=== PATIENT | female | born 1940 | race Caucasian/White ===

== ENCOUNTER → 2016-10-23 | Outpatient (CLI) | payer OTHER ==
[~2016-10-23] VITALS: Ht 165.1 cm; Wt 94.8 kg
[~2016-10-23] MED LIST: ADV500INH INH; ALBU83IN INH; ALBUTEROL SULFATE 2.5 MG/0.5 ML INH NEB SOLN As Ordered ONE; ALBUTEROL SULFATE 2.5 MG/0.5 ML INH NEB SOLN INH ONE; BACT800T5 PO; CETI10TA PO; DILT240C77 PO; DILT360C2 PO; FERR325T3 PO; HUMA100I3 SC; INSULADS INJ; INSULADS SC; LIDOCAINE 2% INJ 100 MG/5 ML SDV (FOR ANES.) As Ordered ONE; MAGN400C2 PO; MOME50SP; NEXI40CA PO; NITR100C37 PO; NS 1,000 ML IV SCH; NYST100024 TOP; PARO20TA2 PO; PRAV40TA2 PO; PROA1AER INH; PROPOFOL 200 MG/20 ML VIAL As Ordered ONE; REST0.05 OP; SALI0.653; SENN-23 PO; SING10TA32 PO; SITA50TAB PO; TYLE325T5 PO; TYLE650T30 PO; VITA100037 PO; XARE15TA PO; albuterol neb INH; humalog SC; lantus insulin SC; nystatin powder TOP; proair inhaler INH
--- NOTE | 2016-10-23 12:14 | ROOR ---
Patient Name: Carmen Bryant Procedure Date: 10/23/2016 12:02 PM Date of : 1940 Age: 76 Room: [facility] Gender: Female Note Status: Finalized Procedure: Upper GI endoscopy + Biopsy Indications: Iron deficiency anemia, Dysphagia, Heartburn Providers: Ismael Garibay MD Referring MD: Vonnie Pack DO Requesting Provider: Medicines: Monitored Anesthesia Care Complications: No immediate complications. Procedure: Pre-Anesthesia Assessment: - The heart rate, respiratory rate, oxygen saturations, blood pressure, adequacy of pulmonary ventilation, and response to care were monitored throughout the procedure. The Endoscope was introduced through the mouth, and advanced to the second part of duodenum. The upper GI endoscopy was accomplished without difficulty. The patient tolerated the procedure well. Findings: The Z-line was regular and was found 40 cm from the incisors. Biopsies were taken with a cold forceps for histology. A small hiatal hernia was present. No other significant abnormalities were identified in a careful examination of the stomach. The exam of the duodenum was otherwise normal. Impression: - Z-line regular, 40 cm from the incisors. Biopsied. - Small hiatal hernia. - The examination was otherwise normal. Recommendation: - Await pathology results. - Discharge patient to home. - Follow an antireflux regimen. - Continue present medications. - Await pathology results. - Telephone GI clinic for pathology results in 1 week. - Return to referring physician. - The findings and recommendations were discussed with the patient's family. Ismael Garibay MD Ismael Garibay MD 10/23/2016 12:14:29 PM This report has been signed electronically. Number of Addenda: 0 Note Initiated On: 10/23/2016 12:02 PM Estimated Blood Loss: Estimated blood loss: none.
--- NOTE | 2016-10-23 12:31 | ROOR ---
Patient Name: Carmen Bryant Procedure Date: 10/23/2016 12:02 PM Date of : 1940 Age: 76 Room: [facility] Gender: Female Note Status: Finalized Procedure: Colonoscopy to Cecum Indications: Iron deficiency anemia Providers: Ismael Garibay MD Referring MD: Vonnie Pack DO Requesting Provider: Medicines: Monitored Anesthesia Care Complications: No immediate complications. Procedure: Pre-Anesthesia Assessment: - The heart rate, respiratory rate, oxygen saturations, blood pressure, adequacy of pulmonary ventilation, and response to care were monitored throughout the procedure. The Colonoscope was introduced through the anus and advanced to the cecum, identified by appendiceal orifice and ileocecal valve. The colonoscopy was performed without difficulty. The patient tolerated the procedure well. The quality of the bowel preparation was excellent. Findings: The perianal and digital rectal examinations were normal. Non-bleeding internal hemorrhoids were found during retroflexion. The hemorrhoids were small and Grade I (internal hemorrhoids that do not prolapse). Multiple small and large-mouthed diverticula were found in the recto-sigmoid colon, sigmoid colon and descending colon. The exam was otherwise without abnormality on direct and retroflexion views. Impression: - Non-bleeding internal hemorrhoids. - Diverticulosis in the recto-sigmoid colon, in the sigmoid colon and in the descending colon. - The examination was otherwise normal on direct and retroflexion views. - No specimens collected. - The exam was otherwise normal to the cecum. Recommendation: - Patient has a contact number available for emergencies. The signs and symptoms of potential delayed complications were discussed with the patient. Return to normal activities tomorrow. Written discharge instructions were provided to the patient. - High fiber diet. - Discharge patient to home. - Continue present medications. - Repeat colonoscopy symptoms only. - Return to referring physician. - The findings and recommendations were discussed with the patient's family. Ismael Garibay MD Ismael Garibay MD 10/23/2016 12:31:24 PM This report has been signed electronically. Number of Addenda: 0 Note Initiated On: 10/23/2016 12:02 PM Estimated Blood Loss: Estimated blood loss: none.
[2016-10-23 13:05] VITALS: BP 160/60
== END ==
LOC: M OPP 10:03
PROVIDERS: ATTEND Internal Medicine Gastroenterology
DX: D50.9 Iron deficiency anemia, unspecified (principal); K57.30 Diverticulosis of large intestine without perforation or abscess without bleeding; K44.9 Diaphragmatic hernia without obstruction or gangrene; K20.9 Esophagitis, unspecified; I48.91 Unspecified atrial fibrillation; I10 Essential (primary) hypertension; E78.00 Pure hypercholesterolemia, unspecified; E11.9 Type 2 diabetes mellitus without complications; R06.83 Snoring; Z95.5 Presence of coronary angioplasty implant and graft; Z87.891 Personal history of nicotine dependence; Z79.899 Other long term (current) drug therapy

== ENCOUNTER → 2017-02-09 | Outpatient (CLI) | payer OTHER ==
[~2017-02-09] MED LIST changes: -ALBUTEROL SULFATE 2.5 MG/0.5 ML INH NEB SOLN As Ordered ONE; -ALBUTEROL SULFATE 2.5 MG/0.5 ML INH NEB SOLN INH ONE; -LIDOCAINE 2% INJ 100 MG/5 ML SDV (FOR ANES.) As Ordered ONE; -NS 1,000 ML IV SCH; -PARO20TA2 PO; +PARO20TA3 PO; -PROPOFOL 200 MG/20 ML VIAL As Ordered ONE
--- NOTE | 2017-02-09 12:13 | REP ---
RENAL ULTRASOUND: Real-time sonographic evaluation of the right kidney performed within this patient with a history of left nephrectomy 2 years ago. The right kidney is normal in size and echotexture, measuring 12.2 x 5.5 x 5.5 cm. There is no hydronephrosis. Multiple cysts are seen of the right kidney, the largest in the lower pole measuring 3.5 x 3.2 x 3.3 cm. The next largest is in the mid aspect laterally 1.6 x 1.6 x 1.2 cm. There is no hydronephrosis or nephrolithiasis. The urinary bladder is mildly distended and not optimally evaluated. Left renal fossa appears unremarkable with no sonographic evidence of a mass. IMPRESSION: No right hydronephrosis. Right renal cysts. Signed by Avtar Snell MD 02/09/2017 01:42 P
== END ==
LOC: M RAD 11:17
PROVIDERS: ATTEND Internal Medicine Nephrology
DX: N17.9 Acute kidney failure, unspecified (principal); N39.0 Urinary tract infection, site not specified; N28.1 Cyst of kidney, acquired

== ENCOUNTER → 2017-02-16 | Outpatient (REF) | payer OTHER ==
[2017-02-19 10:22] LABS: HEPATITIS B SURFACE ANTIBODY NEGATIVE (POSITIVE)
== END ==
LOC: M LAB REF 17:21
PROVIDERS: ATTEND Internal Medicine Nephrology
DX: N18.6 End stage renal disease (principal)

== ENCOUNTER 2017-02-17 08:12 | Outpatient (CLI) | payer OTHER ==
[~2017-02-17] VITALS: Ht 165.1 cm; Wt 95.9 kg
[2017-02-17 08:30] VITALS: BP 179/60
[2017-02-17] MEDS ORDERED: cefTRIAXone SOD 2 GM in D5W MINI-BAG PLUS 50 ML IV ONE (09:00)
== END 2017-02-17 10:35 | disposition home or self-care (01) ==
LOC: M OPCLIPED 08:12 → M MSPAV 08:15 → M OPCLIPED 10:35
PROVIDERS: ATTEND Internal Medicine Nephrology
DX: N39.0 Urinary tract infection, site not specified (principal)
CPT/HCPCS: 96365; J0696

== ENCOUNTER 2017-02-18 08:02 | Outpatient (CLI) | payer OTHER ==
[~2017-02-18] VITALS: Ht 165.1 cm; Wt 95.9 kg
[2017-02-18] MEDS ORDERED: cefTRIAXone SOD 2 GM in D5W MINI-BAG PLUS 50 ML IV ONE (08:30)
[2017-02-18 09:00] VITALS: BP 172/58
[2017-02-18 11:00] VITALS: BP 170/58
== END 2017-02-18 10:19 | disposition home or self-care (01) ==
LOC: M OPCLI4PV 08:02 → M MSPAV 08:05 → M OPCLI4PV 10:19
PROVIDERS: ATTEND Internal Medicine Nephrology
DX: N39.0 Urinary tract infection, site not specified (principal)
CPT/HCPCS: 96374; J0696

== ENCOUNTER 2017-02-19 07:56 | Outpatient (CLI) | payer OTHER ==
[~2017-02-19] VITALS: Ht 165.1 cm; Wt 95.9 kg
[2017-02-19] MEDS ORDERED: cefTRIAXone SOD 2 GM in D5W MINI-BAG PLUS 50 ML IV ONE (08:30)
[2017-02-19 08:35] VITALS: BP 162/68
[2017-03-02] MEDS ORDERED: FURO20TA2 (11:45)
[2017-03-02] MEDS ORDERED: AUGM875T27 PO (12:53)
== END 2017-02-19 10:41 | disposition home or self-care (01) ==
LOC: M OPCLI4PV 07:56 → M OPCLIPED 07:56 → M MSPAV 08:11 → M OPCLI4PV 10:41
PROVIDERS: ATTEND Internal Medicine Nephrology
DX: N10 Acute pyelonephritis (principal); Z88.1 Allergy status to other antibiotic agents; Z91.048 Other nonmedicinal substance allergy status
CPT/HCPCS: 96374; J0696

== ENCOUNTER 2017-02-20 09:59 | Outpatient (CLI) | payer OTHER ==
[~2017-02-20] VITALS: Ht 165.1 cm; Wt 95.9 kg
[~2017-02-20 09:59] MED LIST changes: -NITR100C37 PO; +NITR100C39 PO; -NYST100024 TOP; +NYST1POW9 TOP; -PROA1AER INH; +PROAAER10 INH; -REST0.05 OP; +REST0.05 OU; +SALI0.6523; -SALI0.653; -VITA100037 PO; +VITA100067 PO
[2017-02-20 10:10] VITALS: BP 170/62
[2017-02-20] MEDS ORDERED: cefTRIAXone SOD 2 GM in D5W MINI-BAG PLUS 50 ML IV ONE (10:30)
[2017-02-20 13:15] VITALS: BP 174/64
[2017-03-19] MEDS ORDERED: MOME50SP (11:09)
[2017-03-19] MEDS ORDERED: DILT360C16 PO (11:09)
[2017-03-19] MEDS ORDERED: TYLE650T35 PO (11:09)
[2017-03-19] MEDS ORDERED: ADV500INH INH (11:09)
[2017-03-19] MEDS ORDERED: XARE15TA PO (11:09)
[2017-03-19] MEDS ORDERED: SITA50TAB PO (11:09)
[2017-03-19] MEDS ORDERED: ELIQ2.5T PO (12:14)
== END 2017-02-20 13:20 | disposition home or self-care (01) ==
LOC: M OPCLIPED 09:59 → M PED 10:06 → M OPCLIPED 13:20
PROVIDERS: ATTEND Internal Medicine Nephrology
DX: N10 Acute pyelonephritis (principal); B96.20 Unspecified Escherichia coli [E. coli] as the cause of diseases classified elsewhere; Z88.1 Allergy status to other antibiotic agents; Z91.048 Other nonmedicinal substance allergy status; Z79.899 Other long term (current) drug therapy
CPT/HCPCS: 96365; J0696

== ENCOUNTER 2017-02-21 09:07 | Outpatient (CLI) | payer OTHER ==
[2017-02-21] MEDS ORDERED: cefTRIAXone SOD 2 GM in D5W MINI-BAG PLUS 50 ML IV ONE (09:45)
[2017-03-19] MEDS ORDERED: XARE15TA PO (11:09)
[2017-03-19] MEDS ORDERED: SITA50TAB PO (11:09)
[2017-03-19] MEDS ORDERED: ADV500INH INH (11:09)
[2017-03-19] MEDS ORDERED: DILT360C16 PO (11:09)
[2017-03-19] MEDS ORDERED: MOME50SP (11:09)
[2017-03-19] MEDS ORDERED: TYLE650T35 PO (11:09)
[2017-03-19] MEDS ORDERED: ELIQ2.5T PO (12:14)
== END 2017-02-21 10:45 | disposition home or self-care (01) ==
LOC: M INFU 09:07
PROVIDERS: ATTEND Internal Medicine Nephrology
DX: N10 Acute pyelonephritis (principal); B96.20 Unspecified Escherichia coli [E. coli] as the cause of diseases classified elsewhere; Z88.1 Allergy status to other antibiotic agents; Z91.048 Other nonmedicinal substance allergy status; Z79.899 Other long term (current) drug therapy
CPT/HCPCS: 96365; J0696

== ENCOUNTER 2017-02-22 08:37 | Outpatient (CLI) | payer OTHER ==
[~2017-02-22] VITALS: Ht 165.1 cm; Wt 95.9 kg
[~2017-02-22 08:37] MED LIST changes: +cefTRIAXone SOD 2 GM in D5W MINI-BAG PLUS 50 ML IV ONE
[2017-03-19] MEDS ORDERED: ADV500INH INH (11:09)
[2017-03-19] MEDS ORDERED: SITA50TAB PO (11:09)
[2017-03-19] MEDS ORDERED: TYLE650T35 PO (11:09)
[2017-03-19] MEDS ORDERED: MOME50SP (11:09)
[2017-03-19] MEDS ORDERED: DILT360C16 PO (11:09)
[2017-03-19] MEDS ORDERED: XARE15TA PO (11:09)
[2017-03-19] MEDS ORDERED: ELIQ2.5T PO (12:14)
== END 2017-02-22 09:30 | disposition home or self-care (01) ==
LOC: M INFU 08:37
PROVIDERS: ATTEND Internal Medicine Nephrology
DX: N10 Acute pyelonephritis (principal); B96.20 Unspecified Escherichia coli [E. coli] as the cause of diseases classified elsewhere; Z88.1 Allergy status to other antibiotic agents; Z91.048 Other nonmedicinal substance allergy status; Z79.899 Other long term (current) drug therapy
CPT/HCPCS: 96365; J0696

== ENCOUNTER 2017-02-23 10:19 | Outpatient (CLI) | payer OTHER ==
[~2017-02-23] VITALS: Ht 165.1 cm; Wt 95.9 kg
[~2017-02-23 10:19] MED LIST changes: +NITR100C37 PO; -NITR100C39 PO; +NYST100024 TOP; -NYST1POW9 TOP; +PROA1AER INH; -PROAAER10 INH; +REST0.05 OP; -REST0.05 OU; -SALI0.6523; +SALI0.653; +VITA100037 PO; -VITA100067 PO; -cefTRIAXone SOD 2 GM in D5W MINI-BAG PLUS 50 ML IV ONE
[2017-02-23] MEDS ORDERED: cefTRIAXone SOD 2 GM in D5W MINI-BAG PLUS 50 ML IV ONE (10:30)
[2017-03-02] MEDS ORDERED: FURO20TA2 (11:45)
[2017-03-02] MEDS ORDERED: AUGM875T27 PO (12:53)
== END 2017-02-23 11:20 | disposition home or self-care (01) ==
LOC: M INFU 10:19
PROVIDERS: ATTEND Internal Medicine Nephrology
DX: N10 Acute pyelonephritis (principal); Z88.1 Allergy status to other antibiotic agents; Z91.048 Other nonmedicinal substance allergy status; Z79.899 Other long term (current) drug therapy
CPT/HCPCS: 96365; J0696

== ENCOUNTER 2017-02-24 08:51 | Outpatient (CLI) | payer OTHER ==
[2017-02-24 09:15] VITALS: BP 170/80
[2017-02-24] MEDS ORDERED: cefTRIAXone SOD 2 GM in D5W MINI-BAG PLUS 50 ML IV ONE (09:30)
[2017-02-24 10:38] VITALS: BP 166/58
[2017-03-02] MEDS ORDERED: FURO20TA2 (11:45)
[2017-03-02] MEDS ORDERED: AUGM875T27 PO (12:53)
== END 2017-02-24 10:40 | disposition home or self-care (01) ==
LOC: M OPCLI5PR 08:51 → M INFU 08:51 → M MS5PR 09:00 → M OPCLI5PR 10:40
PROVIDERS: ATTEND Internal Medicine Nephrology
DX: N10 Acute pyelonephritis (principal); Z88.1 Allergy status to other antibiotic agents; Z91.048 Other nonmedicinal substance allergy status; Z79.899 Other long term (current) drug therapy
CPT/HCPCS: 96365; J0696

== ENCOUNTER 2017-02-25 08:51 | Outpatient (CLI) | payer OTHER ==
[2017-02-25 09:00] VITALS: BP 158/80
[2017-02-25] MEDS ORDERED: cefTRIAXone SOD 2 GM in D5W MINI-BAG PLUS 50 ML IV ONE (10:00)
[2017-03-02] MEDS ORDERED: FURO20TA2 (11:45)
[2017-03-02] MEDS ORDERED: AUGM875T27 PO (12:53)
== END 2017-02-25 11:07 | disposition home or self-care (01) ==
LOC: M OPCLIPED 08:51 → M MSPAV 08:53 → M OPCLIPED 11:07
PROVIDERS: ATTEND Internal Medicine Nephrology
DX: N10 Acute pyelonephritis (principal); Z88.1 Allergy status to other antibiotic agents; Z91.048 Other nonmedicinal substance allergy status; Z79.899 Other long term (current) drug therapy
CPT/HCPCS: 96374; J0696

== ENCOUNTER 2017-02-26 08:39 | Outpatient (CLI) | payer OTHER ==
[~2017-02-26] VITALS: Ht 165.1 cm; Wt 95.9 kg
[~2017-02-26 08:39] MED LIST changes: -AUGM875T27 PO; -ELIQ2.5T; -FURO20TA2
[2017-02-26] MEDS ORDERED: cefTRIAXone SOD 2 GM in D5W MINI-BAG PLUS 50 ML IV ONE (08:45)
[2017-03-02] MEDS ORDERED: FURO20TA2 (11:45)
[2017-03-02] MEDS ORDERED: AUGM875T27 PO (12:53)
== END 2017-02-26 09:30 | disposition home or self-care (01) ==
LOC: M INFU 08:39
PROVIDERS: ATTEND Internal Medicine Nephrology
DX: N10 Acute pyelonephritis (principal); Z88.1 Allergy status to other antibiotic agents; Z91.048 Other nonmedicinal substance allergy status; Z79.899 Other long term (current) drug therapy
CPT/HCPCS: 85610; 96365; J0696

== ENCOUNTER → 2017-02-26 | Outpatient (REF) | payer OTHER ==
[~2017-02-26] MED LIST changes: +AUGM875T27 PO; +ELIQ2.5T; +FURO20TA2
[2017-02-26 18:18] LABS: INR 1.1
== END ==
LOC: M LAB REF 17:27
PROVIDERS: ATTEND Internal Medicine Nephrology
DX: R31.9 Hematuria, unspecified (principal)

== ENCOUNTER 2017-03-02 11:28 | Emergency (ER) | payer OTHER ==
[~2017-03-02] VITALS: Ht 165.1 cm; Wt 95.9 kg
[~2017-03-02 11:28] MED LIST changes: -NITR100C37 PO; +NITR100C39 PO; -NYST100024 TOP; +NYST1POW9 TOP; -PROA1AER INH; +PROAAER10 INH; -REST0.05 OP; +REST0.05 OU; +SALI0.6523; -SALI0.653; -VITA100037 PO; +VITA100067 PO
[2017-03-02] MEDS ORDERED: ELIQ2.5T (11:45)
[2017-03-02] MEDS ORDERED: FURO20TA2 PO (11:45)
[2017-03-02] MEDS ORDERED: LIDOCAINE 1% MDV 20ML VIAL As Ordered ONE (12:14)
[2017-03-02] MEDS ORDERED: LIDOCAINE W/EPINEPHRINE 1% 20ML VIAL SC ONE (12:15)
[2017-03-02] MEDS ORDERED: AUGM875T28 PO (12:53)
[2017-03-02] MEDS ORDERED: ADACEL/BOOSTRIX VACCINE (DIPHTH/PERTUSS/ACELL/TETANUS)0.5ML SYR (90715) IM ONE (13:00)
[2017-03-02 13:03] VITALS: BP 193/86
[2017-03-19] MEDS ORDERED: TYLE650T35 PO (11:09)
[2017-03-19] MEDS ORDERED: DILT360C16 PO (11:09)
[2017-03-19] MEDS ORDERED: SITA50TAB PO (11:09)
[2017-03-19] MEDS ORDERED: MOME50SP (11:09)
[2017-03-19] MEDS ORDERED: ADV500INH INH (11:09)
[2017-03-19] MEDS ORDERED: XARE15TA PO (11:09)
[2017-03-19] MEDS ORDERED: ELIQ2.5T PO (12:14)
== END 2017-03-02 13:05 | disposition home or self-care (01) ==
LOC: M ED 12:50
DX: S91.341A Puncture wound with foreign body, right foot, initial encounter (principal); W25.XXXA Contact with sharp glass, initial encounter; Y92.019 Unspecified place in single-family (private) house as the place of occurrence of the external cause; Y93.01 Activity, walking, marching and hiking; Y99.8 Other external cause status; E11.9 Type 2 diabetes mellitus without complications; I10 Essential (primary) hypertension; E78.00 Pure hypercholesterolemia, unspecified; J45.909 Unspecified asthma, uncomplicated; G47.30 Sleep apnea, unspecified; Z87.442 Personal history of urinary calculi; Z90.79 Acquired absence of other genital organ(s); Z90.89 Acquired absence of other organs

== ENCOUNTER → 2017-03-07 | Outpatient (CLI) | payer OTHER ==
[~2017-03-07] MED LIST changes: +AUGM875T28 PO; +DILT360C16 PO; +ELIQ2.5T; +ELIQ2.5T PO; +FURO20TA2 PO; +HEPARIN 1,000 UNITS/ML 10ML VIAL (FOR RADIOLOGY& DIALYSIS ONLY) As Ordered ONE; +LIDOCAINE 2% MDV 20 ML VIAL As Ordered ONE; +TYLE650T35 PO
--- NOTE | 2017-03-07 17:48 | REPKIM ---
CLINICAL HISTORY: Renal failure, h/o atrial flutter, DM, HTN and sleep apnea. The referring service has requested a tunneled dialysis catheter placement for hemodialysis. PROCEDURE PERFORMED: Right IJ Tunneled Hemodialysis Catheter Placement INTERVENTIONALIST: Marietta Bingham MD CONSENT: The risks, benefits and alternatives to the procedure were explained to the patient and informed written consent was obtained and witnessed. MEDICATIONS: Local Lidocaine EBL: 10 mL DEVICE USED: 14.5-Kyrgyz 19-cm tip to cuff Palindrome Catheter Lot#[id number] FLUORO TIME: 0.4 minutes PROCEDURE/FINDINGS: The patient was brought to the interventional radiology suite where a timeout procedure was performed. The patient was placed in the supine position. The right neck and upper chest were prepped and draped in the usual sterile fashion. Real time ultrasound was used and permanent image stored. Using ultrasound guidance the internal jugular vein was punctured with a micropunture needle, after infiltration of the skin and deep tissues with local anesthetic. A 19-cm tip to cuff length, 14.5-Kyrgyz dual lumen Palindrome hemodialysis catheter was inserted. The catheter was placed through a subcutaneous tunnel requiring a second incision. The incision at the base of the neck was closed with 4-0 Vicryl suture and covered with steristrips. The catheter was secured at the skin exit site with 2-0 Prolene suture. The ports of the catheter were locked with heparin (1000 units/mL). A sterile dressing was then applied. Post procedure chest fluoroscopy showed the tip of the catheter at the SVC The patient tolerated the procedure with no immediate complications. This procedure was performed using ultrasound and fluoroscopy. Dr. Bingham was present. IMPRESSION: 1. Ultrasound of the neck demonstrates patent right IJ vein and compressible. The right IJ is small in size. 2. Successful right IJ tunneled hemodialysis catheter placement as discussed above. There is free aspiration of blood from all ports of the catheter. The catheter is ready for immediate use. cc: Elmer Daughrety MD [facility]
== END | disposition home or self-care (01) ==
LOC: M IRPRO 12:29
PROVIDERS: ATTEND Internal Medicine Nephrology
DX: E11.22 Type 2 diabetes mellitus with diabetic chronic kidney disease (principal); I12.0 Hypertensive chronic kidney disease with stage 5 chronic kidney disease or end stage renal disease; N18.5 Chronic kidney disease, stage 5; G47.30 Sleep apnea, unspecified
CPT/HCPCS: 36558; 76937; 77001; C1750; C1769; C1894

== ENCOUNTER → 2017-03-22 | Day surgery (SDC) | payer OTHER ==
[~2017-03-22] VITALS: Ht 167.6 cm; Wt 95.7 kg
[~2017-03-22] MED LIST changes: +ALBUTEROL SULFATE 2.5 MG/0.5 ML INH NEB SOLN As Ordered ONE; +ALBUTEROL SULFATE 2.5 MG/0.5 ML INH NEB SOLN INH ONE; +BUPIVACAINE HCL 0.5% 30 ML VIAL As Ordered ONE; +D5W/0.2% SODIUM CHLORIDE 1,000 ML IV SCH; -HEPARIN 1,000 UNITS/ML 10ML VIAL (FOR RADIOLOGY& DIALYSIS ONLY) As Ordered ONE; +HEPARIN SOD (PORCINE) 5000 UNITS/ML VIAL As Ordered ONE; +HumaLOG INSULIN (NovoLOG) PER UNIT As Ordered ONE; +HumaLOG INSULIN (NovoLOG) PER UNIT SC ONE; +ISOVUE-300 61% 50ML VIAL (Q9967) As Ordered ONE; +LIDOCAINE 1% SDV INJ 30 ML VIAL As Ordered ONE; +LIDOCAINE 2% INJ 100 MG/5 ML SDV (FOR ANES.) As Ordered ONE; -LIDOCAINE 2% MDV 20 ML VIAL As Ordered ONE; +LR 1,000 ML IV ONE; +NS 1,000 ML IV SCH; +ONDANSETRON 4MG/2ML VIAL (J2405) As Ordered ONE; +PROPOFOL 200 MG/20 ML VIAL As Ordered ONE; +fentaNYL 100 MCG/2 ML INJECTION (J3010) As Ordered ONE
[2017-03-22 11:40] VITALS: BP 166/72
--- NOTE | 2017-03-24 08:15 | RO ---
DATE OF PROCEDURE: 03/22/2017 PREOPERATIVE DIAGNOSES: 1. End-stage renal disease requiring hemodialysis. 2. Diabetes mellitus. 3. Right internal jugular vein PermaCath. POSTPROCEDURE DIAGNOSES: 1. End-stage renal disease requiring hemodialysis. 2. Diabetes mellitus. 3. Right internal jugular vein PermaCath. PROCEDURE: Left radiocephalic arteriovenous fistula formation. SURGEON: Jermaine Yepez MD QUALITY CONTROL MANAGER: None. ANESTHESIA: Local monitored anesthesia care (MAC). INDICATION: Patient is a 77-year-old female with end-stage renal disease who currently dialyzes through a right internal jugular PermaCath. Patient was evaluated and felt to be a good candidate for a left radiocephalic arteriovenous fistula. Risks, benefits, and alternative treatment options were discussed with the patient. Alternative treatment options included, but were not limited to no intervention with continued dialysis through the PermaCath. Risks included, but were not limited to infection, bleeding, possible need for further open surgical intervention, failure of arteriovenous fistula maintaining patency with thrombosis, failure of arteriovenous fistula to mature requiring secondary intervention, possible need for creation of a new access steal syndrome, cerebrovascular accident, myocardial infarction, pulmonary embolus, deep venous thrombosis (DVT), loss of limb, loss of life, and poor outcome. Patient understands, accepts these risks and consents to proceed. ESTIMATED BLOOD LOSS: 25 mL. IV FLUID: 200 mL. HEPARIN: None. COMPLICATIONS: None. SPECIMENS: None. IMPLANTS: None. DESCRIPTION OF PROCEDURE: Patient was taken to the operating room and placed supine on the operating room table and then prepped and draped in a standard surgical fashion. Two incisions were made at the left wrist, one overlying the cephalic vein, one overlying the radial artery. Both of these were dissected sharply and exposed, and then encircled with vessel loops. The cephalic vein was transected as far distal as possible with the remnant ligated with a #3-0 silk suture. The cephalic vein was then dilated using heparinized saline and then brought through the two incisions through a tunnel to the radial artery. It was then anastomosed to the radial artery in an end-to-side fashion using #6-0 Prolene suture. Flow was re-established through the radial artery and showed good flow into the cephalic vein with good signal on Doppler ultrasound evaluation. Hemostasis was obtained with thrombin and Gelfoam, after which, the incisions were closed using #4-0 Monocryl suture in a running subcuticular fashion to close both incisions. Steri-Strips and dressings were applied. The patient tolerated the procedure well. All instrument, sponge and needle counts were correct at the end of the case. There were no complications. Dr. Yepez was present for and directed the entire case. The patient was transferred to the recovery room, awake, alert, extubated and in stable condition.
== END | disposition home or self-care (01) ==
LOC: M SDC 07:27
PROVIDERS: ATTEND Surgery Vascular Surgery
DX: N18.5 Chronic kidney disease, stage 5 (principal); E11.22 Type 2 diabetes mellitus with diabetic chronic kidney disease; E11.21 Type 2 diabetes mellitus with diabetic nephropathy; N11.9 Chronic tubulo-interstitial nephritis, unspecified; N25.81 Secondary hyperparathyroidism of renal origin; D63.1 Anemia in chronic kidney disease; I15.0 Renovascular hypertension; I48.91 Unspecified atrial fibrillation; I48.92 Unspecified atrial flutter; J45.909 Unspecified asthma, uncomplicated; B35.4 Tinea corporis; I25.41 Coronary artery aneurysm; E78.00 Pure hypercholesterolemia, unspecified; R06.83 Snoring; R32 Unspecified urinary incontinence; R29.898 Other symptoms and signs involving the musculoskeletal system; J32.0 Chronic maxillary sinusitis; K21.9 Gastro-esophageal reflux disease without esophagitis; G47.30 Sleep apnea, unspecified; Z88.1 Allergy status to other antibiotic agents; Z88.8 Allergy status to other drugs, medicaments and biological substances; Z79.899 Other long term (current) drug therapy; Z79.01 Long term (current) use of anticoagulants; Z87.891 Personal history of nicotine dependence; Z87.442 Personal history of urinary calculi; Z90.710 Acquired absence of both cervix and uterus; Z96.1 Presence of intraocular lens; M12.9 Arthropathy, unspecified; Z87.440 Personal history of urinary (tract) infections; Z95.5 Presence of coronary angioplasty implant and graft; Z91.09 Other allergy status, other than to drugs and biological substances
CPT/HCPCS: 36415; 36821; 84132; J2405; J3010

== ENCOUNTER → 2017-04-06 | Outpatient (CLI) | payer OTHER ==
[~2017-04-06] MED LIST changes: -ALBUTEROL SULFATE 2.5 MG/0.5 ML INH NEB SOLN As Ordered ONE; -ALBUTEROL SULFATE 2.5 MG/0.5 ML INH NEB SOLN INH ONE; -BUPIVACAINE HCL 0.5% 30 ML VIAL As Ordered ONE; -D5W/0.2% SODIUM CHLORIDE 1,000 ML IV SCH; +HEPARIN 1,000 UNITS/ML 10ML VIAL (FOR RADIOLOGY& DIALYSIS ONLY) As Ordered ONE; -HEPARIN SOD (PORCINE) 5000 UNITS/ML VIAL As Ordered ONE; -HumaLOG INSULIN (NovoLOG) PER UNIT As Ordered ONE; -HumaLOG INSULIN (NovoLOG) PER UNIT SC ONE; -LIDOCAINE 1% SDV INJ 30 ML VIAL As Ordered ONE; -LIDOCAINE 2% INJ 100 MG/5 ML SDV (FOR ANES.) As Ordered ONE; -LR 1,000 ML IV ONE; +MIDAZOLAM INJ 2 MG/2 ML VIAL (J2250) As Ordered ONE; -NS 1,000 ML IV SCH; -ONDANSETRON 4MG/2ML VIAL (J2405) As Ordered ONE; -PROPOFOL 200 MG/20 ML VIAL As Ordered ONE
--- NOTE | 2017-04-06 16:48 | REP ---
IMAGING DURING LEFT ARM ANGIOGRAM: Multiple images are performed during left arm angiogram. 0.2 minutes of fluoroscopy time utilized for the procedure. Signed by Avtar Snell MD 04/06/2017 04:52 P
--- NOTE | 2017-04-20 10:48 | REPKIM ---
DATE OF PROCEDURE: 04/06/2017 PREPROCEDURE DIAGNOSIS: End-stage renal disease, nonmaturing left radiocephalic arteriovenous fistula, right internal jugular vein PermCath. POSTPROCEDURE DIAGNOSIS: End-stage renal disease, nonmaturing left radiocephalic arteriovenous fistula, right internal jugular vein PermCath. PROCEDURE: Left radiocephalic arteriovenous fistulogram, retrograde left radial artery angiogram. SURGEON: Dr. Wilfredo Yepez COMMERCIAL HELICOPTER PILOT: Kirstin Vega ANESTHESIA: Local. ESTIMATED BLOOD LOSS: Minimal. IV FLUID: 100 mL. FLUORO TIME: 0.2 minutes. CONTRAST: 2 mL. HEPARIN: None. COMPLICATIONS: None. DRAINS: None. SPECIMENS: None. IMPLANTS: None. INDICATION: The patient is a 77-year-old female who underwent creation of a left radiocephalic arteriovenous fistula, which is nonmaturing and unusable for hemodialysis at this time. Patient currently dialyzes through a right internal jugular vein PermCath. The patient will undergo a fistulogram with possible angioplasty and/or stent. Risks, benefits and alternative treatment options were discussed with the patient. Alternative treatment options included but were not limited to no intervention. Benefits included but were not limited to improved size and flow through the fistula making the fistula usable for hemodialysis. Risks included but were not limited to infection, bleeding, loss of arteriovenous access, steal syndrome, possible need for open surgical intervention, possible need for further endovascular intervention, cerebrovascular accident, myocardial infarction, pulmonary embolus, deep vein thrombosis (DVT), loss of limb, loss of life and poor outcome. Patient understands, accepts these risks and consents to proceed. DESCRIPTION OF PROCEDURE: Patient was taken to the angiography suite, placed supine on the angiography room table and the left upper extremity was prepped and draped in the standard surgical fashion. The arteriovenous fistula was cannulated with a micropuncture needle after anesthetizing the overlying skin with 2% lidocaine. The micropuncture sheath was advanced over the micropuncture wire and a fistulogram and retrograde left radial artery angiogram were performed showing no intervention required at this time. The sheath was removed and manual compression applied for hemostasis. Dressings were then applied. The patient tolerated the procedure well. All instrument, sponge and needle counts were correct at the end of the case. There were no complications. Dr. Yepez was present for and directed the entire case. The patient was transferred to the holding area and subsequently discharged in stable condition. RADIOLOGIC SUPERVISION INTERPRETATION: Fistulogram showed the cephalic vein from the wrist to the upper arm to be widely patent. The retrograde left radial artery angiogram showed the arteriovenous anastomosis to be patent, and there was a large collateral originating off the cephalic vein at the wrist and coursing into the deeper venous system. CONCLUSION: The patient underwent a fistulogram and retrograde left radial artery angiogram showing the cephalic vein to be enlarging in size and not requiring any intervention at this time.
== END | disposition home or self-care (01) ==
LOC: M RADPRO 11:49 → M IRPRO 11:49
PROVIDERS: ATTEND Surgery Vascular Surgery
DX: T82.898A Other specified complication of vascular prosthetic devices, implants and grafts, initial encounter (principal); N18.6 End stage renal disease; Z99.2 Dependence on renal dialysis
CPT/HCPCS: 36901; C1894; Q9967

== ENCOUNTER → 2017-05-15 | Outpatient (CLI) | payer OTHER ==
[~2017-05-15] MED LIST changes: -MIDAZOLAM INJ 2 MG/2 ML VIAL (J2250) As Ordered ONE; -fentaNYL 100 MCG/2 ML INJECTION (J3010) As Ordered ONE
--- NOTE | 2017-05-16 08:06 | REPKIM ---
DATE OF PROCEDURE: 05/15/2017 PREPROCEDURE DIAGNOSES: End stage renal disease, non-maturing left brachiocephalic arterial venous fistula, right internal jugular vein PermCath. POSTPROCEDURE DIAGNOSES: End stage renal disease, non-maturing left brachiocephalic arterial venous fistula, right internal jugular vein PermCath. PROCEDURE: Left brachiocephalic arterial venous fistulogram, left cephalic vein angioplasty with 7 x 150 mm balloon. SURGEON: Dr. Jermaine Yepez. MIXER OPERATOR HOT METAL: Kirstin Escoto, RT ANESTHESIA: Local with 1 mL of 2% lidocaine. ESTIMATED BLOOD LOSS: FLUORO TIME: 0.0 CONTRAST: 2 mL. HEPARIN: None. COMPLICATIONS: None. DRAINS: None. SPECIMENS: None. IMPLANTS: None. INDICATION: The patient is a 77-year-old female who underwent creation of a left brachiocephalic arterial venous fistula which has been slow to mature and at this point unable to be used for hemodialysis. Patient is currently dialyzing through a right internal jugular vein PermCath. Patient will undergo a fistulogram with possible angioplasty and/or stent. Risks, benefits and alternative treatment options were discussed with the patient. Benefits included but were not limited to improved size of flow through the fistula with ability to use the fistula and undergo removal of the PermCath. Alternative treatment options included but were not limited to no intervention. Risks included but were not limited to infection, bleeding, loss of arterial venous access, possible need for open surgical intervention, steal syndrome, cerebrovascular accident, myocardial infarction, pulmonary embolus, deep venous thrombosis, loss of limb, loss of life, and poor outcome. Patient's questions were answered. Patient voices understanding of these risks, benefits and alternative treatment options. Patient agrees to proceed with a left brachiocephalic arteriovenous fistulogram with possible angioplasty and stent and accepts the associated risks. PROCEDURE: The patient was taken to the angiography suite and placed supine on the angiography room table and the left upper extremity was prepped and draped in the standard surgical fashion. A time out was then conducted by myself and the team members within the room confirming the correct patient, procedure and laterality. The left brachiocephalic arterial venous fistula was then cannulated with a micropuncture needle after anesthetizing the overlying skin with 2% lidocaine. The micropuncture wire was advanced through the micropuncture needle which was upsized to a micropuncture sheath. A fistulogram was performed showing the cephalic vein to be patent to the antecubital fossa where there was a large cephalic vein going into the upper arm but between the antecubital fossa and the puncture site, the cephalic vein was small and sclerotic. The [place] wire was advanced through the micropuncture sheath which was upsized to a #6-Bahraini sheath. A 7 x 150 mm balloon was then used to angioplasty the cephalic vein from the puncture site at the wrist to the antecubital fossa. The patient was unable to undergo sedation due to driving herself to the procedure and the balloon was only minimally inflated due to discomfort in the patient's arm. The balloon was then removed and a completion fistulogram performed showing improved size of flow through the fistula with a stronger thrill palpable. There were also a large number of collaterals originating off the cephalic vein and coursing into the deeper venous system along the forearm. Catheters and wires were removed. A #2-0 Prolene suture was then placed at the puncture site for hemostasis. Dressings were applied. Patient tolerated the procedure well. All instrument, sponge and needle counts were correct at the end of the case. There were no complications. Dr. Yepez was present for and directed the entire case. Patient was transferred to the holding area and subsequently discharged in stable condition. RADIOLOGIC SUPERVISION INTERPRETATION: The initial fistulogram showed two large collaterals originating off the cephalic vein and coursing into the deeper venous system of the forearm and upper arm. The cephalic vein from the puncture site at the wrist to the antecubital fossa was noted to be slightly small and sclerotic with areas of stenosis approximately 60-70% relatively to the cephalic vein at the wrist and at the antecubital fossa. The cephalic vein was then angioplastied with a 7 x 150 balloon with inability to fully inflate the balloon to high pressure due to discomfort in the patient's arm and her inability to undergo sedation since she drove herself to the procedure. A completion fistulogram was performed showing better flow through the main outflow channel of the cephalic vein which was improved in size and showed resolution of the stenoses but there was still some visualization of filling of the collateral veins in the forearm region.
== END | disposition home or self-care (01) ==
LOC: M IRPRO 07:28
PROVIDERS: ATTEND Surgery Vascular Surgery
DX: T82.858A Stenosis of other vascular prosthetic devices, implants and grafts, initial encounter (principal); N18.6 End stage renal disease; I87.8 Other specified disorders of veins; Z99.2 Dependence on renal dialysis
CPT/HCPCS: 36902; C1725; C1769; C1894; Q9967

== ENCOUNTER → 2017-06-12 | Outpatient (CLI) | payer OTHER ==
[~2017-06-12] MED LIST changes: +MIDAZOLAM INJ 2 MG/2 ML VIAL (J2250) As Ordered ONE; +fentaNYL 100 MCG/2 ML INJECTION (J3010) As Ordered ONE
--- NOTE | 2017-06-20 09:46 | REPKIM ---
DATE OF PROCEDURE: 06/12/2017 PREPROCEDURE DIAGNOSES: Endstage renal disease, dysfunctional left radiocephalic arteriovenous fistula with non-maturation. POSTPROCEDURE DIAGNOSES: Endstage renal disease, dysfunctional left radiocephalic arteriovenous fistula with non-maturation. PROCEDURE: Left radiocephalic arteriovenous fistulogram, retrograde left radial artery angiogram, left cephalic vein angioplasty with 8 x 200 mm balloon. SURGEON: Dr. Wilfredo Yepez BRUSHING MACHINE OPERATOR: Zohreh Fernandes and Kirstin Chapman. ANESTHESIA: Local with sedation of 1 mg of Versed, 50 mcg fentanyl, 1 mL of 2% lidocaine. Sedation time was from 12:48 pm to 1:00 pm with the sedation and cardiopulmonary monitoring performed by myself and the nurse in the room. I was present for and directed the entire care and all administration of sedation was performed under my supervision. CONTRAST: 3 mL. COMPLICATIONS: None. DRAINS: None. SPECIMENS: None. IMPLANTS: None. INDICATION: The patient is a 77-year-old female with endstage renal disease who underwent creation of a left brachiocephalic arteriovenous fistula which has been non-maturing and unable to be used for dialysis access. The patient will undergo a fistulogram with possible angioplasty and/or stent. Risks, benefits and alternative treatment options were discussed with the patient. DESCRIPTION OF PROCEDURE: The patient was taken to the angiography suite and placed supine on the angiography table and then the left upper extremity was prepped a draped in a standard surgical fashion. The left greater cephalic arteriovenous fistula was cannulated with a micropuncture needle after anesthetizing the overlying skin with 2% lidocaine. The micropuncture wire was advanced through the micropuncture needle which was up-sized to a micropuncture sheath. A fistulogram was performed showing narrowing of ht e cephalic vein in the forearm into the antecubital fossa but the cephalic vein was widely patent in the upper arm and essentially there was a large number of collaterals draining the fistula from the forearm into the deeper venous system. The cephalic vein was then angioplastied with an 8 x 200 mm balloon from the puncture site at the wrist to the antecubital fossa during which time a retrograde left radial artery angiogram was performed showing the anastomosis to be widely patent and good flow in the radial artery proximal to distal to the arteriovenous anastomosis. A completion fistulogram showed improved size and flow through the fistula with no residual stenosis remaining but there was continued filling of the collateral veins into the deeper venous system. Catheters and wires were removed. The sheath was removed and a #2-0 Prolene suture placed at the puncture site for hemostasis. Dressings were then applied. The patient tolerated the procedure well. All instruments, sponge and needle counts were correct at the end of the case. There were no complications. Dr. Yepez was present for and directed the entire case. The patient was transferred to the holding area and subsequently discharged in stable condition once the #2-0 Prolene suture was removed and good hemostasis noted. RADIOLOGIC SUPERVISION: The fistulogram showed the cephalic vein to be patent into the upper arm and into the central venous system with no stenosis noted in the central venous system. There was stenosis in the cephalic vein in the mid forearm, which was approximately 60-70%. There were also a large number of collateral veins draining the fistula from the wrist and forearm region into the deep venous system. The cephalic vein was angioplastied with a 8 x 200 balloon with a completion fistulogram showing no residual stenosis and good flow through the fistula but there was continued good flow also through the collateral veins. The retrograde radial artery angiogram showed the remainder of the cephalic vein to be patent to the anastomosis. The anastomosis was widely patent and there was good flow in the radial artery proximal and distal to the arteriovenous anastomosis. CONCLUSIONS: The patient underwent successful angioplasty of the cephalic vein with improved size and flow and the fistula may be used for attempted hemodialysis access. Due to the large number of collaterals, the fistula may still be difficult to use as the majority of the flow through the collaterals is preventing the ability to feel the fistula in the upper forearm easily. The patient may require ligation of these large collaterals in order for the fistula to be usable.
== END | disposition home or self-care (01) ==
LOC: M IRPRO 12:14
PROVIDERS: ATTEND Surgery Vascular Surgery
DX: T82.590A Other mechanical complication of surgically created arteriovenous fistula, initial encounter (principal); N18.6 End stage renal disease; I87.1 Compression of vein
CPT/HCPCS: 36902; 99152; 99153; C1725; C1769; C1894; J2250; J3010; Q9967

== ENCOUNTER → 2017-08-07 | Outpatient (REF) | payer OTHER ==
[~2017-08-07] MED LIST changes: -HEPARIN 1,000 UNITS/ML 10ML VIAL (FOR RADIOLOGY& DIALYSIS ONLY) As Ordered ONE; -ISOVUE-300 61% 50ML VIAL (Q9967) As Ordered ONE; -MIDAZOLAM INJ 2 MG/2 ML VIAL (J2250) As Ordered ONE; -fentaNYL 100 MCG/2 ML INJECTION (J3010) As Ordered ONE
[2017-08-10 00:08] LABS: ENDOMYSIAL ABY IgA Negative (Negative)
== END ==
LOC: M LAB REF 12:41
PROVIDERS: ATTEND Nurse Practitioner Adult Health
DX: R63.4 Abnormal weight loss (principal); D63.1 Anemia in chronic kidney disease

== ENCOUNTER → 2017-09-14 | Outpatient (CLI) | payer MEDICARE ==
[~2017-09-14] MED LIST changes: -ADV500INH INH; -ALBU83IN INH; -AUGM875T28 PO; -BACT800T5 PO; -CETI10TA PO; -DILT240C77 PO; -DILT360C16 PO; -DILT360C2 PO; -ELIQ2.5T; -ELIQ2.5T PO; -FERR325T3 PO; -FURO20TA2 PO; -HUMA100I3 SC; -INSULADS INJ; -INSULADS SC; +LIDOCAINE 2% MDV 20 ML VIAL As Ordered; -MAGN400C2 PO; -MOME50SP; -NEXI40CA PO; -NITR100C39 PO; -NYST1POW9 TOP; -PARO20TA3 PO; -PRAV40TA2 PO; -PROAAER10 INH; -REST0.05 OU; -SALI0.6523; -SENN-23 PO; -SING10TA32 PO; -SITA50TAB PO; -TYLE325T5 PO; -TYLE650T30 PO; -TYLE650T35 PO; -VITA100067 PO; -XARE15TA PO; -albuterol neb INH; -humalog SC; -lantus insulin SC; -nystatin powder TOP; -proair inhaler INH
== END | disposition home or self-care (01) ==
LOC: M IRPRO 10:21
DX: Z45.2 Encounter for adjustment and management of vascular access device (principal); N18.6 End stage renal disease; Z99.2 Dependence on renal dialysis
CPT/HCPCS: 36589

== ENCOUNTER → 2017-10-10 | Outpatient (CLI) | payer MEDICARE ==
[~2017-10-10] MED LIST changes: +ISOVUE-300 61% 50ML VIAL (Q9967) As Ordered; -LIDOCAINE 2% MDV 20 ML VIAL As Ordered
== END | disposition home or self-care (01) ==
LOC: M IRPRO 11:43
DX: T82.838A Hemorrhage due to vascular prosthetic devices, implants and grafts, initial encounter (principal); N18.6 End stage renal disease; Z99.2 Dependence on renal dialysis
CPT/HCPCS: 36901

== ENCOUNTER → 2017-11-11 | Outpatient (CLI) | payer MEDICARE | LOC: M WUC 10:42 | DX: S40.011A Contusion of right shoulder, initial encounter (principal); S50.01XA Contusion of right elbow, initial encounter; X58.XXXA Exposure to other specified factors, initial encounter; Y92.9 Unspecified place or not applicable | CPT/HCPCS: 73030 ==

== ENCOUNTER → 2018-08-13 | Outpatient (CLI) | payer MEDICARE | LOC: M LAB 14:13 | DX: I51.7 Cardiomegaly (principal); R05 Cough | CPT/HCPCS: 71046 ==

== ENCOUNTER → 2018-11-20 | Outpatient (CLI) | payer MEDICARE ==
[~2018-11-20] MED LIST changes: +ADV500INH INH; +ALBU83IN INH; +AUGM875T28 PO; +BACT800T5 PO; +CETI10TA PO; +DILT240C77 PO; +DILT360C16 PO; +DILT360C2 PO; +ELIQ2.5T; +ELIQ2.5T PO; +FERR325T3 PO; +FURO20TA2 PO; +HUMA100I3 SC; +INSULADS INJ; +INSULADS SC; -ISOVUE-300 61% 50ML VIAL (Q9967) As Ordered; +ISOVUE-300 61% 50ML VIAL (Q9967) As Ordered ONE; +LIDOCAINE 2% MDV 20 ML VIAL As Ordered ONE; +MAGN400C2 PO; +MIDAZOLAM INJ 2 MG/2 ML VIAL (J2250) As Ordered ONE; +MOME50SP; +NEXI40CA PO; +NITR100C39 PO; +NYST1POW9 TOP; +PARO20TA3 PO; +PRAV40TA2 PO; +PROAAER10 INH; +REST0.05 OU; +SALI0.6528; +SENN-23 PO; +SING10TA32 PO; +SITA50TAB PO; +TYLE325T5 PO; +TYLE650T30 PO; +TYLE650T35 PO; +VITA100067 PO; +XARE15TA PO; +albuterol neb INH; +fentaNYL 100 MCG/2 ML INJECTION (J3010) As Ordered ONE; +humalog SC; +lantus insulin SC; +nystatin powder TOP; +proair inhaler INH
--- NOTE | 2018-12-11 08:50 | REPIR ---
DATE OF PROCEDURE: 11/20/2018 PREOPERATIVE DIAGNOSES: End-stage renal disease, dysfunctional left radiocephalic arteriovenous fistula. POSTOPERATIVE DIAGNOSES: End stage renal disease, dysfunctional left radiocephalic arteriovenous fistula. PROCEDURE: Left radiocephalic arteriovenous fistulogram, selective left radial artery catheter placement with angiogram runoff. left radial artery angioplasty with 5 x 100, 5 x 2 cutting balloon and 5 x 100 balloon, left cephalic vein angioplasty with 5 x 100, 5 x 2 cutting balloon and 5 x 100 balloon. ATTENDING SURGEON: Dr. Wilfredo Yepez LEAD MECHANICAL ENGINEER: Ceci Fernandes INDICATION: The patient is 78-year-old female with a left radiocephalic arteriovenous fistula which has had difficulty with cannulation, as well as flow during hemodialysis. The patient will undergo a fistulogram with possible angioplasty stent and/or atherectomy. Risks, benefits and alternative treatment options were discussed with the patient. ANESTHESIA: Local with sedation with 2 mg Versed, 100 mcg of fentanyl, 2 mL of 2% lidocaine. FLUORO TIME: 2.7 minutes. CONTRAST: 2 mL of Isovue-300. SEDATION TIME: From 10:05 a.m. to 10:34 a.m. for a total of 29 minutes. The sedation and cardiopulmonary monitoring were performed under my direct supervision. I was present for and directed the entire case. COMPLICATIONS: None. DRAINS: None. SPECIMENS: None. IMPLANTS: None. DESCRIPTION OF PROCEDURE: The patient was taken to the angiography suite, placed supine on the angiography table and prepped and draped in the standard surgical fashion. The left radiocephalic arteriovenous fistula was cannulated and a catheter eventually placed in the radial artery in a retrograde fashion. The angiogram showed high grade stenosis at the radial artery cephalic vein anastomosis. This was angioplastied with a 5 x 100 balloon with inability to fully inflate the balloon. The radial artery and cephalic vein were then angioplastied with a 5.2 cutting balloon and the radial artery and cephalic vein were postdilated with a 5 x 100 balloon, which showed of the balloon at this time. A completion radial artery angiogram showed resolution of the stenosis with excellent flow into the cephalic vein into the upper arm and there was no stenosis noted. Catheters and wires were removed. The sheath was removed and a 2-0 Prolene suture placed at the puncture site for hemostasis. Dressings were then applied. The patient tolerated the procedure well. All instrument, sponge, needle counts were correct at the end the case. There were no complications. Dr. Yepez was present for and directed the entire case. The patient was transferred to holding area and subsequently discharged in stable condition with good flow noted in the arteriovenous fistula. The fistula was stable for use for continued hemodialysis access.
== END | disposition home or self-care (01) ==
LOC: M IRPRO 07:56
PROVIDERS: ATTEND Surgery Vascular Surgery
DX: T82.858A Stenosis of other vascular prosthetic devices, implants and grafts, initial encounter (principal); N18.6 End stage renal disease; Z99.2 Dependence on renal dialysis
CPT/HCPCS: 36902; 99152; 99153; C1725; C1769; C1887; C1894; J2250; J3010; Q9967

== ENCOUNTER → 2018-12-12 | Outpatient (REF) | payer MEDICARE ==
[~2018-12-12] MED LIST changes: +DILT1CAP6 PO; +DILT1CAP9 PO; -DILT240C77 PO; -DILT360C16 PO; -ISOVUE-300 61% 50ML VIAL (Q9967) As Ordered ONE; -LIDOCAINE 2% MDV 20 ML VIAL As Ordered ONE; -MIDAZOLAM INJ 2 MG/2 ML VIAL (J2250) As Ordered ONE; -fentaNYL 100 MCG/2 ML INJECTION (J3010) As Ordered ONE
== END ==
LOC: M LAB REF 12:49
PROVIDERS: ATTEND Internal Medicine
DX: J00 Acute nasopharyngitis [common cold] (principal)

== ENCOUNTER → 2019-06-29 | Outpatient (CLI) | payer MEDICARE ==
--- NOTE | 2019-07-02 10:05 | SLEEPCENT ---
DATE OF STUDY: 06/29/2019 ORDERED BY: Dr. Woods Nocturnal polysomnography was performed for evaluation of sleep physiology in this patient with a prior history of obstructive sleep apnea syndrome. 6 hours and 46 minutes of data were reviewed. There 256.5 minutes of sleep identified. Sleep latency was normal at 30 minutes. Rapid eye movement (REM) latency was normal at 115 minutes. Sleep architecture showed poor progression. There were two REM cycles noted. Overall sleep efficiency was 63.8%. The electrocardiogram showed a sinus rhythm with an average heart rate of 72 beats per minute. EEG showed reasonably normal waveforms for awake and sleep. There were 528 respiratory events identified of 10 seconds in duration or greater for an apnea-hypopnea index of 123.5. The events were primarily obstructive, however 99 central and mixed apneas were also seen. The events were slightly more common in the supine posture, but not exclusive to that position. Arousals from respiratory events occurred 34.4 times per hour and oxygen desaturations were seen well into the low 80s. There was some activity in the limb leads, but arousals were few and remaining measures of sleep physiology were normal. IMPRESSION: Severe obstructive sleep apnea syndrome (G47.33). Apnea-hypopnea index 123.5. RECOMMENDATION: The patient should be encouraged to return to the sleep disorder center at their earliest convenience for pressure therapy titration. In the interim, alcohol and sedative avoidance should be practiced and caution exercised during the operation of motor vehicles. cc: Elmer Daugherty MD
== END ==
LOC: M SLEEP 20:00
PROVIDERS: ATTEND Internal Medicine Pulmonary Disease
DX: G47.33 Obstructive sleep apnea (adult) (pediatric) (principal)

== ENCOUNTER → 2020-04-20 | Outpatient (CLI) | payer MEDICARE ==
[~2020-04-20] MED LIST changes: +ACET650T61 PO; +GASTROGRAFIN SOLUTION 30ML (Q9963) As Ordered ONE; +ISOVUE-370 76% 100ML VIAL As Ordered ONE; -TYLE650T35 PO
--- NOTE | 2020-06-01 08:03 | REP ---
CT ABDOMEN AND PELVIS WITHOUT AND WITH IV CONTRAST AND WITH ORAL CONTRAST HISTORY: Periumbilical abdominal tenderness. Report is delayed due to a malware attack on this facility. CT CONTRAST DOSE: 100 mL of intravenous Isovue-370 is administered. COMPARISON: CT study 04/26/2015. CT FINDINGS: Preliminary digital welding lead burner radiograph today shows an unremarkable bowel gas pattern. The lung bases are clear on axial CT images. There is no evidence of pleural effusion. Cardiac enlargement is observed, unchanged. The liver and the spleen are normal in size and homogeneous in texture. There is a small splenic cyst less than 1 cm in diameter near the splenic hilum. This appears to be new. The spleen measures 12 cm in greatest craniocaudal span. The left kidney is absent, apparently surgically absent in the interval since the 04/08/[address] study. There are several cysts affecting the right kidney, the largest of which is an anterior peripheral cyst measuring 4.3 cm in greatest diameter. This is a little larger, but not new when compared with the 2014 prior exam. It measured 3.0 cm in 2013. The appendix is surgically absent. No abnormality is visible in the gallbladder. There is a Phrygian cap configuration to the gallbladder. There is scattered left colonic diverticulosis with the diverticulosis most pronounced in the sigmoid colon. There is no definite evidence of diverticulitis. No abdominal wall defect is seen. No pancreatic abnormalities observed. No bony destructive lesion. IMPRESSION: Status post left nephrectomy and appendectomy. Left colonic diverticulosis. Right renal cyst. Mild cardiac enlargement. No acute intraabdominal abnormality. [facility]
== END ==
LOC: M RAD 10:00
PROVIDERS: ATTEND Internal Medicine Nephrology
DX: K57.32 Diverticulitis of large intestine without perforation or abscess without bleeding (principal); N20.0 Calculus of kidney; Z90.5 Acquired absence of kidney; Z90.89 Acquired absence of other organs; R10.815 Periumbilic abdominal tenderness
CPT/HCPCS: 74177; Q9963; Q9967

== ENCOUNTER → 2020-11-23 | Outpatient (CLI) | payer MEDICARE ==
[~2020-11-23] MED LIST changes: -GASTROGRAFIN SOLUTION 30ML (Q9963) As Ordered ONE; +ISOVUE-300 61% 50ML VIAL As Ordered ONE; -ISOVUE-370 76% 100ML VIAL As Ordered ONE; +LABETALOL 100MG/20ML VIAL As Ordered ONE; +LABETALOL 100MG/20ML VIAL IV ONE; +LIDOCAINE 1% MDV 20ML VIAL As Ordered ONE; +METOPROLOL 5 MG/5 ML VIAL As Ordered ONE; +MIDAZOLAM INJ 2MG/2ML VIAL (J2250 PER 1MG) As Ordered ONE; +fentaNYL 100 MCG/2 ML INJECTION (J3010) As Ordered ONE
[2020-11-23 14:29] VITALS: BP 121/57
--- NOTE | 2020-11-23 15:52 | ROOPDOC ---
[facility] Report Of Operation Report of Operation DATE OF PROCEDURE: 11/23/20 PREPROCEDURE DIAGNOSES: End-stage renal disease with difficulty cannulating left Debbie fistula POSTPROCEDURE DIAGNOSES: Same PROCEDURE: 1. Ultrasound-guided access left cephalic vein 2. Left upper extremity fistulogram and central venogram 3. Angioplasty left cephalic vein with a by 200 Montague balloon 4. Completion venogram SURGEON: Sara Rice MD ANESTHESIA: Local anesthesia 2 mL lidocaine. Moderate intravenous conscious sedation was administered by Dr. Rice. The patient was independently monitored by registered nurse assigned to the Department of radiology using automated blood pressure, EKG, and pulse oximetry. The detailed sedation record is permanently stored in the hospital information system. The following is a brief sedation record: Start time 15:07, stop time 15:28, Versed 0.5 mg IV, fentanyl 25 g IV. CONTRAST: 20 mL Isovue-300 INDICATION FOR PROCEDURE: This is a very pleasant 80-year-old patient, very noncompliant with her medications, who arrived today for a fistulogram due to difficulty with cannulation of her left Debbie fistula. When the patient arrived, she was in A. fib which is chronic, the heart rate in the 160s. Her blood pressure at that time was stable, systolic blood pressure 160s. She had 2 doses of beta cash IV but her heart rate was still in the 130s. After discussion with her primer press operator Dr. Eubanks, we gave her 10 mg of Cardizem IV, and following that, her heart rate was mostly maintained in the 90s-100s. She was asymptomatic the entire time. Her blood pressure remained stable. Her oxygen saturation was in the low 90s with and without 2 L of oxygen, but we discussed this with her and she said that is typical for her. She did take her breathing treatments today. She was not wheezing. We discussed with her the option to reschedule when she was more medically stable, knowing that the patient is noncompliant in this may be the most stable she could be. She elected to continue with the procedure. I discussed with her that if she became unstable at any point, we would abort the procedure immediately. If that happen, we would likely have her admitted for medical management. She was agreeable to this plan. Risks benefits and alternatives to a fistulogram or explained and the patient was agreeable to proceed. Informed consent was obtained. INTERPRETATION: 1. Ultrasound confirmed the AV anastomosis between the radial artery in the cephalic vein was widely patent. Images were saved. 2. Fistulogram of the left upper extremity revealed mildly aneurysmal cephalic vein near the AV anastomosis but otherwise widely patent over the forearm and the antecubital space. There were 2 areas of mild stenosis in the forearm but otherwise widely patent. The cephalic vein continued in a widely patent format over the bicep, then narrowed diffusely very slightly over the shoulder. There was excellent outflow through the subclavian vein into the central veins. 3. After angioplasty of the proximal cephalic vein at the shoulder, there is widely patent flow with no extravasation and no residual stenosis. 4. After angioplasty of the cephalic vein proximal to the AV anastomosis in the forearm, there is widely patent flow, no significant residual stenosis noted. REPORT OF OPERATION: Patient was brought to the angiographic suite in stable condition. Her left upper extremity is prepped and draped in sterile fashion. A timeout was performed. Local anesthesia was administered to the skin and subcuta neous tissue over the cephalic vein near the AV anastomosis. Ultrasound was used to examine the AV anastomosis and it was noted to be widely patent on color-flow Doppler. Images were saved. Ultrasound was used to confirm access with a microneedle the cephalic vein near the AV anastomosis. Wire was passed through this access and the needle was removed. A 4 Citizen [place] sheath was placed and flushed with saline. Sedation was administered without complication. A fistulogram and central venogram were performed, please interpretation above. A Glidewire was advanced in the central system under fluoroscopic guidance. The sheath was exchanged for 6 [place] sheath and flushed with saline. Next, we advanced an 8 x 200 Montague balloon to cross the proximal cephalic vein and shoulder. Three- minute inflations performed and following this there is widely patent flow, no size differential from the forearm, an excellent outflow into the central system. No extravasation or spasm noted. We then retracted the balloon into the forearm and a three-minute inflations performed. We retracted the balloon a bit further to make sure we had not missed any mild stenoses, and a second angioplasty was performed. Following this, there is widely patent inflow through the forearm with no extravasation no spasm and no residual stenosis. There was an excellent thrill and the fistula. We then placed a [id number]-ff-[id number] suture at the sheath and remove the sheath upon securing the suture. Good hemostasis was noted and sterile dressings were applied. We used ultrasound to roel the cephalic vein on the skin of the forearm. The patient was then taken to recovery in stable condition. She tolerated the sedation and the procedure well. ESTIMATED BLOOD LOSS: Approximately 2 mL. COMPLICATIONS: None. PLAN: Its okay to use the fistula for dialysis. The patient may resume her home diet and medications. I discussed with the patient the importance of being compliant with her medications. She should follow up with her primary doctor and her primer press operator as appropriate. We appreciate the opportunity to participate in the care of this patient. SARA RICE MD Nov 23, 2020 15:52
[2020-11-23 16:30] VITALS: BP 125/60
== END ==
LOC: M IRPRO 13:09
PROVIDERS: ATTEND Surgery Vascular Surgery
DX: T82.590A Other mechanical complication of surgically created arteriovenous fistula, initial encounter (principal); N18.6 End stage renal disease; X58.XXXA Exposure to other specified factors, initial encounter; G47.33 Obstructive sleep apnea (adult) (pediatric); E11.22 Type 2 diabetes mellitus with diabetic chronic kidney disease; E78.5 Hyperlipidemia, unspecified; J45.909 Unspecified asthma, uncomplicated; K21.9 Gastro-esophageal reflux disease without esophagitis; Z79.01 Long term (current) use of anticoagulants; Z79.899 Other long term (current) drug therapy; Z88.1 Allergy status to other antibiotic agents; Z99.2 Dependence on renal dialysis
CPT/HCPCS: 36902; 99152; 99153; C1725; C1769; C1894; J1644; J2250; J3010; Q9967

== ENCOUNTER 2021-07-30 13:35 | Inpatient (IN) | payer MEDICARE ==
[~2021-07-30] VITALS: Ht 167.6 cm; Wt 79.8 kg
[~2021-07-30 13:35] MED LIST changes: +ASPIRIN 81MG ENTERIC TABLET PO SCH; -ISOVUE-300 61% 50ML VIAL As Ordered ONE; -LABETALOL 100MG/20ML VIAL As Ordered ONE; -LABETALOL 100MG/20ML VIAL IV ONE; -LIDOCAINE 1% MDV 20ML VIAL As Ordered ONE; -METOPROLOL 5 MG/5 ML VIAL As Ordered ONE; -MIDAZOLAM INJ 2MG/2ML VIAL (J2250 PER 1MG) As Ordered ONE; -fentaNYL 100 MCG/2 ML INJECTION (J3010) As Ordered ONE
--- OUTSIDE RECORDS SUMMARY | 2021-07-30 13:47 | CCD | Continuity of Care Document ---
Author Author Nurse #2, Carmen Blackburn Organization Unknown Address [phone] [address] Phone Unavailable Care Team Providers Care Plastics Nurse Name Role Phone Silvio Woods MD AUTM [phone] Amelie Eubanks AUTM [phone] Lynn Villa AUTM [phone] Candice Vásquez OD AUTM Unavailable Elmer Daugherty MD AUTM [phone] Problems Active Problems Provider Date Chronic kidney disease stage 5 TIAN Elias Onset: Type 2 diabetes mellitus Samuel Pack D.O. Onset: 0 04/26/2011 Pure hypercholesterolemia Samuel Pack D.O. Onset: 04/26/2011 Asthma without status asthmaticus Samuel Pack D.O. Onset: 04/26/2011 Obstructive sleep apnea syndrome Samuel Pack D.O. Onset: 04/26/2011 Benign essential hypertension Samuel Pack D.O. Ons et: 04/26/2011 Chronic sinusitis Samuel Pack D.O. Onset: 2010 Type 2 diabetes mellitus Onset: 12/24/19 15 Essential hypertension Samuel Pack D.O. Onset: Social History Type Date Description Comments Sex Unknown ETOH Use Denies alcohol use Tobacco Use Start: Unknown End: Unknown Patient is a former smoker SMOKED FOR 12 YRS 1 PACK A DAY, quit age 31 Allergies, Adverse Reactions, Alerts Active Allergies Criticality Reaction | Severity Comments Date Cipro Unable to assess criticality bones ache 04/02/2012 Tito Unable to assess criticality increase k 11/14/2012 Arb Increase K Unable to assess criticality 11/14/2012 Inactive Allergies Augmentin Unable to assess criticality Patient stat es currently not allergic 10/24/2010 Medications Active Medications SIG Qnty Indications Ordering Provide r Date Albuterol Sulfate HFA 108(90Base) mcg/Act Aerosol Inhale Two Puffs By Mouth Four Times A Day as Needed For Cough 1 7units Lynn Sears [facility] 12/08/2020 Nystatin [id number]/GM Cream topical twice a day as needed rash 30gm Kayla Robles, SAUL 11/24 Trelegy Ellipta 200- 62.5-25mcg/Inh Aerosol inhale one puff by mouth every day 60units Lynn Sears [facility] 11/09/2020 Vitamin B-12 1,000 mcg Tablet Take One Tablet By Mouth Every Day 30tabs Lynn Sears [facility] 09/23 Cinacalcet HCL 60mg Tablets three days weekly. Unknown 04/08/2020 Azelastine HCL (Nasal) 0.15% Solut ion 2 sprays each nostril in the morning and 4 hours before bedtime 30ml Lynn Sears [facility] 04/08/2020 Velphoro 500mg Chewtabs three times daily Lynn Sears [facility] 01/08/2020 Diltiazem HCL ER Coated Beads 360mg Caps ER 24HR Take One Capsule By Mouth Every Day 90caps Lynn Ratliff, [facility] 10/22/2019 Unifine Pentips Plus 31G X 5 mm Mi sc as Directed Once Daily 100units Kayla Robles, ANP 019 Ipratropium [place] 0.03% Solution Use 2 Sprays In Each Nostril 2-3 Times Day as Needed 90units A niko Sears [facility] 04/04/2019 Contour Next Blood Glucose Test S trips testing 2 times daily 100units Lynn Sears, [facility] 9 Arun Microlet Lancets Misc use as directed four times daily and as needed 100units Lynn Campos, [facility] 01/03/2019 Shingrix 50mcg/0.5ML Suspension Re c 0.5ml intramuscular repeat in 2-6 months .5ml Lynn Sears [facility] 01/03/2019 Basaglar Kwikpen 100 Unit/ML Solution Pen-Inject 40 units at bedtime subcu 15ml Lynn Sears, [facility] 02/05/2018 Fluticasone Propionate 50mcg/Act Suspension [place] Two Sprays In Each Nostril Every Day 16units Lynn Sears, [facility] 05/30/2017 Vitamin D (Ergocalciferol) 76016Dqoh Capsules take 1 capsule by mouth every week Unknow n 05/02/2017 Truetest Test Strips Use To Test Blood Glucose Twice Daily 200units Samuel Pack, D.O. 0 10/18/2015 Slow-Mag 71.5-119mg Tablets DR two twice daily please give magnesium chloride 180tabs E83.42 Lynn Sears , [facility] 12/23/2014 BD Pen Needle/Mini/Ultrafine/31G X 3/16" 31G X 5 mm Misc use once daily dx e11.9 100units Lynn Francia [place], [facility] 09/30/2013 Nebulizer Kit/Tubing/Mouthpiece K it use as directed 1units Lynn Feldman [place], [facility] 10/09/2012 Albuterol Sulfate (2 .5mg/3ML) 0.083% Nebulizer use one via nebulizer q 2 hrs prn shortness of breath 60units Amy Lynn, ANP 10/07/2012 Pravastatin Sodium 40mg Tablets Take One Tablet By Mouth Every Day 90tabs Yaima Blackwood, 2011 Humalog Kwikpen 100U nit/ML Solution Pen-Inject Inject Before Supper BS 70-100 no Insul in 100-120 2 units, 130-140 4 units 140-200 6 units 15units Ollie Guzman MD 02/21/2010 BD Ultra Fine [place] Short 31G 5/ 16 Misc use 1 daily 100units Samuel Pack, D.O. 10/26 Eliquis 2.5mg Tablets 1 by mouth twice a day Unknown Cetirizine HCL 10mg Tablets one tab by mouth daily at bed time Unknown Hydralazine HCL 100mg Tablets take 1 tablet by mouth [address] Daugherty Unknown Nephro-Dalton 0.8mg Tablets one daily Unknown Montelukast Sodium 10mg Tablets one before bedtime daily Unknown Ciclopirox 0.77% Gel apply twice a day Unknown Medications Administered in Office Medication SIG Qnty Indications Ordering Provider Date Covid-19 vaccine, Unspecified Inj ection Unknown 11/15/2020 Covid-19 vaccine, Unspecified Inj ection Unknown 10/18/2020 Administration Of Flu Vaccine Inj ection Elif Espino.O. 07/17 Administration Of Flu Vaccine Inj ection Elif Espino.O. 06/17 Administration Of Flu Vaccine Inj ection Elif Espino.O. 06/11 Administration Of Flu Vaccine Inj ection Elif Espino.O. 06/19 Administration Of Flu Vaccine Inj ection Elif Espino.O. 07/13 Administration Of Flu Vaccine Inj ection Elif Espino.O. 07/12 Administration Of Flu Vaccine Inj ection Elif Espino.O. 06/09 Administration Of Flu Vaccine Inj ection Elif Espino.O. 06/24 Administration Of Flu Vaccine Inj ection Elif Espino.O. 07/22 Administration Of Flu Vaccine Inj ection Elif Espino.O. 06/15 Administration Of Flu Vaccine Inj ection Elif Espino.O. 07/06 Immunizations CPT Code Status Date Vaccine Lot # U-Flu Given 06/18/2019 Influenza,Unspecified U-Flu Given 06/19/2018 Influenza,Unspecified U-Td Given 11/14/2017 Td(Adult)(Tetanus, Diphtheri a) unspecified [id number] Given 11/14/2017 Tetanus/Diptheria(Td)Toxoids Preservative Free [id number] Q2037 Given 07/17/2016 Fluvirin Virus Vaccine 31952 01 Q2037 Given 06/17/2015 Fluvirin Virus Vaccine 43890 01 03975 Given 09/25/2014 Prevnar 13 [id number] Q2037 Given 06/11/2014 Fluvirin Virus Vaccine 36435 21 Q2037 Given 06/19/2013 Fluvirin Virus Vaccine Q2037 Given 07/13/2011 Fluvirin Virus Vaccine 46025 Given 07/12/2010 Influenza Virus Vaccine 12336 Given 06/09/2009 Influenza Virus Vaccine 81326 Given 06/24/2008 Influenza Virus Vaccine 22869 Given 07/22/2007 Influenza Virus Vaccine 52035 Given 06/15/2006 Influenza Virus Vaccine 11805 Given 11/23/2005 Pneumovax 23 72132 Given 07/06/2004 Influenza Virus Vaccine Vital Signs Date Vital Result Comment 05/19/2021 1:38pm BP Systolic 140 mmHg BP Diastolic 60 mmHg Heart Rate 80 /min Height 64.5 inches 5'4.50" Weight 187.38 lb O2 % BldC Oximetry 94 % RM Air BMI (Body Mass Index) 31.7 kg/m2 01/20/2021 2:43pm BP Systolic 142 mmHg BP Diastolic 50 mmHg Heart Rate 108 /min Height 64.5 inches 5'4.50" Weight 202.00 lb O2 % BldC Oximetry 95 % BMI (Body Mass Index) 34.1 kg/m2 Results Test Acquired Date Facility Test Result H/L Range Note Laboratory test finding 11/23/2020 [place] [address] [phone] Bedside Glucose 123 mg/dL High 83-110 Procedures Date Code Description Status 03/28/2021 [id number] Diabetic Retinal Eye Exam Comple amy 01/20/2021 31572 Office/Outpatient Established Lo w MDM 20-29 Min Completed 12/30/2020 79603 Glucose Monitor, Int erstital Tissue Fluid Min 72 Hours, PT Equip Completed 10/29/2019 [id number] Diabetic Retinal Eye Exam Comple amy 04/28/2019 [id number] Diabetic Retinal Eye Exam Comple amy 01/10/2019 [id number] Mammogram Completed 11/04/2018 [id number] Diabetic Retinal Eye Exam Comple amy 04/30/2018 [id number] Diabetic Retinal Eye Exam Comple amy 10/08/2017 137561550 Diabetic Retinal Eye Exam Comple amy 10/25/2016 [id number] Diabetic Retinal Eye Exam Comple amy 10/23/2016 [id number] Colonoscopy Completed 07/26/2016 [id number] Mammogram Completed 04/27/2016 [id number] Diabetic Retinal Eye Exam Comple amy 10/01/2015 [id number] Diabetic Retinal Eye Exam Comple amy 09/29/2014 [id number] Diabetic Retinal Eye Exam Comple amy 03/27/2014 [id number] Diabetic Retinal Eye Exam Comple amy 12/10/2013 [id number] Mammogram Completed 09/26/2013 [id number] Diabetic Retinal Eye Exam Comple amy 03/26/2013 [id number] Diabetic Retinal Eye Exam Comple amy 09/25/2012 [id number] Diabetic Retinal Eye Exam Comple amy 04/19/2012 [id number] Mammogram Completed 03/25/2012 [id number] Diabetic Retinal Eye Exam Comple amy 11/24/2010 [id number] Mammogram Completed 11/24/2010 [id number] Bone Mineral Density Test Comple amy 09/16/2010 [id number] Diabetic Retinal Eye Exam Comple amy 04/29/2010 166324426 Diabetic Foot Exam Completed 03/15/2010 [id number] Diabetic Retinal Eye Exam Comple amy 09/13/2009 [id number] Diabetic Retinal Eye Exam Comple amy 07/05/2009 [id number] Mammogram Completed 03/18/2009 [id number] Diabetic Retinal Eye Exam Comple amy 01/10/2008 666493653 Bone Mineral Density Test Comple amy 11/22/2005 [id number] Colonoscopy Completed Medical Devices Description No Information Available Encounters Type Date Location Provider Dx Diagnosis Office Visit 01/20/2021 2:20p [facility] 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 T38.3x6A Underdosing of insulin and o ral hypoglycemic drugs, init I13.11 Hyp hrt and chr kdny dis w/o hrt fail, w stg 5 chr kdny/Esrd N18.5 Chronic kidney disease, stag e 5 Z99.2 Dependence on renal dialysis E66.09 Other obesity due to excess calories Z68.34 Body mass index [BMI] 34.0-3 4.9, adult Assessments Date Code Description Provider 01/20/2021 E11.65 Type 2 diabetes mellitus with hy perglycemia TIAN Elias 01/20/2021 Z79.4 buttermaker helper (current) use of insul in Lynn Sears, [facility] 01/20/2021 E11.21 Type 2 diabetes mellitus with di abetic nephropathy Lynn Sears, [facility] 01/20/2021 T38.3x6A Underdosing of insul in and oral hypoglycemic [antidiabetic] drugs, initial encounter Lynn Sears, [facility] 01/20/2021 I13.11 Hypertensive heart a nd chronic kidney disease without heart failure, with stage 5 chronic kidney disease, or end stage renal disease Lynn Sears, [facility] 01/20/2021 N18.5 Chronic kidney disease, stage 5 Lynn Sears, [facility] 01/20/2021 Z99.2 Dependence on renal dialysis Lynn Sears, [facility] 01/20/2021 E66.09 Other obesity due to excess michelle waldo [facility] 01/20/2021 Z68.34 Body mass index [BMI] 34.0-34.9, adult Lynn Sears, [facility] 12/30/2020 E11.65 Type 2 diabetes mellitus with hy perglycemia SAUL Mason 12/30/2020 Z79.4 group home (current) use of insul in SAUL Mason Plan of Treatment No Information Available Functional Status Description No Information Available Mental Status Description No Information Available Referrals Description No Information Available
--- OUTSIDE RECORDS SUMMARY | 2021-07-30 13:47 | CCD | Continuity of Care Document ---
Author Author Carmen Elias I Organization Unknown Address [phone] [address] Phone [phone] Care Team Providers Care Placement Director Name Role Phone Silvio Woods MD AUTM [phone] Amelie Eubanks AUTM [phone] Lynn Villa AUTM [phone] Candice Vásquez OD AUTM Unavailable Elmer Daugherty MD AUTM [phone] Problems Active Problems Provider Date Chronic kidney [...] Needed For Cough 1 7units Lynn Sears [facility] 12/08/2020 Nystatin [id number]/GM Cream topical twice a day as needed rash 30gm Kayla Robles, [facility] 11/24 Trelegy Ellipta 200- 62.5-25mcg/Inh Aerosol inhale one puff by mouth every day 60units Lynn Sears [facility] 11/09/2020 Vitamin B-12 1,000 mcg Tablet Take One Tablet By Mouth Every Day 30tabs Lynn Sears [facility] 09/23 Cinacalcet HCL 60mg Tablets three days weekly. Unknown 04/08/2020 Azelastine HCL (Nasal) 0.15% Solut ion 2 sprays each nostril in the morning and 4 hours before bedtime 30ml Lynn Sears [facility] 04/08/2020 Velphoro 500mg Chewtabs three times daily Lynn Sears [facility] 01/08/2020 Diltiazem HCL ER Coated Beads 360mg Caps ER 24HR Take One Capsule By Mouth Every Day 90caps Lynn Ratliff [facility] 10/22/2019 Unifine Pentips Plus 31G X 5 mm Mi sc as Directed Once Daily 100units Kayla Robles, [facility] 019 Ipratropium [place] 0.03% Solution Use 2 Sprays In Each Nostril 2-3 Times Day as Needed 90units Juan R Sears [facility] 04/04/2019 Contour Next Blood Glucose Test S trips testing 2 times daily 100units Lynn Sears, [facility] 9 Arun Microlet Lancets Misc use as directed four times daily and as needed 100units Lynn Campos, [facility] 01/03/2019 Shingrix 50mcg/0.5ML Suspension Re c 0.5ml intramuscular repeat in 2-6 months .5ml Lynn Feldman Gaudencio, [facility] 01/03/2019 Fluticasone Propionate 50mcg/Act Suspension [place] Two Sprays In Each Nostril Every Day 16units Lynn Feldman Gaudencio, [facility] 05/30/2017 Vitamin D (Ergocalciferol) 86501Hmcd Capsules take 1 capsule by mouth every week Unknow n 05/02/2017 Truetest Test Strips Use To Test Blood Glucose Twice Daily 200units Samuel Pack, D.O. 0 10/18/2015 Slow-Mag 71.5-119mg Tablets DR two twice daily please give magnesium chloride 180tabs E83.42 Lynn Francia Gaudencio , [facility] 12/23/2014 BD Pen Needle/Mini/Ultrafine/31G X 3/16" 31G X 5 mm Misc use once daily dx e11.9 100units Lynn Francia Gaudencio, [facility] 09/30/2013 Nebulizer Kit/Tubing/Mouthpiece K it use as directed 1units Lynn Francia Gaudencio, [facility] 10/09/2012 Albuterol Sulfate (2 .5mg/3ML) 0.083% Nebulizer use one via nebulizer q 2 hrs prn shortness of breath 60units Amy Lynn, ANP 10/07/2012 Pravastatin Sodium 40mg Tablets Take One Tablet By Mouth Every Day 90tabs Yaima Blackwood,DO 2011 BD Ultra Fine [place] Short 31G 5/ 16 Misc use 1 daily 100units Samuel Pack, D.O. 10/26 Eliquis 2.5mg Tablets 1 by mouth twice a day Unknown Cetirizine HCL 10mg Tablets one tab by mouth daily at bed time Unknown 00 Hydralazine HCL 100mg Tablets take 1 tablet [...] 07/17 Administration Of Flu Vaccine Inj ection Samuel Elif Rojas.O. 06/17 Administration Of Flu Vaccine Inj ection Samuel Elif Rojas.O. 06/11 Administration Of Flu Vaccine Inj ection Elif Espino.O. 06/19 Administration Of Flu Vaccine Inj ection Samuel Elif Rojas.O. 07/13 Administration Of Flu Vaccine Inj ection Samuel Elif Rojas.O. 07/12 Administration Of Flu Vaccine Inj ection Elif Espino.O. 06/09 Administration Of Flu Vaccine Inj ection SamuelElif Wilkins.O. 06/24 Administration Of Flu Vaccine Inj ection Elif Espino.O. 07/22 Administration Of Flu Vaccine Inj ection Elif Espino.O. 06/15 Administration Of Flu Vaccine Inj ection Elif Espino.O. 07/06 Immunizations CPT Code Status Date Vaccine Lot # U-Flu Given 06/18/2019 Influenza,Unspecified U-Flu Given 06/19/2018 Influenza,Unspecified U-Td Given 11/14/2017 Td(Adult)(Tetanus, Diphtheri a) unspecified [id number] Given 11/14/2017 Tetanus/Diptheria(Td)Toxoids Preservative Free [id number] Q2037 Given 07/17/2016 Fluvirin Virus Vaccine 75836 01 Q2037 Given 06/17/2015 Fluvirin Virus Vaccine 72394 01 52961 Given 09/25/2014 Prevnar 13 [id number] Q2037 Given 06/11/2014 Fluvirin Virus Vaccine 35636 21 Q2037 Given 06/19/2013 Fluvirin Virus Vaccine Q2037 Given 07/13/2011 Fluvirin Virus Vaccine 49840 Given 07/12/2010 Influenza Virus Vaccine 85477 Given 06/09/2009 Influenza Virus Vaccine 54942 Given 06/24/2008 Influenza Virus Vaccine 85810 Given 07/22/2007 Influenza Virus Vaccine 90945 Given 06/15/2006 Influenza Virus Vaccine 17211 Given 11/23/2005 Pneumovax 23 03295 Given 07/06/2004 Influenza Virus Vaccine Vital Signs [...] H/L Range Note Laboratory test finding 11/23/2020 [place] [address] [phone] Bedside Glucose 123 mg/dL High 83-110 Procedures Date Code Description Status 03/28/2021 810674772 Diabetic Retinal Eye Exam Comple amy 01/20/2021 80073 Office/Outpatient Established Lo w MDM 20-29 Min Completed 12/30/2020 57873 Glucose Monitor, Int erstital Tissue Fluid Min 72 Hours, PT Equip Completed 10/29/2019 112548056 Diabetic Retinal Eye Exam Comple amy 04/28/2019 [id number] Diabetic Retinal Eye Exam Comple amy 01/10/2019 82803853 Mammogram Completed 11/04/2018 [id number] Diabetic Retinal Eye Exam Comple amy 04/30/2018 [id number] Diabetic Retinal Eye Exam Comple amy 10/08/2017 [id number] Diabetic Retinal Eye Exam Comple amy 10/25/2016 071742836 Diabetic Retinal Eye Exam Comple amy 10/23/2016 [id number] Colonoscopy Completed 07/26/2016 [id number] Mammogram Completed 04/27/2016 [id number] Diabetic Retinal Eye Exam Comple amy 10/01/2015 [id number] Diabetic Retinal Eye Exam Comple amy 09/29/2014 [id number] Diabetic Retinal Eye Exam Comple amy 03/27/2014 [id number] Diabetic Retinal Eye Exam Comple amy 12/10/2013 [id number] Mammogram Completed 09/26/2013 [id number] Diabetic Retinal Eye Exam Comple amy 03/26/2013 416567714 Diabetic Retinal Eye Exam Comple amy 09/25/2012 577072262 Diabetic Retinal Eye Exam Comple amy 04/19/2012 [id number] Mammogram Completed 03/25/2012 554155140 Diabetic Retinal Eye Exam Comple amy 11/24/2010 [id number] Mammogram Completed 11/24/2010 917319799 Bone Mineral Density Test Comple amy 09/16/2010 310863906 Diabetic Retinal Eye Exam Comple amy 04/29/2010 931525081 Diabetic Foot Exam Completed 03/15/2010 960309429 Diabetic Retinal Eye Exam Comple amy 09/13/2009 506614392 Diabetic Retinal Eye Exam Comple amy 07/05/2009 [id number] Mammogram Completed 03/18/2009 974643351 Diabetic Retinal Eye Exam Comple amy 01/10/2008 379974840 Bone Mineral Density Test Comple amy 11/22/2005 [id number] Colonoscopy Completed Medical Devices Description No Information Available Encounters Type Date Location Provider Dx Diagnosis Office Visit 01/20/2021 2:20p [facility] 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, with stage 5 chronic kidney disease, or end stage renal disease Lynn Sears [facility] 01/20/2021 N18.5 Chronic kidney disease, stage 5 Lynn Sears, [facility] 01/20/2021 Z99.2 Dependence on renal dialysis Lynn Sears, [facility] 01/20/2021 E66.09 Other obesity due to excess michelle waldo Lynn Sears, [facility] 01/20/2021 Z68.34 Body mass index [BMI] 34.0-34.9, adult Lynn Sears, [facility] 12/30/2020 E11.65 Type 2 diabetes mellitus with hy perglycemia SAUL Mason 12/30/2020 Z79.4 [facility] (current) use of insul in SAUL Mason Plan of Treatment 05/19/2021 - TIAN Elias* All * New Xrays:* Mammo Bi-Lat, Ordered: 05/19/21 Functional Status Description No Information Available Mental Status Description No Information Available Referrals Description No Information Available
--- OUTSIDE RECORDS SUMMARY | 2021-07-30 13:47 | CCD ---
Author Author [facility] Organization [facility] Address Unknown Phone Unavailable Care Team Providers Care Mix House Operator Name Role Phone Dawsonine M Joceline ADVANCED PRACTICE PROFESSIONAL Unavailable Unavailable LePine, M Joceline ADVANCED PRACTICE PROFESSIONAL Unavailable Unavailable LePine, M Joceline ADVANCED PRACTICE PROFESSIONAL Unavailable Unavailable LePine, M Joceline ADVANCED PRACTICE PROFESSIONAL Unavailable Unavailable LePine, M Joceline ADVANCED PRACTICE PROFESSIONAL Unavailable Unavailable LePine, M Joceline ADVANCED PRACTICE PROFESSIONAL Unavailable Unavailable LePine, M Joceline ADVANCED PRACTICE PROFESSIONAL Unavailable Unavailable LePine, M Joceline ADVANCED PRACTICE PROFESSIONAL Unavailable Unavailable LePine, M Joceline ADVANCED PRACTICE PROFESSIONAL Unavailable Unavailable LePine, M Joceline ADVANCED PRACTICE PROFESSIONAL Unavailable Unavailable LePine, M Joceline ADVANCED PRACTICE PROFESSIONAL Unavailable Unavailable LePine, M Joceline ADVANCED PRACTICE PROFESSIONAL Unavailable Unavailable LePine, M Joceline ADVANCED PRACTICE PROFESSIONAL Unavailable Unavailable LePine, M Joceline ADVANCED PRACTICE PROFESSIONAL Unavailable Unavailable LePine, M Joceline ADVANCED PRACTICE PROFESSIONAL Unavailable Unavailable LePine, M Joceline ADVANCED PRACTICE PROFESSIONAL Unavailable Unavailable LePine, M Joceline ADVANCED PRACTICE PROFESSIONAL Unavailable Unavailable LePine, M Joceline ADVANCED PRACTICE PROFESSIONAL Unavailable Unavailable LePine, M Joceline ADVANCED PRACTICE PROFESSIONAL Unavailable Unavailable LePine, M Joceline ADVANCED PRACTICE PROFESSIONAL Unavailable Unavailable LePine, M Joceline ADVANCED PRACTICE PROFESSIONAL Unavailable Unavailable LePine, M Joceline ADVANCED PRACTICE PROFESSIONAL Unavailable Unavailable LePine, M Joceline ADVANCED PRACTICE PROFESSIONAL Unavailable Unavailable LePine, M Joceline ADVANCED PRACTICE PROFESSIONAL Unavailable Unavailable LePine, M Joceline ADVANCED PRACTICE PROFESSIONAL Unavailable Unavailable LePine, M Joceline ADVANCED PRACTICE PROFESSIONAL Unavailable Unavailable LePine, M Joceline ADVANCED PRACTICE PROFESSIONAL Unavailable Unavailable LePine, M Joceline ADVANCED PRACTICE PROFESSIONAL Unavailable Unavailable LePine, M Joceline ADVANCED PRACTICE PROFESSIONAL Unavailable Unavailable LePine, M Joceline ADVANCED PRACTICE PROFESSIONAL Unavailable Unavailable LePine, M Joceline ADVANCED PRACTICE PROFESSIONAL Unavailable Unavailable LePine, M Joceline ADVANCED PRACTICE PROFESSIONAL Unavailable Unavailable LePine, M Joceline ADVANCED PRACTICE PROFESSIONAL Unavailable Unavailable LePine, M Joceline ADVANCED PRACTICE PROFESSIONAL Unavailable Unavailable LePine, M Joceline ADVANCED PRACTICE PROFESSIONAL Unavailable Unavailable LePine, M Joceline ADVANCED PRACTICE PROFESSIONAL Unavailable Unavailable LePine, M Joceline ADVANCED PRACTICE PROFESSIONAL Unavailable Unavailable LePine, M Joceline ADVANCED PRACTICE PROFESSIONAL Unavailable Unavailable LePine, M Joceline ADVANCED PRACTICE PROFESSIONAL Unavailable Unavailable LePine, M Joceline ADVANCED PRACTICE PROFESSIONAL Unavailable Unavailable LePine, M Joceline ADVANCED PRACTICE PROFESSIONAL Unavailable Unavailable LePine, M Joceline ADVANCED PRACTICE PROFESSIONAL Unavailable Unavailable LePine, M Joceline ADVANCED PRACTICE PROFESSIONAL Unavailable Unavailable LePine, M Joceline ADVANCED PRACTICE PROFESSIONAL Unavailable Unavailable LePine, M Joceline ADVANCED PRACTICE PROFESSIONAL Unavailable Unavailable LePine, M Joceline ADVANCED PRACTICE PROFESSIONAL Unavailable Unavailable LePine, M Joceline ADVANCED PRACTICE PROFESSIONAL Unavailable Unavailable LePine, M Joceline ADVANCED PRACTICE PROFESSIONAL Unavailable Unavailable LePine, M Joceline ADVANCED PRACTICE PROFESSIONAL Unavailable Unavailable LePine, M Joceline ADVANCED PRACTICE PROFESSIONAL Unavailable Unavailable LePine, M Joceline ADVANCED PRACTICE PROFESSIONAL Unavailable Unavailable LePine, M Joceline ADVANCED PRACTICE PROFESSIONAL Unavailable Unavailable LePine, M Joceline ADVANCED PRACTICE PROFESSIONAL Unavailable Unavailable LePine, M Joceline ADVANCED PRACTICE PROFESSIONAL Unavailable Unavailable LePine, M Joceline ADVANCED PRACTICE PROFESSIONAL Unavailable Unavailable LePine, M Joceline ADVANCED PRACTICE PROFESSIONAL Unavailable Unavailable RING, K MAMIE PA Unavailable Unavailable RING, K MAMIE PA Unavailable Unavailable RING, K MAMIE PA Unavailable Unavailable RING, K MAMIE PA Unavailable Unavailable RING, K MAMIE PA Unavailable Unavailable RING, K MAMIE PA Unavailable Unavailable RING, K MAMIE PA Unavailable Unavailable RING, K MAMIE PA Unavailable Unavailable RING, K MAMIE PA Unavailable Unavailable RING, K MAMIE PA Unavailable Unavailable RING, K MAMIE PA Unavailable Unavailable RING, K MAMIE PA Unavailable Unavailable RING, K MAMIE PA Unavailable Unavailable RING, K MAMIE PA Unavailable Unavailable RING, K MAMIE PA Unavailable Unavailable RING, K MAMIE PA Unavailable Unavailable RING, K MAMIE PA Unavailable Unavailable RING, K MAMIE PA Unavailable Unavailable RING, K MAMIE PA Unavailable Unavailable RING, K MAMIE PA Unavailable Unavailable RING, K MAMIE PA Unavailable Unavailable Oakes, L Nadia RPA Unavailable Unavailable Oakes, L Nadia RPA Unavailable Unavailable Oakes, L Nadia RPA Unavailable Unavailable Oakes, L Nadia RPA Unavailable Unavailable Oakes, L Nadia RPA Unavailable Unavailable Oakes, L Nadia RPA Unavailable Unavailable Oakes, L Nadia RPA Unavailable Unavailable Oakes, L Nadia RPA Unavailable Unavailable Oakes, L Nadia RPA Unavailable Unavailable Oakes, L Nadia RPA Unavailable Unavailable Oakes, L Nadia RPA Unavailable Unavailable Oakes, L Nadia RPA Unavailable Unavailable Oakes, L Nadia RPA Unavailable Unavailable Oakes, L Nadia RPA Unavailable Unavailable Oakes, L Nadia RPA Unavailable Unavailable Oakes, L Nadia RPA Unavailable Unavailable Oakes, L Nadia RPA Unavailable Unavailable Oakes, L Nadia RPA Unavailable Unavailable Oakes, L Nadia RPA Unavailable Unavailable Oakes, L Nadia RPA Unavailable Unavailable Oakes, L Nadia RPA Unavailable Unavailable Oakes, L Nadia RPA Unavailable Unavailable Oakes, L Nadia RPA Unavailable Unavailable Oakes, L Nadia RPA Unavailable Unavailable Oakes, L Nadia RPA Unavailable Unavailable Oakes, L Nadia RPA Unavailable Unavailable Oakes, L Nadia RPA Unavailable Unavailable Oakes, L Nadia RPA Unavailable Unavailable Oakes, L Nadia RPA Unavailable Unavailable Oakes, L Nadia RPA Unavailable Unavailable Oakes, L Nadia RPA Unavailable Unavailable Oakes, L Nadia RPA Unavailable Unavailable Jhonatan Woods MD Unavailable Unavailable Jhonatan Woods MD Unavailable Unavailable Jhonatan Woods MD Unavailable Unavailable Jhonatan Woods MD Unavailable Unavailable Jhonatan Woods MD Unavailable Unavailable Jhonatan Woods MD Unavailable Unavailable Jhonatan Woods MD Unavailable Unavailable Jhonatan Woods MD Unavailable Unavailable Jhonatan Woods MD Unavailable Unavailable Jhonatan Woods MD Unavailable Unavailable Jhonatan Woods MD Unavailable Unavailable Jhonatan Woods MD Unavailable Unavailable Jhonatan Woods MD Unavailable Unavailable Jhonatan Woods MD Unavailable Unavailable Jhonatan Woods MD Unavailable Unavailable Jhonatan Woods MD Unavailable Unavailable Jhonatan Woods MD Unavailable Unavailable Jhonatan Woods MD Unavailable Unavailable Jhonatan Woods MD Unavailable Unavailable Jhonatan Woods MD Unavailable Unavailable Jhonatan Woods MD Unavailable Unavailable Jhonatan Woods MD Unavailable Unavailable Jhonatan Woods MD Unavailable Unavailable Jhonatan Woods MD Unavailable Unavailable Jhonatan Woods MD Unavailable Unavailable Jhonatan Woods MD Unavailable Unavailable Jhonatan Woods MD Unavailable Unavailable Jhonatan Woods MD Unavailable Unavailable Jhonatan Woods MD Unavailable Unavailable WoodsJhonatan MD Unavailable Unavailable WoodsJhonatan MD Unavailable Unavailable WoodsJhonatan MD Unavailable Unavailable Jhonatan Woods MD Unavailable Unavailable Jhonatan Woods MD Unavailable Unavailable Jhonatan Woods MD Unavailable Unavailable Jhonatan Woods MD Unavailable Unavailable Jhonatan Woods MD Unavailable Unavailable Jhonatan Woods MD Unavailable Unavailable Jhonatan Woods MD Unavailable Unavailable WoodsJhonatan MD Unavailable Unavailable Jhonatan Woods MD Unavailable Unavailable WoodsJhonatan MD Unavailable Unavailable WoodsJhonatan MD Unavailable Unavailable Jhonatan Woods MD Unavailable Unavailable Jhonatan Woods MD Unavailable Unavailable Jhonatan Woods MD Unavailable Unavailable Jhonatan Woods MD Unavailable Unavailable Jhonatan Woods MD Unavailable Unavailable Jhonatan Woods MD Unavailable Unavailable Jhonatan Woods MD Unavailable Unavailable Jhonatan Woods MD Unavailable Unavailable Jhonatan Woods MD Unavailable Unavailable Jhonatan Woods MD Unavailable Unavailable Jhonatan Woods MD Unavailable Unavailable Janett Eubanks MD Unavailable Unavailable Janett Eubanks MD Unavailable Unavailable Janett Eubanks MD Unavailable Unavailable Janett Eubanks MD Unavailable Unavailable Janett Eubanks MD Unavailable Unavailable Janett Eubanks MD Unavailable Unavailable Janett Eubanks MD Unavailable Unavailable Janett Eubanks MD Unavailable Unavailable Janett Eubanks MD Unavailable Unavailable Janett Eubanks MD Unavailable Unavailable Janett Eubanks MD Unavailable Unavailable Janett Eubanks MD Unavailable Unavailable Janett Eubanks MD Unavailable Unavailable Janett Eubanks MD Unavailable Unavailable Janett Eubanks MD Unavailable Unavailable Janett Eubanks MD Unavailable Unavailable Janett Eubanks MD Unavailable Unavailable Janett Eubanks MD Unavailable Unavailable Janett Eubanks MD Unavailable Unavailable Janett Eubanks MD Unavailable Unavailable Janett Eubanks MD Unavailable Unavailable Janett Ebuanks MD Unavailable Unavailable Janett Eubanks MD Unavailable Unavailable Janett Eubanks MD Unavailable Unavailable Janett Eubanks MD Unavailable Unavailable Janett Eubanks MD Unavailable Unavailable Janett Eubanks MD Unavailable Unavailable Janett Eubanks MD Unavailable Unavailable Janett Eubanks MD Unavailable Unavailable Slezka, Vojtech MD Unavailable Unavailable Slezka, Vojtech MD Unavailable Unavailable Slezka, Vojtech MD Unavailable Unavailable Slezka, Vojtech MD Unavailable Unavailable Slezka, Vojtech MD Unavailable Unavailable Slezka, Vojtech MD Unavailable Unavailable Slezka, Vojtech MD Unavailable Unavailable Slezka, Vojtech MD Unavailable Unavailable Slezka, Vojtech MD Unavailable Unavailable Slezka, Vojtech MD Unavailable Unavailable Slezka, Vojtech MD Unavailable Unavailable Slezka, Vojtech MD Unavailable Unavailable Slezka, Vojtech MD Unavailable Unavailable Slezka, Vojtech MD Unavailable Unavailable Slezka, Vojtech MD Unavailable Unavailable Slezka, Vojtech MD Unavailable Unavailable Slezka, Vojtech MD Unavailable Unavailable Slezka, Vojtech MD Unavailable Unavailable Slezka, Vojtech MD Unavailable Unavailable Slezka, Vojtech MD Unavailable Unavailable Slezka, Vojtech MD Unavailable Unavailable Slezka, Vojtech MD Unavailable Unavailable Slezka, Vojtech MD Unavailable Unavailable Slezka, Vojtech MD Unavailable Unavailable Slezka, Vojtech MD Unavailable Unavailable Slezka, Vojtech MD Unavailable Unavailable Slezka, Vojtech MD Unavailable Unavailable Slezka, Vojtech MD Unavailable Unavailable Slezka, Vojtech MD Unavailable Unavailable Slezka, Vojtech MD Unavailable Unavailable Re-disclosure Warning The records that you are about to access may contain information from federally-assisted alcohol or drug abuse programs. If such information is present, then the following federally mandated warning applies: This information has been disclosed to you from records protected by federal confidentiality rules (42 CFR part 2). The federal rules prohibit you from making any further disclosure of this information unless further disclosure is expressly permitted by the written consent of the person to whom it pertains or as otherwise permitted by 42 CFR part 2. A general authorization for the release of medical or other information is NOT sufficient for this purpose. The Federal rules restrict any use of the information to criminally investigate or prosecute any alcohol or drug abuse patient.The records that you are about to access may contain highly sensitive health information, the redisclosure of which is protected by Article 27-F of the [place] State Public Health law. If you continue you may have access to information: Regarding HIV / AIDS; Provided by facilities licensed or operated by the [facility] Office of Mental Health; or Provided by the [facility] Office for People With Developmental Disabilities. If such information is present, then the following [facility] mandated warning applies: This information has been disclosed to you from confidential records which are protected by state law. State law prohibits you from making any further disclosure of this information without the specific written consent of the person to whom it pertains, or as otherwise permitted by law. Any unauthorized further disclosure in violation of state law may result in a fine or shelter sentence or both. A general authorization for the release of medical or other information is NOT sufficient authorization for further disc losure. Allergies and Adverse Reactions Type Description Substance Reaction Status Data Source(s ) Propensity to adverse reactions CIPROFIBRATE ciprofibrate Rash Low Active [facility] Low Family History Family Member Name Family Member Gender Family Member Status Date o f Status Description Data Source(s) Unknown Unknown Problem [facility] ([facility], ) Encounters Encounter Providers Location Date Indications Data Source(s ) Outpatient Attender: MAMIE Husain [facility] 07/30/2021 10:30:00 AM EST [facility] ([facility] Outpatient Attender: Janett Eubanks MDConsultant: Janett manuel MD SJ.DELLA-[email or web address] 04/19/2021 11:33:47 AM EDT - 04/19/2021 12:48:18 PM EDT [facility] Outpatient Attender: Joceline Coto 01/20 02:20:00 PM EDT [facility] ([facility] ) Outpatient Attender: Silvio Hernadez/Shelia/Josiah/R eindvonnie 11/11/2020 09:45:00 AM EST [facility] ([facility] ) Outpatient Attender: Joceline Coto 11/09 12:00:00 PM EST [facility] ([facility] ) Outpatient Attender: Nadia Hernadez/[place]/Josiah/R eindl 10/14/2020 12:30:00 PM EST [facility] ([facility] Outpatient Attender: Joceline Huizarlogg Ch[place] 08/10 01:20:00 PM EST REBECCA ([facility] ) Outpatient Attender: Janett [email or web address] 09/2019 12:00:00 AM EST - 08/10/2020 10:15:38 AM EST [facility] Immunizations Vaccine Date Status Description Data Source(s) COVID-19 VACCINE Moderna 07/22/2021 12:00:00 AM EST completed [facility] Vaccine Series Complete: YESThis Data wa s Submitted to [facility] [employer]. COVID-19 VACCINE Moderna 11/15/2020 12:00:00 AM EST completed [facility] Vaccine Series Complete: YESThis Data wa s Submitted to [facility] [employer]. COVID-19 VACCINE, MRNA-[id number], LNP-S (MODERNA)/PF 11/15/2020 1 2:00:00 AM EST completed [facility] COVID-19 VACCINE Moderna 10/18/2020 12:00:00 AM EST completed [facility] Vaccine Series Complete: NOThis Data was Submitted to [facility] [employer]. COVID-19 VACCINE, [id number], LNP-S (MODERNA)/PF 10/18/2020 1 2:00:00 AM EST completed [facility] Medications Medication Brand Name Start Date Product Form Dose Route Admi nistrative Instructions Pharmacy Instructions Status Indications Reaction Description Data Source(s) 200-62.5-25 mcg 07/08/2021 12:00:00 AM EDT blister with stefany ce 60 INHALE 1 PUFF BY MOUTH ONCE DAILY INHALE 1 PUFF BY MOUTH ONCE DAILY SOLD: 07/17/2021 [facility] Fluticasone propionate 0.05 MG/ACTUAT Metered Dose Migeul Angel al [place] 50 mcg/actuation FLUTICASONE PROPIONATE 06/16/2021 12:00:00 AM EDT spray,suspension 16 SPRAY TWO SPRAYS IN EACH NOSTRIL EVERY DAY SPRAY TWO SPRAYS IN EACH NOSTRIL EVERY DAY SOLD: 06/18/2021 [facility] Azelastine hydrochloride 0.206 MG/ACTUAT Metered Dose Nasal [place] 205.5 mcg (0.15 %) AZELASTINE HCL 06/16/2021 12:00:00 AM EDT spray,non-aerosol 30 INSTILL 2 SPRAYS IN EACH NOSTRIL EVERY MORNING AND 4 HOURS BEFORE BEDTIME INSTILL 2 SPRAYS IN EACH NOSTRIL EVERY MORNING AND 4 HOURS BEFORE BEDTIME SOLD: 07/17/2021 [facility] Azelastine hydrochloride 0.206 MG/ACTUAT Metered Dose Nasal [place] 205.5 mcg (0.15 %) AZELASTINE HCL 06/16/2021 12:00:00 AM EDT spray,non-aerosol 30 INSTILL 2 SPRAYS IN EACH NOSTRIL EVERY MORNING AND 4 HOURS BEFORE BEDTIME INSTILL 2 SPRAYS IN EACH NOSTRIL EVERY MORNING AND 4 HOURS BEFORE BEDTIME SOLD: 06/18/2021 [facility] 50 mcg/actuation 06/16/2021 12:00:00 AM EDT spray,suspension 16 SPRAY TWO SPRAYS IN EACH NOSTRIL EVERY DAY SPRAY TWO SPRAYS IN EACH NOSTRIL EVERY DAY SOLD: 07/17/2021 [facility] 24 HR Diltiazem Hydrochloride 360 MG Extended Release Oral Capsule DILTIAZEM HCL 05/17/2021 12:00:00 AM EDT capsule,extended release 24hr 90 TAKE ONE CAPSULE BY MOUTH EVERY DAY TAKE ONE CAPSULE BY MOUTH EVERY DAY SOLD: 05/19/2021 [facility] 200-62.5-25 mcg 04/02/2021 12:00:00 AM EDT blister with stefany ce 60 INHALE 1 PUFF BY MOUTH ONCE DAILY INHALE 1 PUFF BY MOUTH ONCE DAILY SOLD: 05/09/2021 [facility] 200-62.5-25 mcg 04/02/2021 12:00:00 AM EDT blister with stefany ce 60 INHALE 1 PUFF BY MOUTH ONCE DAILY INHALE 1 PUFF BY MOUTH ONCE DAILY SOLD: 06/10/2021 [facility] 200-62.5-25 mcg 04/02/2021 12:00:00 AM EDT blister with stefany ce 60 INHALE 1 PUFF BY MOUTH ONCE DAILY INHALE 1 PUFF BY MOUTH ONCE DAILY SOLD: 04/03/2021 [facility] 90 mcg/actuation 02/11/2021 12:00:00 AM EDT HFA aerosol inha ler 17 INHALE TWO PUFFS BY MOUTH FOUR TIMES A DAY NEEDED FOR COUGH INHALE TWO PUFFS BY MOUTH FOUR TIMES A DAY NEEDED FOR COUGH SOLD: 02/18/2021 [facility] Fluticasone propionate 0.05 MG/ACTUAT Metered Dose Miguel Angel al [place] 50 mcg/actuation FLUTICASONE PROPIONATE 02/11/2021 12:00:00 AM EDT spray,suspension 16 SPRAY TWO SPRAYS IN EACH NOSTRIL EVERY DAY SPRAY TWO SPRAYS IN EACH NOSTRIL EVERY DAY SOLD: 05/19/2021 [facility] 50 mcg/actuation 02/11/2021 12:00:00 AM EDT spray,suspension 16 SPRAY TWO SPRAYS IN EACH NOSTRIL EVERY DAY SPRAY TWO SPRAYS IN EACH NOSTRIL EVERY DAY SOLD: 02/18/2021 [facility] 90 mcg/actuation 02/11/2021 12:00:00 AM EDT HFA aerosol inha ler 17 INHALE TWO PUFFS BY MOUTH FOUR TIMES A DAY NEEDED FOR COUGH INHALE TWO PUFFS BY MOUTH FOUR TIMES A DAY NEEDED FOR COUGH SOLD: 03/22/2021 [facility] 50 mcg/actuation 02/11/2021 12:00:00 AM EDT spray,suspension 16 SPRAY TWO SPRAYS IN EACH NOSTRIL EVERY DAY SPRAY TWO SPRAYS IN EACH NOSTRIL EVERY DAY SOLD: 03/22/2021 [facility] 2.5 mg 02/02/2021 12:00:00 AM EDT tablet 180 TAKE ONE TABLET BY MOUTH TWICE A DAY TAKE ONE TABLET BY MOUTH TWICE A DAY SOLD: 05/09/2021 [facility] 2.5 mg 02/02/2021 12:00:00 AM EDT tablet 180 TAKE ONE TABLET BY MOUTH TWICE A DAY TAKE ONE TABLET BY MOUTH TWICE A DAY SOLD: 02/02/2021 [facility] apixaban 2.5 MG Oral Tablet apixaban (Eliquis) 2.5 MG TABS tablet apixaban (Eliquis) 2.5 MG TABS tablet 02/01/2021 12:00:00 AM EDT 2.5 mg Oral active Take 1 tablet (2.5 mg total) by mouth 2 (two) times a day [facility] Azelastine hydrochloride 0.206 MG/ACTUAT Metered Dose Nasal [place] 205.5 mcg (0.15 %) AZELASTINE HCL 01/25/2021 12:00:00 AM EDT spray,non-aerosol 30 INSTILL 2 SPRAYS IN EACH NOSTRIL EVERY MORNING AND 4 HOURS BEFORE BEDTIME INSTILL 2 SPRAYS IN EACH NOSTRIL EVERY MORNING AND 4 HOURS BEFORE BEDTIME SOLD: 03/09/2021 [facility] Azelastine hydrochloride 0.206 MG/ACTUAT Metered Dose Nasal [place] 205.5 mcg (0.15 %) AZELASTINE HCL 01/25/2021 12:00:00 AM EDT spray,non-aerosol 30 INSTILL 2 SPRAYS IN EACH NOSTRIL EVERY MORNING AND 4 HOURS BEFORE BEDTIME INSTILL 2 SPRAYS IN EACH NOSTRIL EVERY MORNING AND 4 HOURS BEFORE BEDTIME SOLD: 02/02/2021 [facility] Azelastine hydrochloride 0.206 MG/ACTUAT Metered Dose Nasal [place] 205.5 mcg (0.15 %) AZELASTINE HCL 01/25/2021 12:00:00 AM EDT spray,non-aerosol 30 INSTILL 2 SPRAYS IN EACH NOSTRIL EVERY MORNING AND 4 HOURS BEFORE BEDTIME INSTILL 2 SPRAYS IN EACH NOSTRIL EVERY MORNING AND 4 HOURS BEFORE BEDTIME SOLD: 05/19/2021 [facility] Azelastine hydrochloride 0.206 MG/ACTUAT Metered Dose Nasal [place] 205.5 mcg (0.15 %) AZELASTINE HCL 01/25/2021 12:00:00 AM EDT spray,non-aerosol 30 INSTILL 2 SPRAYS IN EACH NOSTRIL EVERY MORNING AND 4 HOURS BEFORE BEDTIME INSTILL 2 SPRAYS IN EACH NOSTRIL EVERY MORNING AND 4 HOURS BEFORE BEDTIME SOLD: 04/14/2021 [facility] 90 mcg/actuation 12/09/2020 12:00:00 AM EDT HFA aerosol inha ler 17 INHALE TWO PUFFS BY MOUTH FOUR TIMES A DAY NEEDED FOR COUGH INHALE TWO PUFFS BY MOUTH FOUR TIMES A DAY NEEDED FOR COUGH SOLD: 12/14/2020 [facility] 90 mcg/actuation 12/09/2020 12:00:00 AM EDT HFA aerosol inha ler 17 INHALE TWO PUFFS BY MOUTH FOUR TIMES A DAY NEEDED FOR COUGH INHALE TWO PUFFS BY MOUTH FOUR TIMES A DAY NEEDED FOR COUGH SOLD: 01/14/2021 [facility] 60 ACTUAT Albuterol 0.09 MG/ACTUAT Metered Dose Inhaler Al[place] terol Sulfate HFA 12/08/2020 12:00:00 AM EDT RESPIRATORY active [facility] ([facility]) Nystatin 997740 UNT/ML Topical Cream Nystatin 11/24/2020 12:00:00 AM EDT active [facility] ([facility]) Covid-19 vaccine, Unspecified 11/15/2020 12:00:00 AM EST completed [facility]) Medication administered onsite 200-62.5-25 mcg 11/10/2020 12:00:00 AM EST blister with stefany ce 60 INHALE ONE PUFF BY MOUTH EVERY DAY INHALE ONE PUFF BY MOUTH EVERY DAY SOLD: 11/11/2020 [facility] 200-62.5-25 mcg 11/10/2020 12:00:00 AM EST blister with stefany ce 60 INHALE ONE PUFF BY MOUTH EVERY DAY INHALE ONE PUFF BY MOUTH EVERY DAY SOLD: 01/14/2021 [facility] 200-62.5-25 mcg 11/10/2020 12:00:00 AM EST blister with stefany ce 60 INHALE ONE PUFF BY MOUTH EVERY DAY INHALE ONE PUFF BY MOUTH EVERY DAY SOLD: 12/14/2020 [facility] Trelegy Ellipta Trelegy Ellipta 11/09/2020 12:00:00 AM EST ORAL active [facility] ([facility]) 50 mcg/actuation 11/04/2020 12:00:00 AM EST spray,suspension 16 SPRAY TWO SPRAYS IN EACH NOSTRIL EVERY DAY SPRAY TWO SPRAYS IN EACH NOSTRIL EVERY DAY SOLD: 11/11/2020 [facility] 50 mcg/actuation 11/04/2020 12:00:00 AM EST spray,suspension 16 SPRAY TWO SPRAYS IN EACH NOSTRIL EVERY DAY SPRAY TWO SPRAYS IN EACH NOSTRIL EVERY DAY SOLD: 01/14/2021 [facility] 50 mcg/actuation 11/04/2020 12:00:00 AM EST spray,suspension 16 SPRAY TWO SPRAYS IN EACH NOSTRIL EVERY DAY SPRAY TWO SPRAYS IN EACH NOSTRIL EVERY DAY SOLD: 12/14/2020 [facility] 24 HR Diltiazem Hydrochloride 360 MG Extended Release Oral Capsule DILTIAZEM HCL 11/03/2020 12:00:00 AM EST capsule,extended release 24hr 90 TAKE ONE CAPSULE BY MOUTH EVERY DAY TAKE ONE CAPSULE BY MOUTH EVERY DAY SOLD: 11/11/2020 [facility] 24 HR Diltiazem Hydrochloride 360 MG Extended Release Oral Capsule DILTIAZEM HCL 11/03/2020 12:00:00 AM EST capsule,extended release 24hr 90 TAKE ONE CAPSULE BY MOUTH EVERY DAY TAKE ONE CAPSULE BY MOUTH EVERY DAY SOLD: 02/18/2021 [facility] Covid-19 vaccine, Unspecified 10/18/2020 12:00:00 AM EST completed [facility] ([facility], ) Medication administered onsite Covid-19 vaccine, Unspecified 10/18/2020 12:00:00 AM EST completed [facility] ([facility]) Medication administered onsite 90 mcg/actuation 10/06/2020 12:00:00 AM EST HFA aerosol inha ler 17 INHALE TWO PUFFS BY MOUTH FOUR TIMES A DAY NEEDED FOR COUGH INHALE TWO PUFFS BY MOUTH FOUR TIMES A DAY NEEDED FOR COUGH SOLD: 11/11/2020 [facility] 90 mcg/actuation 10/06/2020 12:00:00 AM EST HFA aerosol inha ler 17 INHALE TWO PUFFS BY MOUTH FOUR TIMES A DAY NEEDED FOR COUGH INHALE TWO PUFFS BY MOUTH FOUR TIMES A DAY NEEDED FOR COUGH SOLD: 10/07/2020 [facility] 500-50 mcg/dose 10/06/2020 12:00:00 AM EST blister with stefany ce 60 INHALE ONE PUFF BY MOUTH TWICE A DAY INHALE ONE PUFF BY MOUTH TWICE A DAY SOLD: 10/07/2020 [facility] 1,000 mcg 09/24/2020 12:00:00 AM EST tablet 30 TAKE ONE TABLET BY MOUTH EVERY DAY TAKE ONE TABLET BY MOUTH EVERY DAY SOLD: 09/25/2020 [facility] Vitamin B-12 1,000 mcg 09/23/2020 12:00:00 AM EST active [facility] ([facility]) Azelastine hydrochloride 0.206 MG/ACTUAT Metered Dose Nasal [place] 0.15 % (205.5 mcg) AZELASTINE HCL 09/09/2020 12:00:00 AM EST spray,non-aerosol 30 SPRAY TWO SPRAYS IN EACH NOSTRIL EVERY MORNING AND 4 HOURS BEFORE BEDTIME SPRAY TWO SPRAYS IN EACH NOSTRIL EVERY MORNING AND 4 HOURS BEFORE BEDTIME SOLD: 09/14/2020 [facility] 24 HR Diltiazem Hydrochloride 360 MG Ext ended Release Oral Capsule diltiazem (CARDIZEM CD) 360 MG 24 hr capsule diltiazem (CARDIZEM CD) 360 MG 24 hr capsule 08/03/2020 12:00:00 AM EST 360 mg Oral aborted Take 360 mg by mouth daily [facility] 50 mcg/actuation 07/19/2020 12:00:00 AM EST spray,suspension 16 SPRAY TWO SPRAYS IN EACH NOSTRIL EVERY DAY SPRAY TWO SPRAYS IN EACH NOSTRIL EVERY DAY SOLD: 08/02/2020 [facility] 50 mcg/actuation 07/19/2020 12:00:00 AM EST spray,suspension 16 SPRAY TWO SPRAYS IN EACH NOSTRIL EVERY DAY SPRAY TWO SPRAYS IN EACH NOSTRIL EVERY DAY SOLD: 09/02/2020 [facility] 50 mcg/actuation 07/19/2020 12:00:00 AM EST spray,suspension 16 SPRAY TWO SPRAYS IN EACH NOSTRIL EVERY DAY SPRAY TWO SPRAYS IN EACH NOSTRIL EVERY DAY SOLD: 10/07/2020 [facility] 1,250 mcg (50,000 unit) 05/24/2020 12:00:00 AM EDT capsule 4 TAKE 1 CAPSULE BY MOUTH ONCE WEEKLY TAKE 1 CAPSULE BY MOUTH ONCE WEEKLY SOLD: 08/27/2020 [facility] 1,250 mcg (50,000 unit) 05/24/2020 12:00:00 AM EDT capsule 4 TAKE 1 CAPSULE BY MOUTH ONCE WEEKLY TAKE 1 CAPSULE BY MOUTH ONCE WEEKLY SOLD: 09/25/2020 [facility] 1,250 mcg (50,000 unit) 05/24/2020 12:00:00 AM EDT capsule 4 TAKE 1 CAPSULE BY MOUTH ONCE WEEKLY TAKE 1 CAPSULE BY MOUTH ONCE WEEKLY SOLD: 06/08/2020 [facility] 24 HR Diltiazem Hydrochloride 360 MG Extended Release Oral Capsule DILTIAZEM HCL 04/27/2020 12:00:00 AM EDT capsule,extended release 24hr 90 TAKE ONE CAPSULE BY MOUTH EVERY DAY TAKE ONE CAPSULE BY MOUTH EVERY DAY SOLD: 08/07/2020 [facility] 50 mcg/actuation 04/06/2020 12:00:00 AM EDT spray,suspension 16 SPRAY TWO SPRAYS IN EACH NOSTRIL EVERY DAY SPRAY TWO SPRAYS IN EACH NOSTRIL EVERY DAY SOLD: 06/21/2020 [facility] 1,000 mcg 01/23/2020 12:00:00 AM EDT tablet 30 TAKE ONE TABLET BY MOUTH EVERY DAY TAKE ONE TABLET BY MOUTH EVERY DAY SOLD: 06/08/2020 [facility] 1,000 mcg 01/23/2020 12:00:00 AM EDT tablet 30 TAKE ONE TABLET BY MOUTH EVERY DAY TAKE ONE TABLET BY MOUTH EVERY DAY SOLD: 08/27/2020 [facility] ipratropium (ATROVENT) 0.03 % nasal spray [id number] 07/04/2019 12:00:00 AM EDT aborted USE 2 SPRAYS IN EACH NOSTRIL 2 3 TIMES DAY NEEDED [facility] Prednisone 10 MG Oral Tablet predniSONE (DELTASONE) 10 MG tablet predniSONE (DELTASONE) 10 MG tablet 06/11/2019 12:00:00 AM EDT aborted TAKE 4 TABLETS BY MOUTH ONCE DAILY FOR 4 DAYS THEN 3 ONCE DAILY FOR 4 DAYS THEN 2 ONCE DAILY FOR 4 DAYS THEN 1 ONCE DAILY FOR 4 DAYS AND STO [facility] Azelastine HCl 137 MCG/SPRAY SOLN 81405-141-47 05/03/2019 12:00:00 AM EDT aborted TAKE 2 SPRAYS I N EACH NOSTRIL IN THE MORNING A ND 4 HOURS BEFORE BEDTIME [facility] 24 HR Diltiazem Hydrochloride 120 MG Ext ended Release Oral Capsule diltiazem (CARDIZEM CD) 120 MG 24 hr capsule diltiazem (CARDIZEM CD) 120 MG 24 hr capsule 01/06/2015 12:00:00 AM EDT aborted DILTIAZEM HCL CD 360 MG ORAL [id number]-TPO [facility] fluticasone (FLONASE) 50 MCG/ACT nasal spray 0806-0978-50 1 {spray} Nasal aborted 1 spray into each nostril da jose [facility] PARoxetine (PAXIL) 20 MG tablet [address]-9 20 mg Oral aborted Take 20 mg by mouth every morning [facility] 30 ACTUAT umeclidinium 0.0625 MG/ACTUAT / vilanterol 0.025 MG/ACTUAT Dry Powder Inhaler umeclidinium-vilanterol (ANORO ELLIPTA) 62.5-25 MCG/INH inhaler umeclidinium-vilanterol (ANORO ELLIPTA) 62.5-25 MCG/INH inhaler 1 {puff} Inhalation aborted Inhale 1 puff daily [facility] torsemide 100 MG Oral Tablet torsemide (DEMADEX) 100 M G tablet torsemide (DEMADEX) 100 MG tablet 100 mg Oral aborted Take 100 mg by mouth 4 days weekly on non dialysis days [facility] Esomeprazole 40 MG Delayed Release Oral Capsule esomeprazole (NEXIUM) 40 MG capsule esomeprazole (NEXIUM) 40 MG capsule 40 mg Oral aborted Take 40 mg by mouth every morning before breakfast [facility] cetirizine hydrochloride 10 MG Oral Tablet cetirizine (ZYRTEC) 10 MG tablet cetirizine (ZYRTEC) 10 MG tablet 10 mg Oral abort ed Take 10 mg by mouth daily [facility] Ascorbic Acid 200 MG / Beta Carotene 100 0 UNT / cuprous oxide 2 MG / dl-alpha tocopheryl acetate 60 UNT / Lutein 2 MG / sodium selenate 0.055 MG / Zinc Oxide 40 MG Oral Tablet [Ocuvite] beta carotene w/ C and E mineral (OCUVITE) tablet beta carotene w/ C and E mineral (OCUVITE) tablet 1 {tbl} Oral aborted Take 1 tablet by mouth daily [facility] montelukast 10 MG Oral Tablet montelukast (SINGULAIR) 10 MG tablet montelukast (SINGULAIR) 10 MG tablet 10 mg Oral aborted Take 10 mg by mouth daily [facility] 60 ACTUAT Fluticasone propionate 0.5 MG/ ACTUAT / salmeterol 0.05 MG/ACTUAT Dry Powder Inhaler fluticasone-salmeterol (ADVAIR) 500-50 MCG/DOSE DISKUS fluticasone-salmeterol (ADVAIR) 500-50 MCG/DOSE DISKUS 1 {puff} Inhalation aborted Inhale 1 puff 2 (two) magdalena es a day [facility] Lidocaine 25 MG/ML / Prilocaine 25 MG/ML Topical Cream lidocaine-prilocaine (EMLA) cream lidocaine-prilocaine (EMLA) cream 1 {application} T opical aborted Apply 1 application topically as needed 30" before HD [facility] Cyclosporine 0.5 MG/ML Ophthalmic Suspen kallie cycloSPORINE (RESTASIS) 0.05 % ophthalmic emulsion cycloSPORINE (RESTASIS) 0.05 % ophthalmic emulsion 1 [drp] aborted Administer 1 drop to bot h eyes 2 (two) times a day [facility] Hydralazine Hydrochloride 25 MG Oral Tab let hydrALAZINE (APRESOLINE) 25 MG tablet hydrALAZINE (APRESOLINE) 25 MG tablet 25 mg Oral aborted Take 25 mg by mouth 2 (two) times a day [facility] Vitamin B 12 1 MG Oral Tablet vitamin B-12 (CYANOCOBAL MILLER) 1000 MCG tablet vitamin B-12 (CYANOCOBALAMIN) 1000 MCG tablet 1000 ug Oral aborted Take 1,000 mcg by mouth daily [facility] Insurance Providers Payer name Policy type / Coverage type Policy ID Covered democrat ID Covered democrat's relationship to parmar Policy Parmar Plan Information MEDICARE [id number] Alexus [id number] A MEDICARE [id number] Alexus [id number] Well[employer]/T[employer]ays [employer]ptr Commercial [id number] Self [id number] [employer] Medicare Commercial [id number] Self [id number] [place] [id number] [place] MEDICARE [id number] A MEDICARE [id number] SP [id number] A MEDICARE [id number] SP [id number] MEDICARE [id number] xxxxxxxxxxx [id number] Wellcare Commercial [id number] Self [id number] Wellcare Commercial [id number] Self [id number] [employer] Options Commercial [id number] 3254.0 Self [id number] TODAYS OPT MEDICARE 11 [id number] 1 [id number] Medicare Blue Ppo Commercial [id number] Self [id number] Medicare Blue Ppo Commercial [id number] [id number] [id number] Self [id number] Medicare Blue Ppo Commercial [id number] Self [id number] [employer] Medicare Commercial [id number] 2.0.1.596142.3.227.99.4595.1556.0 Self [id number] Wellcare/T[employer] Optmcr Commercial [id number] Self [id number] [employer] Medicare Commercial [id number] 2.0.1.617132.3.227.99.4595.1556.0 Self [id number] [employer] Medicare Commercial [id number] 2.0.1.312850.3.227.99.4595.1556.0 Self [id number] [employer] Medicare Commercial [id number] 2.0.1.973953.3.227.99.4595.1556.0 Self [id number] [employer] Medicare Commercial Advantage Plus [id number] Self Advantage Plus [id number] Well[employer] Commercial [id number] 2.0.1.084086.3.227.99.4595.1556.0 Self [id number] [employer] Medicare Commercial [id number] 2.0.1.848218.3.227.99.4595.1556.0 Self [id number] [employer] Medicare Commercial [id number] 2.0.1.168664.3.227.99.4595.1556.0 Self [id number] Well[employer] Commercial [id number] 2.16.840.1.990032.3.227.99.4595.1556.0 Self [id number] [employer] Commercial [id number] 2.16.840.1.851000.3.227.99.177.2 3254.0 Self [id number] TODAYS OPTIONS [id number] SP [id number] TODAYS OPTIONS [id number] SP [id number] TODAYS OPTIONS [id number] SP [id number] [facility] Opt Medigap Part B [id number] 2.0.1.497293.3.227.99.4595.1556.[id number] [facility] [id number] xxxxxxxxxxx [id number] [facility] [id number] [facility] [id number] [facility] Opt Medigap Part B [id number] Self [id number] Medicare Natl Govt Servic Medicare Primary [id number] Self [id number] [facility] Opt Medigap Part B [id number] [id number]556.0 Self 3 [id number] Medicare Natl Govt Servic Medicare Primary [id number] 2.840.1.111931.3.227.99.4595.1556.0 Self 1 [id number] Medicare Natl Govt Servic Medicare Primary [id number] 2.16840.1.720993.3.227.99.4595.1556.0 Self 1 [id number] [facility] [facility] OPTIONS [id number] SP [id number] [facility] Opt Medigap Part B [id number] 2.0.1.604975.3.227.99.4595.1556.0 Self [id number] Medicare Natl Govt Servic Medicare Primary [id number] 2.16.840.1.617377.3.227.99.4595.1556.0 Self 0 [id number] [facility] Opt Medigap Part B [id number] 2.16.840.1.452120.3.227.99.4595.1556.0 Self 3 [id number] Medicare Natl Govt Servic Medicare Primary [id number] 2.16.840.1.913811.3.227.99.4595.1556.0 Self 0 [id number] [facility] Opt Medigap Part B [id number] 2.16.840.1.972290.3.227.99.4595.1556.0 Self 3 [id number] Medicare Natl Govt Servic Medicare Primary [id number] 2.840.1.805855.3.227.99.4595.1556.0 Self 0 [id number] [facility] [facility] [facility] OPTIONS [id number] SP [id number] TODAYS OPTIONS 11 [id number] TODAYS OPT MEDICARE 11 [id number] 1 [id number] AARP O [id number] S [id number] 111 MEDICARE C [id number] S [id number] A [facility]/ Health Care Options Medigap Part B [id number] 2.840.1.218549.3.227.99.177.83081.0 Self [id number] Medicare - NGS Medicare Primary [id number] 2.16.840.1.033524.3.227.99.177.77445.0 Self 0 [id number] [facility] Options Medigap Part B [id number] 2.16840.1.580508.3.227.99.1767.28949.0 Self [id number] Medicare [place] Medicare Primary [id number] 2..840.1.019768.3.227.99.8646.38665.0 Self [id number] [employer] Medigap Part B [id number] 2.16.840.1.395114.3.227.99.8646.53 980.0 Self [id number] Wellcare Commercial [id number] 2.16.840.1.848555.3.227.99.177.82567.0 Self [id number] [facility] Commercial [id number] 2.16.840.1.269757.3.227.9 9.177.04526.0 Self [id number] [facility] Health Care Options Medigap Part B [id number] 2.16.840.1.110547.3.227.99.1767.51727.0 Self [id number] Medicare Natl Gov't Servi Medicare Primary [id number] 2.16.840.1.046049.3.227.99.1767.76338.0 Self [id number] MEDICARE [id number] SP [id number] A [facility] OPTIONS [id number] SP [id number] Todays Option Medicare Commercial [id number] 2.16.840.1.552805.3.227.99.4595.1556.0 Self [id number] Statewide/[employer] Commercial [id number] 2.16.840.1.290854.3.227.99.4595. 1556.0 Self [id number] Statewide/[employer]CS Commercial [id number] 2.16.840.1.067940.3.227.99.4595. 1556.[id number] [facility] PI PI Statewide/PHCS Commercial [id number] 2.16.840.1.525965.3.227.99.4595. 1556.0 Self [id number] MEDICARE PI PI [facility] Medicare Priya Commercial [id number] 2.16.840.1.419419.3.227.99.4595.1556.0 Self [id number] Medicare [place]/NGS Medicare Primary [id number] 2.16.840.1.355624.3.227.99.8646.63430.0 Self [id number] Statewide/[employer] Commercial [id number] 2.0.1.658131.3.227.99.4595. 1556.0 Self [id number] [facility] Medigap Part B [id number] 2.160.1.019334.3.227.99.8646.53 980.0 Self [id number] Todays Option Medicare Commercial Advantsge Plus 150A Ppo 2.0.1.900123.3.227.99.4595.1556.0 Self A dvantsge Plus 150A Ppo Statewide/[facility] Commercial [id number] Self Statewide/PHCS Commercial [id number] 2.0.1.023737.3.227.99.4595. 1556.0 Self [id number] Statewide/[facility] Commercial [id number] 2..1.868581.3.227.99.4595. 1556.0 Self [id number] [facility] Medicare Priya Commercial [id number] Self [id number] [facility] [employer] Commercial [id number] Self [id number] Wellcare/Todays Optmcr Commercial [id number] Self [id number] TODAYS OPTIONS/[place] O [id number] S [id number] Today's Option Medicare Commercial 2..[id number] .3.227.99.6619.78973.0 Self MEDICARE [id number] SP [id number] MEDICARE BLUE PPO 306 [id number] SP [id number] EXCELLUS BCBS P [id number] S [id number] MEDICARE BLUE PPO P [id number] S [id number] Statewide/[facility] Commercial [id number] Self [id number] [facility] Commercial [id number] 2.16.840.1.013984.3.227.99.4595. 1556.0 Self [id number] SELF PAY 2 UNAVAILABLE 1 UNAVAILA BLE Medicare Natl Gov't Servi Medicare Primary [id number] 2.16.840.1.946714.3.227.99.1767.97284.0 Self [id number] [facility] Commercial [id number] 2.16.840.1.717261.3.227.99.4595. 1556.0 Self [id number] Problems, Conditions, and Diagnoses Code Display Name Description Problem Type Effective Dates Data Source(s) Z01.810 Encounter for preprocedural cardiovascul ar examination Encounter for preprocedural cardiovascul Diagnosis 04/19/2021 11:33:47 AM EDT [facility] R06.02 Shortness of breath Shortness of breath Diagnosis 0 04/19/2021 11:33:47 AM EDT [facility] I10 Essential (primary) hypertension Essential (primary) h ypertension Diagnosis 04/19/2021 11:33:47 AM EDT [facility] N18.6 End stage renal disease End stage renal disease Diagno sis 04/19/2021 11:33:47 AM EDT [facility] I48.92 Unspecified atrial flutter Unspecified atrial flutter Diagnosis 04/19/2021 11:33:47 AM EDT [facility] Z01.810 Preoperative cardiovascular examination Preoperative cardiovascular examination [id number] 04/19/2021 12:00:00 AM EDT [facility] L29.0 Pruritus ani Pruritus ani [id number] 10/22/2020 12:00:00 A M EST [facility] Surgeries/Procedures Procedure Description Date Indications Data Source(s) OFFICE OUTPATIENT VISIT 25 MINUTES 07/30/2021 12:00:00 AM EST [facility] ([facility]) POCT AMB EKG <td>POCT AMB EKG</td><td>Rou angelica</td><td>04/19/2021 1:07 PM EDT</td><td> Atrial flutter Shortness of breath</td><td> </td> 04/19/2021 01:07:00 PM EDT Shortness of breathAtrial flutter [facility] Shortness of breath Atrial flutter Diabetic Retinal Eye Exam 03/28/2021 12:00:00 AM EDT REBECCA ([facility]) OFFICE OUTPATIENT VISIT 15 MINUTES 01/20/2021 12:00:00 AM EDT REBECCA ([facility]) Glucose Monitor, Interstital Tissue Fluid Min 72 Hours, PT E quip 12/30/2020 12:00:00 AM EDYosi FERNANDEZ ([facility] ) Spirometry 11/11/2020 12:00:00 AM PATRICIA [place] ([facility], ) HEMOGLOBIN GLYCOSYLATED A1C <td>HEMOGLOBIN A1C</td><td>Routine</td><td>11/09/2020</td><td></td><td> </td> 11/09/2020 12:00:00 AM EST [facility] ECG ROUTINE ECG W/LEAST 12 LDS W/I&R <td>POCT AMB EKG</td><td>Routine</td><td>08/10/2020 10:13 AM EST</td><td> Atrial flutter</td><td> </td> 08/10/2020 03:13:00 PM EST Atrial flutter [facility] Atrial flutter Results ID Date Data Source [id number] 04/22/2021 08:58:20 AM EDT [facility] INFORMATIONPatient MRN Name Date of Age Gend*PT [id number] Carmen Kathleen I 1940 81 years F ---PT Location Admission Date/Time Visit ID Attending Provider --- --- --- --- EPI ID CSN Admitting Provider [id number] ---Addended by: JANETT EUBANKS on: 04/22/2021 08:58 AM Modules accepted: Level of Service Name Value Range Interpretation Code Description Data Susie rce(s) Supporting Document(s) ID Date Data Source [id number] 11/23/2020 12:32:00 PM EDT [facility] ([facility]) Name Value Range Interpretation Code Description Data Susie rce(s) Supporting Document(s) Bedside Glucose 123 mg/dL 83-110 [facility] ([facility]) ID Date Data Source [id number] 11/09/2020 01:46:00 PM EST [facility] ([facility]) Name Value Range Interpretation Code Description Data Susie rce(s) Supporting Document(s) Glucose [Mass/volume] in Serum or Plasma 137 mg/dL 74-99 [facility] ([facility]) 100-125 mg/dL PRE-DIABETES/FASTING >126 mg/dL DIABETES/FASTING ID Date Data Source [id number] 11/09/2020 01:46:00 PM EST [facility] ([facility]) Name Value Range Interpretation Code Description Data Susie rce(s) Supporting Document(s) Glucose mean value [Mass/volume] in Blood Estimated fr om glycated hemoglobin 189 mg/dL 60-110 [facility] ([facility] ) Hemoglobin A1c/Hemoglobin.total in Blood 8.2 % [facility] ([facility]) Lab Result Notes: Pre-Diabetes 5.7 - 6.4 % Diabetes = or > 6.5% ID Date Data Source [id number] 11/09/2020 01:46:00 PM EST [facility] ([facility]) Name Value Range Interpretation Code Description Data Susie rce(s) Supporting Document(s) Hemoglobin A1c/Hemoglobin.total in Blood Laboratory test result [facility] ([facility]) Glucose [Mass/volume] in Serum or Plasma Laboratory test result [facility] ([facility]) Procedure Social History Code Duration Value Status Description Data Source(s ) Alcohol intake 04/19/2021 12:00:00 AM EDT Current non-d gareth of alcohol (finding) completed Current non-drinker of alcohol (finding) [facility] Smoking 11/11/2020 12:00:00 AM EST Patient is a former smoker completed Patient is a former smoker [facility] ([facility] ) Alcohol intake 08/10/2020 12:00:00 AM EST No completed [facility] Smoking 08/10/2020 12:00:00 AM EST Former smoker completed Former smoker [facility] Vital Signs ID Date Data Source [id number] Name Value Range Interpretation Code Description Data Source(s) Systolic blood pressure 118 mm[Hg] 118 mm[Hg] [facility] ([facility], [facility]) Diastolic blood pressure 91 mm[Hg] 91 mm[Hg] [facility] ([facility]) Heart rate 92 /min 92 /min [facility] ([facility], [facility]) Respiratory rate 28 /min 28 /min [facility] ( [facility]) Oxygen saturation in Arterial blood by Pulse oximetry 96 % 96 % [facility] ([facility], [facility]) Body temperature 98.5 [degF] 98.5 [degF] [facility] ([facility]) Body weight 178.00 [lb_av] 178.00 [lb_av] [facility] T ([facility], [facility]) Body height 66 [in_i] 66 [in_i] [facility] ([facility]) 5'6" Body mass index (BMI) [Ratio] 28.7 kg/m2 28.7 k g/m2 [facility] ([facility]) Systolic blood pressure 140 mm[Hg] 140 mm[Hg] M [facility] ([facility]) Diastolic blood pressure 60 mm[Hg] 60 mm[Hg] [facility] ([facility]) Heart rate 80 /min 80 /min [facility] ([facility]) Body height 64.5 [in_i] 64.5 [in_i] [facility] ([facility]) 5'4.50" Body weight 187.38 [lb_av] 187.38 [lb_av] MED[facility] T ([facility]) Oxygen saturation in Arterial blood by Pulse oximetry 94 % 94 % [facility] ([facility]) [facility] Body mass index (BMI) [Ratio] 31.7 kg/m2 31.7 k g/m2 [facility] ([facility]) Systolic blood pressure 122 mm[Hg] 122 mm[Hg] [facility] Diastolic blood pressure 68 mm[Hg] 68 mm[Hg] [facility] Heart rate 80 /min 80 /min [facility] Body height 165.1 cm 165.1 cm [facility] Body weight 85.276 kg 85.276 kg [facility] Body mass index (BMI) [Ratio] 31.28 kg/m2 31.28 kg/m2 [facility] Oxygen saturation in Arterial blood by Pulse oximetry 97 % 97 % [facility] Diastolic blood pressure 50 mm[Hg] 50 mm[Hg] [facility] ([facility]) Heart rate 108 /min 108 /min [facility] ([facility]) Body height 64.5 [in_i] 64.5 [in_i] [facility] ([facility]) 5'4.50" Body weight 202.00 [lb_av] 202.00 [lb_av] MED[facility] T ([facility]) Oxygen saturation in Arterial blood by Pulse oximetry 95 % 95 % [facility] ([facility]) Systolic blood pressure 142 mm[Hg] 142 mm[Hg] M [facility] ([facility]) Body mass index (BMI) [Ratio] 34.1 kg/m2 34.1 k g/m2 [facility] ([facility]) Oxygen saturation in Arterial blood by Pulse oximetry 94 % 94 % [facility] ([facility]) Body mass index (BMI) [Ratio] 34.3 kg/m2 34.3 k g/m2 [facility] ([facility]) Body weight 203.00 [lb_av] 203.00 [lb_av] [facility] T ([facility]) Heart rate 88 /min 88 /min [facility] ([facility]) Body height 64.5 [in_i] 64.5 [in_i] [facility] ([facility]) 5'4.50" [place] body weight 125 [lb_av] 125 [lb_av] [facility] T ([facility]) Body weight 92.704 kg 92.704 kg [facility] ([facility]) Body surface area Derived from formula 2.01 m2 2.01 m2 [facility] ([facility]) Systolic blood pressure 163 mm[Hg] 163 mm[Hg] M [facility] ([facility]) Diastolic blood pressure 73 mm[Hg] 73 mm[Hg] [facility] ([facility]) Heart rate 106 /min 106 /min [facility] ([facility]) Body height 65.5 [in_i] 65.5 [in_i] [facility] ([facility]) 5'5.50" Body weight 204.38 [lb_av] 204.38 [lb_av] [facility] T ([facility]) Body mass index (BMI) [Ratio] 33.5 kg/m2 33.5 k g/m2 [facility] ([facility]) Systolic blood pressure 124 mm[Hg] 124 mm[Hg] M [facility] ([facility]) Diastolic blood pressure 70 mm[Hg] 70 mm[Hg] [facility] ([facility]) Heart rate 90 /min 90 /min [facility] ([facility]) Oxygen saturation in Arterial blood by Pulse oximetry 93 % 93 % [facility] ([facility]) Body height 65.5 [in_i] 65.5 [in_i] [facility] ([facility]) 5'5.50" Body weight 201.00 [lb_av] 201.00 [lb_av] [facility] ([facility]) stated Body mass index (BMI) [Ratio] 32.9 kg/m2 32.9 k g/m2 [facility] ([facility]) [place] body weight 125 [lb_av] 125 [lb_av] [facility] ([facility]) Body weight 91.174 kg 91.174 kg [facility], ) Body surface area Derived from formula 1.99 m2 1.99 m2 [facility] ([facility], ) Body weight 201.00 [lb_av] 201.00 [lb_av] [facility] ([facility]) Oxygen saturation in Arterial blood by Pulse oximetry 93 % 93 % [facility] ([facility]) Systolic blood pressure 128 mm[Hg] 128 mm[Hg] M [facility] ([facility]) Diastolic blood pressure 80 mm[Hg] 80 mm[Hg] [facility] ([facility]) Heart rate 90 /min 90 /min [facility] ([facility]) irregular Body height 64.5 [in_i] 64.5 [in_i] [facility] ([facility]) 5'4.50" Body mass index (BMI) [Ratio] 34.0 kg/m2 34.0 k g/m2 [facility] ([facility]) Systolic blood pressure 134 mm[Hg] 134 mm[Hg] [facility] Diastolic blood pressure 50 mm[Hg] 50 mm[Hg] [facility] ([facility]) Heart rate 107 /min 107 /min [facility] ([facility]) Body height 64.5 [in_i] 64.5 [in_i] [facility] ([facility]) 5'4.50" Body weight 201.00 [lb_av] 201.00 [lb_av] [facility] ([facility]) Oxygen saturation in Arterial blood by Pulse oximetry 98 % 98 % [facility] ([facility]) Body mass index (BMI) [Ratio] 34.0 kg/m2 34.0 k g/m2 [facility] ([facility]) Systolic blood pressure 122 mm[Hg] 122 mm[Hg] [facility] Diastolic blood pressure 68 mm[Hg] 68 mm[Hg] [facility] Heart rate 58 /min 58 /min [facility] Body height 165.1 cm 165.1 cm [facility] Body weight 90.719 kg 90.719 kg [facility] Body mass index (BMI) [Ratio] 33.28 kg/m2 33.28 kg/m2 [facility] Oxygen saturation in Arterial blood by Pulse oximetry 98 % 98 % [facility] Patient Treatment Plan of Care Planned Activity Planned Date Details Description Data Source (s) apixaban 2.5 MG Oral Tablet 02/01/2021 12:00:00 AM EDT [facility] 24 HR Diltiazem Hydrochloride 360 MG Extended Release Oral Capsule 08/03/2020 12:00:00 AM EST [facility] ipratropium (ATROVENT) 0.03 % nasal spray 07/04/2019 12:00:00 AM ED T [facility] Prednisone 10 MG Oral Tablet 06/11/2019 12:00:00 AM EDT [facility] Azelastine HCl 137 MCG/SPRAY SOLN 05/03/2019 12:00:00 AM EDT [facility] 24 HR Diltiazem Hydrochloride 120 MG Extended Release Oral Capsule 01/06/2015 12:00:00 AM EDT [facility] PARoxetine (PAXIL) 20 MG tablet [facility] Esomeprazole 40 MG Delayed Release Oral Capsule [facility] 30 ACTUAT umeclidinium 0.0625 MG/ACTUAT / vilanterol 0.025 MG/ACTUAT Dry Powder Inhaler [facility] torsemide 100 MG Oral Tablet [facility] cetirizine hydrochloride 10 MG Oral Tablet [facility] fluticasone (FLONASE) 50 MCG/ACT nasal spray [facility] Vitamin B 12 1 MG Oral Tablet [facility] Lidocaine 25 MG/ML / Prilocaine 25 MG/ML Topical Cream [facility] Cyclosporine 0.5 MG/ML Ophthalmic Suspension [facility] Ascorbic Acid 200 MG / Beta Carotene 100 0 UNT / cuprous oxide 2 MG / dl-alpha tocopheryl acetate 60 UNT / Lutein 2 MG / sodium selenate 0.055 MG / Zinc Oxide 40 MG Oral Tablet [Ocuvite] [facility] montelukast 10 MG Oral Tablet [facility] 60 ACTUAT Fluticasone propionate 0.5 MG/ ACTUAT / salmeterol 0.05 MG/ACTUAT Dry Powder Inhaler [facility] Hydralazine Hydrochloride 25 MG Oral Tablet [facility]
--- NOTE | 2021-07-30 14:38 | REP ---
INDICATION: DYSPNEA/COUGH COMPARISON: 08/13/2018 TECHNIQUE: Portable AP view of the chest FINDINGS: Evaluation is limited by poor inspiratory effort and underpenetration. Cardiomegaly is appreciated with perihilar and lower lobe opacities raising the possibility multifocal pneumonia versus pulmonary vascular congestion/interstitial edema. Layering effusions cannot be excluded. No pneumothorax. IMPRESSION: Limited examination cannot exclude pulmonary vascular congestion/early CHF or multifocal pneumonia. <Electronically signed by Elton Dias > 07/30/21 [id number]
[2021-07-30] MEDS ORDERED: METOPROLOL 5 MG/5 ML VIAL As Ordered ONE (14:57)
[2021-07-30] MEDS ORDERED: diltiaZEM **CD** 180 MG CAP PO ONE (15:00)
[2021-07-30] MEDS ORDERED: ACETAMINOPHEN TAB 650MG DOSE (2X325MG) PO ONE (15:05)
[2021-07-30 15:07] LABS: BASO # 0.1 10^3/uL (0.0-0.2); BASO % 0.6 % (0.0-1.0); EOS % 0.4 % (0.0-3.0); HEMATOCRIT 35.8 % (36.0-47.0); LYMPH # 0.5 10^3/uL (1.5-5.0); LYMPH % 6.1 % (24.0-44.0); MEAN CORPUSCULAR HEMOGLOBIN 28.9 pg (27.0-33.0); MEAN CORPUSCULAR HGB CONC 30.7 g/dl (32.0-36.5); MONO # 0.6 10^3/uL (0.0-0.8); MONO % 7.3 % (2.0-8.0); NEUTROPHILS # 7.1 10^3/uL (1.5-8.5); NEUTROPHILS % 85.4 % (36.0-66.0); PLATELET COUNT, AUTOMATED 147 10^3/uL (150-450); RED BLOOD COUNT 3.81 10^6/uL (4.00-5.40); WHITE BLOOD COUNT 8.3 10^3/uL (4.0-10.0)
--- OUTSIDE RECORDS SUMMARY | 2021-07-30 15:13 | CCD ---
Author Author [facility] Organization [facility] Address Unknown Phone Unavailable Care Team Providers Care Surgical Technician Name Role Phone Dawsonine M Joceline CHEMICAL PROCESS EQUIPMENT OPERATOR Unavailable Unavailable LePine, M Joceline CHEMICAL PROCESS EQUIPMENT OPERATOR Unavailable Unavailable LePine, M Joceline CHEMICAL PROCESS EQUIPMENT OPERATOR Unavailable Unavailable LePine, M Joceline CHEMICAL PROCESS EQUIPMENT OPERATOR Unavailable Unavailable LePine, M Joceline CHEMICAL PROCESS EQUIPMENT OPERATOR Unavailable Unavailable LePine, M Joceline CHEMICAL PROCESS EQUIPMENT OPERATOR Unavailable Unavailable LePine, M Joceline CHEMICAL PROCESS EQUIPMENT OPERATOR Unavailable Unavailable LePine, M Joceline CHEMICAL PROCESS EQUIPMENT OPERATOR Unavailable Unavailable LePine, M Joceline CHEMICAL PROCESS EQUIPMENT OPERATOR Unavailable Unavailable LePine, M Joceline CHEMICAL PROCESS EQUIPMENT OPERATOR Unavailable Unavailable LePine, M Joceline CHEMICAL PROCESS EQUIPMENT OPERATOR Unavailable Unavailable LePine, M Joceline CHEMICAL PROCESS EQUIPMENT OPERATOR Unavailable Unavailable LePine, M Joceline CHEMICAL PROCESS EQUIPMENT OPERATOR Unavailable Unavailable LePine, M Joceline CHEMICAL PROCESS EQUIPMENT OPERATOR Unavailable Unavailable LePine, M Joceline CHEMICAL PROCESS EQUIPMENT OPERATOR Unavailable Unavailable LePine, M Joceline CHEMICAL PROCESS EQUIPMENT OPERATOR Unavailable Unavailable LePine, M Joceline CHEMICAL PROCESS EQUIPMENT OPERATOR Unavailable Unavailable LePine, M Joceline CHEMICAL PROCESS EQUIPMENT OPERATOR Unavailable Unavailable LePine, M Joceline CHEMICAL PROCESS EQUIPMENT OPERATOR Unavailable Unavailable LePine, M Joceline CHEMICAL PROCESS EQUIPMENT OPERATOR Unavailable Unavailable LePine, M Joceline CHEMICAL PROCESS EQUIPMENT OPERATOR Unavailable Unavailable LePine, M Joceline CHEMICAL PROCESS EQUIPMENT OPERATOR Unavailable Unavailable LePine, M Joceline CHEMICAL PROCESS EQUIPMENT OPERATOR Unavailable Unavailable LePine, M Joceline CHEMICAL PROCESS EQUIPMENT OPERATOR Unavailable Unavailable LePine, M Joceline CHEMICAL PROCESS EQUIPMENT OPERATOR Unavailable Unavailable LePine, M Joceline CHEMICAL PROCESS EQUIPMENT OPERATOR Unavailable Unavailable LePine, M Joceline CHEMICAL PROCESS EQUIPMENT OPERATOR Unavailable Unavailable LePine, M Joceline CHEMICAL PROCESS EQUIPMENT OPERATOR Unavailable Unavailable LePine, M Joceline CHEMICAL PROCESS EQUIPMENT OPERATOR Unavailable Unavailable LePine, M Joceline CHEMICAL PROCESS EQUIPMENT OPERATOR Unavailable Unavailable LePine, M Joceline CHEMICAL PROCESS EQUIPMENT OPERATOR Unavailable Unavailable LePine, M Joceline CHEMICAL PROCESS EQUIPMENT OPERATOR Unavailable Unavailable LePine, M Joceline CHEMICAL PROCESS EQUIPMENT OPERATOR Unavailable Unavailable LePine, M Joceline CHEMICAL PROCESS EQUIPMENT OPERATOR Unavailable Unavailable LePine, M Joceline CHEMICAL PROCESS EQUIPMENT OPERATOR Unavailable Unavailable LePine, M Joceline CHEMICAL PROCESS EQUIPMENT OPERATOR Unavailable Unavailable LePine, M Joceline CHEMICAL PROCESS EQUIPMENT OPERATOR Unavailable Unavailable LePine, M Joceline CHEMICAL PROCESS EQUIPMENT OPERATOR Unavailable Unavailable LePine, M Joceline CHEMICAL PROCESS EQUIPMENT OPERATOR Unavailable Unavailable LePine, M Joceline CHEMICAL PROCESS EQUIPMENT OPERATOR Unavailable Unavailable LePine, M Joceline CHEMICAL PROCESS EQUIPMENT OPERATOR Unavailable Unavailable LePine, M Joceline CHEMICAL PROCESS EQUIPMENT OPERATOR Unavailable Unavailable LePine, M Joceline CHEMICAL PROCESS EQUIPMENT OPERATOR Unavailable Unavailable LePine, M Joceline CHEMICAL PROCESS EQUIPMENT OPERATOR Unavailable Unavailable LePine, M Joceline CHEMICAL PROCESS EQUIPMENT OPERATOR Unavailable Unavailable LePine, M Joceline CHEMICAL PROCESS EQUIPMENT OPERATOR Unavailable Unavailable LePine, M Joceline CHEMICAL PROCESS EQUIPMENT OPERATOR Unavailable Unavailable LePine, M Joceline CHEMICAL PROCESS EQUIPMENT OPERATOR Unavailable Unavailable LePine, M Joceline CHEMICAL PROCESS EQUIPMENT OPERATOR Unavailable Unavailable LePine, M Joceline CHEMICAL PROCESS EQUIPMENT OPERATOR Unavailable Unavailable LePine, M Joceline CHEMICAL PROCESS EQUIPMENT OPERATOR Unavailable Unavailable LePine, M Joceline CHEMICAL PROCESS EQUIPMENT OPERATOR Unavailable Unavailable LePine, M Joceline CHEMICAL PROCESS EQUIPMENT OPERATOR Unavailable Unavailable LePine, M Joceline CHEMICAL PROCESS EQUIPMENT OPERATOR Unavailable Unavailable LePine, M Joceline CHEMICAL PROCESS EQUIPMENT OPERATOR Unavailable Unavailable LePine, M Joceline CHEMICAL PROCESS EQUIPMENT OPERATOR Unavailable Unavailable RING, K MAMIE PA Unavailable [...] K MAMIE PA Unavailable Unavailable RING, K MAIME PA Unavailable Unavailable RING, K MAMIE PA [...] Unavailable Unavailable Jhonatan Woods MD Unavailable Unavailable hJonatan Woods MD Unavailable Unavailable Jhonatan Woods MD [...] is protected by Article 27-F of the [place] State Public Health law. If you continue you may have access to information: Regarding HIV / AIDS; Provided by facilities licensed or operated by the [facility] Office of Mental Health; or Provided by the [facility] Office for People With Developmental Disabilities. If such information is present, then the following [facility] mandated warning applies: This information has been [...] law may result in a fine or fdc sentence or both. A general authorization for the release of medical or other information is NOT sufficient authorization for further disc losure. Allergies and Adverse Reactions Type Description Substance Reaction Status Data Source(s ) Propensity to adverse reactions CIPROFIBRATE ciprofibrate Rash Low Active [facility] Low Family History Family Member Name Family Member Gender Family Member Status Date o f Status Description Data Source(s) Unknown Unknown Problem [facility] ([facility], ) Encounters Encounter Providers Location Date Indications Data Source(s ) Outpatient Attender: MAMIE Husain [facility] 07/30/2021 10:30:00 AM EST [facility] ([facility] Outpatient Attender: Janett Eubanks MDConsultant: Janett manuel MD SJ.DELLA-SJ 04/19/2021 11:33:47 AM EDT - 04/19/2021 12:48:18 PM EDT [facility] Outpatient Attender: Joceline Coto 01/20 02:20:00 PM EDT [facility] ([facility] ) Outpatient Attender: Silvio Hernadez/Shelia/Josiah/R eindvonnie 11/11/2020 09:45:00 AM EST [facility] ([facility] ) Outpatient Attender: Joceline Coto 11/09 12:00:00 PM EST [facility] ([facility] ) Outpatient Attender: Nadia Hernadez/Alloy/Josiah/R eindl 10/14/2020 12:30:00 PM EST [facility] ([facility] ) Outpatient Attender: Joceline Huizarlogg Ch[place] 08/10 01:20:00 PM EST REBECCA ([facility] ) Outpatient Attender: Janett [email or web address]-[email or web address].DELLA 09/2019 12:00:00 AM EST - 08/10/2020 10:15:38 AM EST [facility] Immunizations Vaccine Date Status Description Data Source(s) COVID-19 VACCINE Moderna 07/22/2021 12:00:00 AM EST completed [facility] Vaccine Series Complete: YESThis Data wa s Submitted to [facility]. COVID-19 VACCINE Moderna 11/15/2020 12:00:00 AM EST completed [facility] Vaccine Series Complete: YESThis Data wa s Submitted to [facility]. COVID-19 VACCINE, MRNA-1273, LNP-S (MODERNA)/PF 11/15/2020 1 2:00:00 AM EST completed [facility] COVID-19 VACCINE Moderna 10/18/2020 12:00:00 AM EST completed [facility] Vaccine Series Complete: NOThis Data was Submitted to [facility]. COVID-19 VACCINE, MRNA-1273, LNP-S (MODERNA)/PF 10/18/2020 1 [...] 0.05 MG/ACTUAT Metered Dose [facility] [place] 50 mcg/actuation FLUTICASONE PROPIONATE 06/16/2021 12:00:00 AM EDT spray,suspension 16 SPRAY TWO SPRAYS IN EACH NOSTRIL EVERY DAY SPRAY TWO SPRAYS IN EACH NOSTRIL EVERY DAY SOLD: 06/18/2021 [facility] Azelastine hydrochloride 0.206 MG/ACTUAT Metered Dose Nasal [place] 205.5 mcg (0.15 %) AZELASTINE HCL 06/16/2021 12:00:00 AM EDT spray,non-aerosol 30 INSTILL 2 SPRAYS IN EACH NOSTRIL EVERY MORNING AND 4 HOURS BEFORE BEDTIME INSTILL 2 SPRAYS IN EACH NOSTRIL EVERY MORNING AND 4 HOURS BEFORE BEDTIME SOLD: 07/17/2021 [facility] Azelastine hydrochloride 0.206 MG/ACTUAT Metered Dose Nasal [place] 205.5 mcg (0.15 %) AZELASTINE HCL 06/16/2021 [...] 0.05 MG/ACTUAT Metered Dose Miguel Angel al [place] 50 mcg/actuation FLUTICASONE PROPIONATE 02/11/2021 12:00:00 AM [...] by mouth 2 (two) times a day [facility] Azelastine hydrochloride 0.206 MG/ACTUAT Metered Dose Nasal [place] 205.5 mcg (0.15 %) AZELASTINE HCL 01/25/2021 12:00:00 AM EDT spray,non-aerosol 30 INSTILL 2 SPRAYS IN EACH NOSTRIL EVERY MORNING AND 4 HOURS BEFORE BEDTIME INSTILL 2 SPRAYS IN EACH NOSTRIL EVERY MORNING AND 4 HOURS BEFORE BEDTIME SOLD: 03/09/2021 [facility] Azelastine hydrochloride 0.206 MG/ACTUAT Metered Dose Nasal [place] 205.5 mcg (0.15 %) AZELASTINE HCL 01/25/2021 12:00:00 AM EDT spray,non-aerosol 30 INSTILL 2 SPRAYS IN EACH NOSTRIL EVERY MORNING AND 4 HOURS BEFORE BEDTIME INSTILL 2 SPRAYS IN EACH NOSTRIL EVERY MORNING AND 4 HOURS BEFORE BEDTIME SOLD: 02/02/2021 [facility] Azelastine hydrochloride 0.206 MG/ACTUAT Metered Dose Nasal [place] 205.5 mcg (0.15 %) AZELASTINE HCL 01/25/2021 12:00:00 AM EDT spray,non-aerosol 30 INSTILL 2 SPRAYS IN EACH NOSTRIL EVERY MORNING AND 4 HOURS BEFORE BEDTIME INSTILL 2 SPRAYS IN EACH NOSTRIL EVERY MORNING AND 4 HOURS BEFORE BEDTIME SOLD: 05/19/2021 [facility] Azelastine hydrochloride 0.206 MG/ACTUAT Metered Dose Nasal [place] 205.5 mcg (0.15 %) AZELASTINE HCL 01/25/2021 [...] 12/08/2020 12:00:00 AM EDT RESPIRATORY active [facility] ([facility]) Nystatin [id number] UNT/ML Topical Cream Nystatin 11/24/2020 12:00:00 AM EDT active [facility] ([facility]) Covid-19 vaccine, Unspecified 11/15/2020 12:00:00 AM EST completed [facility] ([facility]) Medication administered onsite 200-62.5-25 mcg 11/10/2020 12:00:00 [...] 11/09/2020 12:00:00 AM EST ORAL active [facility] ([facility]) 50 mcg/actuation 11/04/2020 12:00:00 AM EST spray,suspension [...] Unspecified 10/18/2020 12:00:00 AM EST completed [facility] ([facility], ) Medication administered onsite Covid-19 vaccine, Unspecified 10/18/2020 12:00:00 AM EST completed [facility] ([facility]) Medication administered onsite 90 mcg/actuation 10/06/2020 12:00:00 [...] Azelastine hydrochloride 0.206 MG/ACTUAT Metered Dose Nasal [place] 0.15 % (205.5 mcg) AZELASTINE HCL 09/09/2020 [...] aborted Take 360 mg by mouth daily [facility] 50 mcg/actuation 07/19/2020 12:00:00 AM EST [...] Drugs ipratropium (ATROVENT) 0.03 % nasal spray 1128-0198-84 07/04/2019 12:00:00 AM EDT aborted USE 2 SPRAYS IN EACH NOSTRIL 2 3 TIMES DAY NEEDED [facility] Prednisone 10 MG Oral Tablet predniSONE (DELTASONE) 10 MG tablet predniSONE (DELTASONE) 10 MG tablet 06/11/2019 12:00:00 AM EDT aborted TAKE 4 TABLETS BY MOUTH ONCE DAILY FOR 4 DAYS THEN 3 ONCE DAILY FOR 4 DAYS THEN 2 ONCE DAILY FOR 4 DAYS THEN 1 ONCE DAILY FOR 4 DAYS AND STO [facility] Azelastine HCl 137 MCG/SPRAY SOLN 82421-447-03 05/03/2019 12:00:00 AM EDT aborted TAKE 2 SPRAYS I N EACH NOSTRIL IN THE MORNING A ND 4 HOURS BEFORE BEDTIME [facility] 24 HR Diltiazem Hydrochloride 120 MG Ext ended Release Oral Capsule diltiazem (CARDIZEM CD) 120 MG 24 hr capsule diltiazem (CARDIZEM CD) 120 MG 24 hr capsule 01/06/2015 12:00:00 AM EDT aborted DILTIAZEM HCL CD 360 MG ORAL [id number] [facility] fluticasone (FLONASE) 50 MCG/ACT nasal spray [id number] 1 {spray} Nasal aborted 1 spray into each nostril da jose [facility] PARoxetine (PAXIL) 20 MG tablet [address]-7 20 mg Oral aborted Take 20 mg by mouth every morning [facility] 30 ACTUAT umeclidinium 0.0625 MG/ACTUAT / vilanterol 0.025 MG/ACTUAT Dry Powder Inhaler umeclidinium-vilanterol (ANORO ELLIPTA) 62.5-25 MCG/INH inhaler umeclidinium-vilanterol (ANORO ELLIPTA) 62.5-25 MCG/INH inhaler 1 {puff} Inhalation aborted Inhale 1 puff daily [facility] torsemide 100 MG Oral Tablet torsemide (DEMADEX) 100 M G tablet torsemide (DEMADEX) 100 MG tablet 100 mg Oral aborted Take 100 mg by mouth 4 days weekly on non dialysis days [facility] Esomeprazole 40 MG Delayed Release Oral Capsule esomeprazole (NEXIUM) 40 MG capsule esomeprazole (NEXIUM) 40 MG capsule 40 mg Oral aborted Take 40 mg by mouth every morning before breakfast [facility] cetirizine hydrochloride 10 MG Oral Tablet cetirizine (ZYRTEC) 10 MG tablet cetirizine (ZYRTEC) 10 MG tablet 10 mg Oral abort ed Take 10 mg by mouth daily [facility] Ascorbic Acid 200 MG / Beta [...] aborted Take 1 tablet by mouth daily [facility] montelukast 10 MG Oral Tablet montelukast (SINGULAIR) 10 MG tablet montelukast (SINGULAIR) 10 MG tablet 10 mg Oral aborted Take 10 mg by mouth daily [facility] 60 ACTUAT Fluticasone propionate 0.5 MG/ ACTUAT / salmeterol 0.05 MG/ACTUAT Dry Powder Inhaler fluticasone-salmeterol (ADVAIR) 500-50 MCG/DOSE DISKUS fluticasone-salmeterol (ADVAIR) 500-50 MCG/DOSE DISKUS 1 {puff} Inhalation aborted Inhale 1 puff 2 (two) magdalena es a day [facility] Lidocaine 25 MG/ML / Prilocaine 25 MG/ML Topical Cream lidocaine-prilocaine (EMLA) cream lidocaine-prilocaine (EMLA) cream 1 {application} T opical aborted Apply 1 application topically as needed 30" before HD [facility] Cyclosporine 0.5 MG/ML Ophthalmic Suspen kallie cycloSPORINE (RESTASIS) 0.05 % ophthalmic emulsion cycloSPORINE (RESTASIS) 0.05 % ophthalmic emulsion 1 [drp] aborted Administer 1 drop to bot h eyes 2 (two) times a day [facility] Hydralazine Hydrochloride 25 MG Oral Tab let hydrALAZINE (APRESOLINE) 25 MG tablet hydrALAZINE (APRESOLINE) 25 MG tablet 25 mg Oral aborted Take 25 mg by mouth 2 (two) times a day [facility] Vitamin B 12 1 MG Oral Tablet vitamin B-12 (CYANOCOBAL MILLER) 1000 MCG tablet vitamin B-12 (CYANOCOBALAMIN) 1000 MCG tablet 1000 ug Oral aborted Take 1,000 mcg by mouth daily [facility] Insurance Providers Payer name Policy type / Coverage type Policy ID Covered alliance party ID Covered alliance party's relationship to parmar Policy Parmar Plan Information MEDICARE [id number] Alexus [id number] A MEDICARE [id number] Alexus [id number] Well[employer]/T[employer]ays [employer]ptr Commercial [id number] Self [id number] Tod[employer] Option Medicare Commercial [id number] Self [id number] [id number] [place] MEDICARE [id number] A MEDICARE [id number] SP [id number] A MEDICARE [id number] SP [id number] MEDICARE [id number] xxxxxxxxxxx [id number] Well[employer] Commercial [id number] Self [id number] Wellcare Commercial [id number] Self [id number] Tod[employer] Options Commercial [id number] 3254.0 Self [id number] TODAYS OPT MEDICARE 11 [id number] 1 [id number] Medicare Blue Ppo Commercial [id number] Self [id number] Medicare Blue Ppo Commercial [id number] [id number] Self [id number] Medicare Blue Ppo Commercial [id number] Self [id number] Tod[employer] Option Medicare Commercial [id number] 2.0.1.044627.3.227.99.4595.1556.0 Self [id number] Wellcare/Todays Optmcr Commercial [id number] Self [id number] Tod[employer] Medicare Commercial [id number] 2.0.1.662519.3.227.99.4595.1556.0 Self [id number] [employer] Medicare Commercial [id number] 2.0.1.852980.3.227.99.4595.1556.0 Self [id number] [employer] Medicare Commercial [id number] 2.0.1.099151.3.227.99.4595.1556.0 Self [id number] [employer] Medicare Commercial Advantage Plus [id number] Self Advantage Plus [id number] Well[employer]/T[employer] Commercial [id number] 2.0.1.872672.3.227.99.4595.1556.0 Self [id number] Tod[employer] Option Medicare Commercial [id number] 2.0.1.149520.3.227.99.4595.1556.0 Self [id number] Tod[employer] Medicare Commercial [id number] 2.0.1.147009.3.227.99.4595.1556.0 Self [id number] Well[employer] Commercial [id number] 2.16.840.1.454215.3.227.99.4595.1556.0 Self [id number] [employer] Commercial [id number] 2.16.840.1.373315.3.227.99.177.2 3254.0 Self [id number] TODAYS OPTIONS [id number] SP [id number] TODAYS OPTIONS [id number] SP [id number] TODAYS OPTIONS [id number] SP [id number] [facility] Opt Medigap Part B [id number] 2.0.1.380042.3.227.99.4595.1556.0 Self [id number] [facility] [id number] xxxxxxxxxxx [id number] [facility] [id number] [facility] [id number] [facility] Opt Medigap Part B [id number] Self [id number] Medicare Natl Govt Servic Medicare Primary [id number] Self [id number] [facility] Opt Medigap Part B [id number] 20.1.131212.3.227.99.4595.1556.0 Self 3 [id number] Medicare Natl Govt Servic Medicare Primary [id number] 2.840.1.517023.3.227.99.4595.1556.0 Self [id number] Medicare Natl Govt Servic Medicare Primary [id number] 2.16840.1.265858.3.227.99.4595.1556.0 Self 1 [id number] [facility] [facility] [facility] OPTIONS [id number] SP [id number] [facility] Opt Medigap Part B [id number] 2.0.1.204488.3.227.99.4595.1556.0 Self [id number] Medicare Natl Govt Servic Medicare Primary [id number] 2.16.840.1.601590.3.227.99.4595.1556.0 Self 0 [id number] [facility] Opt Medigap Part B [id number] 2.16.840.1.261005.3.227.99.4595.1556.0 Self 3 [id number] Medicare Natl Govt Servic Medicare Primary [id number] 2.16.840.1.665935.3.227.99.4595.1556.0 Self [id number] [facility] Opt Medigap Part B [id number] 2.16.840.1.958706.3.227.99.4595.1556.0 Self [id number] Medicare Natl Govt Servic Medicare Primary [id number] 2.840.1.248278.3.227.99.4595.1556.0 Self 0 [id number] [employer] OPTIONS [id number] SP [id number] TODAYS OPTIONS 11 [id number] TODAYS OPT MEDICARE 11 [id number] 1 [id number] AARP O [id number] S [id number] 111 MEDICARE C [id number] S [id number] A [facility]/ Health Care Options Medigap Part B [id number] 2.840.1.954639.3.227.99.177.26222.0 Self [id number] Medicare - NGS Medicare Primary [id number] 2.16.840.1.681912.3.227.99.177.63869.0 Self 0 [id number] [facility] Care Options Medigap Part B [id number] 2.16840.1.148848.3.227.99.1767.95590.0 Self [id number] Medicare Up[place]/NGS Medicare Primary [id number] 2..840.1.498029.3.227.99.8646.50853.0 Self [id number] [employer]arp Medigap Part B [id number] 2.16.840.1.948810.3.227.99.8646.53 980.0 Self [id number] Wellcare Commercial [id number] 2.16.840.1.958914.3.227.99.177.01179.0 Self [id number] [facility] Commercial [id number] 2.16.840.1.691381.3.227.9 9.177.79108.0 Self [id number] [facility] Health Care Options Medigap Part B [id number] 2.16.840.1.694550.3.227.99.1767.61814.0 Self [id number] Medicare Natl Gov't Servi Medicare Primary [id number] 2.16.840.1.621954.3.227.99.1767.29803.0 Self [id number] MEDICARE [id number] SP [id number] A [facility] OPTIONS [id number] SP [id number] Todays Option Medicare Commercial [id number] 2.16.840.1.668144.3.227.99.4595.1556.0 Self [id number] Statewide/[facility] Commercial [id number] 2.16.840.1.620849.3.227.99.4595. 1556.0 Self [id number] Statewide/PHCS Commercial [id number] 2.16.840.1.194293.3.227.99.4595. 1556.0 Self [id number] [facility] PI PI Statewide/PHCS Commercial [id number] 2.16.840.1.012836.3.227.99.4595. 1556.0 Self [id number] MEDICARE PI PI [facility] Medicare Priya Commercial [id number] 2.16.840.1.823708.3.227.99.4595.1556.0 Self [id number] Medicare Upstate/NGS Medicare Primary [id number] 2.16.840.1.130720.3.227.99.8646.36382.0 Self [id number] Statewide/[employer]CS Commercial [id number] 2.0.1.521580.3.227.99.4595. 1556.0 Self [id number] [employer]arp Medigap Part B [id number] 2.160.1.918912.3.227.99.8646.53 980.0 Self [id number] Todays Option Medicare Commercial Advantsge Plus 150A Ppo 2.0.1.616655.3.227.99.4595.1556.0 Self A dvantsge Plus 150A Ppo Statewide/[facility] Commercial [id number] Self Statewide/PHCS Commercial [id number] 2.0.1.250987.3.227.99.4595. 1556.0 Self [id number] Statewide/[facility] Commercial [id number] 2..1.335113.3.227.99.4595. 1556.0 Self [id number] [facility] Medicare Priya Commercial [id number] Self [id number] [facility] [employer] Commercial [id number] Self [id number] 00 Wellcare/Todays Optmcr Commercial [id number] Self [id number] TODAYS OPTIONS/[place] O [id number] S [id number] Today's Option Medicare Commercial 2..1.391196 .[id number] Self MEDICARE [id number] SP [id number] MEDICARE BLUE PPO 306 [id number] SP [id number] [employer] BCBS P [id number] S [id number] MEDICARE BLUE PPO P [id number] S [id number] Statewide/[facility] Commercial [id number] Self [id number] [facility] Commercial [id number] 2.16.840.1.416044.3.227.99.4595. 1556.0 Self [id number] SELF PAY 2 UNAVAILABLE 1 UNAVAILA BLE Medicare Natl Gov't Servi Medicare Primary [id number] 2.16.840.1.136023.3.227.99.1767.71966.0 Self [id number] [facility] Commercial [id number] 2.16.840.1.985111.3.227.99.4595. 1556.0 Self [id number] Problems, Conditions, and Diagnoses Code Display Name Description Problem Type Effective Dates Data Source(s) Z01.810 Encounter for preprocedural cardiovascul ar examination Encounter for preprocedural cardiovascul Diagnosis 04/19/2021 11:33:47 AM EDT [facility] R06.02 Shortness of breath Shortness of breath Diagnosis 0 04/19/2021 11:33:47 AM EDT [facility] I10 Essential (primary) hypertension Essential (primary) h ypertension Diagnosis 04/19/2021 11:33:47 AM EDT [facility] N18.6 End stage renal disease End stage renal disease Diagno sis 04/19/2021 11:33:47 AM EDT [facility] I48.92 Unspecified atrial flutter Unspecified atrial flutter Diagnosis 04/19/2021 11:33:47 AM EDT [facility] Z01.810 Preoperative cardiovascular examination Preoperative cardiovascular examination [id number] 04/19/2021 12:00:00 AM EDT [facility] L29.0 Pruritus ani Pruritus ani [id number] 10/22/2020 12:00:00 A M EST [facility] Surgeries/Procedures Procedure Description Date Indications Data Source(s) OFFICE OUTPATIENT VISIT 25 MINUTES 07/30/2021 12:00:00 AM EST [facility] ([facility]) POCT AMB EKG <td>POCT AMB EKG</td><td>Rou angelica</td><td>04/19/2021 1:07 PM EDT</td><td> Atrial flutter Shortness of breath</td><td> </td> 04/19/2021 01:07:00 PM EDT Shortness of breathAtrial flutter [facility] Shortness of breath Atrial flutter Diabetic Retinal Eye Exam 03/28/2021 12:00:00 AM EDT REBECCA ([facility]) OFFICE OUTPATIENT VISIT 15 MINUTES 01/20/2021 12:00:00 AM EDT REBECCA ([facility]) Glucose Monitor, Interstital Tissue Fluid Min 72 Hours, PT E quip 12/30/2020 12:00:00 AM EDYosi FERNANDEZ ([facility] ) Spirometry 11/11/2020 12:00:00 AM PATRICIA WASHINGTON ([facility], ) HEMOGLOBIN GLYCOSYLATED A1C <td>HEMOGLOBIN A1C</td><td>Routine</td><td>11/09/2020</td><td></td><td> </td> 11/09/2020 12:00:00 AM EST [facility] ECG ROUTINE ECG W/LEAST 12 LDS W/I&R <td>POCT AMB EKG</td><td>Routine</td><td>08/10/2020 10:13 AM EST</td><td> Atrial flutter</td><td> </td> 08/10/2020 03:13:00 PM EST Atrial flutter [facility] Atrial flutter Results ID Date Data Source [id number] 04/22/2021 08:58:20 AM EDT [facility]FORMATION[facility] Name Date of Age Gend*PT [id number] Carmen Kathleen I 1940 81 years F ---PT Location Admission Date/Time Visit ID Attending Provider --- --- --- --- EPI ID CSN Admitting Provider [id number] ---Addended by: JANETT EUBANKS on: 04/22/2021 08:58 AM Modules accepted: Level of Service Name Value Range Interpretation Code Description Data Susie rce(s) Supporting Document(s) ID Date Data Source [id number] 11/23/2020 12:32:00 PM EDT [facility] ([facility]) Name Value Range Interpretation Code Description Data Susie rce(s) Supporting Document(s) Bedside Glucose 123 mg/dL 83-110 [facility] ([facility]) ID Date Data Source [id number] 11/09/2020 01:46:00 PM EST [facility] ([facility]) Name Value Range Interpretation Code Description Data Susie rce(s) Supporting Document(s) Glucose [Mass/volume] in Serum or Plasma 137 mg/dL 74-99 [facility] ([facility]) 100-125 mg/dL PRE-DIABETES/FASTING >126 mg/dL DIABETES/FASTING ID Date Data Source [id number] 11/09/2020 01:46:00 PM EST [facility] ([facility]) Name Value Range Interpretation Code Description Data Susie rce(s) Supporting Document(s) Glucose mean value [Mass/volume] in Blood Estimated fr om glycated hemoglobin 189 mg/dL 60-110 [facility] ([facility] ) Hemoglobin A1c/Hemoglobin.total in Blood 8.2 % [facility] ([facility]) Lab Result Notes: Pre-Diabetes 5.7 - 6.4 % Diabetes = or > 6.5% ID Date Data Source [id number] 11/09/2020 01:46:00 PM EST [facility] ([facility]) Name Value Range Interpretation Code Description Data Susie rce(s) Supporting Document(s) Hemoglobin A1c/Hemoglobin.total in Blood Laboratory test result [facility] ([facility]) Glucose [Mass/volume] in Serum or Plasma Laboratory test result [facility] ([facility]) Procedure Social History Code Duration Value Status Description Data Source(s ) Alcohol intake 04/19/2021 12:00:00 AM EDT Current non-d gareth of alcohol (finding) completed Current non-drinker of alcohol (finding) [facility] Smoking 11/11/2020 12:00:00 AM EST Patient is a former smoker completed Patient is a former smoker [facility] ([facility], ) Alcohol intake 08/10/2020 12:00:00 AM EST No completed [facility] Smoking 08/10/2020 12:00:00 AM EST Former smoker completed Former smoker [facility] Vital Signs ID Date Data Source UNK Name Value Range Interpretation Code Description Data Source(s) Systolic blood pressure 118 mm[Hg] 118 mm[Hg] M [facility] ([facility], [facility]) Diastolic blood pressure 91 mm[Hg] 91 mm[facility]] [facility] Heart rate 92 /min 92 /min [facility]) Respiratory [facility] 28 /min 28 /min [facility] Oxygen saturation in Arterial blood by Pulse oximetry 96 % 96 % [facility], [facility]) Body temperature 98.5 [degF] 98.5 [degF] [facility] Body weight 178.00 [lb_av] 178.00 [lb_av] [facility] ([facility], [facility]) Body height 66 [in_i] 66 [in_i] [facility] 5'6" Body mass index (BMI) [Ratio] 28.7 kg/m2 28.7 k g/m2 [facility] Systolic blood pressure 140 mm[Hg] 140 mm[Hg] M [facility] ([facility]) Diastolic blood pressure 60 mm[Hg] 60 mm[Hg] [facility] Heart rate 80 /min 80 /min [facility] ([facility]) Body height 64.5 [in_i] 64.5 [in_i] [facility] ([facility]) 5'4.50" Body weight 187.38 [lb_av] 187.38 [lb_av] [facility] ([facility]) Oxygen saturation in Arterial blood by Pulse oximetry 94 % 94 % [facility] ([facility]) [facility] Body mass index (BMI) [Ratio] 31.7 kg/m2 31.7 k g/m2 [facility] ([facility]) Systolic blood pressure 122 mm[Hg] 122 mm[Hg] [facility] Diastolic blood pressure 68 mm[Hg] 68 mm[Hg] [facility] Heart rate 80 /min 80 /min [facility] Body height 165.1 cm 165.1 cm [facility] Body weight 85.276 kg 85.276 kg [facility] Body mass index (BMI) [Ratio] 31.28 kg/m2 31.28 kg/m2 [facility] Oxygen saturation in Arterial blood by Pulse oximetry 97 % 97 % [facility] Systolic blood pressure 142 mm[Hg] 142 mm[Hg] M [facility] ([facility]) Diastolic blood pressure 50 mm[Hg] 50 mm[Hg] [facility] ([facility]) Heart rate 108 /min 108 /min [facility] ([facility]) Body height 64.5 [in_i] 64.5 [in_i] [facility] ([facility]) 5'4.50" Body weight 202.00 [lb_av] 202.00 [lb_av] [facility] ([facility]) Oxygen saturation in Arterial blood by Pulse oximetry 95 % 95 % [facility] ([facility]) Body mass index (BMI) [Ratio] 34.1 kg/m2 34.1 k g/m2 [facility] ([facility]) Oxygen saturation in Arterial blood by Pulse oximetry 94 % 94 % [facility] ([facility]) Body weight 203.00 [lb_av] 203.00 [lb_av] [facility] ([facility]) Body mass index (BMI) [Ratio] 34.3 kg/m2 34.3 k g/m2 [facility] ([facility]) Heart rate 88 /min 88 /min [facility] ([facility]) Body height 64.5 [in_i] 64.5 [in_i] [facility] ([facility]) 5'4.50" [place] body weight 125 [lb_av] 125 [lb_av] [facility] T ([facility]) Body weight 92.704 kg 92.704 kg [facility] ([facility]) Body surface area Derived from formula 2.01 m2 2.01 m2 [facility] ([facility]) Systolic blood pressure 163 mm[Hg] 163 mm[Hg] [facility] ([facility]) Diastolic blood pressure 73 mm[Hg] 73 mm[Hg] [facility] ([facility]) Heart rate 106 /min 106 /min [facility] ([facility]) Body height 65.5 [in_i] 65.5 [in_i] [facility] ([facility]) 5'5.50" Body weight 204.38 [lb_av] 204.38 [lb_av] [facility] ([facility]) Body mass index (BMI) [Ratio] 33.5 kg/m2 33.5 k g/m2 [facility] Systolic blood pressure 124 mm[Hg] 124 mm[Hg] M [facility] ([facility]) Diastolic blood pressure 70 mm[Hg] 70 mm[Hg] [facility] ([facility]) Heart rate 90 /min 90 /min [facility] ([facility]) Oxygen saturation in Arterial blood by Pulse oximetry 93 % 93 % [facility] Body height 65.5 [in_i] 65.5 [in_i] [facility] ([facility]) 5'5.50" Body weight 201.00 [lb_av] 201.00 [lb_av] [facility] T ([facility]) stated Body mass index (BMI) [Ratio] 32.9 kg/m2 32.9 k g/m2 [facility] ([facility]) [place] body weight 125 [lb_av] 125 [lb_av] [facility] ([facility]) Body weight 91.174 kg 91.174 kg [facility], ) Body surface area Derived from formula 1.99 m2 1.99 m2 [facility] ([facility], ) Body weight 201.00 [lb_av] 201.00 [lb_av] [facility] T ([facility]) Oxygen saturation in Arterial blood by Pulse oximetry 93 % 93 % [facility] ([facility]) Systolic blood pressure 128 mm[Hg] 128 mm[Hg] M [facility] ([facility]) Diastolic blood pressure 80 mm[Hg] 80 mm[Hg] [facility] ([facility]) Heart rate 90 /min 90 /min [facility] irregular Body height 64.5 [in_i] 64.5 [in_i] [facility] ([facility]) 5'4.50" Body mass index (BMI) [Ratio] 34.0 kg/m2 34.0 k g/m2 [facility] ([facility]) Systolic blood pressure 134 mm[Hg] 134 mm[Hg] M [facility] ([facility]) Body height 64.5 [in_i] 64.5 [in_i] [facility] ([facility]) 5'4.50" Diastolic blood pressure 50 mm[Hg] 50 mm[Hg] [facility] ([facility]) Oxygen saturation in Arterial blood by Pulse oximetry 98 % 98 % [facility] ([facility]) Body weight 201.00 [lb_av] 201.00 [lb_av] [facility] T ([facility]) Heart rate 107 /min 107 /min [facility] Body mass index (BMI) [Ratio] 34.0 kg/m2 34.0 k g/m2 [facility] ([facility]) Systolic blood pressure 122 mm[Hg] 122 mm[Hg] [facility] Diastolic blood pressure 68 mm[Hg] 68 mm[Hg] [facility] Heart rate 58 /min 58 /min [facility] Body height 165.1 cm 165.1 cm [facility] Body weight 90.719 kg 90.719 kg [facility] Body mass index (BMI) [Ratio] 33.28 kg/m2 33.28 kg/m2 [facility] Oxygen saturation in Arterial blood by Pulse oximetry 98 % 98 % [facility] Patient Treatment Plan of Care Planned Activity Planned Date Details Description Data Source (s) apixaban 2.5 MG Oral Tablet 02/01/2021 12:00:00 AM EDT [facility] 24 HR Diltiazem Hydrochloride 360 MG Extended Release Oral Capsule 08/03/2020 12:00:00 AM EST [facility] ipratropium (ATROVENT) 0.03 % nasal spray 07/04/2019 12:00:00 AM ED T [facility] Prednisone 10 MG Oral Tablet 06/11/2019 12:00:00 AM EDT [facility] Azelastine HCl 137 MCG/SPRAY SOLN 05/03/2019 12:00:00 AM EDT [facility] 24 HR Diltiazem Hydrochloride 120 MG Extended Release Oral Capsule 01/06/2015 12:00:00 AM EDT [facility] PARoxetine (PAXIL) 20 MG tablet [facility] Esomeprazole 40 MG Delayed Release Oral Capsule [facility] 30 ACTUAT umeclidinium 0.0625 MG/ACTUAT / vilanterol 0.025 MG/ACTUAT Dry Powder Inhaler [facility] torsemide 100 MG Oral Tablet [facility] cetirizine hydrochloride 10 MG Oral Tablet [facility] fluticasone (FLONASE) 50 MCG/ACT nasal spray [facility] Vitamin B 12 1 MG Oral Tablet [facility] Lidocaine 25 MG/ML / Prilocaine 25 MG/ML Topical Cream [facility] Cyclosporine 0.5 MG/ML Ophthalmic Suspension [facility] Ascorbic Acid 200 MG / Beta Carotene 100 0 UNT / cuprous oxide 2 MG / dl-alpha tocopheryl acetate 60 UNT / Lutein 2 MG / sodium selenate 0.055 MG / Zinc Oxide 40 MG Oral Tablet [Ocuvite] [facility] montelukast 10 MG Oral Tablet [facility] 60 ACTUAT Fluticasone propionate 0.5 MG/ ACTUAT / salmeterol 0.05 MG/ACTUAT Dry Powder Inhaler [facility] Hydralazine Hydrochloride 25 MG Oral Tablet [facility]
[2021-07-30 15:36] LABS: CK-MB VALUE MASS < 1.0 NG/ML (<3.6); CPK CREATINE PHOSPHOKINASE 30 U/L (26-192); MB/CK RELATIVE INDEX 3.33 (< OR =4); TROPONIN I < 0.02 NG/ML (< 0.10)
[2021-07-30 15:43] LABS: ALBUMIN 3.4 GM/DL (3.2-5.2); BILIRUBIN,DIRECT 0.4 MG/DL (0.0-0.2); BILIRUBIN,TOTAL 0.9 MG/DL (0.2-1.0); CALCIUM LEVEL 9.6 MG/DL (8.8-10.2); CREATININE FOR GFR 3.55 MG/DL (0.55-1.30); GLOMERULAR FILTRATION RATE 13.2 (>32); POTASSIUM SERUM 4.7 MEQ/L (3.5-5.1); THYROID STIMULATING HORMONE 0.839 uIU/ML (0.358-3.740); TOTAL PROTEIN 7.3 GM/DL (6.4-8.2)
[2021-07-30] MEDS ORDERED: LEVALBUTEROL HFA 45MCG/ACT 15 GM INHALER INH PRN (17:20)
[2021-07-30] MEDS ORDERED: FLUT1BLS8 INH (17:28)
--- OUTSIDE RECORDS SUMMARY | 2021-07-30 17:45 | CCD ---
Author Author [facility] Organization [facility] Address Unknown Phone Unavailable Care Team Providers Care Journalism Instructor Name Role Phone Dawsonine M Joceline JACKET PREPARER Unavailable Unavailable LePine, M Joceline JACKET PREPARER Unavailable Unavailable LePine, M Joceline JACKET PREPARER Unavailable Unavailable LePine, M Joceline JACKET PREPARER Unavailable Unavailable LePine, M Joceline JACKET PREPARER Unavailable Unavailable LePine, M Joceline JACKET PREPARER Unavailable Unavailable LePine, M Joceline JACKET PREPARER Unavailable Unavailable LePine, M Joceline JACKET PREPARER Unavailable Unavailable LePine, M Joceline JACKET PREPARER Unavailable Unavailable LePine, M Joceline JACKET PREPARER Unavailable Unavailable LePine, M Joceline JACKET PREPARER Unavailable Unavailable LePine, M Joceline JACKET PREPARER Unavailable Unavailable LePine, M Joceline JACKET PREPARER Unavailable Unavailable LePine, M Joceline JACKET PREPARER Unavailable Unavailable LePine, M Joceline JACKET PREPARER Unavailable Unavailable LePine, M Joceline JACKET PREPARER Unavailable Unavailable LePine, M Joceline JACKET PREPARER Unavailable Unavailable LePine, M Joceline JACKET PREPARER Unavailable Unavailable LePine, M Joceline JACKET PREPARER Unavailable Unavailable LePine, M Joceline JACKET PREPARER Unavailable Unavailable LePine, M Joceline JACKET PREPARER Unavailable Unavailable LePine, M Joceline JACKET PREPARER Unavailable Unavailable LePine, M Joceline JACKET PREPARER Unavailable Unavailable LePine, M Joceline JACKET PREPARER Unavailable Unavailable LePine, M Joceline JACKET PREPARER Unavailable Unavailable LePine, M Joceline JACKET PREPARER Unavailable Unavailable LePine, M Joceline JACKET PREPARER Unavailable Unavailable LePine, M Joceline JACKET PREPARER Unavailable Unavailable LePine, M Joceline JACKET PREPARER Unavailable Unavailable LePine, M Joceline JACKET PREPARER Unavailable Unavailable LePine, M Joceline JACKET PREPARER Unavailable Unavailable LePine, M Joceline JACKET PREPARER Unavailable Unavailable LePine, M Joceline JACKET PREPARER Unavailable Unavailable LePine, M Joceline JACKET PREPARER Unavailable Unavailable LePine, M Joceline JACKET PREPARER Unavailable Unavailable LePine, M Joceline JACKET PREPARER Unavailable Unavailable LePine, M Joceline JACKET PREPARER Unavailable Unavailable LePine, M Joceline JACKET PREPARER Unavailable Unavailable LePine, M Joceline JACKET PREPARER Unavailable Unavailable LePine, M Joceline JACKET PREPARER Unavailable Unavailable LePine, M Joceline JACKET PREPARER Unavailable Unavailable LePine, M Joceline JACKET PREPARER Unavailable Unavailable LePine, M Joceline JACKET PREPARER Unavailable Unavailable LePine, M Joceline JACKET PREPARER Unavailable Unavailable LePine, M Joceline JACKET PREPARER Unavailable Unavailable LePine, M Joceline JACKET PREPARER Unavailable Unavailable LePine, M Joceline JACKET PREPARER Unavailable Unavailable LePine, M Joceline JACKET PREPARER Unavailable Unavailable LePine, M Joceline JACKET PREPARER Unavailable Unavailable LePine, M Joceline JACKET PREPARER Unavailable Unavailable LePine, M Joceline JACKET PREPARER Unavailable Unavailable LePine, M Joceline JACKET PREPARER Unavailable Unavailable LePine, M Joceline JACKET PREPARER Unavailable Unavailable LePine, M Joceline JACKET PREPARER Unavailable Unavailable LePine, M Joceline JACKET PREPARER Unavailable Unavailable LePine, M Joceline JACKET PREPARER Unavailable Unavailable RING, K MAMIE PA Unavailable [...] L Nadia RPA Unavailable Unavailable Oakes, L Andia RPA Unavailable Unavailable Oakes, L Nadia RPA Unavailable Unavailable Oakes, L Ndaia RPA Unavailable Unavailable Oakes, L Nadia RPA [...] is protected by Article 27-F of the [place] State Public Health law. If you continue you may have access to information: Regarding HIV / AIDS; Provided by facilities licensed or operated by the [facility] Office of Mental Health; or Provided by the [facility] Office for People With Developmental Disabilities. If such information is present, then the following [facility] mandated warning applies: This information has been [...] adverse reactions CIPROFIBRATE ciprofibrate Rash Low Active [facility] Low Family History Family Member Name Family Member Gender Family Member Status Date o f Status Description Data Source(s) Unknown Unknown Problem [facility] ([facility], ) Encounters Encounter Providers Location Date Indications Data Source(s ) Outpatient Attender: MAMIE Husain [facility] 07/30/2021 10:30:00 AM EST [facility] ([facility] Outpatient Attender: Janett Eubanks MDConsultant: Janett manuel MD SJ.DELLA-SJ 04/19/2021 11:33:47 AM EDT - 04/19/2021 12:48:18 PM EDT [facility] Outpatient Attender: Joceline Coto 01/20 02:20:00 PM EDT [facility] ([facility] ) Outpatient Attender: Silvio Hernadez/Shelia/Josiah/R eindvonnie 11/11/2020 09:45:00 AM EST [facility] ([facility] ) Outpatient Attender: Joceline Coto 11/09 12:00:00 PM EST [facility] ([facility] ) Outpatient Attender: Nadia Hernadez/Florence/Josiah/R eindl 10/14/2020 12:30:00 PM EST [facility] ([facility] ) Outpatient Attender: Joceline Huizarlogg Chica 08/10 01:20:00 PM EST REBECCA ([facility] ) Outpatient Attender: Janett RUDD.DELLA-TOBIN.DELLA 09/2019 12:00:00 AM EST - 08/10/2020 10:15:38 AM EST [facility] Immunizations Vaccine Date Status Description Data Source(s) COVID-19 VACCINE Moderna 07/22/2021 12:00:00 AM EST completed [facility] Vaccine Series Complete: YESThis Data wa s Submitted to [facility] [employer]. COVID-19 VACCINE Moderna 11/15/2020 12:00:00 AM EST completed [facility] Vaccine Series Complete: YESThis Data wa s Submitted to [facility] [employer]. COVID-19 VACCINE, MRNA-[id number], LNP-S (MODERNA)/PF 11/15/2020 1 2:00:00 AM EST completed [facility] COVID-19 VACCINE Moderna 10/18/2020 12:00:00 AM EST completed [facility] Vaccine Series Complete: NOThis Data was Submitted to [facility] [employer]. COVID-19 VACCINE, MRNA-[id number], LNP-S (MODERNA)/PF 10/18/2020 1 [...] 0.05 MG/ACTUAT Metered Dose Miguel Angel al [place] 50 mcg/actuation FLUTICASONE PROPIONATE 06/16/2021 12:00:00 AM EDT spray,suspension 16 SPRAY TWO SPRAYS IN EACH NOSTRIL EVERY DAY SPRAY TWO SPRAYS IN EACH NOSTRIL EVERY DAY SOLD: 06/18/2021 [facility] Azelastine hydrochloride 0.206 MG/ACTUAT Metered Dose Nasal [place] 205.5 mcg (0.15 %) AZELASTINE HCL 06/16/2021 12:00:00 AM EDT spray,non-aerosol 30 INSTILL 2 SPRAYS IN EACH NOSTRIL EVERY MORNING AND 4 HOURS BEFORE BEDTIME INSTILL 2 SPRAYS IN EACH NOSTRIL EVERY MORNING AND 4 HOURS BEFORE BEDTIME SOLD: 07/17/2021 [facility] Azelastine hydrochloride 0.206 MG/ACTUAT Metered Dose Nasal [place] 205.5 mcg (0.15 %) AZELASTINE HCL 06/16/2021 [...] 0.05 MG/ACTUAT Metered Dose Miguel Angel al [place] 50 mcg/actuation FLUTICASONE PROPIONATE 02/11/2021 12:00:00 AM [...] A DAY NEEDED FOR COUGH SOLD: 03/22/2021 [facility] 50 mcg/actuation 02/11/2021 12:00:00 AM EDT [...] by mouth 2 (two) times a day [facility] Azelastine hydrochloride 0.206 MG/ACTUAT Metered Dose Nasal [place] 205.5 mcg (0.15 %) AZELASTINE HCL 01/25/2021 12:00:00 AM EDT spray,non-aerosol 30 INSTILL 2 SPRAYS IN EACH NOSTRIL EVERY MORNING AND 4 HOURS BEFORE BEDTIME INSTILL 2 SPRAYS IN EACH NOSTRIL EVERY MORNING AND 4 HOURS BEFORE BEDTIME SOLD: 03/09/2021 [facility] Azelastine hydrochloride 0.206 MG/ACTUAT Metered Dose Nasal [place] 205.5 mcg (0.15 %) AZELASTINE HCL 01/25/2021 12:00:00 AM EDT spray,non-aerosol 30 INSTILL 2 SPRAYS IN EACH NOSTRIL EVERY MORNING AND 4 HOURS BEFORE BEDTIME INSTILL 2 SPRAYS IN EACH NOSTRIL EVERY MORNING AND 4 HOURS BEFORE BEDTIME SOLD: 02/02/2021 [facility] Azelastine hydrochloride 0.206 MG/ACTUAT Metered Dose Nasal [place] 205.5 mcg (0.15 %) AZELASTINE HCL 01/25/2021 12:00:00 AM EDT spray,non-aerosol 30 INSTILL 2 SPRAYS IN EACH NOSTRIL EVERY MORNING AND 4 HOURS BEFORE BEDTIME INSTILL 2 SPRAYS IN EACH NOSTRIL EVERY MORNING AND 4 HOURS BEFORE BEDTIME SOLD: 05/19/2021 [facility] Azelastine hydrochloride 0.206 MG/ACTUAT Metered Dose Nasal [place] 205.5 mcg (0.15 %) AZELASTINE HCL 01/25/2021 [...] 12/08/2020 12:00:00 AM EDT RESPIRATORY active [facility] ([facility]) Nystatin 189879 UNT/ML Topical Cream Nystatin 11/24/2020 12:00:00 AM EDT active [facility] ([facility]) Covid-19 vaccine, Unspecified 11/15/2020 12:00:00 AM EST completed [facility]) Medication administered onsite 200-62.5-25 mcg 11/10/2020 12:00:00 [...] 11/09/2020 12:00:00 AM EST ORAL active [facility] ([facility]) 50 mcg/actuation 11/04/2020 12:00:00 AM EST spray,suspension [...] Unspecified 10/18/2020 12:00:00 AM EST completed [facility] ([facility], ) Medication administered onsite Covid-19 vaccine, Unspecified 10/18/2020 12:00:00 AM EST completed [facility] ([facility]) Medication administered onsite 90 mcg/actuation 10/06/2020 12:00:00 [...] Azelastine hydrochloride 0.206 MG/ACTUAT Metered Dose Nasal [place] 0.15 % (205.5 mcg) AZELASTINE HCL 09/09/2020 [...] aborted Take 360 mg by mouth daily [facility] 50 mcg/actuation 07/19/2020 12:00:00 AM EST [...] Drugs ipratropium (ATROVENT) 0.03 % nasal spray 1379-6552-52 07/04/2019 12:00:00 AM EDT aborted USE 2 SPRAYS IN EACH NOSTRIL 2 3 TIMES DAY NEEDED [facility] Prednisone 10 MG Oral Tablet predniSONE (DELTASONE) 10 MG tablet predniSONE (DELTASONE) 10 MG tablet 06/11/2019 12:00:00 AM EDT aborted TAKE 4 TABLETS BY MOUTH ONCE DAILY FOR 4 DAYS THEN 3 ONCE DAILY FOR 4 DAYS THEN 2 ONCE DAILY FOR 4 DAYS THEN 1 ONCE DAILY FOR 4 DAYS AND STO [facility] Azelastine HCl 137 MCG/SPRAY SOLN 72488-742-25 05/03/2019 12:00:00 AM EDT aborted TAKE 2 SPRAYS I N EACH NOSTRIL IN THE MORNING A ND 4 HOURS BEFORE BEDTIME [facility] 24 HR Diltiazem Hydrochloride 120 MG Ext ended Release Oral Capsule diltiazem (CARDIZEM CD) 120 MG 24 hr capsule diltiazem (CARDIZEM CD) 120 MG 24 hr capsule 01/06/2015 12:00:00 AM EDT aborted DILTIAZEM HCL CD 360 MG ORAL [id number] [facility] fluticasone (FLONASE) 50 MCG/ACT nasal spray 5898-9839-07 1 {spray} Nasal aborted 1 spray into each nostril da jose [facility] PARoxetine (PAXIL) 20 MG tablet [address]-0 20 mg Oral aborted Take 20 mg by mouth every morning [facility] 30 ACTUAT umeclidinium 0.0625 MG/ACTUAT / vilanterol 0.025 MG/ACTUAT Dry Powder Inhaler umeclidinium-vilanterol (ANORO ELLIPTA) 62.5-25 MCG/INH inhaler umeclidinium-vilanterol (ANORO ELLIPTA) 62.5-25 MCG/INH inhaler 1 {puff} Inhalation aborted Inhale 1 puff daily [facility] torsemide 100 MG Oral Tablet torsemide (DEMADEX) 100 M G tablet torsemide (DEMADEX) 100 MG tablet 100 mg Oral aborted Take 100 mg by mouth 4 days weekly on non dialysis days [facility] Esomeprazole 40 MG Delayed Release Oral Capsule esomeprazole (NEXIUM) 40 MG capsule esomeprazole (NEXIUM) 40 MG capsule 40 mg Oral aborted Take 40 mg by mouth every morning before breakfast [facility] cetirizine hydrochloride 10 MG Oral Tablet cetirizine (ZYRTEC) 10 MG tablet cetirizine (ZYRTEC) 10 MG tablet 10 mg Oral abort ed Take 10 mg by mouth daily [facility] Ascorbic Acid 200 MG / Beta [...] aborted Take 1 tablet by mouth daily [facility] montelukast 10 MG Oral Tablet montelukast (SINGULAIR) 10 MG tablet montelukast (SINGULAIR) 10 MG tablet 10 mg Oral aborted Take 10 mg by mouth daily [facility] 60 ACTUAT Fluticasone propionate 0.5 MG/ ACTUAT / salmeterol 0.05 MG/ACTUAT Dry Powder Inhaler fluticasone-salmeterol (ADVAIR) 500-50 MCG/DOSE DISKUS fluticasone-salmeterol (ADVAIR) 500-50 MCG/DOSE DISKUS 1 {puff} Inhalation aborted Inhale 1 puff 2 (two) magdalena es a day [facility] Lidocaine 25 MG/ML / Prilocaine 25 MG/ML Topical Cream lidocaine-prilocaine (EMLA) cream lidocaine-prilocaine (EMLA) cream 1 {application} T opical aborted Apply 1 application topically as needed 30" before HD [facility] Cyclosporine 0.5 MG/ML Ophthalmic Suspen kallie cycloSPORINE (RESTASIS) 0.05 % ophthalmic emulsion cycloSPORINE (RESTASIS) 0.05 % ophthalmic emulsion 1 [drp] aborted Administer 1 drop to bot h eyes 2 (two) times a day [facility] Hydralazine Hydrochloride 25 MG Oral Tab let hydrALAZINE (APRESOLINE) 25 MG tablet hydrALAZINE (APRESOLINE) 25 MG tablet 25 mg Oral aborted Take 25 mg by mouth 2 (two) times a day [facility] Vitamin B 12 1 MG Oral Tablet vitamin B-12 (CYANOCOBAL MILLER) 1000 MCG tablet vitamin B-12 (CYANOCOBALAMIN) 1000 MCG tablet 1000 ug Oral aborted Take 1,000 mcg by mouth daily [facility] Insurance Providers Payer name Policy type / Coverage type Policy ID Covered republican ID Covered republican's relationship to parmar Policy Parmar Plan Information MEDICARE [id number] Alexus [id number] A MEDICARE [id number] Alexus [id number] Well[employer]/T[employer]ays [employer]ptr Commercial [id number] Self [id number] Tod[employer] Option Medicare Commercial [id number] Self [id number] [id number] [place] MEDICARE 4 [id number] A MEDICARE [id number] SP [id number] A MEDICARE [id number] SP [id number] MEDICARE [id number] xxxxxxxxxxx [id number] Well[employer] Commercial [id number] Self [id number] Wellcare Commercial [id number] Self [id number] Todays Options Commercial [id number] 3254.0 Self [id number] TODAYS OPT MEDICARE 11 [id number] 1 [id number] Medicare Blue Ppo Commercial [id number] Self 8 02 Medicare Blue Ppo Commercial [id number] 2.160.1.113 [id number] Self [id number] Medicare Blue Ppo Commercial [id number] Self [id number] Tod[employer] Option Medicare Commercial [id number] 2.0.1.754798.3.227.99.4595.1556.0 Self [id number] Wellcare/T[employer] Optmcr Commercial [id number] Self [id number] Tod[employer] Option Medicare Commercial [id number] 2.0.1.379794.3.227.99.4595.1556.0 Self [id number] [employer] Option Medicare Commercial [id number] 2.0.1.424044.3.227.99.4595.1556.0 Self [id number] [employer] Medicare Commercial [id number] 2.0.1.256116.3.227.99.4595.1556.0 Self [id number] Tod[employer] Option Medicare Commercial Advantage Plus [id number] Self Advantage Plus [id number] Well[employer] Commercial [id number] 2.0.1.165495.3.227.99.4595.1556.0 Self [id number] Tod[employer] Option Medicare Commercial [id number] 2.0.1.988452.3.227.99.4595.1556.0 Self [id number] Tod[employer] Option Medicare Commercial [id number] 2.0.1.752566.3.227.99.4595.1556.0 Self [id number] Well[employer] Commercial [id number] 2.16.840.1.616740.3.227.99.4595.1556.0 Self [id number] [employer] Commercial [id number] 2.16.840.1.413297.3.227.99.177.2 3254.0 Self [id number] TODAYS OPTIONS [id number] SP [id number] TODAYS OPTIONS [id number] SP [id number] TODAYS OPTIONS [id number] SP [id number] [facility] Opt Medigap Part B [id number] 2.0.1.473740.3.227.99.4595.1556.0 Self 3 [id number] [facility] [id number] xxxxxxxxxxx [id number] [facility] [id number] [facility] [id number] [facility] Opt Medigap Part B [id number] Self [id number] Medicare Natl Govt Servic Medicare Primary [id number] Self [id number] [facility] Opt Medigap Part B [id number] 20.1.419003.3.227.99.4595.1556.0 Self 3 [id number] Medicare Natl Govt Servic Medicare Primary [id number] 2.840.1.037610.3.227.99.4595.1556.0 Self 1 [id number] Medicare Natl Govt Servic Medicare Primary [id number] 2.16840.1.504545.3.227.99.4595.1556.0 Self 1 [id number] [facility] [facility] OPTIONS [id number] SP [id number] [facility] Opt Medigap Part B [id number] 2.0.1.390217.3.227.99.4595.1556.0 Self 3 [id number] Medicare Natl Govt Servic Medicare Primary [id number] 2.16.840.1.234686.3.227.99.4595.1556.0 Self 0 [id number] [facility] Opt Medigap Part B [id number] 2.16.840.1.601893.3.227.99.4595.1556.0 Self 3 [id number] Medicare Natl Govt Servic Medicare Primary [id number] 2.16.840.1.011490.3.227.99.4595.1556.0 Self 0 [id number] [facility] Opt Medigap Part B [id number] 2.16.840.1.109814.3.227.99.4595.1556.0 Self 3 [id number] 11 Medicare Natl Govt Servic Medicare Primary [id number] 2.840.1.814627.3.227.99.4595.1556.0 Self 0 [id number] [employer] [facility] OPTIONS [id number] SP [id number] TODAYS OPTIONS 11 [id number] 1 [id number] TODAYS OPT MEDICARE 11 [id number] 1 [id number] AARP O [id number] S [id number] 111 MEDICARE C [id number] S [id number] A [facility]/ Health Care Options Medigap Part B [id number] 2.840.1.037750.3.227.99.177.61566.0 Self [id number] Medicare - NGS Medicare Primary [id number] 2.16.840.1.492910.3.227.99.177.53363.0 Self 0 [id number] [facility] Options Medigap Part B [id number] 2.16840.1.879123.3.227.99.1767.87741.0 Self [id number] Medicare [place]GS Medicare Primary [id number] 2..840.1.860115.3.227.99.8646.40782.0 Self [id number] [employer]arp Medigap Part B [id number] 2.16.840.1.735036.3.227.99.8646.53 980.0 Self [id number] Wellcare Commercial [id number] 2.16.840.1.636298.3.227.99.177.17294.0 Self [id number] [facility] [id number] 2.16.840.1.291217.3.227.[address]27445.[id number] [facility] Health Care Options Medigap Part B [id number] 2.16.840.1.302730.3.227.99.1767.36950.0 Self [id number] Medicare Natl Gov't Servi Medicare Primary [id number] 2.16.840.1.000577.3.227.99.1767.65393.0 Self [id number] MEDICARE [id number] SP [id number] A [facility] C[facility] OPTIONS [id number] SP [id number] Todays Option Medicare Commercial [id number] 2.16.840.1.578645.3.227.99.4595.1556.0 Self [id number] Statewide/[facility] Commercial [id number] 2.16.840.1.471302.3.227.99.4595. 1556.0 Self [id number] Statewide/[employer]CS Commercial [id number] 2.16.840.1.982404.3.227.99.4595. 1556.0 Self [id number] [facility] PI PI Statewide/PHCS Commercial [id number] 2.16.840.1.586776.3.227.99.4595. 1556.0 Self [id number] MEDICARE PI PI [facility] Medicare Priya Commercial [id number] 2.16.840.1.112598.3.227.99.4595.1556.0 Self [id number] Medicare Up[place]/NGS Medicare Primary [id number] 2.16.840.1.521173.3.227.99.8646.93601.0 Self [id number] Statewide/[facility] Commercial [id number] 2.0.1.964576.3.227.99.4595. 1556.0 Self [id number] [facility] Medigap Part B [id number] 2.160.1.110170.3.227.99.8646.53 980.0 Self [id number] Todays Option Medicare Commercial Advantsge Plus 150A Ppo 2.0.1.803888.3.227.99.4595.1556.0 Self A dvantsge Plus 150A Ppo Statewide/[facility] Commercial [id number] Self Statewide/PHCS Commercial [id number] 2.0.1.411397.3.227.99.4595. 1556.0 Self [id number] Statewide/[facility] Commercial [id number] 2..1.808031.3.227.99.4595. 1556.[id number] [facility] Medicare Priya Commercial [id number] [facility] [employer] Commercial [id number] Self [id number] Wellcare/T[employer] Commercial [id number] Self [id number] TODAYS OPTIONS/UGANDAN O [id number] S [id number] Today's Option Medicare Commercial 2..1.501023 .3.227.99.6619.46553.0 Self MEDICARE [id number] SP [id number] MEDICARE BLUE PPO 306 [id number] SP [id number] EXCELLUS BCBS P [id number] S [id number] MEDICARE BLUE PPO P [id number] S [id number] Statewide/[facility] Commercial [id number] Self [id number] [facility] Commercial [id number] 2.16.840.1.592792.3.227.99.4595. 1556.0 Self [id number] SELF PAY 2 UNAVAILABLE 1 UNAVAILA BLE Medicare Natl Gov't Servi Medicare Primary [id number] 2.16.840.1.595282.3.227.99.1767.38330.0 Self [id number] [facility] Commercial [id number] 2.16.840.1.001475.3.227.99.4595. 1556.0 Self [id number] Problems, Conditions, and Diagnoses Code Display Name Description Problem Type Effective Dates Data Source(s) Z01.810 Encounter for preprocedural cardiovascul ar examination Encounter for preprocedural cardiovascul Diagnosis 04/19/2021 11:33:47 AM EDT [facility] R06.02 Shortness of breath Shortness of breath Diagnosis 0 04/19/2021 11:33:47 AM EDT [facility] I10 Essential (primary) hypertension Essential (primary) h ypertension Diagnosis 04/19/2021 11:33:47 AM EDT [facility] N18.6 End stage renal disease End stage renal disease Diagno sis 04/19/2021 11:33:47 AM EDT [facility] I48.92 Unspecified atrial flutter Unspecified atrial flutter Diagnosis 04/19/2021 11:33:47 AM EDT [facility] Z01.810 Preoperative cardiovascular examination Preoperative cardiovascular examination [id number] 04/19/2021 12:00:00 AM EDT [facility] L29.0 Pruritus ani Pruritus ani [id number] 10/22/2020 12:00:00 A M EST [facility] Surgeries/Procedures Procedure Description Date Indications Data Source(s) OFFICE OUTPATIENT VISIT 25 MINUTES 07/30/2021 12:00:00 AM EST [facility] ([facility]) POCT AMB EKG <td>POCT AMB EKG</td><td>Rou angelica</td><td>04/19/2021 1:07 PM EDT</td><td> Atrial flutter Shortness of breath</td><td> </td> 04/19/2021 01:07:00 PM EDT Shortness of breathAtrial flutter [facility] Shortness of breath Atrial flutter Diabetic Retinal Eye Exam 03/28/2021 12:00:00 AM EDT REBECCA ([facility]) OFFICE OUTPATIENT VISIT 15 MINUTES 01/20/2021 12:00:00 AM EDT REBECCA ([facility]) Glucose Monitor, Interstital Tissue Fluid Min 72 Hours, PT E quip 12/30/2020 12:00:00 AM EDYosi FERNANDEZ ([facility] ) Spirometry 11/11/2020 12:00:00 AM PATRICIA WASHINGTON ([facility], ) HEMOGLOBIN GLYCOSYLATED A1C <td>HEMOGLOBIN A1C</td><td>Routine</td><td>11/09/2020</td><td></td><td> </td> 11/09/2020 12:00:00 AM EST [facility] ECG ROUTINE ECG W/LEAST 12 LDS W/I&R <td>POCT AMB EKG</td><td>Routine</td><td>08/10/2020 10:13 AM EST</td><td> Atrial flutter</td><td> </td> 08/10/2020 03:13:00 PM EST Atrial flutter [facility] Atrial flutter Results ID Date Data Source [id number] 04/22/2021 08:58:20 AM [facility] Name Date of Age Gend*PT [id number] Carmen Kathleen I 1940 81 years F ---PT Location Admission Date/Time Visit ID Attending Provider --- --- --- --- EPI ID CSN Admitting Provider [id number] ---Addended by: JANETT EUBANKS on: 04/22/2021 08:58 AM Modules accepted: Level of Service Name Value Range Interpretation Code Description Data Susie rce(s) Supporting Document(s) ID Date Data Source [id number] 11/23/2020 12:32:00 PM EDT [facility] ([facility]) Name Value Range Interpretation Code Description Data Susie rce(s) Supporting Document(s) Bedside Glucose 123 mg/dL 83-110 [facility] ([facility]) ID Date Data Source [id number] 11/09/2020 01:46:00 PM EST [facility] ([facility]) Name Value Range Interpretation Code Description Data Susie rce(s) Supporting Document(s) Glucose [Mass/volume] in Serum or Plasma 137 mg/dL 74-99 [facility] ([facility]) 100-125 mg/dL PRE-DIABETES/FASTING >126 mg/dL DIABETES/FASTING ID Date Data Source [id number] 11/09/2020 01:46:00 PM EST [facility] ([facility]) Name Value Range Interpretation Code Description Data Susie rce(s) Supporting Document(s) Glucose mean value [Mass/volume] in Blood Estimated fr om glycated hemoglobin 189 mg/dL 60-110 [facility] ([facility] ) Hemoglobin A1c/Hemoglobin.total in Blood 8.2 % [facility] ([facility]) Lab Result Notes: Pre-Diabetes 5.7 - 6.4 % Diabetes = or > 6.5% ID Date Data Source [id number] 11/09/2020 01:46:00 PM EST [facility] ([facility]) Name Value Range Interpretation Code Description Data Susie rce(s) Supporting Document(s) Hemoglobin A1c/Hemoglobin.total in Blood Laboratory test result [facility] ([facility]) Glucose [Mass/volume] in Serum or Plasma Laboratory test result [facility] ([facility]) Procedure Social History Code Duration Value Status Description Data Source(s ) Alcohol intake 04/19/2021 12:00:00 AM EDT Current non-d gareth of alcohol (finding) completed Current non-drinker of alcohol (finding) [facility] Smoking 11/11/2020 12:00:00 AM EST Patient is a former smoker completed Patient is a former smoker [facility] ([facility], ) Alcohol intake 08/10/2020 12:00:00 AM EST No completed [facility] Smoking 08/10/2020 12:00:00 AM EST Former smoker completed Former smoker [facility] Vital Signs ID Date Data Source UNK Name Value Range Interpretation Code Description Data Source(s) Body temperature 98.5 [degF] 98.5 [degF] [facility] ([facility], [facility]) Body weight 178.00 [lb_av] 178.00 [lb_av] MEDEN T ([facility], [facility]) Body height 66 [in_i] 66 [in_i] [facility] 5'6" Body mass index (BMI) [Ratio] 28.7 kg/m2 28.7 k g/m2 [facility]) Respiratory rate 28 /min 28 /min [facility] ( [facility]) Oxygen saturation in Arterial blood by Pulse oximetry 96 % 96 % [facility] ([facility]) Systolic blood pressure 118 mm[Hg] 118 mm[Hg] [facility] Diastolic blood pressure 91 mm[Hg] 91 mm[Hg] [facility] Heart rate 92 /min 92 /min [facility], [facility]) Systolic blood pressure 140 mm[Hg] 140 mm[Hg] [facility]) Diastolic blood pressure 60 mm[Hg] 60 mm[Hg] [facility] Heart rate 80 /min 80 /min [facility] ([facility]) Body height 64.5 [in_i] 64.5 [in_i] [facility] ([facility]) 5'4.50" Body weight 187.38 [lb_av] 187.38 [lb_av] MEDEN T ([facility]) Oxygen saturation in Arterial blood by Pulse oximetry 94 % 94 % [facility] ([facility]) [facility] Body mass index (BMI) [Ratio] 31.7 kg/m2 31.7 k g/m2 [facility] ([facility]) Systolic blood pressure 122 mm[Hg] 122 mm[Hg] [facility] Diastolic blood pressure 68 mm[Hg] 68 mm[Hg] [facility] Heart rate 80 /min 80 /min [facility] Body height 165.1 cm 165.1 cm [facility] Body weight 85.276 kg 85.276 kg [facility] Body mass index (BMI) [Ratio] 31.28 kg/m2 31.28 kg/m2 [facility] Oxygen saturation in Arterial blood by Pulse oximetry 97 % 97 % [facility] Diastolic blood pressure 50 mm[Hg] 50 mm[Hg] [facility] ([facility]) Heart rate 108 /min 108 /min [facility] ([facility]) Body height 64.5 [in_i] 64.5 [in_i] [facility] ([facility]) 5'4.50" Body weight 202.00 [lb_av] 202.00 [lb_av] MEDEN T ([facility]) Systolic blood pressure 142 mm[Hg] 142 mm[Hg] M EDENT ([facility]) Oxygen saturation in Arterial blood by Pulse oximetry 95 % 95 % [facility] ([facility]) Body mass index (BMI) [Ratio] 34.1 kg/m2 34.1 k g/m2 [facility] ([facility]) Body weight 203.00 [lb_av] 203.00 [lb_av] MEDEN T ([facility]) Oxygen saturation in Arterial blood by Pulse oximetry 94 % 94 % [facility] ([facility]) Body mass index (BMI) [Ratio] 34.3 kg/m2 34.3 k g/m2 [facility] ([facility]) Heart rate 88 /min 88 /min [facility] ([facility]) Body height 64.5 [in_i] 64.5 [in_i] [facility] ([facility]) 5'4.50" [place] body weight 125 [lb_av] 125 [lb_av] [facility] T ([facility]) Systolic blood pressure 163 mm[Hg] 163 mm[Hg] M EDENT ([facility]) Diastolic blood pressure 73 mm[Hg] 73 mm[Hg] [facility] ([facility]) Heart rate 106 /min 106 /min [facility] ([facility]) Body height 65.5 [in_i] 65.5 [in_i] [facility] ([facility]) 5'5.50" Body weight 204.38 [lb_av] 204.38 [lb_av] [facility] T ([facility]) Body mass index (BMI) [Ratio] 33.5 kg/m2 33.5 k g/m2 [facility] ([facility]) Body weight 92.704 kg 92.704 kg [facility] ([facility]) Body surface area Derived from formula 2.01 m2 2.01 m2 [facility] ([facility]) Systolic blood pressure 124 mm[Hg] 124 mm[Hg] M EDENT ([facility]) Diastolic blood pressure 70 mm[Hg] 70 mm[Hg] [facility] Heart rate 90 /min 90 /min [facility] ([facility]) Oxygen saturation in Arterial blood by Pulse oximetry 93 % 93 % [facility] ([facility]) Body height 65.5 [in_i] 65.5 [in_i] [facility] ([facility]) 5'5.50" Body weight 201.00 [lb_av] 201.00 [lb_av] MED[facility] T ([facility]) stated Body mass index (BMI) [Ratio] 32.9 kg/m2 32.9 k g/m2 [facility] ([facility]) [place] body weight 125 [lb_av] 125 [lb_av] [facility] T ([facility]) Body weight 91.174 kg 91.174 kg [facility] ([facility], ) Body surface area Derived from formula 1.99 m2 1.99 m2 [facility] ([facility], ) Body weight 201.00 [lb_av] 201.00 [lb_av] [facility] T ([facility]) Oxygen saturation in Arterial blood by Pulse oximetry 93 % 93 % [facility] ([facility]) Systolic blood pressure 128 mm[Hg] 128 mm[Hg] M [facility] ([facility]) Diastolic blood pressure 80 mm[Hg] 80 mm[Hg] [facility] ([facility]) Heart rate 90 /min 90 /min [facility] irregular Body height 64.5 [in_i] 64.5 [in_i] [facility] ([facility]) 5'4.50" Body mass index (BMI) [Ratio] 34.0 kg/m2 34.0 k g/m2 [facility] ([facility]) Body weight 201.00 [lb_av] 201.00 [lb_av] [facility] T ([facility]) Systolic blood pressure 134 mm[Hg] 134 mm[Hg] [facility] Oxygen saturation in Arterial blood by Pulse oximetry 98 % 98 % [facility] ([facility]) Diastolic blood pressure 50 mm[Hg] 50 mm[Hg] [facility] ([facility]) Body mass index (BMI) [Ratio] 34.0 kg/m2 34.0 k g/m2 [facility] ([facility]) Heart rate 107 /min 107 /min [facility]) Body height 64.5 [in_i] 64.5 [in_i] [facility] ([facility]) 5'4.50" Systolic blood pressure 122 mm[Hg] 122 mm[Hg] [facility] Diastolic blood pressure 68 mm[Hg] 68 mm[Hg] [facility] Heart rate 58 /min 58 /min [facility] Body height 165.1 cm 165.1 cm [facility] Body weight 90.719 kg 90.719 kg [facility] Body mass index (BMI) [Ratio] 33.28 kg/m2 33.28 kg/m2 [facility] Oxygen saturation in Arterial blood by Pulse oximetry 98 % 98 % [facility] Patient Treatment Plan of Care Planned Activity Planned Date Details Description Data Source (s) apixaban 2.5 MG Oral Tablet 02/01/2021 12:00:00 AM EDT [facility] 24 HR Diltiazem Hydrochloride 360 MG Extended Release Oral Capsule 08/03/2020 12:00:00 AM EST [facility] ipratropium (ATROVENT) 0.03 % nasal spray 07/04/2019 12:00:00 AM ED T [facility] Prednisone 10 MG Oral Tablet 06/11/2019 12:00:00 AM EDT [facility] Azelastine HCl 137 MCG/SPRAY SOLN 05/03/2019 12:00:00 AM EDT [facility] 24 HR Diltiazem Hydrochloride 120 MG Extended Release Oral Capsule 01/06/2015 12:00:00 AM EDT [facility] PARoxetine (PAXIL) 20 MG tablet [facility] Esomeprazole 40 MG Delayed Release Oral Capsule [facility] 30 ACTUAT umeclidinium 0.0625 MG/ACTUAT / vilanterol 0.025 MG/ACTUAT Dry Powder Inhaler [facility] torsemide 100 MG Oral Tablet [facility] cetirizine hydrochloride 10 MG Oral Tablet [facility] fluticasone (FLONASE) 50 MCG/ACT nasal spray [facility] Vitamin B 12 1 MG Oral Tablet [facility] Lidocaine 25 MG/ML / Prilocaine 25 MG/ML Topical Cream [facility] Cyclosporine 0.5 MG/ML Ophthalmic Suspension [facility] Ascorbic Acid 200 MG / Beta Carotene 100 0 UNT / cuprous oxide 2 MG / dl-alpha tocopheryl acetate 60 UNT / Lutein 2 MG / sodium selenate 0.055 MG / Zinc Oxide 40 MG Oral Tablet [Ocuvite] [facility] montelukast 10 MG Oral Tablet [facility] 60 ACTUAT Fluticasone propionate 0.5 MG/ ACTUAT / salmeterol 0.05 MG/ACTUAT Dry Powder Inhaler [facility] Hydralazine Hydrochloride 25 MG Oral Tablet [facility]
--- NOTE | 2021-07-30 17:48 | HPEPDOC ---
General Date of Admission Jul 30, 2021 Date of Service: Jul 30, 2021 Chief Complaint The patient is a 81-year-old female admitted with a reason for visit of Cold/Flu Symptoms Covid+. History of Present Illness Mrs. Bryant is an 81-year-old female with end-stage renal disease on dialysis Sunday who presents with shortness of breath secondary to A. fib with RVR and Covid pneumonia. Patient had both maternal vaccines and the booster. Denies any sick contacts. She only goes between home and dialysis center. She tells me that yesterday she started feeling short of breath. She went to urgent care who sent her to the ER. While here, she is found to have A. fib with RVR with a heart rate in the 170s. She also had a fever of 101.1. Otherwise, she is breathing well at room air and she is not hypotensive. She was initially given her long-acting diltiazem home dose and 10 mg of IV diltiazem. Heart rate improved to the 100s to 130s. Blood pressure stable. Chest x-ray demonstrated bibasilar opacities which may be pulmonary edema versus multifocal pneumonia. Patient does have an elevated proBNP, but this is most likely due to the A. fib with RVR. When I saw patient, she appeared comfortable. She tells me that her shortness of breath is improved. She is a little anxious that she still caught Covid despite the vaccination. She denies loss of taste, but her appetite has been poor. Otherwise, she tells me that her dialysis schedule was changed this week due to the holiday. Normal she is Sunday, but she is scheduled for dialysis tomorrow. Nephrology was notified. Patient will be admitted for A. fib with RVR and Covid pneumonia. Home Medications Scheduled Acetaminophen (Tylenol Arthritis) 650 Mg Tab, 650 MG PO Q8H, (Reported) Apixaban (Eliquis) 2.5 Mg Tab, 2.5 MG PO BID, (Reported) Cetirizine HCl (Cetirizine HCl) 10 Mg Tab, 10 MG PO QHS, (Reported) Diltiazem Hcl (Diltiazem 24Hr ER) 360 Mg Cap, 360 MG PO DAILY, (Reported) Ferrous Sulfate (Ferrous Sulfate) 325 Mg Tab, 325 MG PO DAILY, (Reported) Magnesium Oxide (Magnesium) 400 Mg Cap, 400 MG PO QAM, (Reported) Mometasone Furoate Monohydrate (Nasonex) 120 [place]/17 Gm Naspr, 1 SPRAY NA DAILY, (Reported) Montelukast Sodium (Singulair) 10 Mg Tab, 10 MG PO QHS, (Reported) Pravastatin Sodium (Pravastatin Sodium) 40 Mg Tab, 40 MG PO DAILY, (Reported) Scheduled PRN Albuterol Sulf (Albuterol Sulfate) 2.5 Mg/3 Ml Nebu, 2.5 MG INH Q4HP PRN for SHORTNESS OF BREATH, (Reported) Albuterol Sulfate (Proair Hfa) 108 Mcg/Act Aer, 2 PUFFS INH Q4HP PRN for SOB/WHEEZING, (Reported) Allergies Coded Allergies: amoxicillin (Verified Allergy, Intermediate, N/V/D SEVERE, 11/23/20) clavulanic acid (Verified Allergy, Intermediate, N/V/D SEVERE, 11/23/20) METALS (Verified Allergy, Unknown, 10/06/14) ciprofloxacin (Verified Adverse Reaction, Intermediate, MAKES BONES HURT, 11/23/20) Past Medical History Medical History 1. Asthma 2. Hypertension 3. Hyperlipidemia 4. GERD 5. Diabetes mellitus 6. Sleep apnea 7. End-stage renal disease on dialysis Sunday 8. Anemia of chronic disease 9. Nephrolithiasis 10. Atrial fibrillation Surgical History 1. Total nephrectomy 2. Partial hysterectomy 3. Bladder suspension/sling 4. Cataract removal 5. Blepharoplasty 6. Fistula for dialysis Family History Father: History of diabetes mellitus, heart disease, and hypertension Mother: History of diabetes mellitus, cancer, hypertension, and heart disease Social History * Smoker: former Smoker Alcohol: Denies Drugs: denies A-FIB/CHADSVASC A-FIB History Current/History of A-Fib/PAF?: Yes Current PO Anticoag Therapy: Yes Review of Systems Constitutional: Reports: Fever Eyes: Denies: Vision change ENT: Reports: Post Nasal Drip Skin: Denies: Rash Pulmonary: Reports: Dyspnea Cardiovascular: Denies: Chest Pain Gastrointestinal: Denies: Abdominal Pain, Diarrhea Genitourinary: Denies: Dysuria Hematologic: Denies: Bruising Neurological: Denies: Numbness Psych: Reports: Anxiety (About Covid and shortness of breath); Denies: Depression Physical Examination General Exam: Positive: Alert, Cooperative Eye Exam: Positive: EOMI; Negative: Sclera icteric ENT Exam: Positive: Atraumatic Neck Exam: Positive: Supple; Negative: JVD Chest Exam: Positive: Diminished Heart Exam: Positive: Rate Normal, Regular Rhythm Abdomen Exam: Positive: Normal bowel sounds, Soft; Negative: Tenderness Extremity Exam: Negative: Edema Neuro Exam: Positive: Normal Speech Psych Exam: Positive: Mental status NL, Mood NL Vital Signs Vital Signs Date Time Temp Pulse Resp B/P (MAP) Pulse Ox O2 Delivery O2 Flow Rate FiO2 07/30/21 16:15 108 20 132/72 (92) 95 Room Air 07/30/21 15:13 101.1 Laboratory Data Labs 24H Laboratory Tests 2 07/30/21 14:54: Immature Granulocyte % (Auto) 0.2, Neutrophils (%) (Auto) 85.4H, Lymphocytes (%) (Auto) 6.1L, Monocytes (%) (Auto) 7.3, Eosinophils (%) (Auto) 0.4, Basophils (%) (Auto) 0.6, Neutrophils # (Auto) 7.1, Lymphocytes # (Auto) 0.5L, Monocytes # (Auto) 0.6, Eosinophils # (Auto) 0.0, Basophils # (Auto) 0.1, Nucleated Red Blood Cells % (auto) 0.0, Anion Gap 6L, Glomerular Filtration Rate 13.2L, Calcium Level 9.6, Total Bilirubin 0.9, Direct Bilirubin 0.4H, Aspartate Amino Transf (AST/SGOT) 8, Alanine Aminotransferase (ALT/SGPT) 13, Alkaline Phosphatase 117, Total Creatine Kinase 30, Creatine Kinase MB < 1.0, Creatine Kinase MB Relative Index 3.33, Troponin I < 0.02, OU-Tiw-G-Type Natriuretic Peptide 13317T, Total Protein 7.3, Albumin 3.4, Albumin/Globulin Ratio 0.9L, Thyroid Stimulating Hormone (TSH) 0.839 CBC/BMP Laboratory Tests 07/30/21 14:54 Microbiology Microbiology 07/30/21 Respiratory Virus Panel (PCR) ([facility]) - Final, Complete SARS-CoV-2 (COVID 19) Assessment/Plan Mrs. Bryant is an 81-year-old female with end-stage renal disease on dialysis Sunday who presents with shortness of breath secondary to A. fib with RVR and Covid pneumonia. Covid pneumonia may have triggered her A. fib with RVR. Continue with her long-acting diltiazem. We will add on Lopressor with holding parameters. Otherwise, will start antibiotics and check a procalcitonin level. If procalcitonin is negative can de-escalate antibiotics. Otherwise patient is end-stage renal disease on dialysis, nephrology has been contacted for dialysis. Plan / VTE VTE Prophylaxis Ordered?: Yes Plan Plan 1. A. fib with RVR May have been triggered by Covid pneumonia Continue diltiazem CD 360 mg once a day We will add on Lopressor with holding parameters Continue Eliquis 2. Covid pneumonia Patient had the 2 Moderna vaccines and the booster Patient has a fever, but no hypoxia or leukocytosis Start patient on ceftriaxone and doxycycline day 1 De-escalate antibiotics based on procalcitonin 3. End-stage renal disease on dialysis Sunday Due to holidays, patient's dialysis schedule was changed per patient Nephrology consulted, recommendations appreciated 4. COPD Patient has a history of smoking Continue montelukast We will switch Trelegy Ellipta to Symbicort and Spiriva Switch albuterol to Xopenex due to A. fib with RVR 5. Hyperlipidemia Continue pravastatin 6. Questionable diabetes mellitus Patient has a history of diabetes mellitus but not on any medications for diabetes mellitus We will check an HbA1c 7. Anemia of chronic disease Continue ferrous sulfate 8. DVT prophylaxis Aspirin and Eliquis Disposition: Pending rate control RAH MCALLISTER DO Jul 30, 2021 17:48
[2021-07-30 18:25] VITALS: BP 119/59
[2021-07-30 18:54] LABS: C REACTIVE PROTEIN QUANTITATIV 4.12 MG/DL (0.00-0.30); MAGNESIUM LEVEL 1.7 MG/DL (1.8-2.4)
[2021-07-30] MEDS ORDERED: AZEL0.055 NARES (18:56)
[2021-07-30] MEDS ORDERED: HOME MED LIST COMPLETE! XX SCH (19:00)
[2021-07-30] MEDS: cefTRIAXone SOD 1 GM in D5W MINI-BAG PLUS 50 ML IV SCH (19:30)
[2021-07-30] MEDS: METOPROLOL TART 25 MG TABLET PO SCH ×2 (19:30→23:55)
[2021-07-30] MEDS: SYMBICORT 160/4.5MCG INHALER 6GM INH SCH (19:35)
[2021-07-30 20:00] VITALS: BP 124/61
[2021-07-30 20:03] VITALS: O2SAT 96
[2021-07-30 20:11] LABS: INR 1.11; PROTHROMBIN TIME 14.7 SECONDS (12.7-14.5)
[2021-07-30 20:12] LABS: PARTIAL THROMBOPLASTIN TIME 41.9 SECONDS (25.9-37.0)
[2021-07-30 20:14] LABS: D-DIMER QUANT 1694.88 ng/ml (<500)
[2021-07-30 20:15] LABS: CPK CREATINE PHOSPHOKINASE 26 U/L (26-192); TROPONIN I < 0.02 NG/ML (< 0.10)
[2021-07-30] MEDS: PRAVASTATIN 20 MG TAB PO SCH (20:36)
[2021-07-30] MEDS: DOXYCYCLINE HYCLATE 100 MG in D5W MINI-BAG PLUS 100 ML IV SCH (20:36)
[2021-07-30] MEDS: APIXABAN 2.5 MG TAB (ELIQUIS) PO SCH (20:36)
[2021-07-30] MEDS: AZELASTINE 137MCG NASAL SPY 30 ML (ASTELIN) SCH (20:37)
[2021-07-31] VITALS (8 sets, daily range): BP systolic 104–135; BP diastolic 53–80; O2SAT 85–96
[2021-07-31] MEDS: METOPROLOL TART 25 MG TABLET PO SCH ×4 (05:04→23:47)
[2021-07-31] MEDS ORDERED: SODIUM CHLORIDE 0.9% 1000ML IV PRN (06:50)
[2021-07-31] MEDS ORDERED: LIDOCAINE 1% SDV 5ML VIAL SC PRN (06:50)
[2021-07-31 07:38] LABS: BASO # 0.1 10^3/uL (0.0-0.2); BASO % 0.6 % (0.0-1.0); EOS % 0.4 % (0.0-3.0); HEMATOCRIT 31.1 % (36.0-47.0); HEMOGLOBIN 9.6 g/dl (12.0-15.5); LYMPH # 0.7 10^3/uL (1.5-5.0); LYMPH % 8.3 % (24.0-44.0); MEAN CORPUSCULAR HEMOGLOBIN 28.7 pg (27.0-33.0); MEAN CORPUSCULAR HGB CONC 30.9 g/dl (32.0-36.5); MEAN CORPUSCULAR VOLUME 93.1 fl (80.0-96.0); MONO # 0.7 10^3/uL (0.0-0.8); MONO % 8.6 % (2.0-8.0); NEUTROPHILS # 6.8 10^3/uL (1.5-8.5); NEUTROPHILS % 81.4 % (36.0-66.0); PLATELET COUNT, AUTOMATED 133 10^3/uL (150-450); RED BLOOD COUNT 3.34 10^6/uL (4.00-5.40); WHITE BLOOD COUNT 8.3 10^3/uL (4.0-10.0)
[2021-07-31] MEDS: SYMBICORT 160/4.5MCG INHALER 6GM INH SCH ×2 (07:50→21:01)
[2021-07-31] MEDS: TIOTROPIUM INHALER/CAPSULE (SPIRIVA) INH SCH (07:50)
[2021-07-31 08:03] LABS: CALCIUM LEVEL 9.3 MG/DL (8.8-10.2); CREATININE FOR GFR 4.42 MG/DL (0.55-1.30); GLOMERULAR FILTRATION RATE 10.2 (>32); MAGNESIUM LEVEL 1.9 MG/DL (1.8-2.4); POTASSIUM SERUM 5.1 MEQ/L (3.5-5.1)
[2021-07-31] MEDS: DOXYCYCLINE HYCLATE 100 MG in D5W MINI-BAG PLUS 100 ML IV SCH ×3 (09:00→20:04)
[2021-07-31] MEDS: AZELASTINE 137MCG NASAL SPY 30 ML (ASTELIN) SCH ×3 (09:00→20:04)
[2021-07-31] MEDS: APIXABAN 2.5 MG TAB (ELIQUIS) PO SCH ×3 (09:00→20:04)
[2021-07-31] MEDS: FERROUS SULFATE 325MG TAB PO SCH ×2 (09:00→12:54)
--- NOTE | 2021-07-31 09:01 | ECGEPIP ---
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
[2021-07-31] MEDS ORDERED: DOXY-350 PO (11:18)
[2021-07-31] MEDS ORDERED: METO1TAB87 PO (11:18)
[2021-07-31] MEDS ORDERED: CEFD1CAP8 PO (11:18)
--- NOTE | 2021-07-31 16:54 | IPNPDOC ---
Subjective Date Seen The patient was seen on 07/31/21. Subjective Chief Complaint/HPI Mrs. Bryant is an 81-year-old female with end-stage renal disease on dialysis Sunday who presents with shortness of breath secondary to A. fib with RVR and Covid pneumonia. Heart rate is now controlled. Patient does have a history of SUZIE and was put on oxygen last night. Otherwise, I saw her this morning while at dialysis. She is feeling better, and felt ready for home. Unfortunately, I was notified that she would not be able to receive outpatient dialysis due to her Covid status. The dialysis center is understaffed, and this coming is a holiday. Will discuss with team on Sunday. Objective Physical Examination General Exam: Positive: Alert, Cooperative Eye Exam: Positive: EOMI; Negative: Sclera icteric ENT Exam: Positive: Atraumatic Neck Exam: Positive: Supple; Negative: JVD Chest Exam: Positive: Diminished Heart Exam: Positive: Rate Normal, Irregular Rhythm Abdomen Exam: Positive: Normal bowel sounds, Soft; Negative: Tenderness Extremity Exam: Negative: Edema Neuro Exam: Positive: Normal Speech Psych Exam: Positive: Mental status NL, Mood NL Assessment /Plan Assessment Mrs. Bryant is an 81-year-old female with end-stage renal disease on dialysis Sunday who presents with shortness of breath secondary to A. fib with RVR and Covid pneumonia. Covid pneumonia may have triggered her A. fib with RVR. Continue with her long-acting diltiazem. We will add on Lopressor with holding parameters. Otherwise, procalcitonin mildly elevated. Will continue antibiotics. Will discuss with team tomorrow about patient's Covid status and need for dialysis. Plan/VTE VTE Prophylaxis Ordered?: Yes Plan 1. A. fib with RVR May have been triggered by Covid pneumonia Continue diltiazem CD 360 mg once a day Continue Lopressor with holding parameters Continue Eliquis 2. Covid pneumonia Patient had the 2 Moderna vaccines and the booster Patient has a fever, but no hypoxia or leukocytosis Continue ceftriaxone and doxycycline day 2 Procalcitonin mildly elevated 3. End-stage renal disease on dialysis Sunday Nephrology consulted, recommendations appreciated 4. COPD Patient has a history of smoking Continue montelukast We will switch Trelegy Ellipta to Symbicort and Spiriva Switch albuterol to Xopenex due to A. fib with RVR 5. Hyperlipidemia Continue pravastatin 6. Prediabetes Patient has a history of diabetes mellitus but not on any medications for diabetes mellitus We will check an HbA1c. HbA1c is 6 indicating prediabetes 7. Anemia of chronic disease Continue ferrous sulfate 8. DVT prophylaxis Aspirin and Eliquis Disposition: Pending discussion with PFS and team VS, I&O, 24H, Fishbone Vital Signs/I&O Vital Signs Date Time Temp Pulse Resp B/P (MAP) Pulse Ox O2 Delivery O2 Flow Rate FiO2 07/31/21 13:00 85 Room Air 07/31/21 12:55 90 135/64 07/31/21 12:30 95.8 18 07/31/21 07:54 1.0 I&O- Last 24 Hours up to 6 AM 07/31/21 06:00 Intake Total 400 ml Balance 400 ml Laboratory Data 24H LABS Laboratory Tests 2 07/30/21 19:22: Prothrombin Time 14.7H, Prothromb Time International Ratio 1.11, Activated Partial Thromboplast Time 41.9H, Fibrinogen 448, D-Dimer, Quantitative 1694.88H, Total Creatine Kinase 26, Troponin I < 0.02 07/31/21 05:32: Immature Granulocyte % (Auto) 0.7, Neutrophils (%) (Auto) 81.4H, Lymphocytes (%) (Auto) 8.3L, Monocytes (%) (Auto) 8.6H, Eosinophils (%) (Auto) 0.4, Basophils (%) (Auto) 0.6, Neutrophils # (Auto) 6.8, Lymphocytes # (Auto) 0.7L, Monocytes # (Auto) 0.7, Eosinophils # (Auto) 0.0, Basophils # (Auto) 0.1, Nucleated Red Blood Cells % (auto) 0.0, Anion Gap 8, Glomerular Filtration Rate 10.2L, Calcium Level 9.3, Magnesium Level 1.9 CBC/BMP Laboratory Tests 07/31/21 05:32 Microbiology Microbiology 07/30/21 Blood Culture, Received Pending 07/30/21 Blood Culture, Received Pending 07/30/21 Respiratory Virus Panel (PCR) ([facility]) - Final, Complete SARS-CoV-2 (COVID 19) RAH MCALLISTER DO Jul 31, 2021 16:54
--- NOTE | 2021-07-31 17:30 | CR ---
CONSULTATION DATE: 07/31/2021 REFERRING PHYSICIAN: Yaw Aguirre DO REASON FOR CONSULTATION: To assist in the management of end-stage renal disease and shortness of breath. HISTORY OF PRESENT ILLNESS: Mrs. Bryant is an 81-year-old female with known history of end-stage renal disease on maintenance hemodialysis three times a week. She also has history of atrial fibrillation and presented to emergency room with cold and flu symptoms. She was noticed to have a COVID positive test. In view of shortness of breath and COVID positive with atrial fibrillation and rapid ventricular rate, she was admitted to [facility] last evening. She had fever up to 101.1 degrees Fahrenheit. Nephrology consultation was requested as patient is due for dialysis. PAST MEDICAL AND SURGICAL HISTORY: 1. History of asthma. 2. Hypertension. 3. Hyperlipidemia. 4. Diabetes. 5. Gastroesophageal reflux disease. 6. Obstructive sleep apnea. 7. End-stage renal disease. 8. Anemia. 9. History of atrial fibrillation. 10. History of nephrolithiasis. PAST SURGICAL HISTORY: 1. Prior nephrectomy. 2. Partial hysterectomy. 3. Bladder suspension surgery. 4. Cataract removal. 5. Fistula for AV dialysis. 6. Blepharoplasty. HOME MEDICATIONS: 1. Tylenol. 2. Eliquis 2.5 mg b.i.d. 3. Cetirizine 10 mg at bedtime. 4. Diltiazem ER 360 mg daily. 5. Ferrous sulfate 325 mg daily. 6. Magnesium oxide 400 mg daily. 7. Nasonex nasal spray as needed. 8. Singulair 10 mg daily. 9. Pravastatin 40 mg daily. 10. Albuterol inhaler as needed. ALLERGIES: SHE HAS ALLERGY TO AMOXICILLIN, CIPROFLOXACIN AND CLAVULANIC ACID. PERSONAL AND SOCIAL HISTORY: Patient is a former smoker and denies any alcohol or drug use. FAMILY HISTORY: Significant for diabetes, heart disease and hypertension. REVIEW OF SYSTEMS: The patient was seen in urgent care yesterday due to flu-like symptoms and was sent to emergency room as she was found to be in atrial fibrillation with rapid ventricular rate. She has known history of chronic atrial fibrillation. She had fever of 101 degrees Fahrenheit yesterday. She did test positive for COVID. Ears, nose and throat are unremarkable. Cardiovascular system: Significant for dyspnea and rapid atrial fibrillation. She denies any chest pain. Respiratory system is significant for shortness of breath and COVID positive test. Her chest x-ray did show multifocal infiltrates versus congestive heart failure. GI system is significant for gastroesophageal reflux disease. She denies any nausea or vomiting. system is negative for dysuria or hematuria. Musculoskeletal system is negative for any leg edema or back pain. Skin is negative for rash or ulcers. Neurological system: Negative for seizures or stroke. Hematological system is significant for chronic anticoagulation and anemia of chronic kidney disease. Psychosocial system: Negative for depression and anxiety. PHYSICAL EXAMINATION: Vital signs: Temperature 98.5 degrees Fahrenheit, heart rate 94 per minute and respiratory rate 18 per minute. Blood pressure 135/64 mmHg and oxygen saturation 91%. Head is atraumatic. Neck: Supple and JVD not abnormally elevated. Ears, nose and throat are unremarkable. Heart exam reveals a regular rhythm and lungs with slightly diminished breath sounds at bases. Abdomen is soft and nontender. Bowel sounds are normal. Extremities without any cyanosis or clubbing. Neurologically she is awake, alert and oriented x3. AV fistula in her left forearm is patent and being used for dialysis. LABORATORY DATA: WBC count 8.3, hemoglobin 9.6 and hematocrit 31. Sodium 133, potassium 5.1, CO2 24, BUN 25 and creatinine 4.42. Glucose 126 and calcium 9.1. Yesterday her proBNP level was 17,663. Chest x-ray reported as cardiomegaly and some multifocal infiltrates versus congestive heart failure. PROBLEMS: 1. Shortness of breath. Most likely this was multifactorial. She had COVID symptoms. In addition, she also had rapid atrial fibrillation and fever up to 101 degrees Fahrenheit. Now her fever has improved. Her heart rate is controlled and her dyspnea has improved. We will dialyze with two liters of fluid removal and see if that would help with improvement in her symptoms. 2. End-stage renal disease. Patient is due for dialysis today as due to , dialysis schedule has been changed. She is being dialyzed this morning. 3. Multifocal infiltrates. She has been given doxycycline and ceftriaxone. She is currently afebrile. I feel infiltrates are probably related to congestive heart failure which will improve with dialysis and fluid removal. Her procalcitonin has come back normal at 0.29. 4. Anemia. Her anemia is stable and related to end-stage renal disease. No urgent intervention is needed. 5. Hyponatremia. She has mild hyponatremia which will be corrected with dialysis and fluid removal. No other intervention will be needed. 6. COVID. Patient has mild symptoms and not being treated with any medications at present. She is fully vaccinated. Thank you for involving me in the care of Mrs. Bryant. I will follow her along with you.
[2021-07-31] MEDS: cefTRIAXone SOD 1 GM in D5W MINI-BAG PLUS 50 ML IV SCH (18:31)
[2021-07-31] MEDS: PRAVASTATIN 20 MG TAB PO SCH (20:04)
[2021-08-01] VITALS (7 sets, daily range): BP systolic 117–126; BP diastolic 60–65; O2SAT 90–95
[2021-08-01] MEDS: METOPROLOL TART 25 MG TABLET PO SCH (05:21)
[2021-08-01 06:08] LABS: BASO % 0.7 % (0.0-1.0); EOS # 0.2 10^3/uL (0.0-0.5); EOS % 2.8 % (0.0-3.0); HEMATOCRIT 31.6 % (36.0-47.0); HEMOGLOBIN 9.7 g/dl (12.0-15.5); LYMPH # 0.9 10^3/uL (1.5-5.0); LYMPH % 14.1 % (24.0-44.0); MEAN CORPUSCULAR HEMOGLOBIN 28.8 pg (27.0-33.0); MEAN CORPUSCULAR HGB CONC 30.7 g/dl (32.0-36.5); MEAN CORPUSCULAR VOLUME 93.8 fl (80.0-96.0); MONO # 0.6 10^3/uL (0.0-0.8); MONO % 9.9 % (2.0-8.0); NEUTROPHILS # 4.4 10^3/uL (1.5-8.5); PLATELET COUNT, AUTOMATED 124 10^3/uL (150-450); RED BLOOD COUNT 3.37 10^6/uL (4.00-5.40)
[2021-08-01 06:19] LABS: INR 1.37; PROTHROMBIN TIME 17.3 SECONDS (12.7-14.5)
[2021-08-01 06:39] LABS: CPK CREATINE PHOSPHOKINASE 23 U/L (26-192); TROPONIN I < 0.02 NG/ML (< 0.10)
[2021-08-01 06:58] LABS: ALBUMIN 2.5 GM/DL (3.2-5.2); BILIRUBIN,DIRECT 0.2 MG/DL (0.0-0.2); BILIRUBIN,TOTAL 0.4 MG/DL (0.2-1.0); CALCIUM LEVEL 8.9 MG/DL (8.8-10.2); CREATININE FOR GFR 3.54 MG/DL (0.55-1.30); GLOMERULAR FILTRATION RATE 13.2 (>32); MAGNESIUM LEVEL 1.9 MG/DL (1.8-2.4); POTASSIUM SERUM 4.2 MEQ/L (3.5-5.1); TOTAL PROTEIN 6.4 GM/DL (6.4-8.2)
[2021-08-01] MEDS: SYMBICORT 160/4.5MCG INHALER 6GM INH SCH (07:29)
[2021-08-01] MEDS: TIOTROPIUM INHALER/CAPSULE (SPIRIVA) INH SCH (07:29)
[2021-08-01] MEDS: FERROUS SULFATE 325MG TAB PO SCH (08:23)
[2021-08-01] MEDS: DOXYCYCLINE HYCLATE 100 MG in D5W MINI-BAG PLUS 100 ML IV SCH (08:23)
[2021-08-01] MEDS: AZELASTINE 137MCG NASAL SPY 30 ML (ASTELIN) SCH (08:23)
[2021-08-01] MEDS: APIXABAN 2.5 MG TAB (ELIQUIS) PO SCH (08:23)
[2021-08-01] MEDS ORDERED: METOPROLOL TART 25 MG TABLET PO ONE (12:00)
[2021-08-01] MEDS ORDERED: LOPR1TAB6 PO (14:41)
[2021-08-01] MEDS ORDERED: METOPROLOL TART 50 MG TAB PO SCH (21:00)
--- NOTE | 2021-08-01 23:33 | DS.PDOC ---
Discharge Summary General Date of Admission Jul 30, 2021 at 17:11 Date of Discharge Aug 01, 2021 Specialist/Consultants [facility], Dr. Daugherty Discharge Summary PROCEDURES PERFORMED DURING STAY: None ADMITTING DIAGNOSES: 1. Atrial fibrillation with rapid ventricular response 2. COVID pneumonia 3. ESRD on dialysis MWF 4. COPD 5. Hyperlipidemia 6. Prediabetes 7. Anemia of chronic disease DISCHARGE DIAGNOSES: 1. Atrial fibrillation with rapid ventricular response 2. COVID pneumonia 3. ESRD on dialysis MWF 4. COPD 5. Hyperlipidemia 6. Prediabetes 7. Anemia of chronic disease COMPLICATIONS/CHIEF COMPLAINT: Afib W/Rapid Vaentricular Response. Covid+. HISTORY OF PRESENT ILLNESS: Mrs. Bryant is an 81-year-old female with end-stage renal disease on dialysis Sunday who presents with shortness of breath secondary to A. fib with RVR and Covid pneumonia. Patient had both maternal vaccines and the booster. Denies any sick contacts. She only goes between home and dialysis center. She tells me that yesterday she started feeling short of breath. She went to urgent care who sent her to the ER. While here, she is found to have A. fib with RVR with a heart rate in the 170s. She also had a fever of 101.1. Otherwise, she is breathing well at room air and she is not hypotensive. She was initially given her long-acting diltiazem home dose and 10 mg of IV diltiazem. Heart rate improved to the 100s to 130s. Blood pressure stable. Chest x-ray demonstrated bibasilar opacities which may be pulmonary edema versus multifocal pneumonia. Patient does have an elevated proBNP, but this is most likely due to the A. fib with RVR. When I saw patient, she appeared comfortable. She tells me that her shortness of breath is improved. She is a little anxious that she still caught Covid despite the vaccination. She denies loss of taste, but her appetite has been poor. Otherwise, she tells me that her dialysis schedule was changed this week due to the holiday. Normal she is Sunday, but she is scheduled for dialysis tomorrow. Nephrology was notified. Patient will be admitted for A. fib with RVR and Covid pneumonia. HOSPITAL COURSE: Patient did well on metoprolol only and recovered faster than expected. She was on metoprolol tartrate 25mg q6h. Patient's heart rate was controlled. I changed the medication to metoprolol tartrate 50mg BID for convenience. This morning, patient felt well and felt ready for discharge. Olimpia ent has a plan for outpatient dialysis while COVID positive on a holiday week. Patient was discharged home today. DISCHARGE MEDICATIONS: Please see below. ALLERGIES: Please see below. PHYSICAL EXAMINATION ON DISCHARGE: VITAL SIGNS: Please see below. GENERAL: Comfortable, in no apparent distress HEENT: Head normocephalic, atraumatic NECK: Supple CARDIOVASCULAR EXAMINATION: Regular rate and irregular rhythm RESPIRATORY EXAMINATION: Lungs clear to auscultation bilaterally ABDOMINAL EXAMINATION: Soft, non-tender, normal bowel sounds EXTREMITIES: No pitting edema bilaterally NEUROLOGICAL EXAMINATION: CN 3-12 grossly intact PSYCHIATRIC EXAMINATION: Normal mood and affect LABORATORY DATA: Please see below. IMAGING: Please see charge for imaging PROGNOSIS: Good ACTIVITY: As tolerated. DIET: Renal diet DISCHARGE PLAN: Home with home health services DISPOSITION: Home Health Service. DISCHARGE INSTRUCTIONS: 1. Follow up with PCP within 1 week 2. stop diltiazem and start metoprolol tartrate 3. Follow outpatient dialysis instructions for dialysis days ITEMS TO FOLLOWUP ON ON OUTPATIENT: 1. Blood pressure 2. Heart rate DISCHARGE CONDITION: Stable Total time spent on discharge planning, discharge summary, and medication reconciliation: 40 minutes Vital Signs/I&Os Vital Signs Date Time Temp Pulse Resp B/P (MAP) Pulse Ox O2 Delivery O2 Flow Rate FiO2 08/01/21 12:53 93 Room Air 08/01/21 12:52 97.2 110 18 120/64 (82) 08/01/21 04:00 2.0 I&O- Last 24 Hours up to 6 AM 08/01/21 06:00 Intake Total 1000 ml Output Total 2500 ml Balance -1500 ml Laboratory Data Labs 24H Laboratory Tests 2 08/01/21 05:25: Immature Granulocyte % (Auto) 0.5, Neutrophils (%) (Auto) 72.0H, Lymphocytes (%) (Auto) 14.1L, Monocytes (%) (Auto) 9.9H, Eosinophils (%) (Auto) 2.8, Basophils (%) (Auto) 0.7, Neutrophils # (Auto) 4.4, Lymphocytes # (Auto) 0.9L, Monocytes # (Auto) 0.6, Eosinophils # (Auto) 0.2, Basophils # (Auto) 0.0, Nucleated Red Blood Cells % (auto) 0.0, Prothrombin Time 17.3H, Prothromb Time International Ratio 1.37, Activated Partial Thromboplast Time 53.0H, Fibrinogen 455H, Anion Gap 7L, Glomerular Filtration Rate 13.2L, Calcium Level 8.9, Magnesium Level 1.9, Ferritin 3633H, Total Bilirubin 0.4#, Direct Bilirubin 0.2, Aspartate Amino Transf (AST/SGOT) 16, Alanine Aminotransferase (ALT/SGPT) 16, Alkaline Ph osphatase 91, Lactate Dehydrogenase 122, Total Creatine Kinase 23L, Troponin I < 0.02, TN-Nxo-R-Type Natriuretic Peptide 88524D, Total Protein 6.4, Albumin 2.5#L, Albumin/Globulin Ratio 0.6L, Procalcitonin 0.79 CBC/BMP Laboratory Tests 08/01/21 05:25 Microbiology Microbiology 07/30/21 Blood Culture - Preliminary, Resulted No Growth after 48 hours. All Specime... 07/30/21 Blood Culture - Preliminary, Resulted No Growth after 48 hours. All Specime... 07/30/21 Respiratory Virus Panel (PCR) ([facility]) - Final, Complete SARS-CoV-2 (COVID 19) Discharge Medications Scheduled Apixaban (Eliquis) 2.5 Mg Tab, 2.5 MG PO BID, (Reported) Azelastine HCl (Azelastine HCl) 0.15% [place].pump, 2 SPRAY NARES BID, (Reported) 2ND AT LEAST 4 HOURS BEFORE BEDTIME Cefdinir (Cefdinir) 300 Mg Capsule, 300 MG PO BID Doxycycline Monohydrate (Doxycycline) 100 Mg Capsule, 100 MG PO BID Ferrous Sulfate (Ferrous Sulfate) 325 Mg Tab, 325 MG PO DAILY, (Reported) Fluticasone/Umeclidin/Vilanter (Trelegy Ellipta 200-62.5-25) 200-62.5 Blst.w.dev, 1 PUFF INH DAILY, (Reported) Magnesium Oxide (Magnesium) 400 Mg Cap, 400 MG PO QAM, (Reported) Metoprolol Tartrate (Lopressor) 50 Mg Tablet, 50 MG PO BID Montelukast Sodium (Singulair) 10 Mg Tab, 10 MG PO QHS, (Reported) Pravastatin Sodium (Pravastatin Sodium) 40 Mg Tab, 40 MG PO DAILY, (Reported) Scheduled PRN Acetaminophen (Tylenol Arthritis) 650 Mg Tab, 650 MG PO Q8H PRN for PAIN LEVEL 1-5, (Reported) Albuterol Sulf (Albuterol Sulfate) 2.5 Mg/3 Ml Nebu, 2.5 MG INH Q4HP PRN for SHORTNESS OF BREATH, (Reported) Albuterol Sulfate (Proair Hfa) 108 Mcg/Act Aer, 2 PUFFS INH Q4HP PRN for SOB/WHEEZING, (Reported) Allergies Coded Allergies: METALS (Verified Allergy, Unknown, 10/06/14) aspirin (Verified Allergy, Unknown, 07/30/21) patient states she is allergic to this, does not know severity amoxicillin (Verified Adverse Reaction, Intermediate, N/V/D SEVERE, 07/30/21) ciprofloxacin (Verified Adverse Reaction, Intermediate, MAKES BONES HURT, 11/23/20) clavulanic acid (Verified Adverse Reaction, Intermediate, N/V/D SEVERE, 07/30/21) RAH MCALLISTER DO Aug 01, 2021 23:33
[2021-08-02 17:11] LABS: MYCOPLASMA PNEUMONIAE IgG 121 U/mL (0-99); MYCOPLASMA PNEUMONIAE IgM <770 U/mL (0-769)
== END 2021-08-01 16:05 | disposition home health service (06) | DRG 177 ==
LOC: M ED 13:35 → M 4MAIN 17:11 → ENRESERV 17:22
PROVIDERS: ADMIT Internal Medicine; ATTEND Internal Medicine
DX: U07.1 COVID-19 (principal); J12.82 Pneumonia due to coronavirus disease 2019; N18.6 End stage renal disease; J44.0 Chronic obstructive pulmonary disease with (acute) lower respiratory infection; E87.1 Hypo-osmolality and hyponatremia; E11.9 Type 2 diabetes mellitus without complications; I48.91 Unspecified atrial fibrillation; Z79.899 Other long term (current) drug therapy; Z88.6 Allergy status to analgesic agent; Z88.0 Allergy status to penicillin; Z88.8 Allergy status to other drugs, medicaments and biological substances; K21.9 Gastro-esophageal reflux disease without esophagitis; E78.5 Hyperlipidemia, unspecified; D63.1 Anemia in chronic kidney disease; G47.33 Obstructive sleep apnea (adult) (pediatric)

== ENCOUNTER 2021-08-29 11:09 | Inpatient (IN) | payer MEDICARE ==
[~2021-08-29] VITALS: Ht 165.1 cm; Wt 82.6 kg
[2021-08-29] VITALS (13 sets, daily range): BP systolic 103–139; BP diastolic 57–84
[~2021-08-29 11:09] MED LIST changes: -ASPIRIN 81MG ENTERIC TABLET PO SCH; +AZEL0.055 NARES; +CEFD300C41 PO; +DOXY-350 PO; +FLUT1BLS8 INH; +LOPR1TAB6 PO; +METO1TAB87 PO; -MOME50SP; +NASO50SP3
[2021-08-29] MEDS ORDERED: IPRATROPIUM 0.5MG/ALBUTEROL 2.5MG INH SOL UD 3ML (DUONEB) NEB ONE (11:25)
[2021-08-29] MEDS ORDERED: ALBUTEROL SULFATE 2.5 MG/0.5 ML INH NEB SOLN INH ONE (11:25)
[2021-08-29] MEDS ORDERED: methylPREDNISolone 125MG 2ML VIAL IV ONE (11:25)
[2021-08-29] MEDS: METOPROLOL TART 50 MG TAB PO SCH ×3 (12:00→23:38)
[2021-08-29 12:06] LABS: BASO # 0.1 10^3/uL (0.0-0.2); BASO % 0.4 % (0.0-1.0); EOS % 0.2 % (0.0-3.0); HEMATOCRIT 39.2 % (36.0-47.0); HEMOGLOBIN 12.5 g/dl (12.0-15.5); LYMPH # 2.1 10^3/uL (1.5-5.0); LYMPH % 16.1 % (24.0-44.0); MEAN CORPUSCULAR HEMOGLOBIN 31.5 pg (27.0-33.0); MEAN CORPUSCULAR HGB CONC 31.9 g/dl (32.0-36.5); MEAN CORPUSCULAR VOLUME 98.7 fl (80.0-96.0); MONO # 1.2 10^3/uL (0.0-0.8); MONO % 9.1 % (2.0-8.0); NEUTROPHILS # 9.5 10^3/uL (1.5-8.5); NEUTROPHILS % 73.7 % (36.0-66.0); PLATELET COUNT, AUTOMATED 116 10^3/uL (150-450); RED BLOOD COUNT 3.97 10^6/uL (4.00-5.40); WHITE BLOOD COUNT 12.8 10^3/uL (4.0-10.0)
[2021-08-29 12:40] LABS: ALBUMIN 3.2 GM/DL (3.2-5.2); BILIRUBIN,DIRECT 0.5 MG/DL (0.0-0.2); BILIRUBIN,TOTAL 2.3 MG/DL (0.2-1.0); THYROID STIMULATING HORMONE 1.1 uIU/ML (0.358-3.740); THYROXINE (T4) 8.9 UG/DL (4.5-12.0); TOTAL PROTEIN 6.8 GM/DL (6.4-8.2)
[2021-08-29] MEDS ORDERED: MOM 30ML SUSPENSION UDC PO PRN (14:25)
[2021-08-29] MEDS ORDERED: MAALOX 30 ML SUSP *UDC PO PRN (14:25)
[2021-08-29] MEDS ORDERED: ACETAMINOPHEN TAB 650MG DOSE (2X325MG) PO PRN (14:25)
[2021-08-29] MEDS ORDERED: METOPROLOL 5 MG/5 ML VIAL IV STA (14:28)
[2021-08-29] MEDS ORDERED: LIDO1CRE42 TOP (15:10)
[2021-08-29] MEDS ORDERED: DOXY100T PO (15:10)
[2021-08-29] MEDS ORDERED: METO50TA7 PO (15:10)
[2021-08-29] MEDS ORDERED: FLUTISP NARES (15:10)
[2021-08-29 15:12] LABS: INR 1.83; PROTHROMBIN TIME 21.5 SECONDS (12.7-14.5)
[2021-08-29 15:15] LABS: D-DIMER QUANT 1168.3 ng/ml (<500)
[2021-08-29] MEDS ORDERED: HOME MED LIST COMPLETE! XX SCH (15:15)
[2021-08-29 15:19] LABS: CK-MB VALUE MASS 2.4 NG/ML (<3.6); MB/CK RELATIVE INDEX 6.67 (< OR =4)
[2021-08-29] MEDS ORDERED: DIGOXIN INJ 0.5 MG/2 ML AMP (J1160) IV STA (15:39)
[2021-08-29] MEDS ORDERED: DOXYCYCLINE HYCLATE 100MG TABLET PO SCH (17:40)
[2021-08-29] MEDS ORDERED: cefTRIAXone SOD 1 GM in D5W MINI-BAG PLUS 50 ML IV SCH (18:00)
[2021-08-29] MEDS: MEROPENEM INJ 1 GM in IV 1 EA IV SCH (18:44)
[2021-08-29] MEDS: DOCUSATE SODIUM 100MG CAPSULE PO SCH (19:44)
[2021-08-29] MEDS: ADVAIR HFA 230/21MCG INHALER INH SCH (20:00)
[2021-08-29] MEDS ORDERED: LEVALBUTEROL 1.25 MG/0.5 ML CONCENTRATE NEB INH PRN (20:35)
[2021-08-29] MEDS ORDERED: EMLA CREAM 5GM TUBE (LIDOCAINE/PRILOCAINE) TOP SCH (20:35)
[2021-08-29 21:07] LABS: CK-MB VALUE MASS 2.3 NG/ML (<3.6); MB/CK RELATIVE INDEX 5.35 (< OR =4)
[2021-08-29] MEDS: APIXABAN 2.5 MG TAB (ELIQUIS) PO SCH (21:25)
[2021-08-29] MEDS: PRAVASTATIN 20 MG TAB PO SCH (21:25)
[2021-08-29] MEDS: MONTELUKAST 10 MG TAB PO SCH (21:25)
[2021-08-29] MEDS ORDERED: DIGOXIN INJ 0.5 MG/2 ML AMP (J1160) IV ONE (22:00)
[2021-08-30] VITALS: BP 120/71
[2021-08-30 02:29] LABS: BASO % 0.1 % (0.0-1.0); HEMATOCRIT 37.9 % (36.0-47.0); HEMOGLOBIN 11.9 g/dl (12.0-15.5); LYMPH # 0.6 10^3/uL (1.5-5.0); LYMPH % 5.5 % (24.0-44.0); MEAN CORPUSCULAR HEMOGLOBIN 31.3 pg (27.0-33.0); MEAN CORPUSCULAR HGB CONC 31.4 g/dl (32.0-36.5); MEAN CORPUSCULAR VOLUME 99.7 fl (80.0-96.0); MONO # 0.3 10^3/uL (0.0-0.8); MONO % 3.1 % (2.0-8.0); NEUTROPHILS % 90.8 % (36.0-66.0); PLATELET COUNT, AUTOMATED 113 10^3/uL (150-450); WHITE BLOOD COUNT 9.9 10^3/uL (4.0-10.0)
[2021-08-30 03:04] LABS: ALBUMIN 2.9 GM/DL (3.2-5.2); BILIRUBIN,TOTAL 1.5 MG/DL (0.2-1.0); CALCIUM LEVEL 9.5 MG/DL (8.8-10.2); CK-MB VALUE MASS 4.1 NG/ML (<3.6); CREATININE FOR GFR 3.57 MG/DL (0.55-1.30); GLOMERULAR FILTRATION RATE 13.1 (>32); MAGNESIUM LEVEL 1.9 MG/DL (1.8-2.4); MB/CK RELATIVE INDEX 2.91 (< OR =4); POTASSIUM SERUM 5.8 MEQ/L (3.5-5.1)
[2021-08-30 04:00] VITALS: BP 105/61
[2021-08-30] MEDS: METOPROLOL TART 50 MG TAB PO SCH ×3 (05:30→18:17)
[2021-08-30] MEDS: MEROPENEM INJ 1 GM in IV 1 EA IV SCH (05:31)
[2021-08-30] MEDS ORDERED: HUMULIN R U-500 KWIKPEN 500UNITS/ML 3ML SYRINGE (J1815 PER 5UNITS) SC ONE (06:50)
[2021-08-30] MEDS ORDERED: PEN NEEDLE (USE WITH HUMULIN U-500 INSULIN PEN) XX ONE (06:50)
[2021-08-30] MEDS ORDERED: SODIUM CHLORIDE 0.9% 1000ML IV PRN (07:35)
[2021-08-30] MEDS ORDERED: LIDOCAINE 1% SDV 5ML VIAL SC PRN (07:35)
[2021-08-30] MEDS: ADVAIR HFA 230/21MCG INHALER INH SCH ×2 (07:41→21:34)
[2021-08-30] MEDS: LEVALBUTEROL 1.25 MG/0.5 ML CONCENTRATE NEB INH SCH ×4 (07:42→20:00)
[2021-08-30 08:00] VITALS: BP 143/68
[2021-08-30] MEDS: APIXABAN 2.5 MG TAB (ELIQUIS) PO SCH ×2 (08:23→19:46)
[2021-08-30] MEDS: DOCUSATE SODIUM 100MG CAPSULE PO SCH (08:23)
[2021-08-30] MEDS: FLUTICASONE PROP 0.05% NASAL SPRAY 16 GM (FLONASE) NARES SCH (08:23)
[2021-08-30] MEDS: FERROUS SULFATE 325MG TAB PO SCH (08:23)
[2021-08-30] MEDS ORDERED: PANTOPRAZOLE 40MG TAB (PROTONIX) PO ONE (11:30)
[2021-08-30 12:55] VITALS: BP 150/66
[2021-08-30 16:00] VITALS: BP 140/64
[2021-08-30] MEDS ORDERED: DOCUSATE SODIUM 100MG CAPSULE PO PRN (19:15)
[2021-08-30] MEDS: PRAVASTATIN 20 MG TAB PO SCH (19:45)
[2021-08-30] MEDS: MONTELUKAST 10 MG TAB PO SCH (19:46)
[2021-08-30] MEDS: PANTOPRAZOLE 40MG TAB (PROTONIX) PO SCH (19:46)
[2021-08-30 20:00] VITALS: BP 143/66
[2021-08-31] VITALS: BP 132/67
[2021-08-31 04:00] VITALS: BP 131/62
[2021-08-31] MEDS: METOPROLOL TART 50 MG TAB PO SCH ×4 (05:21→18:00)
[2021-08-31 05:58] LABS: BASO % 0.1 % (0.0-1.0); EOS % 0.1 % (0.0-3.0); HEMATOCRIT 38.9 % (36.0-47.0); HEMOGLOBIN 11.9 g/dl (12.0-15.5); LYMPH # 1.3 10^3/uL (1.5-5.0); LYMPH % 7.7 % (24.0-44.0); MEAN CORPUSCULAR HGB CONC 30.6 g/dl (32.0-36.5); MEAN CORPUSCULAR VOLUME 101.3 fl (80.0-96.0); MONO # 1.4 10^3/uL (0.0-0.8); MONO % 8.2 % (2.0-8.0); NEUTROPHILS # 13.9 10^3/uL (1.5-8.5); NEUTROPHILS % 83.2 % (36.0-66.0); PLATELET COUNT, AUTOMATED 142 10^3/uL (150-450); RED BLOOD COUNT 3.84 10^6/uL (4.00-5.40); WHITE BLOOD COUNT 16.7 10^3/uL (4.0-10.0)
[2021-08-31 06:21] LABS: ALBUMIN 2.7 GM/DL (3.2-5.2); BILIRUBIN,TOTAL 0.9 MG/DL (0.2-1.0); CREATININE FOR GFR 2.78 MG/DL (0.55-1.30); GLOMERULAR FILTRATION RATE 17.5 (>32); MAGNESIUM LEVEL 2.2 MG/DL (1.8-2.4); POTASSIUM SERUM 4.8 MEQ/L (3.5-5.1); TOTAL PROTEIN 6.1 GM/DL (6.4-8.2)
[2021-08-31] MEDS: LEVALBUTEROL 1.25 MG/0.5 ML CONCENTRATE NEB INH SCH ×4 (08:00→20:00)
[2021-08-31 08:13] VITALS: BP 120/56
[2021-08-31] MEDS: APIXABAN 2.5 MG TAB (ELIQUIS) PO SCH ×2 (09:15→20:45)
[2021-08-31] MEDS: FERROUS SULFATE 325MG TAB PO SCH (09:16)
[2021-08-31] MEDS: FLUTICASONE PROP 0.05% NASAL SPRAY 16 GM (FLONASE) NARES SCH (09:23)
[2021-08-31] MEDS: ADVAIR HFA 230/21MCG INHALER INH SCH ×2 (09:26→20:08)
[2021-08-31 11:25] VITALS: BP 116/61
[2021-08-31 16:43] VITALS: BP 133/65
[2021-08-31] MEDS: MEROPENEM INJ 500 MG in IV 1 EA IV SCH (19:04)
[2021-08-31 20:00] VITALS: BP 128/64
[2021-08-31] MEDS: MONTELUKAST 10 MG TAB PO SCH (20:45)
[2021-08-31] MEDS: PANTOPRAZOLE 40MG TAB (PROTONIX) PO SCH (20:45)
[2021-08-31] MEDS: PRAVASTATIN 20 MG TAB PO SCH (20:45)
[2021-08-31] MEDS ORDERED: SODIUM CHLORIDE 0.9% 1000ML IV PRN (21:05)
[2021-08-31] MEDS ORDERED: LIDOCAINE 1% SDV 5ML VIAL SC PRN (21:05)
[2021-09-01] VITALS: BP 124/70
[2021-09-01] MEDS: METOPROLOL TART 50 MG TAB PO SCH ×5 (00:16→23:57)
[2021-09-01 04:40] VITALS: BP 149/70
[2021-09-01 06:52] LABS: BASO % 0.1 % (0.0-1.0); EOS # 0.1 10^3/uL (0.0-0.5); EOS % 0.5 % (0.0-3.0); HEMOGLOBIN 11.6 g/dl (12.0-15.5); LYMPH # 1.2 10^3/uL (1.5-5.0); LYMPH % 8.2 % (24.0-44.0); MEAN CORPUSCULAR HEMOGLOBIN 30.9 pg (27.0-33.0); MEAN CORPUSCULAR HGB CONC 30.5 g/dl (32.0-36.5); MEAN CORPUSCULAR VOLUME 101.1 fl (80.0-96.0); MONO # 1.4 10^3/uL (0.0-0.8); MONO % 9.4 % (2.0-8.0); NEUTROPHILS % 81.1 % (36.0-66.0); PLATELET COUNT, AUTOMATED 123 10^3/uL (150-450); RED BLOOD COUNT 3.76 10^6/uL (4.00-5.40); WHITE BLOOD COUNT 14.8 10^3/uL (4.0-10.0)
[2021-09-01 07:15] LABS: ALBUMIN 2.9 GM/DL (3.2-5.2); CALCIUM LEVEL 8.7 MG/DL (8.8-10.2); CREATININE FOR GFR 3.95 MG/DL (0.55-1.30); GLOMERULAR FILTRATION RATE 11.6 (>32); POTASSIUM SERUM 5.1 MEQ/L (3.5-5.1); TOTAL PROTEIN 5.7 GM/DL (6.4-8.2)
[2021-09-01] MEDS: LEVALBUTEROL 1.25 MG/0.5 ML CONCENTRATE NEB INH SCH ×4 (07:32→20:00)
[2021-09-01] MEDS: ADVAIR HFA 230/21MCG INHALER INH SCH ×2 (07:32→20:11)
[2021-09-01 08:33] VITALS: BP 135/72
[2021-09-01] MEDS ORDERED: E-Z-HD 98% w/w 340GM SUSP BTL As Ordered ONE (12:45)
[2021-09-01] MEDS ORDERED: E-Z-PAQUE 96% w/w SUSP 176GM BTL As Ordered ONE (12:45)
[2021-09-01] MEDS ORDERED: E-Z-GAS II EFFERVESCENT PACKET (SODIUM BICARB./CITRIC ACID/SIMETHICONE) As Ordered ONE (12:45)
[2021-09-01 13:28] VITALS: BP 131/60
[2021-09-01] MEDS: APIXABAN 2.5 MG TAB (ELIQUIS) PO SCH ×2 (13:59→21:09)
[2021-09-01] MEDS: FERROUS SULFATE 325MG TAB PO SCH (13:59)
[2021-09-01] MEDS: FLUTICASONE PROP 0.05% NASAL SPRAY 16 GM (FLONASE) NARES SCH (14:00)
[2021-09-01 16:25] VITALS: BP 122/56
[2021-09-01] MEDS: MEROPENEM INJ 500 MG in IV 1 EA IV SCH (18:18)
[2021-09-01 20:00] VITALS: BP 131/63
[2021-09-01] MEDS: MONTELUKAST 10 MG TAB PO SCH (21:09)
[2021-09-01] MEDS: PANTOPRAZOLE 40MG TAB (PROTONIX) PO SCH (21:09)
[2021-09-01] MEDS: PRAVASTATIN 20 MG TAB PO SCH (21:09)
[2021-09-02] VITALS: BP 120/72
[2021-09-02 04:00] VITALS: BP 121/72
[2021-09-02 05:55] LABS: BASO % 0.2 % (0.0-1.0); EOS # 0.2 10^3/uL (0.0-0.5); EOS % 1.4 % (0.0-3.0); HEMOGLOBIN 12.1 g/dl (12.0-15.5); LYMPH # 1.2 10^3/uL (1.5-5.0); LYMPH % 9.5 % (24.0-44.0); MEAN CORPUSCULAR HEMOGLOBIN 30.6 pg (27.0-33.0); MEAN CORPUSCULAR HGB CONC 30.3 g/dl (32.0-36.5); MONO # 1.2 10^3/uL (0.0-0.8); MONO % 9.7 % (2.0-8.0); NEUTROPHILS # 9.8 10^3/uL (1.5-8.5); NEUTROPHILS % 78.7 % (36.0-66.0); PLATELET COUNT, AUTOMATED 131 10^3/uL (150-450); RED BLOOD COUNT 3.96 10^6/uL (4.00-5.40); WHITE BLOOD COUNT 12.4 10^3/uL (4.0-10.0)
[2021-09-02 06:30] LABS: ALBUMIN 2.9 GM/DL (3.2-5.2); BILIRUBIN,TOTAL 1.2 MG/DL (0.2-1.0); CALCIUM LEVEL 8.5 MG/DL (8.8-10.2); CREATININE FOR GFR 2.75 MG/DL (0.55-1.30); GLOMERULAR FILTRATION RATE 17.7 (>32); MAGNESIUM LEVEL 2.1 MG/DL (1.8-2.4)
[2021-09-02] MEDS: METOPROLOL TART 50 MG TAB PO SCH ×4 (06:33→23:23)
[2021-09-02 08:00] VITALS: BP 129/59
[2021-09-02] MEDS: LEVALBUTEROL 1.25 MG/0.5 ML CONCENTRATE NEB INH SCH ×4 (08:00→20:00)
[2021-09-02] MEDS: ADVAIR HFA 230/21MCG INHALER INH SCH ×2 (08:00→20:00)
[2021-09-02] MEDS: FERROUS SULFATE 325MG TAB PO SCH (08:24)
[2021-09-02] MEDS: APIXABAN 2.5 MG TAB (ELIQUIS) PO SCH ×2 (08:25→20:37)
[2021-09-02] MEDS: FLUTICASONE PROP 0.05% NASAL SPRAY 16 GM (FLONASE) NARES SCH (08:25)
[2021-09-02] MEDS ORDERED: SODIUM CHLORIDE 0.9% 1000ML IV PRN (10:10)
[2021-09-02] MEDS ORDERED: LIDOCAINE 1% SDV 5ML VIAL SC PRN (10:10)
[2021-09-02 14:15] VITALS: BP 135/85
[2021-09-02 16:44] VITALS: BP 122/60
[2021-09-02] MEDS: MEROPENEM INJ 500 MG in IV 1 EA IV SCH (18:05)
[2021-09-02 20:00] VITALS: BP 130/66
[2021-09-02] MEDS: MONTELUKAST 10 MG TAB PO SCH (20:37)
[2021-09-02] MEDS: PANTOPRAZOLE 40MG TAB (PROTONIX) PO SCH (20:37)
[2021-09-02] MEDS: PRAVASTATIN 20 MG TAB PO SCH (20:38)
[2021-09-03] VITALS: BP 134/61
[2021-09-03 04:00] VITALS: BP 128/62
[2021-09-03] MEDS: METOPROLOL TART 50 MG TAB PO SCH ×2 (05:28→11:14)
[2021-09-03 06:57] LABS: BASO % 0.2 % (0.0-1.0); EOS # 0.3 10^3/uL (0.0-0.5); EOS % 2.2 % (0.0-3.0); HEMATOCRIT 41.9 % (36.0-47.0); HEMOGLOBIN 12.9 g/dl (12.0-15.5); LYMPH # 1.3 10^3/uL (1.5-5.0); MEAN CORPUSCULAR HGB CONC 30.8 g/dl (32.0-36.5); MEAN CORPUSCULAR VOLUME 100.7 fl (80.0-96.0); MONO # 1.3 10^3/uL (0.0-0.8); MONO % 10.7 % (2.0-8.0); NEUTROPHILS # 9.1 10^3/uL (1.5-8.5); NEUTROPHILS % 75.5 % (36.0-66.0); PLATELET COUNT, AUTOMATED 111 10^3/uL (150-450); RED BLOOD COUNT 4.16 10^6/uL (4.00-5.40); WHITE BLOOD COUNT 12.1 10^3/uL (4.0-10.0)
[2021-09-03 07:24] LABS: ALBUMIN 2.9 GM/DL (3.2-5.2); BILIRUBIN,TOTAL 1.2 MG/DL (0.2-1.0); CALCIUM LEVEL 8.4 MG/DL (8.8-10.2); CREATININE FOR GFR 2.68 MG/DL (0.55-1.30); GLOMERULAR FILTRATION RATE 18.2 (>32); POTASSIUM SERUM 4.5 MEQ/L (3.5-5.1); TOTAL PROTEIN 6.2 GM/DL (6.4-8.2)
[2021-09-03 08:00] VITALS: BP 148/64
[2021-09-03] MEDS: LEVALBUTEROL 1.25 MG/0.5 ML CONCENTRATE NEB INH SCH ×2 (08:00→15:38)
[2021-09-03] MEDS: FLUTICASONE PROP 0.05% NASAL SPRAY 16 GM (FLONASE) NARES SCH (08:41)
[2021-09-03] MEDS: FERROUS SULFATE 325MG TAB PO SCH (08:42)
[2021-09-03] MEDS: APIXABAN 2.5 MG TAB (ELIQUIS) PO SCH (08:42)
[2021-09-03] MEDS: ADVAIR HFA 230/21MCG INHALER INH SCH (09:07)
[2021-09-03 11:14] VITALS: BP 148/64
[2021-09-03] MEDS: MEROPENEM INJ 500 MG in IV 1 EA IV SCH (11:14)
[2021-09-03] MEDS ORDERED: METO50TA7 PO (11:30)
[2021-09-03 12:00] VITALS: BP 129/65
== END 2021-09-03 12:45 | disposition home health service (06) | DRG 291 ==
LOC: EDBD 11:09 → M ED 11:09 → M ED INP 13:55 → ENRESERV 14:15 → M ICU 15:04 → M PCU 18:07
PROVIDERS: ADMIT Internal Medicine; ATTEND Internal Medicine
PROC: 5A1D70Z Performance of Urinary Filtration, Intermittent, Less than 6 Hours Per Day (ICD-10-PCS; principal; 2021-08-30)
DX: I13.2 Hypertensive heart and chronic kidney disease with heart failure and with stage 5 chronic kidney disease, or end stage renal disease (principal); N18.6 End stage renal disease; I50.33 Acute on chronic diastolic (congestive) heart failure; J18.9 Pneumonia, unspecified organism; E87.2 Acidosis; Z99.2 Dependence on renal dialysis; J45.909 Unspecified asthma, uncomplicated; J44.9 Chronic obstructive pulmonary disease, unspecified; G47.33 Obstructive sleep apnea (adult) (pediatric); I48.91 Unspecified atrial fibrillation; R73.03 Prediabetes; K21.9 Gastro-esophageal reflux disease without esophagitis; D63.1 Anemia in chronic kidney disease; Z90.79 Acquired absence of other genital organ(s); Z98.49 Cataract extraction status, unspecified eye; Z87.891 Personal history of nicotine dependence; Z86.16 Personal history of COVID-19; D72.829 Elevated white blood cell count, unspecified; E78.5 Hyperlipidemia, unspecified; Z79.01 Long term (current) use of anticoagulants; Z79.2 Long term (current) use of antibiotics; Z79.899 Other long term (current) drug therapy; Z88.1 Allergy status to other antibiotic agents; Z88.6 Allergy status to analgesic agent; Z88.8 Allergy status to other drugs, medicaments and biological substances; Z90.5 Acquired absence of kidney; E87.5 Hyperkalemia; I27.20 Pulmonary hypertension, unspecified; R13.10 Dysphagia, unspecified; I50.813 Acute on chronic right heart failure

== ENCOUNTER → 2021-09-10 | Outpatient (CLI) | payer MEDICARE ==
[~2021-09-10] MED LIST changes: +CEFD1CAP8 PO; -CEFD300C41 PO; +DOXY100T PO; +FLUTISP NARES; +LIDO1CRE42 TOP; +METO50TA7 PO; +MOME50SP; -NASO50SP3
--- NOTE | 2021-09-12 20:55 | SLEEPCENT ---
DATE: 09/10/2021 BIPAP RE-TITRATION ORDERED BY: Silvio Woods MD Nocturnal polysomnography was performed for the re-titration of pressure therapy in this patient with a history of obstructive sleep apnea syndrome. For testing a ResMed F20 full face mask of small size was used. Initial bilevel pressure of 15/10 was applied to the circuit, and the lights were extinguished. Seven hours and 28 minutes of data were reviewed. There were 313.5 minutes of sleep identified. Sleep latency was short at 7.5 minutes. REM latency was quite short at 3 minutes. Sleep architecture was good. Overall sleep efficiency was 71.4%. The electrocardiogram showed atrial fibrillation with a ventricular response rate of 100, rate between 80 and 120. EEG showed normal waveforms for wake and sleep. Multiple pressures were attempted throughout the study. Best sleep was seen on a bilevel pressure inspiratory 16 over expiratory 11. There was some activity in the limb leads noted on EMG recording. Limb movement arousal index was only 9.2. IMPRESSIONS: Obstructive sleep apnea syndrome (G47.33). RECOMMENDATION: Nightly use of bilevel pressure therapy inspiratory 16 over expiratory 11. cc: Lynn Villa NP
== END ==
LOC: M SLEEP 20:00
PROVIDERS: ATTEND Internal Medicine Pulmonary Disease
DX: G47.33 Obstructive sleep apnea (adult) (pediatric) (principal)

== ENCOUNTER 2021-10-13 10:23 | Emergency (ER) | payer MEDICARE ==
[~2021-10-13] VITALS: Ht 165.1 cm; Wt 86.2 kg
[~2021-10-13 10:23] MED LIST changes: -CEFD1CAP8 PO; +CEFD300C41 PO; -MOME50SP; +NASO50SP3
[2021-10-13 10:24] VITALS: BP 131/70
[2021-10-13] MEDS ORDERED: LOPR1TAB6 PO (10:43)
[2021-10-13] MEDS ORDERED: NEPH1TAB11 PO (10:43)
[2021-10-13] MEDS ORDERED: B-12100010 PO (10:43)
[2021-10-13] MEDS ORDERED: SENS60TA PO (10:43)
[2021-10-13] MEDS ORDERED: CETI10CH PO (10:43)
[2021-10-13] MEDS ORDERED: VELP5CHW PO (10:43)
[2021-10-13] MEDS ORDERED: IPRA3SP NARES (10:43)
== END 2021-10-13 12:41 | disposition home or self-care (01) ==
LOC: M ED 10:23
DX: S09.90XA Unspecified injury of head, initial encounter (principal); W17.89XA Other fall from one level to another, initial encounter; I10 Essential (primary) hypertension; J45.909 Unspecified asthma, uncomplicated; J44.9 Chronic obstructive pulmonary disease, unspecified; E11.9 Type 2 diabetes mellitus without complications; K21.9 Gastro-esophageal reflux disease without esophagitis; D64.9 Anemia, unspecified; Z88.6 Allergy status to analgesic agent; Z88.8 Allergy status to other drugs, medicaments and biological substances; Z86.79 Personal history of other diseases of the circulatory system; Z87.891 Personal history of nicotine dependence; Z91.048 Other nonmedicinal substance allergy status; Z79.01 Long term (current) use of anticoagulants; Z79.899 Other long term (current) drug therapy; Y92.009 Unspecified place in unspecified non-institutional (private) residence as the place of occurrence of the external cause; Y93.9 Activity, unspecified; Y99.9 Unspecified external cause status

== ENCOUNTER 2021-10-24 07:28 | Inpatient (IN) | payer MEDICARE ==
[2021-10-24] VITALS (14 sets, daily range): BP systolic 93–137; BP diastolic 42–93
[~2021-10-24] VITALS: Ht 167.6 cm; Wt 85.2 kg
[~2021-10-24 07:28] MED LIST changes: +B-12100010 PO; +CETI10CH PO; +IPRA3SP NARES; +NEPH1TAB11 PO; +SENS60TA PO; +VELP5CHW PO
[2021-10-24] MEDS ORDERED: cefTRIAXone SOD 2 GM in D5W MINI-BAG PLUS 50 ML IV ONE (07:35)
[2021-10-24] MEDS ORDERED: ACETAMINOPHEN 325 MG TAB PO ONE (07:35)
[2021-10-24 08:08] LABS: VENOUS HCO3 18.7 MEQ/L (23.0-27.0); VENOUS O2 SATURATION 59.1 % (60.0-80.0); VENOUS PARTIAL PRESSURE CO2 42.7 mmHg (38.0-50.0); VENOUS PARTIAL PRESSURE O2 33.2 mmHg (30.0-50.0); VENOUS PH 7.259 UNITS (7.330-7.430); VENOUS STANDARD HCO3 17.3 MEQ/L
[2021-10-24 08:14] LABS: BASO % 0.1 % (0.0-1.0); HEMOGLOBIN 9.9 g/dl (12.0-15.5); LYMPH # 0.6 10^3/uL (1.5-5.0); LYMPH % 2.5 % (24.0-44.0); MEAN CORPUSCULAR HEMOGLOBIN 31.4 pg (27.0-33.0); MEAN CORPUSCULAR VOLUME 95.2 fl (80.0-96.0); MONO % 7.7 % (2.0-8.0); NEUTROPHILS # 19.7 10^3/uL (1.5-8.5); NEUTROPHILS % 88.8 % (36.0-66.0); PLATELET COUNT, AUTOMATED 226 10^3/uL (150-450); RED BLOOD COUNT 3.15 10^6/uL (4.00-5.40); WHITE BLOOD COUNT 22.2 10^3/uL (4.0-10.0)
[2021-10-24 08:41] LABS: INR 1.61; PROTHROMBIN TIME 19.6 SECONDS (12.7-14.5)
[2021-10-24 08:42] LABS: PARTIAL THROMBOPLASTIN TIME 40.5 SECONDS (25.9-37.0)
[2021-10-24 08:48] LABS: ACETAMINOPHEN LEVEL < 2.0 UG/ML (10.0-30.0); DIGOXIN LEVEL 0.2 NG/ML (0.5-2.0); ETHYL ALCOHOL (ETHANOL) 0.003 % (0.000-0.010); MAGNESIUM LEVEL 1.9 MG/DL (1.8-2.4); SALICYLATE LEVEL < 1.7 MG/DL (5.0-30.0)
[2021-10-24 08:52] LABS: MONO # 1.7 10^3/uL (0.0-0.8)
[2021-10-24 08:53] LABS: ALBUMIN 2.5 GM/DL (3.2-5.2); BILIRUBIN,DIRECT 1.2 MG/DL (0.0-0.2); BILIRUBIN,TOTAL 1.7 MG/DL (0.2-1.0); C REACTIVE PROTEIN QUANTITATIV 27.1 MG/DL (0.00-0.30); CALCIUM LEVEL 8.7 MG/DL (8.8-10.2); CREATININE FOR GFR 7.77 MG/DL (0.55-1.30); FREE T4 1.67 NG/DL (0.76-1.46); GLOMERULAR FILTRATION RATE 5.3 (>32); POTASSIUM SERUM 5.5 MEQ/L (3.5-5.1); THYROID STIMULATING HORMONE 0.973 uIU/ML (0.358-3.740); TOTAL PROTEIN 6.1 GM/DL (6.4-8.2)
[2021-10-24] MEDS: IPRATROPIUM 0.03% NASAL SPRAY 30 ML (ATROVENT) SCH ×2 (09:00→21:00)
[2021-10-24] MEDS ORDERED: NS 500 ML IV ONE ×2 (09:00→12:25)
[2021-10-24] MEDS: METOPROLOL 5 MG/5 ML VIAL IV SCH ×3 (10:05→11:18)
[2021-10-24] MEDS ORDERED: HOME MED LIST COMPLETE! XX SCH (10:15)
[2021-10-24] MEDS ORDERED: PIPERACILLIN/TAZOBACTAM SOD 2.25 GM in D5W MINI-BAG PLUS 50 ML IV SCH (10:45)
[2021-10-24] MEDS ORDERED: LIDOCAINE 1% SDV 5ML VIAL SC PRN (10:55)
[2021-10-24] MEDS ORDERED: SODIUM CHLORIDE 0.9% 1000ML IV PRN (10:55)
[2021-10-24] MEDS: METOPROLOL TART 25 MG TABLET PO SCH ×2 (11:43→20:11)
[2021-10-24] MEDS: PIPERACILLIN/TAZOBACTAM SOD 4.5 GM in D5W MINI-BAG PLUS 50 ML IV SCH (11:47)
[2021-10-24] MEDS ORDERED: PIPERACILLIN/TAZOBACTAM SOD 4.5 GM in D5W MINI-BAG PLUS 50 ML IV SCH (12:00)
[2021-10-24] MEDS ORDERED: AMIODARONE HCL 150 MG in IV 1 EA IV ONE (13:40)
[2021-10-24] MEDS ORDERED: VANCOMYCIN HCL 1,000 MG, VIAL MATE ADAPTER 1 EACH in NS 250 ML IV ONE (18:00)
[2021-10-24] MEDS ORDERED: VANCOMYCIN HCL 500 MG in D5W MINI-BAG PLUS 100 ML IV ONE (19:00)
[2021-10-24] MEDS ORDERED: METOPROLOL 5 MG/5 ML VIAL IV STA ×2 (21:39→22:37)
[2021-10-25] VITALS: BP_SYST 116; BP_SYST 137; BP_DIAS 61; BP_DIAS 79
[2021-10-25 04:00] VITALS: BP 109/59
[2021-10-25 05:23] LABS: BASO % 0.2 % (0.0-1.0); EOS % 0.2 % (0.0-3.0); HEMATOCRIT 26.8 % (36.0-47.0); HEMOGLOBIN 8.8 g/dl (12.0-15.5); LYMPH # 0.7 10^3/uL (1.5-5.0); LYMPH % 3.9 % (24.0-44.0); MEAN CORPUSCULAR HEMOGLOBIN 30.8 pg (27.0-33.0); MEAN CORPUSCULAR HGB CONC 32.8 g/dl (32.0-36.5); MEAN CORPUSCULAR VOLUME 93.7 fl (80.0-96.0); MONO # 1.4 10^3/uL (0.0-0.8); NEUTROPHILS # 16.9 10^3/uL (1.5-8.5); PLATELET COUNT, AUTOMATED 188 10^3/uL (150-450); RED BLOOD COUNT 2.86 10^6/uL (4.00-5.40); WHITE BLOOD COUNT 19.2 10^3/uL (4.0-10.0)
[2021-10-25 05:54] LABS: CALCIUM LEVEL 8.4 MG/DL (8.8-10.2); CREATININE FOR GFR 3.95 MG/DL (0.55-1.30); GLOMERULAR FILTRATION RATE 11.6 (>32); MAGNESIUM LEVEL 1.7 MG/DL (1.8-2.4); PHOSPHORUS LEVEL 4.7 MG/DL (2.5-4.9); POTASSIUM SERUM 4.3 MEQ/L (3.5-5.1); VANCOMYCIN RANDOM 16.7 UG/ML
[2021-10-25 08:00] VITALS: BP 119/61
[2021-10-25] MEDS: METOPROLOL TART 25 MG TABLET PO SCH ×2 (08:39→20:22)
[2021-10-25] MEDS: IPRATROPIUM 0.03% NASAL SPRAY 30 ML (ATROVENT) SCH ×2 (09:00→21:09)
[2021-10-25] MEDS: PIPERACILLIN/TAZOBACTAM SOD 4.5 GM in D5W MINI-BAG PLUS 50 ML IV SCH ×3 (11:00)
[2021-10-25 12:00] VITALS: BP 108/59
[2021-10-25] MEDS: **VANCO AFTER HD** MISC XX SCH (15:29)
[2021-10-25 16:00] VITALS: BP 94/55
[2021-10-25] MEDS ORDERED: VANCOMYCIN HCL 1,000 MG, VIAL MATE ADAPTER 1 EACH in NS 250 ML IV SCH (16:00)
[2021-10-25 19:48] VITALS: BP 107/53
[2021-10-26 00:25] VITALS: BP 144/86
[2021-10-26] MEDS: PIPERACILLIN/TAZOBACTAM SOD 4.5 GM in D5W MINI-BAG PLUS 50 ML IV SCH ×3 (00:27→23:47)
[2021-10-26] MEDS: ACETAMINOPHEN TAB 650MG DOSE (2X325MG) PO PRN ×2 (00:44→20:21)
[2021-10-26 04:20] VITALS: BP 93/66
[2021-10-26] MEDS ORDERED: SODIUM CHLORIDE 0.9% 1000ML IV PRN (07:35)
[2021-10-26] MEDS ORDERED: LIDOCAINE 1% SDV 5ML VIAL SC PRN (07:35)
[2021-10-26 07:48] LABS: HEMATOCRIT 29.4 % (36.0-47.0); HEMOGLOBIN 9.4 g/dl (12.0-15.5); PLATELET COUNT, AUTOMATED 212 10^3/uL (150-450); RED BLOOD COUNT 3.03 10^6/uL (4.00-5.40); WHITE BLOOD COUNT 20.2 10^3/uL (4.0-10.0)
[2021-10-26 08:00] VITALS: BP 112/54
[2021-10-26 08:08] LABS: CALCIUM LEVEL 9.2 MG/DL (8.8-10.2); CREATININE FOR GFR 5.13 MG/DL (0.55-1.30); GLOMERULAR FILTRATION RATE 8.6 (>32); POTASSIUM SERUM 4.1 MEQ/L (3.5-5.1)
[2021-10-26] MEDS: METOPROLOL TART 25 MG TABLET PO SCH ×2 (08:56→20:21)
[2021-10-26] MEDS: IPRATROPIUM 0.03% NASAL SPRAY 30 ML (ATROVENT) SCH ×2 (08:56→20:21)
[2021-10-26] MEDS ORDERED: AMIODARONE HCL 360 MG in IV 1 EA IV SCH (12:00)
[2021-10-26] MEDS: **VANCO AFTER HD** MISC XX SCH (16:30)
[2021-10-26] MEDS: AMIODARONE HCL 360 MG in IV 1 EA IV SCH (20:08)
[2021-10-26] MEDS: APIXABAN 2.5 MG TAB (ELIQUIS) PO SCH (20:20)
[2021-10-26 20:40] VITALS: BP 109/63
[2021-10-26] MEDS ORDERED: IPRATROPIUM 0.5MG/ALBUTEROL 2.5MG INH SOL UD 3ML (DUONEB) NEB PRN (22:30)
[2021-10-27 00:22] VITALS: BP 111/60
[2021-10-27 04:30] VITALS: BP 113/72
[2021-10-27 06:13] LABS: HEMATOCRIT 28.3 % (36.0-47.0); MEAN CORPUSCULAR HGB CONC 31.8 g/dl (32.0-36.5); MEAN CORPUSCULAR VOLUME 97.6 fl (80.0-96.0); PLATELET COUNT, AUTOMATED 203 10^3/uL (150-450); WHITE BLOOD COUNT 17.7 10^3/uL (4.0-10.0)
[2021-10-27 06:27] LABS: CALCIUM LEVEL 9.3 MG/DL (8.8-10.2); CREATININE FOR GFR 5.71 MG/DL (0.55-1.30); GLOMERULAR FILTRATION RATE 7.6 (>32); POTASSIUM SERUM 4.1 MEQ/L (3.5-5.1)
[2021-10-27] MEDS: AMIODARONE HCL 360 MG in IV 1 EA IV SCH (06:45)
[2021-10-27] MEDS ORDERED: SODIUM CHLORIDE 0.9% 1000ML IV PRN (07:35)
[2021-10-27] MEDS ORDERED: LIDOCAINE 1% SDV 5ML VIAL SC PRN (07:35)
[2021-10-27 08:45] VITALS: BP 118/57
[2021-10-27] MEDS ORDERED: DARBEPOETIN 100 MCG/0.5 ML *DIALYSIS* SYRINGE (J0882) IV SCH (10:55)
[2021-10-27 12:46] VITALS: BP 128/59
[2021-10-27] MEDS: APIXABAN 2.5 MG TAB (ELIQUIS) PO SCH ×2 (13:02→20:39)
[2021-10-27] MEDS: METOPROLOL TART 25 MG TABLET PO SCH ×2 (13:02→20:39)
[2021-10-27] MEDS: PIPERACILLIN/TAZOBACTAM SOD 4.5 GM in D5W MINI-BAG PLUS 50 ML IV SCH (13:03)
[2021-10-27] MEDS: IPRATROPIUM 0.03% NASAL SPRAY 30 ML (ATROVENT) SCH ×2 (14:42→20:39)
[2021-10-27] MEDS: AMIODARONE 200 MG TAB (PACERONE) PO SCH ×2 (14:58→20:39)
[2021-10-27 15:52] VITALS: BP 135/65
[2021-10-27] MEDS ORDERED: VANCOMYCIN HCL 500 MG in D5W MINI-BAG PLUS 100 ML IV SCH (16:00)
[2021-10-27] MEDS: **VANCO AFTER HD** MISC XX SCH (17:24)
[2021-10-27 21:18] VITALS: BP 117/54
[2021-10-28 00:08] VITALS: BP 118/78
[2021-10-28] MEDS: ACETAMINOPHEN TAB 650MG DOSE (2X325MG) PO PRN ×2 (01:23→08:48)
[2021-10-28] MEDS: PIPERACILLIN/TAZOBACTAM SOD 4.5 GM in D5W MINI-BAG PLUS 50 ML IV SCH ×2 (01:23→12:07)
[2021-10-28 04:02] VITALS: BP 115/59
[2021-10-28 05:05] LABS: HEMATOCRIT 30.1 % (36.0-47.0); HEMOGLOBIN 9.4 g/dl (12.0-15.5); MEAN CORPUSCULAR HEMOGLOBIN 31.1 pg (27.0-33.0); MEAN CORPUSCULAR HGB CONC 31.2 g/dl (32.0-36.5); MEAN CORPUSCULAR VOLUME 99.7 fl (80.0-96.0); PLATELET COUNT, AUTOMATED 204 10^3/uL (150-450); RED BLOOD COUNT 3.02 10^6/uL (4.00-5.40); WHITE BLOOD COUNT 15.3 10^3/uL (4.0-10.0)
[2021-10-28 05:31] LABS: CALCIUM LEVEL 9.1 MG/DL (8.8-10.2); CREATININE FOR GFR 3.49 MG/DL (0.55-1.30); GLOMERULAR FILTRATION RATE 13.4 (>32); MAGNESIUM LEVEL 1.9 MG/DL (1.8-2.4); POTASSIUM SERUM 4.5 MEQ/L (3.5-5.1)
[2021-10-28 08:32] VITALS: BP 129/58
[2021-10-28] MEDS: IPRATROPIUM 0.03% NASAL SPRAY 30 ML (ATROVENT) SCH ×2 (08:40→21:31)
[2021-10-28] MEDS: AMIODARONE 200 MG TAB (PACERONE) PO SCH ×2 (08:41→21:30)
[2021-10-28] MEDS: METOPROLOL TART 25 MG TABLET PO SCH ×2 (08:41→21:30)
[2021-10-28] MEDS: APIXABAN 2.5 MG TAB (ELIQUIS) PO SCH ×2 (08:42→21:29)
[2021-10-28] MEDS ORDERED: VANCOMYCIN HCL 500 MG in D5W MINI-BAG PLUS 100 ML IV ONE (10:00)
[2021-10-28 12:58] VITALS: BP 103/53
[2021-10-28] MEDS: **VANCO AFTER HD** MISC XX SCH (15:42)
[2021-10-28 15:45] VITALS: BP 114/56
[2021-10-28 21:31] VITALS: BP 124/78
[2021-10-29] MEDS: PIPERACILLIN/TAZOBACTAM SOD 4.5 GM in D5W MINI-BAG PLUS 50 ML IV SCH ×3 (00:04→15:16)
[2021-10-29 00:06] VITALS: BP 120/65
[2021-10-29] MEDS: ACETAMINOPHEN TAB 650MG DOSE (2X325MG) PO PRN (00:12)
[2021-10-29 04:00] VITALS: BP 126/80
[2021-10-29 06:37] LABS: HEMATOCRIT 31.3 % (36.0-47.0); HEMOGLOBIN 9.7 g/dl (12.0-15.5); MEAN CORPUSCULAR HEMOGLOBIN 31.4 pg (27.0-33.0); MEAN CORPUSCULAR VOLUME 101.3 fl (80.0-96.0); PLATELET COUNT, AUTOMATED 205 10^3/uL (150-450); RED BLOOD COUNT 3.09 10^6/uL (4.00-5.40); WHITE BLOOD COUNT 18.9 10^3/uL (4.0-10.0)
[2021-10-29 07:05] LABS: CALCIUM LEVEL 9.6 MG/DL (8.8-10.2); CREATININE FOR GFR 4.52 MG/DL (0.55-1.30); POTASSIUM SERUM 4.9 MEQ/L (3.5-5.1); VANCOMYCIN RANDOM 23.4 UG/ML
[2021-10-29 08:00] VITALS: BP 119/59
[2021-10-29] MEDS ORDERED: SODIUM CHLORIDE 0.9% 1000ML IV PRN (08:25)
[2021-10-29] MEDS ORDERED: LIDOCAINE 1% SDV 5ML VIAL SC PRN (08:25)
[2021-10-29 13:43] VITALS: BP 128/67
[2021-10-29] MEDS: METOPROLOL TART 25 MG TABLET PO SCH ×2 (14:08→21:52)
[2021-10-29] MEDS: APIXABAN 2.5 MG TAB (ELIQUIS) PO SCH ×2 (14:08→21:52)
[2021-10-29] MEDS: AMIODARONE 200 MG TAB (PACERONE) PO SCH ×2 (14:09→21:52)
[2021-10-29 16:00] VITALS: BP 124/89
[2021-10-29] MEDS ORDERED: VANCOMYCIN HCL 1,000 MG, VIAL MATE ADAPTER 1 EACH in NS 250 ML IV SCH (16:00)
[2021-10-29] MEDS: **VANCO AFTER HD** MISC XX SCH (16:52)
[2021-10-29 20:19] VITALS: BP 113/57
[2021-10-30] VITALS (7 sets, daily range): BP systolic 96–120; BP diastolic 55–62
[2021-10-30] MEDS: ACETAMINOPHEN TAB 650MG DOSE (2X325MG) PO PRN (00:08)
[2021-10-30] MEDS: PIPERACILLIN/TAZOBACTAM SOD 4.5 GM in D5W MINI-BAG PLUS 50 ML IV SCH ×2 (00:41→14:02)
[2021-10-30 04:35] LABS: HEMATOCRIT 31.6 % (36.0-47.0); HEMOGLOBIN 9.9 g/dl (12.0-15.5); MEAN CORPUSCULAR HEMOGLOBIN 31.1 pg (27.0-33.0); MEAN CORPUSCULAR HGB CONC 31.3 g/dl (32.0-36.5); MEAN CORPUSCULAR VOLUME 99.4 fl (80.0-96.0); PLATELET COUNT, AUTOMATED 203 10^3/uL (150-450); RED BLOOD COUNT 3.18 10^6/uL (4.00-5.40); WHITE BLOOD COUNT 16.4 10^3/uL (4.0-10.0)
[2021-10-30 05:03] LABS: CALCIUM LEVEL 8.8 MG/DL (8.8-10.2); CREATININE FOR GFR 3.24 MG/DL (0.55-1.30); GLOMERULAR FILTRATION RATE 14.6 (>32)
[2021-10-30] MEDS: AMIODARONE 200 MG TAB (PACERONE) PO SCH ×2 (08:35→20:48)
[2021-10-30] MEDS: APIXABAN 2.5 MG TAB (ELIQUIS) PO SCH ×2 (08:36→20:48)
[2021-10-30] MEDS: METOPROLOL TART 25 MG TABLET PO SCH ×2 (08:36→20:48)
[2021-10-30] MEDS ORDERED: RAMELTEON 8 MG TAB (ROZEREM) PO PRN (09:55)
[2021-10-30] MEDS: **VANCO AFTER HD** MISC XX SCH (15:50)
[2021-10-31] VITALS: BP 119/59
[2021-10-31] MEDS: PIPERACILLIN/TAZOBACTAM SOD 4.5 GM in D5W MINI-BAG PLUS 50 ML IV SCH (01:37)
[2021-10-31 02:41] LABS: HEMATOCRIT 32.3 % (36.0-47.0); HEMOGLOBIN 9.8 g/dl (12.0-15.5); MEAN CORPUSCULAR HEMOGLOBIN 30.6 pg (27.0-33.0); MEAN CORPUSCULAR HGB CONC 30.3 g/dl (32.0-36.5); MEAN CORPUSCULAR VOLUME 100.9 fl (80.0-96.0); PLATELET COUNT, AUTOMATED 191 10^3/uL (150-450); WHITE BLOOD COUNT 16.8 10^3/uL (4.0-10.0)
[2021-10-31 03:05] LABS: CALCIUM LEVEL 8.6 MG/DL (8.8-10.2); CREATININE FOR GFR 4.25 MG/DL (0.55-1.30); GLOMERULAR FILTRATION RATE 10.7 (>32); POTASSIUM SERUM 4.2 MEQ/L (3.5-5.1); VANCOMYCIN RANDOM 26.5 UG/ML
[2021-10-31] MEDS ORDERED: LIDOCAINE 1% SDV 5ML VIAL SC PRN (06:00)
[2021-10-31] MEDS ORDERED: SODIUM CHLORIDE 0.9% 1000ML IV PRN (06:00)
[2021-10-31 08:00] VITALS: BP 117/62
[2021-10-31] MEDS ORDERED: ZOSY1SOL6 IV (13:33)
[2021-10-31] MEDS ORDERED: AMIO200T49 PO (13:33)
[2021-10-31] MEDS ORDERED: RAME8TAB2 PO (13:33)
[2021-10-31] MEDS ORDERED: IPRA0.00 NEB (13:33)
== END 2021-10-31 16:38 | DRG 871 ==
LOC: M ED 07:28 → EDBD 07:28 → EEVIPCON 10:35 → M ED INP 10:35 → M PCU 19:00
PROVIDERS: ADMIT Internal Medicine; ATTEND Internal Medicine
PROC: 5A1D70Z Performance of Urinary Filtration, Intermittent, Less than 6 Hours Per Day (ICD-10-PCS; principal; 2021-10-24)
DX: A41.9 Sepsis, unspecified organism (principal); J18.9 Pneumonia, unspecified organism; N18.6 End stage renal disease; I13.2 Hypertensive heart and chronic kidney disease with heart failure and with stage 5 chronic kidney disease, or end stage renal disease; E87.1 Hypo-osmolality and hyponatremia; I48.91 Unspecified atrial fibrillation; D63.1 Anemia in chronic kidney disease; G47.33 Obstructive sleep apnea (adult) (pediatric); Z79.899 Other long term (current) drug therapy; Z88.8 Allergy status to other drugs, medicaments and biological substances; Z88.6 Allergy status to analgesic agent; Z88.0 Allergy status to penicillin; K21.9 Gastro-esophageal reflux disease without esophagitis; R91.8 Other nonspecific abnormal finding of lung field; E11.9 Type 2 diabetes mellitus without complications; E78.5 Hyperlipidemia, unspecified; J44.9 Chronic obstructive pulmonary disease, unspecified; Z87.442 Personal history of urinary calculi; Z91.15 Patient's noncompliance with renal dialysis; Z98.49 Cataract extraction status, unspecified eye; Z87.891 Personal history of nicotine dependence; E87.5 Hyperkalemia; I50.9 Heart failure, unspecified

== ENCOUNTER 2021-10-31 12:19 | Inpatient (IN) | payer MEDICARE ==
[~2021-10-31] VITALS: Ht 165.1 cm; Wt 76.8 kg
[2021-10-31] MEDS ORDERED: IPRA0.00 NEB (13:33)
[2021-10-31] MEDS ORDERED: AMIO200T49 PO (13:33)
[2021-10-31] MEDS ORDERED: RAME8TAB2 PO (13:33)
[2021-10-31] MEDS ORDERED: ZOSY1SOL6 IV (13:33)
[2021-10-31 16:47] VITALS: BP 132/74
[2021-10-31] MEDS: LACTOBACILLUS ACIDOPHILUS CAP (BACID) PO SCH ×2 (18:40→20:29)
[2021-10-31] MEDS: COMBIVENT RESPIMAT 100-20MCG INHALER 4GM INH SCH (19:35)
[2021-10-31 20:00] VITALS: BP 132/73
[2021-10-31] MEDS: SENNA 8.6 MG TAB (SENOKOT) PO SCH (20:29)
[2021-10-31] MEDS: DOCUSATE SODIUM 100MG CAPSULE PO SCH (20:29)
[2021-10-31] MEDS: AMIODARONE 200 MG TAB (PACERONE) PO SCH (20:29)
[2021-10-31] MEDS: APIXABAN 2.5 MG TAB (ELIQUIS) PO SCH (20:30)
[2021-10-31] MEDS: METOPROLOL TART 25 MG TABLET PO SCH (20:30)
[2021-10-31] MEDS: REMEDY PHYTOPLEX Z-GUARD PASTE 113GM TUBE (FROM STOREROOM PRODUCT) TOP SCH (20:31)
[2021-10-31] MEDS ORDERED: HOME MED LIST COMPLETE! XX SCH (20:55)
[2021-10-31] MEDS: PIPERACILLIN/TAZOBACTAM SOD 4.5 GM in D5W MINI-BAG PLUS 50 ML IV SCH (22:59)
[2021-10-31] MEDS: IPRATROPIUM 0.03% NASAL SPRAY 30 ML (ATROVENT) SCH (23:00)
[2021-11-01 06:00] VITALS: BP 116/63
[2021-11-01 06:32] LABS: BASO # 0.1 10^3/uL (0.0-0.2); BASO % 0.4 % (0.0-1.0); EOS # 0.4 10^3/uL (0.0-0.5); EOS % 2.4 % (0.0-3.0); HEMATOCRIT 32.6 % (36.0-47.0); LYMPH # 1.8 10^3/uL (1.5-5.0); LYMPH % 11.2 % (24.0-44.0); MEAN CORPUSCULAR HEMOGLOBIN 31.3 pg (27.0-33.0); MEAN CORPUSCULAR HGB CONC 30.7 g/dl (32.0-36.5); MEAN CORPUSCULAR VOLUME 101.9 fl (80.0-96.0); MONO # 1.2 10^3/uL (0.0-0.8); MONO % 7.6 % (2.0-8.0); NEUTROPHILS # 12.3 10^3/uL (1.5-8.5); NEUTROPHILS % 76.6 % (36.0-66.0); PLATELET COUNT, AUTOMATED 173 10^3/uL (150-450)
[2021-11-01 06:59] LABS: BILIRUBIN,TOTAL 0.8 MG/DL (0.2-1.0); CALCIUM LEVEL 9.1 MG/DL (8.8-10.2); CREATININE FOR GFR 3.36 MG/DL (0.55-1.30); POTASSIUM SERUM 3.8 MEQ/L (3.5-5.1); TOTAL PROTEIN 6.1 GM/DL (6.4-8.2)
[2021-11-01] MEDS: DOCUSATE SODIUM 100MG CAPSULE PO SCH ×2 (08:13→20:00)
[2021-11-01] MEDS: APIXABAN 2.5 MG TAB (ELIQUIS) PO SCH ×2 (08:13→20:01)
[2021-11-01] MEDS: METOPROLOL TART 25 MG TABLET PO SCH ×2 (08:13→20:00)
[2021-11-01] MEDS: AMIODARONE 200 MG TAB (PACERONE) PO SCH ×2 (08:13→20:00)
[2021-11-01] MEDS: LACTOBACILLUS ACIDOPHILUS CAP (BACID) PO SCH ×4 (08:13→20:00)
[2021-11-01] MEDS: REMEDY PHYTOPLEX Z-GUARD PASTE 113GM TUBE (FROM STOREROOM PRODUCT) TOP SCH ×3 (08:14→20:01)
[2021-11-01] MEDS: PANTOPRAZOLE 40MG TAB (PROTONIX) PO SCH (08:14)
[2021-11-01] MEDS: PIPERACILLIN/TAZOBACTAM SOD 4.5 GM in D5W MINI-BAG PLUS 50 ML IV SCH ×2 (08:14→20:00)
[2021-11-01] MEDS: COMBIVENT RESPIMAT 100-20MCG INHALER 4GM INH SCH ×3 (08:25→18:09)
[2021-11-01] MEDS: IPRATROPIUM 0.03% NASAL SPRAY 30 ML (ATROVENT) SCH ×3 (09:00→20:02)
[2021-11-01 14:00] VITALS: BP 124/58
[2021-11-01] MEDS: **VANCO AFTER HD** MISC XX SCH (15:55)
[2021-11-01] MEDS ORDERED: VANCOMYCIN HCL 1,000 MG, VIAL MATE ADAPTER 1 EACH in NS 250 ML IV SCH (16:00)
[2021-11-01] MEDS ORDERED: VANCOMYCIN HCL 500 MG in D5W MINI-BAG PLUS 100 ML IV SCH (16:00)
[2021-11-01 19:58] VITALS: BP 145/65
[2021-11-01] MEDS: SENNA 8.6 MG TAB (SENOKOT) PO SCH (20:01)
[2021-11-01] MEDS: ACETAMINOPHEN TAB 650MG DOSE (2X325MG) PO PRN (20:01)
[2021-11-02] MEDS ORDERED: LIDOCAINE 1% SDV 5ML VIAL SC PRN (06:00)
[2021-11-02] MEDS ORDERED: SODIUM CHLORIDE 0.9% 1000ML IV PRN (06:00)
[2021-11-02 06:14] VITALS: BP 136/72
[2021-11-02] MEDS: PANTOPRAZOLE 40MG TAB (PROTONIX) PO SCH (07:39)
[2021-11-02] MEDS: DOCUSATE SODIUM 100MG CAPSULE PO SCH ×2 (07:39→20:23)
[2021-11-02] MEDS: AMIODARONE 200 MG TAB (PACERONE) PO SCH ×2 (07:39→20:23)
[2021-11-02] MEDS: APIXABAN 2.5 MG TAB (ELIQUIS) PO SCH ×2 (07:39→20:24)
[2021-11-02] MEDS: METOPROLOL TART 25 MG TABLET PO SCH ×2 (07:39→20:24)
[2021-11-02] MEDS: LACTOBACILLUS ACIDOPHILUS CAP (BACID) PO SCH ×4 (07:39→20:24)
[2021-11-02] MEDS: PIPERACILLIN/TAZOBACTAM SOD 4.5 GM in D5W MINI-BAG PLUS 50 ML IV SCH ×2 (07:40→20:23)
[2021-11-02] MEDS: IPRATROPIUM 0.03% NASAL SPRAY 30 ML (ATROVENT) SCH ×3 (07:40→20:24)
[2021-11-02] MEDS: REMEDY PHYTOPLEX Z-GUARD PASTE 113GM TUBE (FROM STOREROOM PRODUCT) TOP SCH ×3 (07:40→20:25)
[2021-11-02] MEDS: COMBIVENT RESPIMAT 100-20MCG INHALER 4GM INH SCH ×3 (08:04→20:16)
[2021-11-02 13:31] VITALS: BP 111/56
[2021-11-02] MEDS: **VANCO AFTER HD** MISC XX SCH (17:52)
[2021-11-02 20:00] VITALS: BP 160/69
[2021-11-02] MEDS: SENNA 8.6 MG TAB (SENOKOT) PO SCH (20:24)
[2021-11-02] MEDS: RAMELTEON 8 MG TAB (ROZEREM) PO PRN (20:24)
[2021-11-02] MEDS: ACETAMINOPHEN TAB 650MG DOSE (2X325MG) PO PRN (20:26)
[2021-11-03 06:00] VITALS: BP 141/85
[2021-11-03] MEDS: COMBIVENT RESPIMAT 100-20MCG INHALER 4GM INH SCH ×3 (07:46→19:37)
[2021-11-03] MEDS: METOPROLOL TART 25 MG TABLET PO SCH ×2 (08:36→20:08)
[2021-11-03] MEDS: PANTOPRAZOLE 40MG TAB (PROTONIX) PO SCH (08:36)
[2021-11-03] MEDS: DOCUSATE SODIUM 100MG CAPSULE PO SCH ×2 (08:36→20:09)
[2021-11-03] MEDS: AMIODARONE 200 MG TAB (PACERONE) PO SCH ×2 (08:37→20:08)
[2021-11-03] MEDS: LACTOBACILLUS ACIDOPHILUS CAP (BACID) PO SCH ×4 (08:37→20:09)
[2021-11-03] MEDS: APIXABAN 2.5 MG TAB (ELIQUIS) PO SCH ×2 (08:37→20:09)
[2021-11-03] MEDS: REMEDY PHYTOPLEX Z-GUARD PASTE 113GM TUBE (FROM STOREROOM PRODUCT) TOP SCH ×3 (08:37→20:10)
[2021-11-03] MEDS: PIPERACILLIN/TAZOBACTAM SOD 4.5 GM in D5W MINI-BAG PLUS 50 ML IV SCH (08:37)
[2021-11-03] MEDS: IPRATROPIUM 0.03% NASAL SPRAY 30 ML (ATROVENT) SCH ×3 (08:38→20:10)
[2021-11-03 14:30] VITALS: BP 124/60
[2021-11-03] MEDS: RAMELTEON 8 MG TAB (ROZEREM) PO PRN (20:09)
[2021-11-03] MEDS: SENNA 8.6 MG TAB (SENOKOT) PO SCH (20:09)
[2021-11-03 20:11] VITALS: BP 123/67
[2021-11-04] MEDS ORDERED: LIDOCAINE 1% SDV 5ML VIAL SC PRN (06:00)
[2021-11-04] MEDS ORDERED: SODIUM CHLORIDE 0.9% 1000ML IV PRN (06:00)
[2021-11-04 06:01] VITALS: BP 137/65
[2021-11-04] MEDS: COMBIVENT RESPIMAT 100-20MCG INHALER 4GM INH SCH ×3 (07:23→20:15)
[2021-11-04 08:14] LABS: BASO # 0.1 10^3/uL (0.0-0.2); BASO % 0.7 % (0.0-1.0); EOS # 0.2 10^3/uL (0.0-0.5); EOS % 1.7 % (0.0-3.0); HEMATOCRIT 32.9 % (36.0-47.0); HEMOGLOBIN 10.1 g/dl (12.0-15.5); LYMPH # 1.3 10^3/uL (1.5-5.0); LYMPH % 9.3 % (24.0-44.0); MEAN CORPUSCULAR HGB CONC 30.7 g/dl (32.0-36.5); MEAN CORPUSCULAR VOLUME 100.9 fl (80.0-96.0); MONO # 1.4 10^3/uL (0.0-0.8); NEUTROPHILS # 11.1 10^3/uL (1.5-8.5); NEUTROPHILS % 77.5 % (36.0-66.0); PLATELET COUNT, AUTOMATED 138 10^3/uL (150-450); RED BLOOD COUNT 3.26 10^6/uL (4.00-5.40); WHITE BLOOD COUNT 14.3 10^3/uL (4.0-10.0)
[2021-11-04 08:41] LABS: CALCIUM LEVEL 9.2 MG/DL (8.8-10.2); CREATININE FOR GFR 4.41 MG/DL (0.55-1.30); GLOMERULAR FILTRATION RATE 10.2 (>32)
[2021-11-04] MEDS: REMEDY PHYTOPLEX Z-GUARD PASTE 113GM TUBE (FROM STOREROOM PRODUCT) TOP SCH ×3 (09:00→20:24)
[2021-11-04] MEDS: METOPROLOL TART 25 MG TABLET PO SCH ×2 (09:03→20:23)
[2021-11-04] MEDS: APIXABAN 2.5 MG TAB (ELIQUIS) PO SCH ×2 (09:03→20:23)
[2021-11-04] MEDS: AMIODARONE 200 MG TAB (PACERONE) PO SCH ×2 (09:03→20:23)
[2021-11-04] MEDS: LACTOBACILLUS ACIDOPHILUS CAP (BACID) PO SCH ×4 (09:03→20:23)
[2021-11-04] MEDS: PANTOPRAZOLE 40MG TAB (PROTONIX) PO SCH (09:03)
[2021-11-04] MEDS: DOCUSATE SODIUM 100MG CAPSULE PO SCH ×2 (09:03→20:23)
[2021-11-04] MEDS: IPRATROPIUM 0.03% NASAL SPRAY 30 ML (ATROVENT) SCH ×3 (09:04→20:24)
[2021-11-04 14:00] VITALS: BP 131/58
[2021-11-04] MEDS ORDERED: DARBEPOETIN 100 MCG/0.5 ML *DIALYSIS* SYRINGE (J0882) IV ONE (14:30)
[2021-11-04 20:00] VITALS: BP 133/63
[2021-11-04] MEDS: SENNA 8.6 MG TAB (SENOKOT) PO SCH (20:23)
[2021-11-04] MEDS: ACETAMINOPHEN TAB 650MG DOSE (2X325MG) PO PRN (20:23)
[2021-11-04] MEDS: RAMELTEON 8 MG TAB (ROZEREM) PO PRN (20:23)
[2021-11-05] MEDS: ACETAMINOPHEN TAB 650MG DOSE (2X325MG) PO PRN ×2 (00:57→20:17)
[2021-11-05 06:00] VITALS: BP 128/62
[2021-11-05] MEDS: COMBIVENT RESPIMAT 100-20MCG INHALER 4GM INH SCH ×3 (08:47→19:40)
[2021-11-05] MEDS: REMEDY PHYTOPLEX Z-GUARD PASTE 113GM TUBE (FROM STOREROOM PRODUCT) TOP SCH ×3 (09:00→20:17)
[2021-11-05] MEDS: LACTOBACILLUS ACIDOPHILUS CAP (BACID) PO SCH ×4 (09:03→20:16)
[2021-11-05] MEDS: APIXABAN 2.5 MG TAB (ELIQUIS) PO SCH ×2 (09:03→20:16)
[2021-11-05] MEDS: DOCUSATE SODIUM 100MG CAPSULE PO SCH ×2 (09:03→20:16)
[2021-11-05] MEDS: AMIODARONE 200 MG TAB (PACERONE) PO SCH ×2 (09:03→20:16)
[2021-11-05] MEDS: PANTOPRAZOLE 40MG TAB (PROTONIX) PO SCH (09:03)
[2021-11-05] MEDS: METOPROLOL TART 25 MG TABLET PO SCH ×2 (09:03→20:16)
[2021-11-05] MEDS: IPRATROPIUM 0.03% NASAL SPRAY 30 ML (ATROVENT) SCH ×3 (09:04→20:18)
[2021-11-05 14:00] VITALS: BP 131/68
[2021-11-05 20:00] VITALS: BP 126/64
[2021-11-05] MEDS: SENNA 8.6 MG TAB (SENOKOT) PO SCH (20:16)
[2021-11-05] MEDS: RAMELTEON 8 MG TAB (ROZEREM) PO PRN (20:17)
[2021-11-06 06:00] VITALS: BP 122/70
[2021-11-06] MEDS: APIXABAN 2.5 MG TAB (ELIQUIS) PO SCH ×2 (07:31→21:02)
[2021-11-06] MEDS: LACTOBACILLUS ACIDOPHILUS CAP (BACID) PO SCH ×4 (07:31→21:02)
[2021-11-06] MEDS: METOPROLOL TART 25 MG TABLET PO SCH ×2 (07:31→21:02)
[2021-11-06] MEDS: IPRATROPIUM 0.03% NASAL SPRAY 30 ML (ATROVENT) SCH ×3 (07:31→21:03)
[2021-11-06] MEDS: PANTOPRAZOLE 40MG TAB (PROTONIX) PO SCH (07:31)
[2021-11-06] MEDS: AMIODARONE 200 MG TAB (PACERONE) PO SCH ×2 (07:31→21:02)
[2021-11-06] MEDS: ACETAMINOPHEN TAB 650MG DOSE (2X325MG) PO PRN (07:31)
[2021-11-06] MEDS: REMEDY PHYTOPLEX Z-GUARD PASTE 113GM TUBE (FROM STOREROOM PRODUCT) TOP SCH ×3 (07:32→20:56)
[2021-11-06] MEDS: DOCUSATE SODIUM 100MG CAPSULE PO SCH ×2 (07:32→21:02)
[2021-11-06] MEDS: COMBIVENT RESPIMAT 100-20MCG INHALER 4GM INH SCH ×3 (07:59→20:00)
[2021-11-06 14:00] VITALS: BP 125/65
[2021-11-06] MEDS: ONDANSETRON 4 MG TAB PO PRN (17:12)
[2021-11-06 20:07] VITALS: BP 124/68
[2021-11-06] MEDS: SENNA 8.6 MG TAB (SENOKOT) PO SCH (21:02)
[2021-11-07 06:12] VITALS: BP 140/72
[2021-11-07] MEDS: COMBIVENT RESPIMAT 100-20MCG INHALER 4GM INH SCH ×3 (07:24→20:35)
[2021-11-07] MEDS ORDERED: SODIUM CHLORIDE 0.9% 1000ML IV PRN (07:25)
[2021-11-07] MEDS ORDERED: LIDOCAINE 1% SDV 5ML VIAL SC PRN (07:25)
[2021-11-07 07:48] LABS: HEMATOCRIT 32.2 % (36.0-47.0); HEMOGLOBIN 9.8 g/dl (12.0-15.5); MEAN CORPUSCULAR HGB CONC 30.4 g/dl (32.0-36.5); MEAN CORPUSCULAR VOLUME 101.9 fl (80.0-96.0); PLATELET COUNT, AUTOMATED 143 10^3/uL (150-450); RED BLOOD COUNT 3.16 10^6/uL (4.00-5.40); WHITE BLOOD COUNT 13.6 10^3/uL (4.0-10.0)
[2021-11-07 08:11] LABS: ALBUMIN 2.3 GM/DL (3.2-5.2); CALCIUM LEVEL 8.8 MG/DL (8.8-10.2); CREATININE FOR GFR 5.29 MG/DL (0.55-1.30); GLOMERULAR FILTRATION RATE 8.3 (>32); PHOSPHORUS LEVEL 5.4 MG/DL (2.5-4.9); POTASSIUM SERUM 4.5 MEQ/L (3.5-5.1)
[2021-11-07] MEDS: REMEDY PHYTOPLEX Z-GUARD PASTE 113GM TUBE (FROM STOREROOM PRODUCT) TOP SCH ×3 (09:00→20:27)
[2021-11-07] MEDS: DOCUSATE SODIUM 100MG CAPSULE PO SCH ×2 (09:00→20:24)
[2021-11-07] MEDS: PANTOPRAZOLE 40MG TAB (PROTONIX) PO SCH (09:37)
[2021-11-07] MEDS: APIXABAN 2.5 MG TAB (ELIQUIS) PO SCH ×2 (09:37→20:25)
[2021-11-07] MEDS: AMIODARONE 200 MG TAB (PACERONE) PO SCH ×2 (09:37→20:25)
[2021-11-07] MEDS: LACTOBACILLUS ACIDOPHILUS CAP (BACID) PO SCH ×4 (09:37→20:24)
[2021-11-07] MEDS: METOPROLOL TART 25 MG TABLET PO SCH ×2 (09:38→20:25)
[2021-11-07] MEDS: IPRATROPIUM 0.03% NASAL SPRAY 30 ML (ATROVENT) SCH ×3 (09:39→20:26)
[2021-11-07 17:35] VITALS: BP 116/57
[2021-11-07 19:54] VITALS: BP 106/63
[2021-11-07] MEDS: SENNA 8.6 MG TAB (SENOKOT) PO SCH (20:25)
[2021-11-08 05:58] VITALS: BP 111/56
[2021-11-08] MEDS ORDERED: LIDOCAINE 1% SDV 5ML VIAL SC PRN (06:00)
[2021-11-08] MEDS ORDERED: SODIUM CHLORIDE 0.9% 1000ML IV PRN (06:00)
[2021-11-08] MEDS: LACTOBACILLUS ACIDOPHILUS CAP (BACID) PO SCH ×4 (08:00→21:23)
[2021-11-08] MEDS: COMBIVENT RESPIMAT 100-20MCG INHALER 4GM INH SCH ×3 (08:00→19:29)
[2021-11-08] MEDS: IPRATROPIUM 0.03% NASAL SPRAY 30 ML (ATROVENT) SCH ×2 (09:00→21:00)
[2021-11-08] MEDS: REMEDY PHYTOPLEX Z-GUARD PASTE 113GM TUBE (FROM STOREROOM PRODUCT) TOP SCH ×3 (09:00→21:24)
[2021-11-08] MEDS ORDERED: DARBEPOETIN 100 MCG/0.5 ML *DIALYSIS* SYRINGE (J0882) IV SCH (09:00)
[2021-11-08] MEDS: APIXABAN 2.5 MG TAB (ELIQUIS) PO SCH ×2 (10:13→21:24)
[2021-11-08] MEDS: PANTOPRAZOLE 40MG TAB (PROTONIX) PO SCH (10:13)
[2021-11-08] MEDS: DOCUSATE SODIUM 100MG CAPSULE PO SCH ×2 (10:13→21:23)
[2021-11-08] MEDS: AMIODARONE 200 MG TAB (PACERONE) PO SCH (10:13)
[2021-11-08] MEDS: METOPROLOL TART 25 MG TABLET PO SCH ×2 (10:20→21:24)
[2021-11-08 15:02] VITALS: BP 127/63
[2021-11-08 20:00] VITALS: BP 145/74
[2021-11-08] MEDS: SENNA 8.6 MG TAB (SENOKOT) PO SCH (21:24)
[2021-11-09 06:00] VITALS: BP 116/56
[2021-11-09] MEDS ORDERED: LIDOCAINE 1% SDV 5ML VIAL SC PRN (06:40)
[2021-11-09] MEDS ORDERED: SODIUM CHLORIDE 0.9% 1000ML IV PRN (06:40)
[2021-11-09] MEDS: PANTOPRAZOLE 40MG TAB (PROTONIX) PO SCH (07:21)
[2021-11-09] MEDS: AMIODARONE 200 MG TAB (PACERONE) PO SCH (07:21)
[2021-11-09] MEDS: LACTOBACILLUS ACIDOPHILUS CAP (BACID) PO SCH ×4 (07:21→21:24)
[2021-11-09] MEDS: DOCUSATE SODIUM 100MG CAPSULE PO SCH ×2 (07:21→21:23)
[2021-11-09] MEDS: IPRATROPIUM 0.03% NASAL SPRAY 30 ML (ATROVENT) SCH ×3 (07:22→21:24)
[2021-11-09] MEDS: METOPROLOL TART 25 MG TABLET PO SCH ×2 (07:22→21:24)
[2021-11-09] MEDS: REMEDY PHYTOPLEX Z-GUARD PASTE 113GM TUBE (FROM STOREROOM PRODUCT) TOP SCH ×3 (07:22→21:24)
[2021-11-09] MEDS: APIXABAN 2.5 MG TAB (ELIQUIS) PO SCH ×2 (07:22→21:24)
[2021-11-09] MEDS: COMBIVENT RESPIMAT 100-20MCG INHALER 4GM INH SCH ×3 (07:41→20:12)
[2021-11-09 17:29] VITALS: BP 106/69
[2021-11-09 20:00] VITALS: BP 127/60
[2021-11-09] MEDS: SENNA 8.6 MG TAB (SENOKOT) PO SCH (21:24)
[2021-11-09] MEDS: RAMELTEON 8 MG TAB (ROZEREM) PO PRN (21:32)
[2021-11-10] MEDS: ACETAMINOPHEN TAB 650MG DOSE (2X325MG) PO PRN ×2 (05:49→21:01)
[2021-11-10 06:00] VITALS: BP 109/59
[2021-11-10] MEDS: COMBIVENT RESPIMAT 100-20MCG INHALER 4GM INH SCH ×3 (07:29→19:53)
[2021-11-10] MEDS: METOPROLOL TART 25 MG TABLET PO SCH ×2 (07:32→21:02)
[2021-11-10] MEDS: DOCUSATE SODIUM 100MG CAPSULE PO SCH ×2 (07:32→21:00)
[2021-11-10] MEDS: PANTOPRAZOLE 40MG TAB (PROTONIX) PO SCH (07:33)
[2021-11-10] MEDS: AMIODARONE 200 MG TAB (PACERONE) PO SCH (07:33)
[2021-11-10] MEDS: APIXABAN 2.5 MG TAB (ELIQUIS) PO SCH ×2 (07:33→21:00)
[2021-11-10] MEDS: LACTOBACILLUS ACIDOPHILUS CAP (BACID) PO SCH ×4 (07:33→21:00)
[2021-11-10] MEDS: IPRATROPIUM 0.03% NASAL SPRAY 30 ML (ATROVENT) SCH ×3 (07:33→21:03)
[2021-11-10] MEDS: REMEDY PHYTOPLEX Z-GUARD PASTE 113GM TUBE (FROM STOREROOM PRODUCT) TOP SCH ×3 (07:33→21:02)
[2021-11-10 14:00] VITALS: BP 126/61
[2021-11-10 20:00] VITALS: BP 126/59
[2021-11-10] MEDS: SENNA 8.6 MG TAB (SENOKOT) PO SCH (21:00)
[2021-11-10] MEDS: RAMELTEON 8 MG TAB (ROZEREM) PO PRN (21:01)
[2021-11-11 06:00] VITALS: BP 111/56
[2021-11-11] MEDS ORDERED: LIDOCAINE 1% SDV 5ML VIAL SC PRN (06:55)
[2021-11-11] MEDS ORDERED: SODIUM CHLORIDE 0.9% 1000ML IV PRN (06:55)
[2021-11-11 06:57] LABS: HEMATOCRIT 29.4 % (36.0-47.0); HEMOGLOBIN 8.8 g/dl (12.0-15.5); MEAN CORPUSCULAR HEMOGLOBIN 30.9 pg (27.0-33.0); MEAN CORPUSCULAR HGB CONC 29.9 g/dl (32.0-36.5); MEAN CORPUSCULAR VOLUME 103.2 fl (80.0-96.0); PLATELET COUNT, AUTOMATED 154 10^3/uL (150-450); RED BLOOD COUNT 2.85 10^6/uL (4.00-5.40); WHITE BLOOD COUNT 8.3 10^3/uL (4.0-10.0)
[2021-11-11 07:15] LABS: ALBUMIN 2.3 GM/DL (3.2-5.2); CALCIUM LEVEL 8.4 MG/DL (8.8-10.2); CREATININE FOR GFR 4.56 MG/DL (0.55-1.30); GLOMERULAR FILTRATION RATE 9.9 (>32); PHOSPHORUS LEVEL 4.6 MG/DL (2.5-4.9); POTASSIUM SERUM 4.8 MEQ/L (3.5-5.1)
[2021-11-11] MEDS: COMBIVENT RESPIMAT 100-20MCG INHALER 4GM INH SCH ×3 (07:18→19:16)
[2021-11-11] MEDS: LACTOBACILLUS ACIDOPHILUS CAP (BACID) PO SCH ×4 (08:00→21:53)
[2021-11-11] MEDS: REMEDY PHYTOPLEX Z-GUARD PASTE 113GM TUBE (FROM STOREROOM PRODUCT) TOP SCH ×3 (09:00→21:55)
[2021-11-11] MEDS: APIXABAN 2.5 MG TAB (ELIQUIS) PO SCH ×2 (10:14→21:53)
[2021-11-11] MEDS: DOCUSATE SODIUM 100MG CAPSULE PO SCH ×2 (10:14→21:53)
[2021-11-11] MEDS: AMIODARONE 200 MG TAB (PACERONE) PO SCH (10:14)
[2021-11-11] MEDS: PANTOPRAZOLE 40MG TAB (PROTONIX) PO SCH (10:14)
[2021-11-11] MEDS: METOPROLOL TART 25 MG TABLET PO SCH ×2 (10:15→21:54)
[2021-11-11] MEDS: IPRATROPIUM 0.03% NASAL SPRAY 30 ML (ATROVENT) SCH ×3 (10:17→21:56)
[2021-11-11 17:49] VITALS: BP 116/56
[2021-11-11 21:00] VITALS: BP 117/58
[2021-11-11] MEDS: SENNA 8.6 MG TAB (SENOKOT) PO SCH (21:55)
[2021-11-11] MEDS: MIRALAX *UNIT DOSE* 17GM PACKET PO PRN (21:56)
[2021-11-12 04:38] VITALS: BP 119/57
[2021-11-12] MEDS ORDERED: SODIUM CHLORIDE 0.9% 1000ML IV PRN (07:55)
[2021-11-12] MEDS ORDERED: LIDOCAINE 1% SDV 5ML VIAL SC PRN (07:55)
[2021-11-12] MEDS: COMBIVENT RESPIMAT 100-20MCG INHALER 4GM INH SCH ×3 (07:59→19:25)
[2021-11-12] MEDS: LACTOBACILLUS ACIDOPHILUS CAP (BACID) PO SCH ×5 (08:00→21:41)
[2021-11-12] MEDS: REMEDY PHYTOPLEX Z-GUARD PASTE 113GM TUBE (FROM STOREROOM PRODUCT) TOP SCH ×3 (09:00→21:00)
[2021-11-12] MEDS ORDERED: BISACODYL 10 MG SUPP PR ONE (11:00)
[2021-11-12 12:29] VITALS: BP 133/66
[2021-11-12] MEDS: DOCUSATE SODIUM 100MG CAPSULE PO SCH ×2 (12:34→21:41)
[2021-11-12] MEDS: APIXABAN 2.5 MG TAB (ELIQUIS) PO SCH ×2 (12:34→21:41)
[2021-11-12] MEDS: ONDANSETRON 4 MG TAB PO PRN (12:35)
[2021-11-12] MEDS: AMIODARONE 200 MG TAB (PACERONE) PO SCH (12:35)
[2021-11-12] MEDS: METOPROLOL TART 25 MG TABLET PO SCH ×2 (12:35→21:00)
[2021-11-12] MEDS: PANTOPRAZOLE 40MG TAB (PROTONIX) PO SCH (12:35)
[2021-11-12 13:30] VITALS: BP 132/71
[2021-11-12] MEDS: IPRATROPIUM 0.03% NASAL SPRAY 30 ML (ATROVENT) SCH ×3 (13:56→21:47)
[2021-11-12 20:00] VITALS: BP 110/54
[2021-11-12] MEDS: SENNA 8.6 MG TAB (SENOKOT) PO SCH (21:41)
[2021-11-13 06:00] VITALS: BP 125/59
[2021-11-13] MEDS: COMBIVENT RESPIMAT 100-20MCG INHALER 4GM INH SCH ×4 (07:24→18:29)
[2021-11-13] MEDS: AMIODARONE 200 MG TAB (PACERONE) PO SCH (07:26)
[2021-11-13] MEDS: LACTOBACILLUS ACIDOPHILUS CAP (BACID) PO SCH ×4 (07:26→20:54)
[2021-11-13] MEDS: METOPROLOL TART 25 MG TABLET PO SCH ×2 (07:26→20:53)
[2021-11-13] MEDS: PANTOPRAZOLE 40MG TAB (PROTONIX) PO SCH (07:26)
[2021-11-13] MEDS: DOCUSATE SODIUM 100MG CAPSULE PO SCH ×2 (07:26→20:54)
[2021-11-13] MEDS: APIXABAN 2.5 MG TAB (ELIQUIS) PO SCH ×2 (07:26→20:54)
[2021-11-13] MEDS: IPRATROPIUM 0.03% NASAL SPRAY 30 ML (ATROVENT) SCH ×3 (07:27→21:00)
[2021-11-13] MEDS: REMEDY PHYTOPLEX Z-GUARD PASTE 113GM TUBE (FROM STOREROOM PRODUCT) TOP SCH ×3 (07:27→20:54)
[2021-11-13] MEDS: MIRALAX *UNIT DOSE* 17GM PACKET PO PRN (07:31)
[2021-11-13 14:00] VITALS: BP 121/57
[2021-11-13] MEDS: SENNA 8.6 MG TAB (SENOKOT) PO SCH (20:54)
[2021-11-13] MEDS: MICONAZOLE-7 VAGINAL 2% CREAM 47.7GM PV SCH (20:54)
[2021-11-14 05:41] VITALS: BP 123/56
[2021-11-14 06:57] LABS: HEMATOCRIT 29.6 % (36.0-47.0); HEMOGLOBIN 9.1 g/dl (12.0-15.5); MEAN CORPUSCULAR HEMOGLOBIN 31.1 pg (27.0-33.0); MEAN CORPUSCULAR HGB CONC 30.7 g/dl (32.0-36.5); PLATELET COUNT, AUTOMATED 167 10^3/uL (150-450); RED BLOOD COUNT 2.93 10^6/uL (4.00-5.40); WHITE BLOOD COUNT 8.5 10^3/uL (4.0-10.0)
[2021-11-14] MEDS: LACTOBACILLUS ACIDOPHILUS CAP (BACID) PO SCH ×4 (07:15→20:07)
[2021-11-14] MEDS: PANTOPRAZOLE 40MG TAB (PROTONIX) PO SCH (07:15)
[2021-11-14] MEDS: AMIODARONE 200 MG TAB (PACERONE) PO SCH (07:15)
[2021-11-14] MEDS: DOCUSATE SODIUM 100MG CAPSULE PO SCH ×2 (07:15→20:07)
[2021-11-14] MEDS: IPRATROPIUM 0.03% NASAL SPRAY 30 ML (ATROVENT) SCH ×4 (07:16→20:12)
[2021-11-14] MEDS: METOPROLOL TART 25 MG TABLET PO SCH ×2 (07:16→20:06)
[2021-11-14] MEDS: APIXABAN 2.5 MG TAB (ELIQUIS) PO SCH ×2 (07:16→20:06)
[2021-11-14] MEDS: REMEDY PHYTOPLEX Z-GUARD PASTE 113GM TUBE (FROM STOREROOM PRODUCT) TOP SCH ×3 (07:16→20:07)
[2021-11-14 07:19] LABS: ALBUMIN 2.4 GM/DL (3.2-5.2); CALCIUM LEVEL 9.1 MG/DL (8.8-10.2); CREATININE FOR GFR 5.33 MG/DL (0.55-1.30); GLOMERULAR FILTRATION RATE 8.2 (>32); PHOSPHORUS LEVEL 4.8 MG/DL (2.5-4.9); POTASSIUM SERUM 5.4 MEQ/L (3.5-5.1)
[2021-11-14] MEDS ORDERED: SODIUM CHLORIDE 0.9% 1000ML IV PRN (08:05)
[2021-11-14] MEDS ORDERED: LIDOCAINE 1% SDV 5ML VIAL SC PRN (08:05)
[2021-11-14] MEDS: COMBIVENT RESPIMAT 100-20MCG INHALER 4GM INH SCH ×2 (15:14→17:48)
[2021-11-14 17:15] VITALS: BP 100/59
[2021-11-14 19:58] VITALS: BP 129/65
[2021-11-14] MEDS: SENNA 8.6 MG TAB (SENOKOT) PO SCH (20:06)
[2021-11-14] MEDS: MICONAZOLE-7 VAGINAL 2% CREAM 47.7GM PV SCH (20:07)
[2021-11-14] MEDS: RAMELTEON 8 MG TAB (ROZEREM) PO PRN (20:10)
[2021-11-14] MEDS: ACETAMINOPHEN TAB 650MG DOSE (2X325MG) PO PRN (20:10)
[2021-11-14] MEDS ORDERED: METO1TAB87 PO (22:02)
[2021-11-14] MEDS ORDERED: IPRA3SP NARES (22:02)
[2021-11-14] MEDS ORDERED: ELIQ2.5T PO (22:02)
[2021-11-14] MEDS ORDERED: FLUT1BLS8 INH (22:02)
[2021-11-15 05:46] VITALS: BP 120/57
[2021-11-15] MEDS: COMBIVENT RESPIMAT 100-20MCG INHALER 4GM INH SCH ×2 (07:44→14:00)
[2021-11-15] MEDS: LACTOBACILLUS ACIDOPHILUS CAP (BACID) PO SCH ×2 (08:00→12:30)
[2021-11-15] MEDS: REMEDY PHYTOPLEX Z-GUARD PASTE 113GM TUBE (FROM STOREROOM PRODUCT) TOP SCH (09:00)
[2021-11-15] MEDS: IPRATROPIUM 0.03% NASAL SPRAY 30 ML (ATROVENT) SCH (09:00)
[2021-11-15 09:21] VITALS: BP 120/57
[2021-11-15] MEDS: DOCUSATE SODIUM 100MG CAPSULE PO SCH (09:21)
[2021-11-15] MEDS: METOPROLOL TART 25 MG TABLET PO SCH (09:21)
[2021-11-15] MEDS: PANTOPRAZOLE 40MG TAB (PROTONIX) PO SCH (09:21)
[2021-11-15] MEDS: AMIODARONE 200 MG TAB (PACERONE) PO SCH (09:22)
[2021-11-15] MEDS: APIXABAN 2.5 MG TAB (ELIQUIS) PO SCH (09:22)
[2021-11-16] MEDS ORDERED: LIDOCAINE 1% SDV 5ML VIAL SC PRN (06:00)
[2021-11-16] MEDS ORDERED: SODIUM CHLORIDE 0.9% 1000ML IV PRN (06:00)
== END 2021-11-15 15:00 | disposition home health service (06) | DRG 947 ==
LOC: M PM&R 16:55
PROVIDERS: ADMIT Physical Medicine & Rehabilitation; ATTEND Physical Medicine & Rehabilitation
PROC: 5A1D70Z Performance of Urinary Filtration, Intermittent, Less than 6 Hours Per Day (ICD-10-PCS; principal; 2021-11-02)
DX: R53.1 Weakness (principal); N18.6 End stage renal disease; I13.2 Hypertensive heart and chronic kidney disease with heart failure and with stage 5 chronic kidney disease, or end stage renal disease; I48.91 Unspecified atrial fibrillation; J45.909 Unspecified asthma, uncomplicated; G47.33 Obstructive sleep apnea (adult) (pediatric); J44.9 Chronic obstructive pulmonary disease, unspecified; E78.5 Hyperlipidemia, unspecified; K21.9 Gastro-esophageal reflux disease without esophagitis; D63.8 Anemia in other chronic diseases classified elsewhere; Z99.2 Dependence on renal dialysis; Z87.442 Personal history of urinary calculi; R91.8 Other nonspecific abnormal finding of lung field; Z74.09 Other reduced mobility; Z74.1 Need for assistance with personal care; Z98.49 Cataract extraction status, unspecified eye; Z90.5 Acquired absence of kidney; Z87.891 Personal history of nicotine dependence; I50.9 Heart failure, unspecified; Z99.81 Dependence on supplemental oxygen; G47.00 Insomnia, unspecified; Z79.01 Long term (current) use of anticoagulants; Z79.899 Other long term (current) drug therapy; Z88.0 Allergy status to penicillin; Z88.6 Allergy status to analgesic agent; Z88.8 Allergy status to other drugs, medicaments and biological substances; Z91.048 Other nonmedicinal substance allergy status; K59.00 Constipation, unspecified

== ENCOUNTER → 2021-12-29 | Outpatient (CLI) | payer MEDICARE ==
[~2021-12-29] MED LIST changes: +AMIO200T49 PO; +IPRA0.00 NEB; +RAME8TAB2 PO; +ZOSY1SOL6 IV
== END ==
LOC: M PLAIMG 14:25
PROVIDERS: ATTEND Internal Medicine Pulmonary Disease
DX: R91.8 Other nonspecific abnormal finding of lung field (principal)

== ENCOUNTER → 2022-01-12 | Outpatient (REF) | payer MEDICARE | LOC: M LAB REF 12:23 | PROVIDERS: ATTEND Registered Nurse | DX: N93.9 Abnormal uterine and vaginal bleeding, unspecified (principal); N76.0 Acute vaginitis ==

== ENCOUNTER → 2022-01-26 | Outpatient (CLI) | payer MEDICARE | LOC: M WHC 09:52 | PROVIDERS: ATTEND Registered Nurse | DX: N93.9 Abnormal uterine and vaginal bleeding, unspecified (principal); Z90.710 Acquired absence of both cervix and uterus; Z90.722 Acquired absence of ovaries, bilateral ==

== ENCOUNTER 2022-02-06 16:44 | Observation (INO) | payer MEDICARE ==
[~2022-02-06] VITALS: Ht 167.6 cm; Wt 97.5 kg
[~2022-02-06 16:44] MED LIST changes: +ALBU2.5V10 INH; -ALBU83IN INH
[2022-02-06] MEDS ORDERED: NS 250 ML IV ONE (17:05)
[2022-02-06] MEDS ORDERED: LIDOCAINE 2% 5ML JELLY UROJET TOP ONE (17:20)
[2022-02-06 17:35] LABS: BASO # 0.1 10^3/uL (0.0-0.2); BASO % 1.2 % (0.0-1.0); EOS # 0.2 10^3/uL (0.0-0.5); EOS % 2.3 % (0.0-3.0); HEMATOCRIT 32.1 % (36.0-47.0); HEMOGLOBIN 9.7 g/dl (12.0-15.5); LYMPH # 1.1 10^3/uL (1.5-5.0); LYMPH % 16.8 % (24.0-44.0); MEAN CORPUSCULAR HEMOGLOBIN 30.4 pg (27.0-33.0); MEAN CORPUSCULAR HGB CONC 30.2 g/dl (32.0-36.5); MEAN CORPUSCULAR VOLUME 100.6 fl (80.0-96.0); MONO # 0.7 10^3/uL (0.0-0.8); MONO % 10.1 % (2.0-8.0); NEUTROPHILS # 4.6 10^3/uL (1.5-8.5); NEUTROPHILS % 69.1 % (36.0-66.0); RED BLOOD COUNT 3.19 10^6/uL (4.00-5.40); WHITE BLOOD COUNT 6.6 10^3/uL (4.0-10.0)
[2022-02-06 17:57] LABS: ALBUMIN 2.2 GM/DL (3.2-5.2); BILIRUBIN,DIRECT 0.6 MG/DL (0.0-0.2); BILIRUBIN,TOTAL 0.9 MG/DL (0.2-1.0); CALCIUM LEVEL 8.4 MG/DL (8.8-10.2); CREATININE FOR GFR 2.83 MG/DL (0.55-1.30); GLOMERULAR FILTRATION RATE 17.1 (>32); POTASSIUM SERUM 3.5 MEQ/L (3.5-5.1); TOTAL PROTEIN 6.1 GM/DL (6.4-8.2)
[2022-02-06 18:10] LABS: PLATELET COUNT, AUTOMATED 91 10^3/uL (150-450)
[2022-02-06 19:13] LABS: CK-MB VALUE MASS 1.8 NG/ML (<3.6); MB/CK RELATIVE INDEX 7.5 (< OR =4)
[2022-02-06 19:49] LABS: RSV AMPLIFICATION NEGATIVE (NEGATIVE)
[2022-02-06] MEDS ORDERED: MOM 30ML SUSPENSION UDC PO PRN (20:30)
[2022-02-06] MEDS ORDERED: ACETAMINOPHEN TAB 650MG DOSE (2X325MG) PO ONE (20:35)
[2022-02-06 20:57] LABS: INR 1.33; PROTHROMBIN TIME 16.9 SECONDS (12.7-14.5)
[2022-02-06] MEDS ORDERED: METOPROLOL TART 50 MG TAB PO ONE (21:00)
[2022-02-06] MEDS ORDERED: TREL1AER INH (21:50)
[2022-02-06] MEDS ORDERED: ELIQ2.5T PO (21:50)
[2022-02-06] MEDS ORDERED: ALBU8.5H INH (21:50)
[2022-02-06] MEDS ORDERED: IPRA3SP (21:50)
[2022-02-06] MEDS ORDERED: LIDO1CRE42 TOP (21:50)
[2022-02-06] MEDS ORDERED: AZEL0.055 (21:50)
[2022-02-06] MEDS ORDERED: SLOWTAB2 PO (21:50)
[2022-02-06] MEDS ORDERED: HOME MED LIST COMPLETE! XX SCH (21:55)
[2022-02-06] MEDS ORDERED: ALBUTEROL SULFATE 2.5 MG/0.5 ML INH NEB SOLN INH PRN (22:25)
[2022-02-06] MEDS: DOCUSATE SODIUM 100MG CAPSULE PO SCH (23:09)
[2022-02-06] MEDS: APIXABAN 2.5 MG TAB (ELIQUIS) PO SCH (23:10)
[2022-02-06] MEDS: ACETAMINOPHEN TAB 650MG DOSE (2X325MG) PO PRN (23:10)
[2022-02-07] VITALS (10 sets, daily range): BP systolic 110–118; BP diastolic 53–62; O2SAT 96–100
[2022-02-07] MEDS ORDERED: METOPROLOL TART 25 MG TABLET PO ONE (01:00)
[2022-02-07 06:01] LABS: HEMATOCRIT 32.7 % (36.0-47.0); HEMOGLOBIN 9.8 g/dl (12.0-15.5); MEAN CORPUSCULAR HEMOGLOBIN 30.6 pg (27.0-33.0); MEAN CORPUSCULAR VOLUME 102.2 fl (80.0-96.0); WHITE BLOOD COUNT 6.1 10^3/uL (4.0-10.0)
[2022-02-07 06:03] LABS: PLATELET COUNT, AUTOMATED 96 10^3/uL (150-450)
[2022-02-07 06:23] LABS: CALCIUM LEVEL 8.1 MG/DL (8.8-10.2); CREATININE FOR GFR 3.45 MG/DL (0.55-1.30); GLOMERULAR FILTRATION RATE 13.6 (>32); MAGNESIUM LEVEL 1.7 MG/DL (1.8-2.4); POTASSIUM SERUM 3.6 MEQ/L (3.5-5.1)
[2022-02-07] MEDS: APIXABAN 2.5 MG TAB (ELIQUIS) PO SCH ×2 (08:29→20:27)
[2022-02-07] MEDS: DOCUSATE SODIUM 100MG CAPSULE PO SCH ×2 (08:30→20:26)
[2022-02-07] MEDS: METOPROLOL TART 25 MG TABLET PO SCH ×2 (08:30→20:27)
[2022-02-07] MEDS: IPRATROPIUM 0.03% NASAL SPRAY 30 ML (ATROVENT) SCH ×2 (09:00→20:29)
[2022-02-07] MEDS ORDERED: SODIUM CHLORIDE 0.9% 1000ML IV PRN (10:25)
[2022-02-07] MEDS ORDERED: LIDOCAINE 1% SDV 5ML VIAL SC PRN (10:25)
[2022-02-07] MEDS: TIOTROPIUM INHALER/CAPSULE (SPIRIVA) INH SCH (11:35)
[2022-02-07] MEDS: ADVAIR HFA 115/21MCG INHALER INH SCH ×2 (11:35→21:06)
[2022-02-07] MEDS: (RENVELA) SEVELAMER **CARBONate** 800 MG TAB PO SCH ×2 (13:02→18:53)
[2022-02-07] MEDS: ACETAMINOPHEN TAB 650MG DOSE (2X325MG) PO PRN (17:46)
[2022-02-08] VITALS (10 sets, daily range): BP systolic 113–128; BP diastolic 57–80; O2SAT 96–100
[2022-02-08 05:45] LABS: HEMATOCRIT 33.4 % (36.0-47.0); HEMOGLOBIN 9.8 g/dl (12.0-15.5); MEAN CORPUSCULAR HEMOGLOBIN 30.1 pg (27.0-33.0); MEAN CORPUSCULAR HGB CONC 29.3 g/dl (32.0-36.5); MEAN CORPUSCULAR VOLUME 102.5 fl (80.0-96.0); RED BLOOD COUNT 3.26 10^6/uL (4.00-5.40); WHITE BLOOD COUNT 6.5 10^3/uL (4.0-10.0)
[2022-02-08 05:47] LABS: PLATELET COUNT, AUTOMATED 87 10^3/uL (150-450)
[2022-02-08] MEDS ORDERED: LIDOCAINE 1% SDV 5ML VIAL SC PRN (06:00)
[2022-02-08] MEDS ORDERED: SODIUM CHLORIDE 0.9% 1000ML IV PRN (06:00)
[2022-02-08 06:14] LABS: ALBUMIN 2.2 GM/DL (3.2-5.2); CREATININE FOR GFR 3.94 MG/DL (0.55-1.30); GLOMERULAR FILTRATION RATE 11.6 (>32); PHOSPHORUS LEVEL 4.4 MG/DL (2.5-4.9); POTASSIUM SERUM 3.8 MEQ/L (3.5-5.1)
[2022-02-08] MEDS: DOCUSATE SODIUM 100MG CAPSULE PO SCH ×2 (06:15→20:22)
[2022-02-08] MEDS: IPRATROPIUM 0.03% NASAL SPRAY 30 ML (ATROVENT) SCH ×2 (06:16→21:00)
[2022-02-08] MEDS: (RENVELA) SEVELAMER **CARBONate** 800 MG TAB PO SCH ×3 (06:21→17:45)
[2022-02-08] MEDS ORDERED: CINACALCET 30 MG TAB (SENSIPAR) PO SCH (09:00)
[2022-02-08] MEDS: ADVAIR HFA 115/21MCG INHALER INH SCH ×2 (11:32→20:00)
[2022-02-08] MEDS: TIOTROPIUM INHALER/CAPSULE (SPIRIVA) INH SCH (11:33)
[2022-02-08] MEDS: METOPROLOL TART 25 MG TABLET PO SCH ×2 (13:46→20:25)
[2022-02-08] MEDS: APIXABAN 2.5 MG TAB (ELIQUIS) PO SCH ×2 (13:47→20:25)
[2022-02-09] VITALS: BP 115/58; O2SAT 96
[2022-02-09 04:00] VITALS: BP 113/62; O2SAT 96
[2022-02-09 07:23] LABS: HEMATOCRIT 34.3 % (36.0-47.0); HEMOGLOBIN 10.1 g/dl (12.0-15.5); MEAN CORPUSCULAR HEMOGLOBIN 30.9 pg (27.0-33.0); MEAN CORPUSCULAR HGB CONC 29.4 g/dl (32.0-36.5); MEAN CORPUSCULAR VOLUME 104.9 fl (80.0-96.0); RED BLOOD COUNT 3.27 10^6/uL (4.00-5.40); WHITE BLOOD COUNT 7.8 10^3/uL (4.0-10.0)
[2022-02-09 07:24] LABS: PLATELET COUNT, AUTOMATED 93 10^3/uL (150-450)
[2022-02-09 07:45] LABS: ALBUMIN 2.2 GM/DL (3.2-5.2); CALCIUM LEVEL 8.5 MG/DL (8.8-10.2); CREATININE FOR GFR 3.04 MG/DL (0.55-1.30); GLOMERULAR FILTRATION RATE 15.7 (>32); PHOSPHORUS LEVEL 2.8 MG/DL (2.5-4.9); POTASSIUM SERUM 3.3 MEQ/L (3.5-5.1)
[2022-02-09 07:57] VITALS: BP 101/65
[2022-02-09] MEDS ORDERED: POTASSIUM CHLORIDE 10% LIQ 20 MEQ/15 ML UDC PO ONE (08:30)
[2022-02-09] MEDS: DOCUSATE SODIUM 100MG CAPSULE PO SCH (08:39)
[2022-02-09 09:00] VITALS: BP 104/60
[2022-02-09] MEDS: METOPROLOL TART 25 MG TABLET PO SCH (09:00)
[2022-02-09 09:10] VITALS: BP 104/60
[2022-02-09] MEDS: APIXABAN 2.5 MG TAB (ELIQUIS) PO SCH (09:35)
[2022-02-09] MEDS: (RENVELA) SEVELAMER **CARBONate** 800 MG TAB PO SCH (09:36)
[2022-02-09] MEDS ORDERED: diphenhydrAMINE 25MG CAP PO ONE (09:45)
[2022-02-09 12:19] VITALS: BP 117/73
[2022-02-10] MEDS ORDERED: LIDOCAINE 1% SDV 5ML VIAL SC PRN (06:00)
[2022-02-10] MEDS ORDERED: SODIUM CHLORIDE 0.9% 1000ML IV PRN (06:00)
== END 2022-02-09 14:36 | disposition home health service (06) ==
LOC: M ED 16:44 → M ED INP 16:45 → ENRESERV 22:08 → M PCU 23:01
PROVIDERS: ADMIT Family Medicine; ATTEND Family Medicine
DX: I48.0 Paroxysmal atrial fibrillation (principal); R53.1 Weakness; N18.6 End stage renal disease; I12.0 Hypertensive chronic kidney disease with stage 5 chronic kidney disease or end stage renal disease; K21.9 Gastro-esophageal reflux disease without esophagitis; E11.9 Type 2 diabetes mellitus without complications; E78.5 Hyperlipidemia, unspecified; J44.9 Chronic obstructive pulmonary disease, unspecified; G47.33 Obstructive sleep apnea (adult) (pediatric); Z79.01 Long term (current) use of anticoagulants; Z79.899 Other long term (current) drug therapy; Z88.0 Allergy status to penicillin; Z88.8 Allergy status to other drugs, medicaments and biological substances; I25.10 Atherosclerotic heart disease of native coronary artery without angina pectoris; Z98.61 Coronary angioplasty status
CPT/HCPCS: 36415; 71045; 80048; 80069; 80076; 82550; 82553; 83605; 83735; 83880; 84484; 85025; 85027; 85049; 85055; 85610; 85730; 87040; 87631; 93005; 94640; 96374; 97116; 97161; 97165; 97530; 97535; 99285; G0257; G0378

== ENCOUNTER → 2022-02-09 | Outpatient (CLI) | payer MEDICARE ==
[~2022-02-09] MED LIST changes: +ALBU8.5H INH; +AZEL0.055; +IPRA3SP; +SLOWTAB2 PO; +TREL1AER INH
== END ==
LOC: M RAD 14:55
PROVIDERS: ATTEND Registered Nurse
DX: N28.1 Cyst of kidney, acquired (principal); Z90.79 Acquired absence of other genital organ(s); N94.89 Other specified conditions associated with female genital organs and menstrual cycle

== ENCOUNTER 2022-02-18 17:36 | Emergency (ER) | payer MEDICARE ==
[2022-02-18] MEDS ORDERED: ACETAMINOPHEN 500 MG TAB PO ONE (18:05)
[2022-02-18 20:55] VITALS: BP 110/72
== END 2022-02-18 20:58 | disposition home or self-care (01) ==
LOC: M ED 17:36 → EDBD 17:36 → M ED 20:58
DX: S00.93XA Contusion of unspecified part of head, initial encounter (principal); S20.229A Contusion of unspecified back wall of thorax, initial encounter; W07.XXXA Fall from chair, initial encounter; Y92.009 Unspecified place in unspecified non-institutional (private) residence as the place of occurrence of the external cause; Y93.89 Activity, other specified; Y99.8 Other external cause status; I48.91 Unspecified atrial fibrillation; I10 Essential (primary) hypertension; G47.33 Obstructive sleep apnea (adult) (pediatric); J44.9 Chronic obstructive pulmonary disease, unspecified; K21.9 Gastro-esophageal reflux disease without esophagitis; Z79.01 Long term (current) use of anticoagulants; Z79.51 Long term (current) use of inhaled steroids; Z79.899 Other long term (current) drug therapy; Z88.8 Allergy status to other drugs, medicaments and biological substances; Z91.048 Other nonmedicinal substance allergy status; Z88.0 Allergy status to penicillin; Z88.1 Allergy status to other antibiotic agents; Z99.2 Dependence on renal dialysis; Z98.890 Other specified postprocedural states; Z95.1 Presence of aortocoronary bypass graft; Z90.5 Acquired absence of kidney

== ENCOUNTER → 2022-03-30 | Outpatient (REF) | payer MEDICARE ==
[~2022-03-30] MED LIST changes: -AZEL0.055; +NYST10006 TOP; +TRAM50TA2 PO
== END ==
LOC: M SFHCDERM 13:49
PROVIDERS: ATTEND Nurse Practitioner Family
DX: L57.0 Actinic keratosis (principal)
CPT/HCPCS: 11102; 87070; 87077; 87186; 87205; 88305; G0463

== ENCOUNTER → 2022-04-06 | Outpatient (REF) | payer MEDICARE | LOC: M SFHCDERM 17:30 | PROVIDERS: ATTEND Nurse Practitioner Family | DX: L98.9 Disorder of the skin and subcutaneous tissue, unspecified (principal) | CPT/HCPCS: 11104; 11105; 88300; G0463 ==

== ENCOUNTER 2022-04-21 11:31 | Observation (INO) | payer MEDICARE ==
[~2022-04-21] VITALS: Ht 157.5 cm; Wt 93.0 kg
[~2022-04-21 11:31] MED LIST changes: -NYST10006 TOP; -TRAM50TA2 PO
[2022-04-21 13:43] LABS: BASO % 0.8 % (0.0-1.0); EOS # 0.1 10^3/uL (0.0-0.5); EOS % 2.4 % (0.0-3.0); HEMATOCRIT 39.2 % (36.0-47.0); HEMOGLOBIN 12.1 g/dl (12.0-15.5); LYMPH # 0.8 10^3/uL (1.5-5.0); LYMPH % 14.8 % (24.0-44.0); MEAN CORPUSCULAR HEMOGLOBIN 31.6 pg (27.0-33.0); MEAN CORPUSCULAR HGB CONC 30.9 g/dl (32.0-36.5); MEAN CORPUSCULAR VOLUME 102.3 fl (80.0-96.0); MONO # 0.7 10^3/uL (0.0-0.8); NEUTROPHILS # 3.5 10^3/uL (1.5-8.5); NEUTROPHILS % 67.8 % (36.0-66.0); RED BLOOD COUNT 3.83 10^6/uL (4.00-5.40); WHITE BLOOD COUNT 5.1 10^3/uL (4.0-10.0)
[2022-04-21 13:49] LABS: PLATELET COUNT, AUTOMATED 85 10^3/uL (150-450)
[2022-04-21 14:03] LABS: INR 1.31; PROTHROMBIN TIME 16.7 SECONDS (12.7-14.5)
[2022-04-21 14:04] LABS: PARTIAL THROMBOPLASTIN TIME 47.3 SECONDS (25.9-37.0)
[2022-04-21 14:16] LABS: ALBUMIN 2.9 GM/DL (3.2-5.2); BILIRUBIN,DIRECT 1.4 MG/DL (0.0-0.2); BILIRUBIN,TOTAL 2.1 MG/DL (0.2-1.0); CALCIUM LEVEL 8.9 MG/DL (8.8-10.2); CREATININE FOR GFR 2.78 MG/DL (0.55-1.30); GLOMERULAR FILTRATION RATE 17.4 (>32); POTASSIUM SERUM 3.2 MEQ/L (3.5-5.1); TOTAL PROTEIN 6.7 GM/DL (6.4-8.2)
[2022-04-21] MEDS ORDERED: ACETAMINOPH W/CODEINE #3 TAB UD PO ONE (14:35)
[2022-04-21 15:52] LABS: RSV AMPLIFICATION NEGATIVE (NEGATIVE)
[2022-04-21] MEDS ORDERED: ACETAMINOPHEN TAB 650MG DOSE (2X325MG) PO PRN (16:05)
[2022-04-21] MEDS ORDERED: FLUT1BLS8 INH (16:28)
[2022-04-21] MEDS ORDERED: HOME MED LIST COMPLETE! XX SCH (16:35)
[2022-04-21] MEDS ORDERED: ALBUTEROL SULFATE 2.5 MG/0.5 ML INH NEB SOLN INH PRN (17:00)
[2022-04-21] MEDS ORDERED: PERCOCET 5MG/325MG TAB PO PRN (17:00)
[2022-04-21] MEDS ORDERED: ALBUTEROL 90 MCG/ACT 8GM HFA INHALER INH PRN (17:00)
[2022-04-21] MEDS ORDERED: POTASSIUM CHLORIDE 10MEQ SR TABLET PO ONE (18:00)
[2022-04-21 19:05] VITALS: BP 107/68
[2022-04-21] MEDS: SYMBICORT 160/4.5MCG INHALER 6GM INH SCH (20:54)
[2022-04-21] MEDS: METOPROLOL TART 25 MG TABLET PO SCH (21:00)
[2022-04-21] MEDS ORDERED: EMLA CREAM 5GM TUBE (LIDOCAINE/PRILOCAINE) TOP SCH (21:00)
[2022-04-21 21:25] VITALS: BP 108/69
[2022-04-21] MEDS: PERCOCET 5MG/325MG TAB PO PRN (21:52)
[2022-04-21] MEDS: NYSTATIN 100,000 UNITS/GM TOPICAL PWD 15 GM TOP SCH (21:52)
[2022-04-21] MEDS: APIXABAN 2.5 MG TAB (ELIQUIS) PO SCH (21:52)
[2022-04-22 05:59] VITALS: BP 114/61
[2022-04-22 06:20] LABS: HEMATOCRIT 36.9 % (36.0-47.0); HEMOGLOBIN 11.2 g/dl (12.0-15.5); MEAN CORPUSCULAR HEMOGLOBIN 31.7 pg (27.0-33.0); MEAN CORPUSCULAR HGB CONC 30.4 g/dl (32.0-36.5); MEAN CORPUSCULAR VOLUME 104.5 fl (80.0-96.0); PLATELET COUNT, AUTOMATED 90 10^3/uL (150-450); RED BLOOD COUNT 3.53 10^6/uL (4.00-5.40); WHITE BLOOD COUNT 6.1 10^3/uL (4.0-10.0)
[2022-04-22 07:02] LABS: ALBUMIN 2.6 GM/DL (3.2-5.2); BILIRUBIN,TOTAL 1.4 MG/DL (0.2-1.0); CALCIUM LEVEL 8.7 MG/DL (8.8-10.2); CREATININE FOR GFR 3.46 MG/DL (0.55-1.30); GLOMERULAR FILTRATION RATE 13.5 (>32); POTASSIUM SERUM 3.8 MEQ/L (3.5-5.1); TOTAL PROTEIN 6.2 GM/DL (6.4-8.2)
[2022-04-22] MEDS: SYMBICORT 160/4.5MCG INHALER 6GM INH SCH (07:53)
[2022-04-22] MEDS ORDERED: NYST10006 TOP (07:55)
[2022-04-22] MEDS ORDERED: TIOTROPIUM INHALER/CAPSULE (SPIRIVA) INH SCH (08:00)
[2022-04-22] MEDS: APIXABAN 2.5 MG TAB (ELIQUIS) PO SCH (09:34)
[2022-04-22 09:35] VITALS: BP 120/60
[2022-04-22] MEDS: METOPROLOL TART 25 MG TABLET PO SCH (09:35)
[2022-04-22] MEDS: NYSTATIN 100,000 UNITS/GM TOPICAL PWD 15 GM TOP SCH (09:35)
[2022-04-22] MEDS: PERCOCET 5MG/325MG TAB PO PRN (12:44)
[2022-04-22 14:00] VITALS: BP 115/59
[2022-04-22] MEDS ORDERED: TRAM50TA2 PO (15:26)
== END 2022-04-22 16:11 | disposition home or self-care (01) ==
LOC: M ED 11:31 → EDBD 11:31 → M ED INP 16:03 → ENRESERV 17:43 → M MSPAV 18:59
PROVIDERS: ADMIT Internal Medicine; ATTEND Internal Medicine
DX: M76.11 Psoas tendinitis, right hip (principal); R10.30 Lower abdominal pain, unspecified; N18.6 End stage renal disease; G47.33 Obstructive sleep apnea (adult) (pediatric); J96.11 Chronic respiratory failure with hypoxia; Z99.81 Dependence on supplemental oxygen; J44.9 Chronic obstructive pulmonary disease, unspecified; I48.91 Unspecified atrial fibrillation; E11.9 Type 2 diabetes mellitus without complications; I12.0 Hypertensive chronic kidney disease with stage 5 chronic kidney disease or end stage renal disease; E78.5 Hyperlipidemia, unspecified; K21.9 Gastro-esophageal reflux disease without esophagitis; E78.70 Disorder of bile acid and cholesterol metabolism, unspecified; E80.7 Disorder of bilirubin metabolism, unspecified; Z79.01 Long term (current) use of anticoagulants; Z79.899 Other long term (current) drug therapy; Z88.8 Allergy status to other drugs, medicaments and biological substances; Z88.0 Allergy status to penicillin; Z87.891 Personal history of nicotine dependence
CPT/HCPCS: 36415; 71045; 72170; 73502; 73552; 73700; 73721; 74176; 80048; 80053; 80076; 82150; 83605; 83690; 85025; 85027; 85049; 85055; 85610; 85730; 87040; 87070; 87077; 87186; 87205; 87631; 93005; 93041; 93971; 94640; 97161; 97530; 99285; G0378

== ENCOUNTER 2022-06-14 12:32 | Inpatient (IN) | payer MEDICARE ==
[~2022-06-14 12:32] MED LIST changes: -DOXY-350 PO; +DOXY-444 PO; +NYST10006 TOP; +TRAM50TA2 PO
[2022-06-14 13:45] LABS: BASO % 0.6 % (0.0-1.0); EOS # 0.1 10^3/uL (0.0-0.5); EOS % 1.3 % (0.0-3.0); HEMATOCRIT 37.2 % (36.0-47.0); HEMOGLOBIN 11.9 g/dl (12.0-15.5); LYMPH # 0.8 10^3/uL (1.5-5.0); MEAN CORPUSCULAR HEMOGLOBIN 32.2 pg (27.0-33.0); MEAN CORPUSCULAR VOLUME 100.5 fl (80.0-96.0); MONO # 0.7 10^3/uL (0.0-0.8); MONO % 11.6 % (2.0-8.0); NEUTROPHILS # 4.7 10^3/uL (1.5-8.5); NEUTROPHILS % 73.9 % (36.0-66.0); WHITE BLOOD COUNT 6.4 10^3/uL (4.0-10.0)
[2022-06-14 13:56] LABS: PLATELET COUNT, AUTOMATED 89 10^3/uL (150-450)
[2022-06-14] MEDS ORDERED: NS 500 ML IV ONE (14:10)
[2022-06-14 14:11] LABS: ABG BASE EXCESS -0.8 (-2.0-2.0); ABG HCO3 24.9 MEQ/L (22.0-26.0); ABG O2 SATURATION 95.8 % (95.0-99.0); ABG PARTIAL PRESSURE CO2 45.1 mmHg (35.0-45.0); ABG STANDARD HCO3 23.8 MEQ/L (22.0-26.0); ABG TOTAL CO2 26.3 MEQ/L (23.0-31.0)
[2022-06-14 14:25] LABS: MB/CK RELATIVE INDEX 9.52 (< OR =4)
[2022-06-14 14:33] LABS: ACETAMINOPHEN LEVEL < 2.0 UG/ML (10.0-30.0); ALBUMIN 2.8 GM/DL (3.2-5.2); ALKALINE PHOSPHATASE 157 U/L (45-117); ALT/SGPT 12 U/L (12-78); AST/SGOT 23 U/L (7-37); BILIRUBIN,DIRECT 2.8 MG/DL (0.0-0.2); BILIRUBIN,TOTAL 4.1 MG/DL (0.2-1.0); BLOOD UREA NITROGEN 14 MG/DL (7-18); CALCIUM LEVEL 8.6 MG/DL (8.8-10.2); CARBON DIOXIDE LEVEL 27 MEQ/L (21-32); CHLORIDE LEVEL 100 MEQ/L (98-107); CREATININE FOR GFR 2.46 MG/DL (0.55-1.30); ETHYL ALCOHOL (ETHANOL) < 0.003 % (0.000-0.010); GLUCOSE, FASTING 62 MG/DL (70-100); POTASSIUM SERUM 3.3 MEQ/L (3.5-5.1); SALICYLATE LEVEL < 1.7 MG/DL (5.0-30.0); SODIUM LEVEL 135 MEQ/L (136-145); TOTAL PROTEIN 6.3 GM/DL (6.4-8.2)
[2022-06-14 14:53] LABS: RSV AMPLIFICATION NEGATIVE (NEGATIVE)
[2022-06-14] MEDS ORDERED: IPRATROPIUM 0.5MG/ALBUTEROL 2.5MG INH SOL UD 3ML (DUONEB) NEB PRN (17:30)
[2022-06-14] MEDS ORDERED: POTASSIUM CHLORIDE 10MEQ SR TABLET PO ONE (18:00)
[2022-06-14] MEDS ORDERED: DEXTROSE 50% 50 ML SYRINGE As Ordered ONE (18:06)
[2022-06-14] MEDS: DEXTROSE 50% 50 ML SYRINGE IV PRN (18:10)
[2022-06-14] MEDS ORDERED: GLUCOSE 4GM CHEW TABLET PO PRN (18:15)
[2022-06-14] MEDS ORDERED: GLUCAGON INJ 1MG VIAL SC PRN (18:15)
[2022-06-14] MEDS ORDERED: HOME MED LIST COMPLETE! XX SCH (18:30)
[2022-06-14 20:00] VITALS: BP 110/60
[2022-06-14] MEDS: SYMBICORT 160/4.5MCG INHALER 6GM INH SCH (20:00)
[2022-06-14] MEDS: NYSTATIN 100,000 UNITS/GM TOPICAL PWD 15 GM TOP SCH (22:26)
[2022-06-15] VITALS (11 sets, daily range): BP systolic 90–117; BP diastolic 52–68
[2022-06-15] MEDS: TIOTROPIUM INHALER/CAPSULE (SPIRIVA) INH SCH (06:20)
[2022-06-15] MEDS: SYMBICORT 160/4.5MCG INHALER 6GM INH SCH ×2 (06:20→19:27)
[2022-06-15 07:07] LABS: BASO # 0.1 10^3/uL (0.0-0.2); BASO % 0.7 % (0.0-1.0); EOS # 0.1 10^3/uL (0.0-0.5); HEMATOCRIT 34.2 % (36.0-47.0); HEMOGLOBIN 10.8 g/dl (12.0-15.5); LYMPH # 1.1 10^3/uL (1.5-5.0); LYMPH % 14.5 % (24.0-44.0); MEAN CORPUSCULAR HEMOGLOBIN 32.6 pg (27.0-33.0); MEAN CORPUSCULAR HGB CONC 31.6 g/dl (32.0-36.5); MEAN CORPUSCULAR VOLUME 103.3 fl (80.0-96.0); MONO # 0.9 10^3/uL (0.0-0.8); MONO % 11.9 % (2.0-8.0); NEUTROPHILS # 5.2 10^3/uL (1.5-8.5); NEUTROPHILS % 71.5 % (36.0-66.0); PLATELET COUNT, AUTOMATED 107 10^3/uL (150-450); RED BLOOD COUNT 3.31 10^6/uL (4.00-5.40); WHITE BLOOD COUNT 7.3 10^3/uL (4.0-10.0)
[2022-06-15 07:42] LABS: ALBUMIN 2.4 GM/DL (3.2-5.2); BILIRUBIN,TOTAL 2.9 MG/DL (0.2-1.0); CALCIUM LEVEL 8.1 MG/DL (8.8-10.2); CREATININE FOR GFR 3.02 MG/DL (0.55-1.30); GLOMERULAR FILTRATION RATE 15.8 (>32); POTASSIUM SERUM 3.6 MEQ/L (3.5-5.1); TOTAL PROTEIN 5.6 GM/DL (6.4-8.2)
[2022-06-15] MEDS: APIXABAN 2.5 MG TAB (ELIQUIS) PO SCH ×2 (09:12→20:11)
[2022-06-15] MEDS: MIDODRINE 5 MG TAB PO SCH ×3 (09:12→17:48)
[2022-06-15] MEDS: NYSTATIN 100,000 UNITS/GM TOPICAL PWD 15 GM TOP SCH ×2 (09:13→20:12)
[2022-06-15] MEDS: ACETAMINOPHEN TAB 650MG DOSE (2X325MG) PO PRN (10:09)
[2022-06-16] VITALS: BP 99/57
[2022-06-16 04:00] VITALS: BP 109/53
[2022-06-16 05:58] LABS: BASO # 0.1 10^3/uL (0.0-0.2); BASO % 0.7 % (0.0-1.0); EOS # 0.1 10^3/uL (0.0-0.5); EOS % 1.8 % (0.0-3.0); HEMATOCRIT 34.8 % (36.0-47.0); HEMOGLOBIN 10.9 g/dl (12.0-15.5); LYMPH # 1.3 10^3/uL (1.5-5.0); LYMPH % 16.4 % (24.0-44.0); MEAN CORPUSCULAR HEMOGLOBIN 33.1 pg (27.0-33.0); MEAN CORPUSCULAR HGB CONC 31.3 g/dl (32.0-36.5); MEAN CORPUSCULAR VOLUME 105.8 fl (80.0-96.0); MONO # 0.8 10^3/uL (0.0-0.8); MONO % 10.9 % (2.0-8.0); NEUTROPHILS # 5.3 10^3/uL (1.5-8.5); NEUTROPHILS % 69.7 % (36.0-66.0); PLATELET COUNT, AUTOMATED 123 10^3/uL (150-450); RED BLOOD COUNT 3.29 10^6/uL (4.00-5.40); WHITE BLOOD COUNT 7.6 10^3/uL (4.0-10.0)
[2022-06-16] MEDS ORDERED: SODIUM CHLORIDE 0.9% 1000ML IV PRN (06:00)
[2022-06-16] MEDS ORDERED: LIDOCAINE 1% SDV 5ML VIAL SC PRN (06:00)
[2022-06-16 06:36] LABS: ALBUMIN 2.4 GM/DL (3.2-5.2); BILIRUBIN,TOTAL 2.2 MG/DL (0.2-1.0); CALCIUM LEVEL 7.8 MG/DL (8.8-10.2); CREATININE FOR GFR 3.65 MG/DL (0.55-1.30); GLOMERULAR FILTRATION RATE 12.7 (>32); POTASSIUM SERUM 3.6 MEQ/L (3.5-5.1); TOTAL PROTEIN 5.8 GM/DL (6.4-8.2)
[2022-06-16] MEDS: APIXABAN 2.5 MG TAB (ELIQUIS) PO SCH ×2 (07:40→21:57)
[2022-06-16] MEDS: MIDODRINE 5 MG TAB PO SCH ×3 (07:40→16:34)
[2022-06-16] MEDS: NYSTATIN 100,000 UNITS/GM TOPICAL PWD 15 GM TOP SCH ×2 (07:41→21:57)
[2022-06-16 07:58] VITALS: BP 112/57
[2022-06-16] MEDS: TIOTROPIUM INHALER/CAPSULE (SPIRIVA) INH SCH (08:00)
[2022-06-16] MEDS: SYMBICORT 160/4.5MCG INHALER 6GM INH SCH ×2 (08:00→19:45)
[2022-06-16 19:45] VITALS: BP 114/56
[2022-06-16] MEDS: ACETAMINOPHEN TAB 650MG DOSE (2X325MG) PO PRN (22:41)
[2022-06-17 03:32] VITALS: BP 109/55
[2022-06-17 06:53] LABS: BASO # 0.1 10^3/uL (0.0-0.2); BASO % 0.8 % (0.0-1.0); EOS # 0.2 10^3/uL (0.0-0.5); EOS % 2.4 % (0.0-3.0); HEMATOCRIT 36.5 % (36.0-47.0); HEMOGLOBIN 10.8 g/dl (12.0-15.5); LYMPH # 1.2 10^3/uL (1.5-5.0); LYMPH % 15.9 % (24.0-44.0); MEAN CORPUSCULAR HEMOGLOBIN 32.3 pg (27.0-33.0); MEAN CORPUSCULAR HGB CONC 29.6 g/dl (32.0-36.5); MEAN CORPUSCULAR VOLUME 109.3 fl (80.0-96.0); MONO # 0.9 10^3/uL (0.0-0.8); MONO % 11.8 % (2.0-8.0); NEUTROPHILS # 5.3 10^3/uL (1.5-8.5); NEUTROPHILS % 68.7 % (36.0-66.0); PLATELET COUNT, AUTOMATED 101 10^3/uL (150-450); RED BLOOD COUNT 3.34 10^6/uL (4.00-5.40); WHITE BLOOD COUNT 7.7 10^3/uL (4.0-10.0)
[2022-06-17 07:25] LABS: ALBUMIN 2.5 GM/DL (3.2-5.2); BILIRUBIN,TOTAL 1.9 MG/DL (0.2-1.0); CALCIUM LEVEL 8.2 MG/DL (8.8-10.2); CREATININE FOR GFR 2.83 MG/DL (0.55-1.30); GLOMERULAR FILTRATION RATE 17.1 (>32); POTASSIUM SERUM 3.5 MEQ/L (3.5-5.1); TOTAL PROTEIN 5.9 GM/DL (6.4-8.2)
[2022-06-17] MEDS: SYMBICORT 160/4.5MCG INHALER 6GM INH SCH ×2 (07:50→19:37)
[2022-06-17] MEDS: TIOTROPIUM INHALER/CAPSULE (SPIRIVA) INH SCH (07:50)
[2022-06-17 08:00] VITALS: BP 117/67
[2022-06-17] MEDS ORDERED: POTASSIUM CHLORIDE 10MEQ SR TABLET PO ONE (08:10)
[2022-06-17] MEDS: MIDODRINE 5 MG TAB PO SCH ×3 (08:56→15:54)
[2022-06-17] MEDS: APIXABAN 2.5 MG TAB (ELIQUIS) PO SCH ×2 (08:57→20:41)
[2022-06-17] MEDS: NYSTATIN 100,000 UNITS/GM TOPICAL PWD 15 GM TOP SCH ×2 (09:02→20:42)
[2022-06-17] MEDS ORDERED: FLUCONAZOLE 100 MG TAB PO ONE (15:00)
[2022-06-17 17:00] VITALS: BP 135/69
[2022-06-17 20:40] VITALS: BP 139/59
[2022-06-18 05:37] VITALS: BP 112/65
[2022-06-18 06:32] LABS: BASO # 0.1 10^3/uL (0.0-0.2); BASO % 0.8 % (0.0-1.0); EOS # 0.1 10^3/uL (0.0-0.5); EOS % 1.7 % (0.0-3.0); HEMATOCRIT 35.7 % (36.0-47.0); HEMOGLOBIN 10.6 g/dl (12.0-15.5); LYMPH % 12.5 % (24.0-44.0); MEAN CORPUSCULAR HEMOGLOBIN 32.3 pg (27.0-33.0); MEAN CORPUSCULAR HGB CONC 29.7 g/dl (32.0-36.5); MEAN CORPUSCULAR VOLUME 108.8 fl (80.0-96.0); MONO # 0.9 10^3/uL (0.0-0.8); NEUTROPHILS # 5.6 10^3/uL (1.5-8.5); NEUTROPHILS % 72.6 % (36.0-66.0); RED BLOOD COUNT 3.28 10^6/uL (4.00-5.40); WHITE BLOOD COUNT 7.7 10^3/uL (4.0-10.0)
[2022-06-18 06:57] LABS: ALBUMIN 2.5 GM/DL (3.2-5.2); BILIRUBIN,TOTAL 1.8 MG/DL (0.2-1.0); CALCIUM LEVEL 8.3 MG/DL (8.8-10.2); CREATININE FOR GFR 3.39 MG/DL (0.55-1.30); GLOMERULAR FILTRATION RATE 13.8 (>32); PLATELET COUNT, AUTOMATED 97 10^3/uL (150-450); POTASSIUM SERUM 3.9 MEQ/L (3.5-5.1); TOTAL PROTEIN 6.1 GM/DL (6.4-8.2)
[2022-06-18] MEDS: SYMBICORT 160/4.5MCG INHALER 6GM INH SCH ×2 (08:52→20:04)
[2022-06-18] MEDS: NYSTATIN 100,000 UNITS/GM TOPICAL PWD 15 GM TOP SCH ×2 (09:00→21:00)
[2022-06-18] MEDS: METOPROLOL TART 25 MG TABLET PO SCH ×2 (09:03→21:07)
[2022-06-18] MEDS: APIXABAN 2.5 MG TAB (ELIQUIS) PO SCH ×2 (09:03→21:05)
[2022-06-18] MEDS: MIDODRINE 5 MG TAB PO SCH ×3 (09:48→16:33)
[2022-06-18] MEDS: TIOTROPIUM INHALER/CAPSULE (SPIRIVA) INH SCH ×2 (12:22→14:00)
[2022-06-19] MEDS: ACETAMINOPHEN TAB 650MG DOSE (2X325MG) PO PRN ×2 (03:29→16:54)
[2022-06-19 05:44] VITALS: BP 131/64
[2022-06-19] MEDS: MIDODRINE 5 MG TAB PO SCH ×3 (06:24→16:53)
[2022-06-19] MEDS: APIXABAN 2.5 MG TAB (ELIQUIS) PO SCH ×2 (06:24→20:47)
[2022-06-19] MEDS: METOPROLOL TART 25 MG TABLET PO SCH ×3 (06:25→20:46)
[2022-06-19] MEDS ORDERED: LIDOCAINE 1% SDV 5ML VIAL SC PRN (06:45)
[2022-06-19] MEDS ORDERED: SODIUM CHLORIDE 0.9% 1000ML IV PRN (06:45)
[2022-06-19 06:47] LABS: BASO # 0.1 10^3/uL (0.0-0.2); BASO % 0.8 % (0.0-1.0); EOS # 0.1 10^3/uL (0.0-0.5); EOS % 2.3 % (0.0-3.0); HEMATOCRIT 38.3 % (36.0-47.0); HEMOGLOBIN 11.2 g/dl (12.0-15.5); LYMPH # 0.9 10^3/uL (1.5-5.0); LYMPH % 14.7 % (24.0-44.0); MEAN CORPUSCULAR HEMOGLOBIN 32.2 pg (27.0-33.0); MEAN CORPUSCULAR HGB CONC 29.2 g/dl (32.0-36.5); MEAN CORPUSCULAR VOLUME 110.1 fl (80.0-96.0); MONO # 0.6 10^3/uL (0.0-0.8); MONO % 10.5 % (2.0-8.0); NEUTROPHILS # 4.3 10^3/uL (1.5-8.5); NEUTROPHILS % 71.2 % (36.0-66.0); RED BLOOD COUNT 3.48 10^6/uL (4.00-5.40)
[2022-06-19 06:51] LABS: PLATELET COUNT, AUTOMATED 74 10^3/uL (150-450)
[2022-06-19 07:21] LABS: ALBUMIN 2.7 GM/DL (3.2-5.2); BILIRUBIN,TOTAL 2.5 MG/DL (0.2-1.0); CALCIUM LEVEL 8.4 MG/DL (8.8-10.2); CREATININE FOR GFR 3.94 MG/DL (0.55-1.30); GLOMERULAR FILTRATION RATE 11.6 (>32); POTASSIUM SERUM 4.2 MEQ/L (3.5-5.1); TOTAL PROTEIN 6.2 GM/DL (6.4-8.2)
[2022-06-19] MEDS: SYMBICORT 160/4.5MCG INHALER 6GM INH SCH ×2 (07:38→20:00)
[2022-06-19] MEDS: TIOTROPIUM INHALER/CAPSULE (SPIRIVA) INH SCH (07:38)
[2022-06-19] MEDS: NYSTATIN 100,000 UNITS/GM TOPICAL PWD 15 GM TOP SCH ×2 (08:57→20:47)
[2022-06-20] MEDS: ACETAMINOPHEN TAB 650MG DOSE (2X325MG) PO PRN (04:33)
[2022-06-20 05:20] VITALS: BP 129/67
[2022-06-20 06:13] LABS: BASO # 0.1 10^3/uL (0.0-0.2); BASO % 0.9 % (0.0-1.0); EOS # 0.2 10^3/uL (0.0-0.5); EOS % 2.3 % (0.0-3.0); HEMATOCRIT 36.8 % (36.0-47.0); HEMOGLOBIN 11.1 g/dl (12.0-15.5); LYMPH # 1.1 10^3/uL (1.5-5.0); MEAN CORPUSCULAR HEMOGLOBIN 32.8 pg (27.0-33.0); MEAN CORPUSCULAR HGB CONC 30.2 g/dl (32.0-36.5); MEAN CORPUSCULAR VOLUME 108.9 fl (80.0-96.0); MONO # 0.9 10^3/uL (0.0-0.8); MONO % 13.1 % (2.0-8.0); NEUTROPHILS # 4.4 10^3/uL (1.5-8.5); NEUTROPHILS % 67.1 % (36.0-66.0); RED BLOOD COUNT 3.38 10^6/uL (4.00-5.40); WHITE BLOOD COUNT 6.6 10^3/uL (4.0-10.0)
[2022-06-20 06:22] LABS: PLATELET COUNT, AUTOMATED 75 10^3/uL (150-450)
[2022-06-20] MEDS ORDERED: LIDOCAINE 1% SDV 5ML VIAL SC PRN (06:45)
[2022-06-20] MEDS ORDERED: SODIUM CHLORIDE 0.9% 1000ML IV PRN (06:45)
[2022-06-20 06:49] LABS: ALBUMIN 2.5 GM/DL (3.2-5.2); BILIRUBIN,TOTAL 2.4 MG/DL (0.2-1.0); CALCIUM LEVEL 8.4 MG/DL (8.8-10.2); CREATININE FOR GFR 3.11 MG/DL (0.55-1.30); GLOMERULAR FILTRATION RATE 15.3 (>32); TOTAL PROTEIN 6.2 GM/DL (6.4-8.2)
[2022-06-20] MEDS: APIXABAN 2.5 MG TAB (ELIQUIS) PO SCH ×2 (07:26→21:34)
[2022-06-20] MEDS: MIDODRINE 5 MG TAB PO SCH ×3 (07:26→14:58)
[2022-06-20] MEDS: NYSTATIN 100,000 UNITS/GM TOPICAL PWD 15 GM TOP SCH ×2 (07:26→21:34)
[2022-06-20] MEDS: SYMBICORT 160/4.5MCG INHALER 6GM INH SCH ×2 (07:31→19:49)
[2022-06-20] MEDS: TIOTROPIUM INHALER/CAPSULE (SPIRIVA) INH SCH (07:31)
[2022-06-20] MEDS: METOPROLOL TART 25 MG TABLET PO SCH ×3 (08:25→21:39)
[2022-06-20] MEDS ORDERED: BISACODYL 5 MG TAB PO PRN (09:10)
[2022-06-20] MEDS ORDERED: SENOKOT S TAB PO PRN (09:10)
[2022-06-20] MEDS ORDERED: MIRALAX *UNIT DOSE* 17GM PACKET PO PRN (09:10)
[2022-06-20] MEDS ORDERED: BISACODYL 5 MG TAB PO ONE (09:10)
[2022-06-20] MEDS ORDERED: PROMETHAZINE 25MG SUPP PR PRN (12:15)
[2022-06-20] MEDS: ONDANSETRON 4MG ORAL DISINTEGRATING TAB SL PRN (12:32)
[2022-06-20 13:50] LABS: ALBUMIN 2.9 GM/DL (3.2-5.2); BILIRUBIN,TOTAL 2.8 MG/DL (0.2-1.0); CALCIUM LEVEL 8.6 MG/DL (8.8-10.2); CREATININE FOR GFR 3.32 MG/DL (0.55-1.30); GLOMERULAR FILTRATION RATE 14.2 (>32); MAGNESIUM LEVEL 1.9 MG/DL (1.8-2.4); POTASSIUM SERUM 4.1 MEQ/L (3.5-5.1); TOTAL PROTEIN 6.7 GM/DL (6.4-8.2)
[2022-06-20] MEDS ORDERED: PROMETHAZINE 25MG SUPP PR ONE (14:00)
[2022-06-21] MEDS: ACETAMINOPHEN TAB 650MG DOSE (2X325MG) PO PRN ×2 (05:09→16:26)
[2022-06-21 05:45] VITALS: BP 110/48
[2022-06-21 06:36] LABS: BASO # 0.1 10^3/uL (0.0-0.2); BASO % 0.8 % (0.0-1.0); EOS # 0.1 10^3/uL (0.0-0.5); EOS % 1.8 % (0.0-3.0); HEMATOCRIT 38.6 % (36.0-47.0); HEMOGLOBIN 11.4 g/dl (12.0-15.5); LYMPH # 1.1 10^3/uL (1.5-5.0); LYMPH % 14.1 % (24.0-44.0); MEAN CORPUSCULAR HEMOGLOBIN 32.4 pg (27.0-33.0); MEAN CORPUSCULAR HGB CONC 29.5 g/dl (32.0-36.5); MEAN CORPUSCULAR VOLUME 109.7 fl (80.0-96.0); MONO # 0.9 10^3/uL (0.0-0.8); NEUTROPHILS # 5.4 10^3/uL (1.5-8.5); NEUTROPHILS % 70.6 % (36.0-66.0); PLATELET COUNT, AUTOMATED 79 10^3/uL (150-450); RED BLOOD COUNT 3.52 10^6/uL (4.00-5.40); WHITE BLOOD COUNT 7.7 10^3/uL (4.0-10.0)
[2022-06-21] MEDS ORDERED: LIDOCAINE 1% SDV 5ML VIAL SC PRN (06:55)
[2022-06-21] MEDS ORDERED: SODIUM CHLORIDE 0.9% 1000ML IV PRN (06:55)
[2022-06-21 07:11] LABS: ALBUMIN 2.7 GM/DL (3.2-5.2); BILIRUBIN,TOTAL 2.3 MG/DL (0.2-1.0); CALCIUM LEVEL 8.7 MG/DL (8.8-10.2); CREATININE FOR GFR 3.8 MG/DL (0.55-1.30); GLOMERULAR FILTRATION RATE 12.1 (>32); POTASSIUM SERUM 4.2 MEQ/L (3.5-5.1); TOTAL PROTEIN 6.3 GM/DL (6.4-8.2)
[2022-06-21] MEDS: APIXABAN 2.5 MG TAB (ELIQUIS) PO SCH ×2 (07:41→20:31)
[2022-06-21] MEDS: MIDODRINE 5 MG TAB PO SCH ×3 (07:41→17:52)
[2022-06-21] MEDS: SYMBICORT 160/4.5MCG INHALER 6GM INH SCH ×2 (08:01→20:00)
[2022-06-21] MEDS: TIOTROPIUM INHALER/CAPSULE (SPIRIVA) INH SCH (08:01)
[2022-06-21] MEDS: METOPROLOL TART 25 MG TABLET PO SCH (09:00)
[2022-06-21] MEDS: NYSTATIN 100,000 UNITS/GM TOPICAL PWD 15 GM TOP SCH ×2 (14:12→20:31)
[2022-06-21] MEDS: ONDANSETRON 4MG ORAL DISINTEGRATING TAB SL PRN (14:12)
[2022-06-21 14:25] VITALS: BP 120/55
[2022-06-21] MEDS ORDERED: MIDODRINE 5 MG TAB PO ONE (14:45)
[2022-06-21] MEDS ORDERED: METOPROLOL TART 25 MG TABLET PO ONE (14:45)
[2022-06-21 17:53] VITALS: BP 132/56
[2022-06-21] MEDS ORDERED: atenoloL 25 MG TAB PO ONE (18:00)
[2022-06-22] VITALS (16 sets, daily range): BP systolic 77–125; BP diastolic 44–76
[2022-06-22] MEDS ORDERED: atenoloL 25 MG TAB PO ONE (06:35)
[2022-06-22 07:06] LABS: BASO # 0.1 10^3/uL (0.0-0.2); BASO % 0.6 % (0.0-1.0); EOS # 0.1 10^3/uL (0.0-0.5); HEMATOCRIT 40.3 % (36.0-47.0); HEMOGLOBIN 11.4 g/dl (12.0-15.5); LYMPH # 1.1 10^3/uL (1.5-5.0); LYMPH % 12.8 % (24.0-44.0); MEAN CORPUSCULAR HEMOGLOBIN 32.5 pg (27.0-33.0); MEAN CORPUSCULAR HGB CONC 28.3 g/dl (32.0-36.5); MONO # 0.9 10^3/uL (0.0-0.8); MONO % 10.8 % (2.0-8.0); NEUTROPHILS # 6.1 10^3/uL (1.5-8.5); NEUTROPHILS % 74.1 % (36.0-66.0); RED BLOOD COUNT 3.51 10^6/uL (4.00-5.40); WHITE BLOOD COUNT 8.3 10^3/uL (4.0-10.0)
[2022-06-22] MEDS ORDERED: DIGOXIN INJ 0.5 MG/2 ML AMP IV STA (07:10)
[2022-06-22 07:41] LABS: ALBUMIN 2.6 GM/DL (3.2-5.2); BILIRUBIN,TOTAL 2.4 MG/DL (0.2-1.0); CREATININE FOR GFR 2.82 MG/DL (0.55-1.30); GLOMERULAR FILTRATION RATE 17.1 (>32); POTASSIUM SERUM 4.6 MEQ/L (3.5-5.1); TOTAL PROTEIN 6.2 GM/DL (6.4-8.2)
[2022-06-22] MEDS: SYMBICORT 160/4.5MCG INHALER 6GM INH SCH ×2 (07:46→20:00)
[2022-06-22] MEDS: TIOTROPIUM INHALER/CAPSULE (SPIRIVA) INH SCH (07:46)
[2022-06-22] MEDS: MIDODRINE 5 MG TAB PO SCH ×2 (08:00→08:39)
[2022-06-22 08:28] LABS: MEAN CORPUSCULAR VOLUME 114.8 fl (80.0-96.0)
[2022-06-22 08:31] LABS: ANISOCYTOSIS 1+; PLATELET ESTIMATE DECREASED (NORMAL)
[2022-06-22 08:35] LABS: PLATELET COUNT, AUTOMATED 91 10^3/uL (150-450)
[2022-06-22] MEDS: APIXABAN 2.5 MG TAB (ELIQUIS) PO SCH ×4 (08:39→21:45)
[2022-06-22] MEDS: NYSTATIN 100,000 UNITS/GM TOPICAL PWD 15 GM TOP SCH ×2 (08:42→21:23)
[2022-06-22] MEDS ORDERED: atenoloL 25 MG TAB PO SCH (09:00)
[2022-06-22 09:52] LABS: ABG BASE EXCESS -8.1 (-2.0-2.0); ABG HCO3 24.5 MEQ/L (22.0-26.0); ABG O2 SATURATION 98.6 % (95.0-99.0); ABG PARTIAL PRESSURE O2 131.3 mmHg (75.0-100.0); ABG TOTAL CO2 27.4 MEQ/L (23.0-31.0)
[2022-06-22 09:56] LABS: ABG PARTIAL PRESSURE CO2 93.7 mmHg (35.0-45.0); ABG pH (ARTERIAL) 7.036 UNITS (7.350-7.450)
[2022-06-22] MEDS ORDERED: LIDOCAINE 1% MDV 20ML VIAL As Ordered ONE (12:11)
[2022-06-22] MEDS ORDERED: LIDOCAINE 1% MDV 20ML VIAL SC ONE (12:25)
[2022-06-22] MEDS ORDERED: cefTRIAXone SOD 2 GM in D5W MINI-BAG PLUS 50 ML IV SCH (13:00)
[2022-06-22] MEDS: METOPROLOL TART 25 MG TABLET PO SCH ×3 (13:18→21:35)
[2022-06-22 13:34] LABS: ABG BASE EXCESS -5.5 (-2.0-2.0); ABG HCO3 24.5 MEQ/L (22.0-26.0); ABG O2 SATURATION 96.5 % (95.0-99.0); ABG PARTIAL PRESSURE O2 86.6 mmHg (75.0-100.0); ABG TOTAL CO2 26.7 MEQ/L (23.0-31.0)
[2022-06-22 13:35] LABS: PH BODY FLUID 7.218 UNITS (NOT ESTABLISHED); SOURCE, BODY FLUID pH PLEURAL
[2022-06-22 13:38] LABS: ABG PARTIAL PRESSURE CO2 71.6 mmHg (35.0-45.0); ABG pH (ARTERIAL) 7.153 UNITS (7.350-7.450)
[2022-06-22 15:04] LABS: APPEARANCE, BODY FLUID HAZY (CLEAR); PLEURAL FL COLOR YELLOW (COLORLESS); SOURCE, BODY FLUID PLEURAL
[2022-06-22 15:06] LABS: AMYLASE, BODY FLUID 13 U/L (NOT ESTABLISHED); CHOLESTEROL, BODY FLUID < 50 MG/DL (NOT ESTABLISHED); LDH, BODY FLUID 54 U/L (NOT ESTABLISHED); SOURCE, BODY FLUID ALBUMIN PLEURAL; SOURCE, BODY FLUID AMYLASE PLEURAL; SOURCE, BODY FLUID CHOL PLEURAL; SOURCE, BODY FLUID GLUCOSE PLEURAL; SOURCE, BODY FLUID LDH PLEURAL; SOURCE, BODY FLUID TOT PROTEIN PLEURAL; SOURCE, BODY FLUID TRIG PLEURAL; TOTAL PROTEIN, BODY FLUID 2.3 G/DL (NOT ESTABLISHED); TRIGLYCERIDE, BODY FLUID 33 MG/DL (NOT ESTABLISHED)
[2022-06-22] MEDS ORDERED: MORPHINE 2 MG/ML 1ML VIAL IV ONE (16:20)
[2022-06-22] MEDS: LIDOCAINE 5% (LIDODERM) PATCH TD SCH (21:00)
[2022-06-22 22:20] LABS: ABG BASE EXCESS -2.5 (-2.0-2.0); ABG HCO3 24.3 MEQ/L (22.0-26.0); ABG O2 SATURATION 91.1 % (95.0-99.0); ABG PARTIAL PRESSURE CO2 50.5 mmHg (35.0-45.0); ABG PARTIAL PRESSURE O2 57.4 mmHg (75.0-100.0); ABG STANDARD HCO3 22.2 MEQ/L (22.0-26.0); ABG TOTAL CO2 25.8 MEQ/L (23.0-31.0)
[2022-06-23] VITALS (18 sets, daily range): BP systolic 92–119; BP diastolic 44–61
[2022-06-23] MEDS: DEXTROSE 50% 50 ML SYRINGE IV PRN (00:34)
[2022-06-23] MEDS ORDERED: OLANZapine INTRAMUSCULAR 10MG VIAL IM ONE (01:30)
[2022-06-23 05:11] LABS: HEMATOCRIT 41.7 % (36.0-47.0); HEMOGLOBIN 11.9 g/dl (12.0-15.5); MEAN CORPUSCULAR HEMOGLOBIN 33.1 pg (27.0-33.0); MEAN CORPUSCULAR HGB CONC 28.5 g/dl (32.0-36.5); MEAN CORPUSCULAR VOLUME 115.8 fl (80.0-96.0); WHITE BLOOD COUNT 9.5 10^3/uL (4.0-10.0)
[2022-06-23 05:12] LABS: PLATELET COUNT, AUTOMATED 88 10^3/uL (150-450)
[2022-06-23 05:35] LABS: ABG BASE EXCESS -1.4 (-2.0-2.0); ABG HCO3 24.3 MEQ/L (22.0-26.0); ABG O2 SATURATION 95.3 % (95.0-99.0); ABG PARTIAL PRESSURE CO2 44.7 mmHg (35.0-45.0); ABG PARTIAL PRESSURE O2 71.6 mmHg (75.0-100.0); ABG STANDARD HCO3 23.3 MEQ/L (22.0-26.0); ABG TOTAL CO2 25.7 MEQ/L (23.0-31.0); ABG pH (ARTERIAL) 7.353 UNITS (7.350-7.450)
[2022-06-23 05:53] LABS: ALBUMIN 2.3 GM/DL (3.2-5.2); CALCIUM LEVEL 9.3 MG/DL (8.8-10.2); CREATININE FOR GFR 3.44 MG/DL (0.55-1.30); DIGOXIN LEVEL 0.3 NG/ML (0.5-2.0); GLOMERULAR FILTRATION RATE 13.6 (>32); MAGNESIUM LEVEL 1.9 MG/DL (1.8-2.4); POTASSIUM SERUM 4.6 MEQ/L (3.5-5.1); TOTAL PROTEIN 6.3 GM/DL (6.4-8.2)
[2022-06-23] MEDS: METOPROLOL TART 25 MG TABLET PO SCH ×3 (06:00→17:37)
[2022-06-23] MEDS: APIXABAN 2.5 MG TAB (ELIQUIS) PO SCH ×2 (06:12→20:38)
[2022-06-23] MEDS: SYMBICORT 160/4.5MCG INHALER 6GM INH SCH ×2 (07:34→20:11)
[2022-06-23] MEDS: TIOTROPIUM INHALER/CAPSULE (SPIRIVA) INH SCH (07:34)
[2022-06-23] MEDS ORDERED: DIGOXIN 0.125 MG TAB PO SCH (09:00)
[2022-06-23] MEDS ORDERED: DIGOXIN 0.0625MG PER 1/2TABLET PO SCH (09:00)
[2022-06-23] MEDS: NYSTATIN 100,000 UNITS/GM TOPICAL PWD 15 GM TOP SCH ×2 (09:55→20:40)
[2022-06-23] MEDS ORDERED: LIDOCAINE 1% SDV 5ML VIAL SC PRN (10:50)
[2022-06-23] MEDS ORDERED: SODIUM CHLORIDE 0.9% 1000ML IV PRN (10:50)
[2022-06-23] MEDS ORDERED: methylPREDNISolone 40MG 1ML VIAL IV ONE (14:00)
[2022-06-23] MEDS: cefTRIAXone SOD 2 GM in D5W MINI-BAG PLUS 50 ML IV SCH (16:42)
[2022-06-23] MEDS: PANTOPRAZOLE 40MG TAB (PROTONIX) PO SCH (16:42)
[2022-06-23] MEDS: LIDOCAINE 5% (LIDODERM) PATCH TD SCH (20:40)
[2022-06-23] MEDS ORDERED: VANCOMYCIN HCL 1,000 MG, VIAL MATE ADAPTER 1 EACH in D5W 250 ML IV ONE (21:00)
[2022-06-24] VITALS (9 sets, daily range): BP systolic 92–128; BP diastolic 45–59
[2022-06-24] MEDS: DEXTROSE 50% 50 ML SYRINGE IV PRN ×2 (00:35→01:11)
[2022-06-24] MEDS: METOPROLOL TART 25 MG TABLET PO SCH ×3 (00:37→11:43)
[2022-06-24 06:05] LABS: ABG BASE EXCESS -2.7 (-2.0-2.0); ABG HCO3 23.8 MEQ/L (22.0-26.0); ABG O2 SATURATION 95.4 % (95.0-99.0); ABG PARTIAL PRESSURE O2 78.2 mmHg (75.0-100.0); ABG STANDARD HCO3 22.2 MEQ/L (22.0-26.0); ABG TOTAL CO2 25.3 MEQ/L (23.0-31.0); ABG pH (ARTERIAL) 7.313 UNITS (7.350-7.450)
[2022-06-24 06:30] LABS: HEMATOCRIT 38.6 % (36.0-47.0); HEMOGLOBIN 11.7 g/dl (12.0-15.5); MEAN CORPUSCULAR HEMOGLOBIN 32.4 pg (27.0-33.0); MEAN CORPUSCULAR HGB CONC 30.3 g/dl (32.0-36.5); MEAN CORPUSCULAR VOLUME 106.9 fl (80.0-96.0); PLATELET COUNT, AUTOMATED 85 10^3/uL (150-450); RED BLOOD COUNT 3.61 10^6/uL (4.00-5.40); WHITE BLOOD COUNT 6.1 10^3/uL (4.0-10.0)
[2022-06-24 06:43] LABS: INR 1.85; PROTHROMBIN TIME 21.7 SECONDS (12.5-14.5)
[2022-06-24 07:00] LABS: ALBUMIN 2.5 GM/DL (3.2-5.2); ALKALINE PHOSPHATASE 137 U/L (45-117); ALT/SGPT 11 U/L (12-78); AST/SGOT 18 U/L (7-37); BILIRUBIN,TOTAL 2.6 MG/DL (0.2-1.0); BLOOD UREA NITROGEN 16 MG/DL (7-18); CALCIUM LEVEL 9.5 MG/DL (8.8-10.2); CARBON DIOXIDE LEVEL 26 MEQ/L (21-32); CHLORIDE LEVEL 105 MEQ/L (98-107); CREATININE FOR GFR 2.71 MG/DL (0.55-1.30); GLOMERULAR FILTRATION RATE 17.9 (>32); GLUCOSE, FASTING 142 MG/DL (70-100); LIPASE 18 U/L (73-393); POTASSIUM SERUM 4.5 MEQ/L (3.5-5.1); SODIUM LEVEL 138 MEQ/L (136-145); TOTAL PROTEIN 6.3 GM/DL (6.4-8.2)
[2022-06-24] MEDS: TIOTROPIUM INHALER/CAPSULE (SPIRIVA) INH SCH (07:38)
[2022-06-24] MEDS: SYMBICORT 160/4.5MCG INHALER 6GM INH SCH ×2 (07:38→20:58)
[2022-06-24] MEDS: PANTOPRAZOLE 40MG TAB (PROTONIX) PO SCH (09:57)
[2022-06-24] MEDS: APIXABAN 2.5 MG TAB (ELIQUIS) PO SCH (09:57)
[2022-06-24] MEDS: NYSTATIN 100,000 UNITS/GM TOPICAL PWD 15 GM TOP SCH ×2 (09:57→20:56)
[2022-06-24] MEDS ORDERED: VANICREAM MOISTURIZING SKIN CREAM 113GM TUBE TOP PRN (10:00)
[2022-06-24] MEDS: MIDODRINE 5 MG TAB PO SCH ×2 (12:00→16:00)
[2022-06-24] MEDS: cefTRIAXone SOD 2 GM in D5W MINI-BAG PLUS 50 ML IV SCH (16:05)
[2022-06-24] MEDS ORDERED: VANCOMYCIN HCL 750 MG, VIAL MATE ADAPTER 1 EACH in D5W 250 ML IV ONE (17:00)
[2022-06-24] MEDS: METOPROLOL TART 25 MG TABLET NG SCH (18:00)
[2022-06-24] MEDS: APIXABAN 2.5 MG TAB (ELIQUIS) NG SCH (20:55)
[2022-06-24] MEDS: LIDOCAINE 5% (LIDODERM) PATCH TD SCH (20:56)
[2022-06-25] VITALS (23 sets, daily range): BP systolic 93–139; BP diastolic 43–73
[2022-06-25 04:49] LABS: HEMATOCRIT 35.8 % (36.0-47.0); MEAN CORPUSCULAR HEMOGLOBIN 32.8 pg (27.0-33.0); MEAN CORPUSCULAR HGB CONC 30.7 g/dl (32.0-36.5); MEAN CORPUSCULAR VOLUME 106.9 fl (80.0-96.0); RED BLOOD COUNT 3.35 10^6/uL (4.00-5.40); WHITE BLOOD COUNT 7.6 10^3/uL (4.0-10.0)
[2022-06-25 04:51] LABS: PLATELET COUNT, AUTOMATED 89 10^3/uL (150-450)
[2022-06-25] MEDS: METOPROLOL TART 25 MG TABLET NG SCH ×4 (05:09→18:13)
[2022-06-25 05:17] LABS: ALBUMIN 2.4 GM/DL (3.2-5.2); BILIRUBIN,TOTAL 1.7 MG/DL (0.2-1.0); CALCIUM LEVEL 9.4 MG/DL (8.8-10.2); CREATININE FOR GFR 3.46 MG/DL (0.55-1.30); GLOMERULAR FILTRATION RATE 13.5 (>32); POTASSIUM SERUM 4.6 MEQ/L (3.5-5.1)
[2022-06-25 06:09] LABS: ABG BASE EXCESS -6.7 (-2.0-2.0); ABG HCO3 21.7 MEQ/L (22.0-26.0); ABG O2 SATURATION 99.3 % (95.0-99.0); ABG PARTIAL PRESSURE CO2 56.7 mmHg (35.0-45.0); ABG PARTIAL PRESSURE O2 154.6 mmHg (75.0-100.0); ABG TOTAL CO2 23.4 MEQ/L (23.0-31.0)
[2022-06-25] MEDS: SYMBICORT 160/4.5MCG INHALER 6GM INH SCH ×2 (07:36→19:32)
[2022-06-25] MEDS: TIOTROPIUM INHALER/CAPSULE (SPIRIVA) INH SCH (07:36)
[2022-06-25] MEDS: APIXABAN 2.5 MG TAB (ELIQUIS) NG SCH ×2 (08:00→20:27)
[2022-06-25] MEDS: IPRATROPIUM 0.5MG/ALBUTEROL 2.5MG INH SOL UD 3ML (DUONEB) NEB SCH ×3 (08:00→23:18)
[2022-06-25] MEDS: INSULIN LISPRO (NovoLOG) PER UNIT SC SCH ×3 (08:00→18:13)
[2022-06-25] MEDS: LACTULOSE 20 GM/30 ML SYRUP UD NG SCH ×3 (08:00→20:27)
[2022-06-25] MEDS: PANTOPRAZOLE 40MG VIAL IV SCH (08:01)
[2022-06-25] MEDS: MIDODRINE 5 MG TAB NG SCH ×3 (08:01→16:08)
[2022-06-25] MEDS: NYSTATIN 100,000 UNITS/GM TOPICAL PWD 15 GM TOP SCH ×2 (08:02→20:27)
[2022-06-25] MEDS ORDERED: DIGOXIN 0.0625MG PER 1/2TABLET NG SCH (09:00)
[2022-06-25] MEDS: dexmedeTOMidine 200 MCG in IV 1 EA IV SCH ×2 (09:53→11:55)
[2022-06-25 12:09] LABS: ABG BASE EXCESS -2.3 (-2.0-2.0); ABG HCO3 24.6 MEQ/L (22.0-26.0); ABG O2 SATURATION 97.3 % (95.0-99.0); ABG PARTIAL PRESSURE CO2 51.8 mmHg (35.0-45.0); ABG PARTIAL PRESSURE O2 89.8 mmHg (75.0-100.0); ABG STANDARD HCO3 22.6 MEQ/L (22.0-26.0); ABG TOTAL CO2 26.2 MEQ/L (23.0-31.0); ABG pH (ARTERIAL) 7.295 UNITS (7.350-7.450)
[2022-06-25] MEDS ORDERED: VANCOMYCIN HCL 750 MG, VIAL MATE ADAPTER 1 EACH in D5W 250 ML IV SCH (15:25)
[2022-06-25] MEDS: cefTRIAXone SOD 2 GM in D5W MINI-BAG PLUS 50 ML IV SCH (16:09)
[2022-06-25] MEDS: LIDOCAINE 5% (LIDODERM) PATCH TD SCH (20:28)
[2022-06-26] VITALS (22 sets, daily range): BP systolic 84–124; BP diastolic 47–95
[2022-06-26] MEDS ORDERED: NS 250 ML IV ONE (02:25)
[2022-06-26] MEDS ORDERED: NS 500 ML IV ONE (04:05)
[2022-06-26 04:17] LABS: ABG BASE EXCESS -4.9 (-2.0-2.0); ABG HCO3 21.2 MEQ/L (22.0-26.0); ABG O2 SATURATION 97.8 % (95.0-99.0); ABG PARTIAL PRESSURE CO2 43.3 mmHg (35.0-45.0); ABG PARTIAL PRESSURE O2 97.2 mmHg (75.0-100.0); ABG STANDARD HCO3 20.4 MEQ/L (22.0-26.0); ABG TOTAL CO2 22.5 MEQ/L (23.0-31.0); ABG pH (ARTERIAL) 7.308 UNITS (7.350-7.450)
[2022-06-26 04:56] LABS: HEMATOCRIT 40.9 % (36.0-47.0); HEMOGLOBIN 12.7 g/dl (12.0-15.5); MEAN CORPUSCULAR HEMOGLOBIN 33.1 pg (27.0-33.0); MEAN CORPUSCULAR HGB CONC 31.1 g/dl (32.0-36.5); MEAN CORPUSCULAR VOLUME 106.5 fl (80.0-96.0); RED BLOOD COUNT 3.84 10^6/uL (4.00-5.40); WHITE BLOOD COUNT 9.3 10^3/uL (4.0-10.0)
[2022-06-26 05:17] LABS: PLATELET COUNT, AUTOMATED 79 10^3/uL (150-450)
[2022-06-26 05:24] LABS: ALBUMIN 2.3 GM/DL (3.2-5.2); BILIRUBIN,TOTAL 1.6 MG/DL (0.2-1.0); CALCIUM LEVEL 9.6 MG/DL (8.8-10.2); CREATININE FOR GFR 4.04 MG/DL (0.55-1.30); GLOMERULAR FILTRATION RATE 11.3 (>32); POTASSIUM SERUM 4.1 MEQ/L (3.5-5.1); TOTAL PROTEIN 6.3 GM/DL (6.4-8.2); VANCOMYCIN RANDOM 17.3 UG/ML
[2022-06-26] MEDS: INSULIN LISPRO (NovoLOG) PER UNIT SC SCH ×5 (05:39→23:49)
[2022-06-26] MEDS ORDERED: LIDOCAINE 1% SDV 5ML VIAL SC PRN (06:00)
[2022-06-26] MEDS ORDERED: SODIUM CHLORIDE 0.9% 1000ML IV PRN (06:00)
[2022-06-26] MEDS: METOPROLOL TART 25 MG TABLET NG SCH ×2 (06:05)
[2022-06-26] MEDS: IPRATROPIUM 0.5MG/ALBUTEROL 2.5MG INH SOL UD 3ML (DUONEB) NEB SCH ×2 (08:00→16:00)
[2022-06-26] MEDS: PANTOPRAZOLE 40MG VIAL IV SCH (08:33)
[2022-06-26] MEDS: APIXABAN 2.5 MG TAB (ELIQUIS) NG SCH ×2 (08:33→20:23)
[2022-06-26] MEDS: LACTULOSE 20 GM/30 ML SYRUP UD NG SCH (08:34)
[2022-06-26] MEDS: MIDODRINE 5 MG TAB NG SCH (08:39)
[2022-06-26] MEDS: NYSTATIN 100,000 UNITS/GM TOPICAL PWD 15 GM TOP SCH ×2 (08:40→20:24)
[2022-06-26] MEDS: SYMBICORT 160/4.5MCG INHALER 6GM INH SCH ×2 (08:50→20:06)
[2022-06-26 10:49] LABS: HEPATITIS B SURFACE ANTIBODY NEGATIVE (POSITIVE); HEPATITIS B SURFACE ANTIGEN NEGATIVE (NEGATIVE)
[2022-06-26] MEDS ORDERED: BISACODYL 10 MG SUPP PR PRN (15:00)
[2022-06-26] MEDS ORDERED: FLEET OIL RETENTION ENEMA PR PRN (15:05)
[2022-06-26] MEDS ORDERED: MIRALAX *UNIT DOSE* 17GM PACKET PO PRN (16:05)
[2022-06-26] MEDS: LIDOCAINE 5% (LIDODERM) PATCH TD SCH (20:23)
[2022-06-26] MEDS: SENOKOT S TAB PO SCH (20:23)
[2022-06-27 04:00] VITALS: BP 94/43
[2022-06-27 05:26] LABS: HEMATOCRIT 40.2 % (36.0-47.0); HEMOGLOBIN 12.4 g/dl (12.0-15.5); MEAN CORPUSCULAR HEMOGLOBIN 32.2 pg (27.0-33.0); MEAN CORPUSCULAR HGB CONC 30.8 g/dl (32.0-36.5); MEAN CORPUSCULAR VOLUME 104.4 fl (80.0-96.0); RED BLOOD COUNT 3.85 10^6/uL (4.00-5.40); WHITE BLOOD COUNT 14.8 10^3/uL (4.0-10.0)
[2022-06-27 05:27] LABS: PLATELET COUNT, AUTOMATED 77 10^3/uL (150-450)
[2022-06-27 05:53] LABS: ALBUMIN 2.1 GM/DL (3.2-5.2); BILIRUBIN,TOTAL 2.2 MG/DL (0.2-1.0); CALCIUM LEVEL 8.7 MG/DL (8.8-10.2); CREATININE FOR GFR 2.81 MG/DL (0.55-1.30); GLOMERULAR FILTRATION RATE 17.2 (>32); POTASSIUM SERUM 3.6 MEQ/L (3.5-5.1); TOTAL PROTEIN 5.4 GM/DL (6.4-8.2)
[2022-06-27] MEDS: INSULIN LISPRO (NovoLOG) PER UNIT SC SCH ×4 (05:54→23:43)
[2022-06-27] MEDS: IPRATROPIUM 0.5MG/ALBUTEROL 2.5MG INH SOL UD 3ML (DUONEB) NEB SCH ×3 (07:16→15:35)
[2022-06-27] MEDS: SYMBICORT 160/4.5MCG INHALER 6GM INH SCH ×2 (07:16→20:03)
[2022-06-27 08:00] VITALS: BP 91/44
[2022-06-27] MEDS: SENOKOT S TAB PO SCH ×2 (09:00→19:52)
[2022-06-27] MEDS: APIXABAN 2.5 MG TAB (ELIQUIS) PO SCH ×2 (09:34→20:01)
[2022-06-27] MEDS: DIGOXIN 0.0625MG PER 1/2TABLET PO SCH (09:35)
[2022-06-27] MEDS: PANTOPRAZOLE 40MG VIAL IV SCH (09:35)
[2022-06-27] MEDS: NYSTATIN 100,000 UNITS/GM TOPICAL PWD 15 GM TOP SCH ×2 (09:35→19:52)
[2022-06-27 12:00] VITALS: BP 91/43
[2022-06-27 16:00] VITALS: BP 100/46
[2022-06-27 20:00] VITALS: BP 99/50
[2022-06-27] MEDS: LIDOCAINE 5% (LIDODERM) PATCH TD SCH (20:01)
[2022-06-28] MEDS: IPRATROPIUM 0.5MG/ALBUTEROL 2.5MG INH SOL UD 3ML (DUONEB) NEB SCH ×3 (00:16→15:15)
[2022-06-28 04:00] VITALS: BP 102/55
[2022-06-28] MEDS: INSULIN LISPRO (NovoLOG) PER UNIT SC SCH ×3 (05:43→17:56)
[2022-06-28] MEDS ORDERED: SODIUM CHLORIDE 0.9% 1000ML IV PRN ×2 (06:00→08:55)
[2022-06-28] MEDS ORDERED: LIDOCAINE 1% SDV 5ML VIAL SC PRN ×2 (06:00→08:55)
[2022-06-28 06:56] LABS: HEMATOCRIT 41.6 % (36.0-47.0); HEMOGLOBIN 12.9 g/dl (12.0-15.5); MEAN CORPUSCULAR HEMOGLOBIN 32.8 pg (27.0-33.0); MEAN CORPUSCULAR VOLUME 105.9 fl (80.0-96.0); RED BLOOD COUNT 3.93 10^6/uL (4.00-5.40); WHITE BLOOD COUNT 18.7 10^3/uL (4.0-10.0)
[2022-06-28 07:01] LABS: PLATELET COUNT, AUTOMATED 62 10^3/uL (150-450)
[2022-06-28] MEDS: SENOKOT S TAB PO SCH ×2 (07:21→20:16)
[2022-06-28] MEDS: SYMBICORT 160/4.5MCG INHALER 6GM INH SCH ×2 (07:32→20:00)
[2022-06-28 07:39] LABS: ALBUMIN 2.5 GM/DL (3.2-5.2); BILIRUBIN,TOTAL 2.9 MG/DL (0.2-1.0); CALCIUM LEVEL 9.8 MG/DL (8.8-10.2); CREATININE FOR GFR 3.56 MG/DL (0.55-1.30); GLOMERULAR FILTRATION RATE 13.1 (>32); MAGNESIUM LEVEL 2.1 MG/DL (1.8-2.4); POTASSIUM SERUM 3.8 MEQ/L (3.5-5.1); TOTAL PROTEIN 6.6 GM/DL (6.4-8.2)
[2022-06-28 07:51] VITALS: BP 105/54
[2022-06-28] MEDS: APIXABAN 2.5 MG TAB (ELIQUIS) PO SCH (08:02)
[2022-06-28] MEDS: PANTOPRAZOLE 40MG VIAL IV SCH (08:38)
[2022-06-28] MEDS: NYSTATIN 100,000 UNITS/GM TOPICAL PWD 15 GM TOP SCH ×2 (08:39→20:21)
[2022-06-28] MEDS ORDERED: DEXTROSE 50% 50 ML SYRINGE IV STA (11:38)
[2022-06-28 11:43] VITALS: BP 112/57
[2022-06-28 20:00] VITALS: BP 99/54
[2022-06-28] MEDS: LIDOCAINE 5% (LIDODERM) PATCH TD SCH (20:17)
[2022-06-29] MEDS: IPRATROPIUM 0.5MG/ALBUTEROL 2.5MG INH SOL UD 3ML (DUONEB) NEB SCH ×3 (01:05→14:47)
[2022-06-29 04:00] VITALS: BP 102/46
[2022-06-29] MEDS: INSULIN LISPRO (NovoLOG) PER UNIT SC SCH ×3 (06:00→12:00)
[2022-06-29 06:19] LABS: HEMOGLOBIN 11.2 g/dl (12.0-15.5); MEAN CORPUSCULAR HEMOGLOBIN 32.5 pg (27.0-33.0); MEAN CORPUSCULAR HGB CONC 31.1 g/dl (32.0-36.5); MEAN CORPUSCULAR VOLUME 104.3 fl (80.0-96.0); RED BLOOD COUNT 3.45 10^6/uL (4.00-5.40); WHITE BLOOD COUNT 14.4 10^3/uL (4.0-10.0)
[2022-06-29 06:22] LABS: PLATELET COUNT, AUTOMATED 86 10^3/uL (150-450)
[2022-06-29 06:45] LABS: ALBUMIN 2.1 GM/DL (3.2-5.2); BILIRUBIN,TOTAL 2.6 MG/DL (0.2-1.0); CALCIUM LEVEL 9.1 MG/DL (8.8-10.2); CREATININE FOR GFR 2.53 MG/DL (0.55-1.30); GLOMERULAR FILTRATION RATE 19.4 (>32); MAGNESIUM LEVEL 1.8 MG/DL (1.8-2.4); POTASSIUM SERUM 3.3 MEQ/L (3.5-5.1); TOTAL PROTEIN 5.5 GM/DL (6.4-8.2)
[2022-06-29] MEDS ORDERED: POTASSIUM CHLORIDE 10MEQ SR TABLET PO ONE (07:10)
[2022-06-29 07:57] VITALS: BP 97/54
[2022-06-29] MEDS: SYMBICORT 160/4.5MCG INHALER 6GM INH SCH ×2 (08:19→19:48)
[2022-06-29] MEDS: PANTOPRAZOLE 40MG VIAL IV SCH (08:21)
[2022-06-29] MEDS: DIGOXIN 0.0625MG PER 1/2TABLET PO SCH (08:21)
[2022-06-29] MEDS: NYSTATIN 100,000 UNITS/GM TOPICAL PWD 15 GM TOP SCH (08:22)
[2022-06-29] MEDS: SENOKOT S TAB PO SCH (08:22)
[2022-06-29 14:39] VITALS: BP 89/51
[2022-06-29] MEDS ORDERED: SCOPOLAMINE 1MG TRANSDERMAL PATCH TOP PRN (16:45)
[2022-06-29] MEDS ORDERED: MORPHINE 10MG/0.5ML ORAL CONCENTRATE SOLUTION U/D SL PRN (17:50)
== END 2022-06-29 21:43 | disposition expired | DRG 314 ==
LOC: EDBD 12:32 → M ED 12:32 → M ED INP 16:31 → M PCU 21:05 → M MSPAV 06-17 18:04 → M PCU 06-22 09:04 → M ICU 06-22 10:46
PROVIDERS: ADMIT Internal Medicine Nephrology; ATTEND General Practice
PROC: 0W9B3ZZ Drainage of Left Pleural Cavity, Percutaneous Approach (ICD-10-PCS; principal; 2022-06-22)
DX: I95.9 Hypotension, unspecified (principal); N18.6 End stage renal disease; E43 Unspecified severe protein-calorie malnutrition; G93.41 Metabolic encephalopathy; J96.22 Acute and chronic respiratory failure with hypercapnia; J18.9 Pneumonia, unspecified organism; I12.0 Hypertensive chronic kidney disease with stage 5 chronic kidney disease or end stage renal disease; J44.1 Chronic obstructive pulmonary disease with (acute) exacerbation; I13.2 Hypertensive heart and chronic kidney disease with heart failure and with stage 5 chronic kidney disease, or end stage renal disease; E72.20 Disorder of urea cycle metabolism, unspecified; I48.20 Chronic atrial fibrillation, unspecified; R18.8 Other ascites; I50.22 Chronic systolic (congestive) heart failure; E78.5 Hyperlipidemia, unspecified; I48.91 Unspecified atrial fibrillation; K21.9 Gastro-esophageal reflux disease without esophagitis; J45.909 Unspecified asthma, uncomplicated; J44.9 Chronic obstructive pulmonary disease, unspecified; I77.0 Arteriovenous fistula, acquired; E11.649 Type 2 diabetes mellitus with hypoglycemia without coma; G47.33 Obstructive sleep apnea (adult) (pediatric); D63.1 Anemia in chronic kidney disease; D69.6 Thrombocytopenia, unspecified; Z79.899 Other long term (current) drug therapy; Z88.6 Allergy status to analgesic agent; Z88.8 Allergy status to other drugs, medicaments and biological substances; Z88.0 Allergy status to penicillin; Z87.891 Personal history of nicotine dependence; E87.6 Hypokalemia; R68.0 Hypothermia, not associated with low environmental temperature; Z66 Do not resuscitate